=== PATIENT | male | born 1935 | race Caucasian/White ===

== ENCOUNTER → 2016-09-03 | Outpatient (REF) | payer MEDICARE, OTHER ==
[~2016-09-03] MED LIST: ALLO100T PO; AMLO5TAB2 PO; B COTAB3 PO; CARV12.5 PO; CARV3.12 PO; CARV6.25 PO; CHLO25TA PO; DORZ2OPD OU; FERR325T PO; INSULANT SC; LISI40TAB PO; LIVA4TAB PO; METF1000 PO; OMEP40CA2 PO; PIOG15TA3 PO; ROCE1INJ4 IJ; VICT18IN SC; VITA-121 PO
== END ==
LOC: M LAB REF 16:41
PROVIDERS: ATTEND Physician Assistant
DX: R31.9 Hematuria, unspecified (principal)

== ENCOUNTER → 2018-01-03 | Outpatient (REF) | payer MEDICARE, OTHER ==
[2018-01-03 14:19] LABS: FERRITIN 61 NG/ML (26-388); IRON (FE) 85 UG/DL (65-175); PERCENT SATURATION 22.3 % (19.7-50.0); TOTAL IRON BINDING CAPACITY 382 UG/DL (250-450)
== END ==
LOC: M LAB REF 13:15
DX: D64.9 Anemia, unspecified (principal)
CPT/HCPCS: 83550

== ENCOUNTER → 2018-07-01 | Outpatient (REF) | payer MEDICARE, OTHER | LOC: M SMT 17:01 | DX: R97.20 Elevated prostate specific antigen [PSA] (principal) | CPT/HCPCS: 87086 ==

== ENCOUNTER → 2018-10-19 | Outpatient (REF) | payer MEDICARE, OTHER ==
[~2018-10-19] MED LIST changes: -AMLO5TAB2 PO; +AMLO5TAB6 PO; +FERR1TAB8 PO; -FERR325T PO; -METF1000 PO; +METF10004 PO; -PIOG15TA3 PO; +PIOG1TAB36 PO; -ROCE1INJ4 IJ; +ROCE1INJ6 IJ
[2018-10-21 14:22] LABS: PSA % FREE 9.8 % (.); PSA FREE 0.39 ng/mL
== END ==
LOC: M LAB REF 17:20
PROVIDERS: ATTEND Nurse Practitioner Family
DX: R97.20 Elevated prostate specific antigen [PSA] (principal)

== ENCOUNTER 2019-06-29 16:22 | Inpatient (IN) | payer MEDICARE, BC, OTHER ==
[~2019-06-29] VITALS: Ht 190.5 cm; Wt 148.3 kg
[~2019-06-29 16:22] MED LIST changes: +CHLO125TA PO; -CHLO25TA PO; +LISI40TA52 PO; -LISI40TAB PO; -OMEP40CA2 PO; +OMEP40CA97 PO
[2019-06-29] MEDS ORDERED: TRAZ-252 PO (16:43)
[2019-06-29 17:07] LABS: BASO # 0.1 10^3/uL (0.0-0.2); BASO % 0.4 % (0.0-1.0); EOS # 0.2 10^3/uL (0.0-0.5); EOS % 1.8 % (0.0-3.0); HEMATOCRIT 22.6 % (42.0-52.0); HEMOGLOBIN 7.1 g/dl (13.5-17.5); LYMPH # 2.5 10^3/uL (1.5-5.0); LYMPH % 21.8 % (24.0-44.0); MEAN CORPUSCULAR HEMOGLOBIN 35.1 pg (27.0-33.0); MEAN CORPUSCULAR HGB CONC 31.4 g/dl (32.0-36.5); MEAN CORPUSCULAR VOLUME 111.9 fl (80.0-96.0); MONO # 0.7 10^3/uL (0.0-0.8); MONO % 6.5 % (0.0-5.0); NEUTROPHILS # 7.8 10^3/uL (1.5-8.5); NEUTROPHILS % 69.1 % (36.0-66.0); PLATELET COUNT, AUTOMATED 134 10^3/uL (150-450); RED BLOOD COUNT 2.02 10^6/uL (4.30-6.10); WHITE BLOOD COUNT 11.3 10^3/uL (4.0-10.0)
[2019-06-29 17:23] LABS: CALCIUM LEVEL 8.8 MG/DL (8.8-10.2); CREATININE FOR GFR 2.79 MG/DL (0.70-1.30); GLOMERULAR FILTRATION RATE 23.2 (>35)
[2019-06-29] MEDS ORDERED: PANTOPRAZOLE 40MG INJ (PROTONIX) (C9113) IV ONE (18:15)
[2019-06-29 18:29] LABS: PERCENT SATURATION 13.7 % (19.7-50.0)
[2019-06-29 18:49] VITALS: BP 165/70
[2019-06-29] MEDS ORDERED: ELIQ2.5T PO (18:55)
[2019-06-29] MEDS ORDERED: VITA-144 PO (18:55)
[2019-06-29] MEDS ORDERED: NICO250C PO (18:55)
[2019-06-29] MEDS ORDERED: INCR1INH INH (18:55)
[2019-06-29] MEDS ORDERED: COMB0.2S OU (18:55)
[2019-06-29] MEDS ORDERED: VYZU0.02 OU (18:55)
[2019-06-29] MEDS ORDERED: CARV12.5 PO (18:55)
[2019-06-29] MEDS ORDERED: PROAAER10 INH (18:55)
[2019-06-29] MEDS ORDERED: AMMO12LO TOP (18:55)
[2019-06-29] MEDS ORDERED: FURO40TA2 PO (18:55)
[2019-06-29] MEDS ORDERED: DIPR0.052 TOP (18:55)
[2019-06-29] MEDS ORDERED: CHLO25TA PO (18:55)
[2019-06-29] MEDS ORDERED: BACT800T5 PO (19:00)
[2019-06-29 19:04] VITALS: BP 149/64
[2019-06-29 19:49] VITALS: BP 138/65
[2019-06-29] MEDS ORDERED: traZODone 50 MG TAB PO PRN (20:30)
[2019-06-29] MEDS ORDERED: ALBUTEROL 90 MCG/ACT 8GM HFA INHALER INH PRN (20:30)
[2019-06-29] MEDS ORDERED: D5W/0.9% SODIUM CHLORIDE 1,000 ML IV SCH (20:30)
--- NOTE | 2019-06-29 20:44 | HPEPDOC ---
[facility] Medical History & Physical Date of Admission Jun 29, 2019 Date of Service: Jun 29, 2019 Attending Physician: YE ELLIOTT MD History and Physical CHIEF COMPLAINT: abnormal labs HISTORY OF PRESENT ILLNESS: Nilo Rodriguez is an 84-year-old male with past medical history chronic kidney disease IV, atrial fibrillation, diabetes who presented to the ED from nephrology clinic found to have low hemoglobin. The patient reports that over the past couple of months he has noticed increasing shortness of breath, weakness, muscle aches in his lower extremities with activity. He sometimes feels lightheaded and dizzy after breakfast in the mornings. He has not noticed any new black stools, but he is on supplemental iron and always has darker or black stools. He has not had any bright red blood per rectum nor any hemoptysis recently. He is currently on Eliquis for his atrial fibrillation. The patient is unable to remember his last colonoscopy, as it was several years ago, but he does not have any history of stomach ulcers or GI bleeds. PAST MEDICAL HISTORY: Septic arthritis- right knee Diabetes Hypertension Chronic kidney disease Atril fib History DVT GERD Vitamin D deficency Macular degernation Gout Obesity Hyperlipidemia BPH HX [place] PAST SURGICAL HISTORY: Right knee arthroscopy with I&D 07/2015 Right knee I&D 08/2015 Cataracts 2002 Melanoma removed left arm SOCIAL HISTORY: Former smoker, 2ppd, quit in 1999 FAMILY HISTORY: Father: , LYMPHOMA, HAD PROSTATE WORKED ON IN HIS EARLY 70S., diagnosed with Diabetes Mother: Siblings: SISTER: FROM BRAIN TUMOR, diagnosed with Diabetes Daughter(s): 1 DAUGHTER AT YOUNG AGE 1 brother(s) , 3 sister(s) . 2 son(s) , 2 daughter(s) . ALLERGIES: Please see below. REVIEW OF SYSTEMS: CONSTITUTIONAL: Feels well. No fever or chills HEENT: denies vision changes, no sinus problems, denies any trouble swallowing CARDIOVASCULAR: no palpitations RESPIRATORY: Reports increasing shortness of breath over the past few months with activity GENITOURINARY: No dysuria MUSCULOSKELETAL: Denies any joint/muscle pain GASTROINTESTINAL: Denies abdominal pain, no nausea/vomiting/diarrhea SKIN: No new rashes or lesions NEUROLOGICAL: No loss of sensation PSYCHIATRIC: Reports normal mood, no delusions or hallucinations ENDOCRINE: No hot/cold intolerance HEMATOLOGIC/LYMPHATIC: No easy bruising, no lumps/bumps ALLERGIC/IMMUNOLOGIC: No sinus symptoms HOME MEDICATIONS: Please see below. PHYSICAL EXAMINATION: VITAL SIGNS: Please see below. GENERAL APPEARANCE: Laying in bed, appears stated age, no acute distress, calm, cooperative HEENT: EOMI, PERRLA, neck is supple with no thyromegaly or lymphadenopathy RESPIRATORY: Lungs are clear to auscultation bilaterally with no adventitious breath sounds appreciated CARDIOVASCULAR: no JVD, RRR,no murmurs/rubs/gallops ABDOMEN: Soft, obese, nontender to palpation in all four quadrants, no masses/organomegaly EXTREMITIES: There is a chronic wound on left valdivia that is clean, dry and intact, legs are edematous bilaterally and there is evidence of vascular insufficiency. NEUROLOGICAL: No obvious focal deficits PSYCHIATRIC: normal mood/affect Skin: No rashes or ulcers. LN: No significant cervical or inguinal lymphadenopathy LABORATORY DATA: See below. IMAGING: None MICROBIOLOGY: Please see below. ASSESSMENT: This is an 84-year-old male with history of chronic kidney disease, diabetes, GERD, who presents to the ED from nephrology clinic found to have hemoglobin 7.1. He complains of some shortness of breath that has been worsening over the past few months. Found to have heme positive stools. Admitted for further workup for blood loss anemia. PLAN: 1. Acute blood loss anemia: -Unknown when patient had last colonoscopy -1 unit PRBCs ordered in the ED -Will recheck H/H in AM -GI consult in AM for possible EGD/colonoscopy -IV protonix -NPO for now -Holding Eliquis for now 2. Hypertension: BP 149/64 -Continue home Coreg, Chlorthalidone, Lasix -Holding amlodipine 3. Atrial Fibrillation: -Rate controlled -Holding Eliquis 2/2 GIB 4. DM2: -Continue home Levemir 70U BID -SSI for meals with hypoglycemic protocol 5. CKD IV: Cr found to be 2.79 with unknown baseline -Continue Allopurinol 6. Mood disorder: -Continue Trazodone DISPO: Pending transfusion and workup for GI Bleed Vital Signs Vital Signs Date Time Temp Pulse Resp B/P (MAP) Pulse Ox O2 Delivery O2 Flow Rate FiO2 06/29/19 19:04 96.7 79 20 149/64 98 Room Air Laboratory Data Labs 24H Laboratory Tests 2 06/29/19 16:44: Immature Granulocyte % (Auto) 0.4, Neutrophils (%) (Auto) 69.1H, Lymphocytes (%) (Auto) 21.8L, Monocytes (%) (Auto) 6.5H, Eosinophils (%) (Auto) 1.8, Basophils (%) (Auto) 0.4, Neutrophils # (Auto) 7.8, Lymphocytes # (Auto) 2.5, Monocytes # (Auto) 0.7, Eosinophils # (Auto) 0.2, Basophils # (Auto) 0.1, Reticulocyte # (auto) 192.0H, Nucleated Red Blood Cells % (auto) 0.0, Percent Reticulocyte Count 9.6H, Reticulocyte Hemoglobin Equivalent 31.2, Anion Gap 6L, Glomerular Filtration Rate 23.2L, Calcium Level 8.8, Iron Level 59L, Total Iron Binding Capacity 432, Transferrin % Saturation 13.7L, Ferritin 50, Vitamin B12 Level 947H CBC/BMP Laboratory Tests 06/29/19 16:44 Home Medications Scheduled Allopurinol (Allopurinol) 100 Mg Tab, 100 MG PO DAILY Amlodipine Besylate (Amlodipine Besylate) 5 Mg Tab, 5 MG PO DAILY Ammonium Lactate (Ammonium Lactate) 12% Lotion, 1 APPLIC TOP BID APPLIED TO FEET Apixaban (Eliquis) 2.5 Mg Tablet, 2.5 MG PO BID Brimonidine Tartrate/Timolol (Combigan 0.2%-0.5% Eye Drops) 5 Ml Drops, 1 DROP OU BID Carvedilol (Carvedilol) 12.5 Mg Tablet, 12.5 MG PO BID Chlorthalidone (Chlorthalidone) 25 Mg Tablet, 25 MG PO DAILY Cholecalciferol (Vitamin D3) (Vitamin D3) 1,000 Unit Tablet, 1,000 UNIT PO DAILY Ferrous Sulfate (Ferrous Sulfate) 325 Mg Tab, 325 MG PO DAILY Fluticasone/Umeclidin/Vilanter (Trelegy Ellipta 100-62.5-25) 1 Each Blst.w.dev, 1 PUFF INH DAILY Furosemide (Furosemide) 40 Mg Tablet, 40 MG PO TID Insulin Glargine (Lantus) 1 Units/0.01 Ml Susp, 70 UNITS SC BID Latanoprostene Bunod (Vyzulta) 0.024% 5ML Drops, 1 DROP OU QHS Niacin (Niacin) 250 Mg Capsule.er, 250 MG PO QPM Omeprazole (Omeprazole) 40 Mg Cap, 40 MG PO DAILY Sulfamethoxazole/Trimethoprim (Bactrim Ds Tablet) 1 Each Tablet, 1 TAB PO BID STARTED 10 DAYS ON 06/21 Vitamin B Complex (Vitamin B Complex) 1 Tab Tab, 1 TAB PO DAILY Scheduled PRN Albuterol Sulfate (Proair Hfa) 8.5 Gm Hfa.aer.ad, 2 PUFF INH Q4H PRN for SOB/WHEEZING Betamethasone/Propylene Glyc (Diprolene 0.05% Ointment) 15 Gm Oint...g., 1 APPLIC TOP BID PRN for DIABETIC ITCH Trazodone HCl (Trazodone HCl) 50 Mg Tablet, 50 MG PO QHS PRN for SLEEP Allergies Coded Allergies: latex (Verified Allergy, Unknown, 06/29/19) A-FIB/CHADSVASC A-FIB History Current/History of A-Fib/PAF?: Yes Current PO Anticoag Therapy: Yes GME ATTESTATION GME ATTESTATION My faculty preceptor for this patient encounter was physically present during the encounter and was fully available. All aspects of the patient interview, examination, medical decision making process, and medical care plan development were reviewed and approved by the faculty preceptor. The faculty preceptor is aware and concurs with the plan as stated in the body of this note and will attest to such by his/her cosignature. ATTENDING NOTE I examined Mr. Rodriguez at 8:20 PM, discussed the case with and agree the findings as documented above with addition of the following : Mr. 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 He denies having any symptoms. His physical exam was remarkable for facial spider angiomata, left lower extremity wound, and bilateral lower extremity eating edema up to the knees A&P: 1. Acute blood loss anemia The differential includes: diverticulosis, angiodysplasia's (most common cause of small-bowel bleeding in older patients), AVM, polyps, colorectal cancer, hemorrhoids, or anal fissure He received 1 unit of PRBS in the ED. Iron panel c/w KATIUSKA The [place] score to predict risk of readmission for GI bleed = 24 points = 20- 28 % Probability of safe discharge (absence of rebleeding, blood transfusion, therapeutic intervention, 28 day readmission, or ). Discharge NOT recommended Plan: admit to PCU / NPO w D5NS @ 30ml/H / GI consult for c-scope / f/u serial Hg Q12H/ venofer x 3 doses / hold PO iron 2. KEERTHI and CKD3 vs CKD 4 - Plan: IVF/ f/u ulytes, PTH, phosph, Vit D, hepatitis panel, uric acid, UPro:Cr, UA w ultes / Renal US / avoid nephrotoxins such as NSAIDs, ACEIs, ARBs 3. COPD - Plan: c/w albuterol & incruse ellipta 4. Left lower extremity wound 2/2 trauma - Plan: wound care / c/w bactrim 5. IDDM -Plan: f/u A1C and accuchecks / give half dose of long acting insulin which is levemir 35 units BID while he is NPO w SSI / hypoglycemia protocol 6. Atrial fibrillation - Plan: hold eliquis bc of GI bleed 7. Chronic hypertension - Plan: c/w amlodpine, coreg and chlorthalidone 8. History of DVT - Plan: hold eliquis 9. Gout - Plan: c/w allopurinol 10. Chronic CAD / Dyslipidemia - Plan: c/w coreg 11. Thrombocytopenia - Plan: f/u Hep panel 12. BLE edema possibly due to CKD vs CHF ? - Plan: c/w lasix, f/u BNP / elevate legs 13.Obesity w BMI of 41.3 kg/m2 complicates care - Plan: bariatric bed / can f/u w PCP for STOP BANG questionnaire boat hop consult & referral for Bariatric Surgeon / recommend cardiovascular exercise for 40 min 4-5 days a week DVT Px w SCDs bc of acute anemia ONI AYALA MD Jun 29, 2019 19:35 YE ELLIOTT MD Jun 29, 2019 22:00
[2019-06-29] MEDS ORDERED: DEXTROSE 50% 50 ML SYRINGE IV PRN (20:45)
[2019-06-29] MEDS ORDERED: GLUCOSE 4 GM CHEW TABLET PO PRN (20:45)
[2019-06-29] MEDS ORDERED: GLUCAGON FOR INJ 1 MG VIAL (J1610) SC PRN (20:45)
[2019-06-29 20:49] VITALS: BP 140/60
[2019-06-29] MEDS ORDERED: LEVEMIR (INSULIN DETEMIR) 1 UNITS/0.01ML SC SCH (21:00)
[2019-06-29] MEDS: LEVEMIR (INSULIN DETEMIR) 1 UNITS/0.01ML SC SCH (21:00)
[2019-06-29] MEDS ORDERED: IRON SUCROSE 100MG 5ML VIAL (J1756 PER 1MG) IV SCH (21:00)
[2019-06-29] MEDS: HumaLOG INSULIN (NovoLOG) PER UNIT SC SCH (21:00)
[2019-06-29 21:49] LABS: ALBUMIN 3.3 GM/DL (3.2-5.2); BILIRUBIN,DIRECT 0.2 MG/DL (0.0-0.2); BILIRUBIN,TOTAL 0.6 MG/DL (0.2-1.0); TOTAL PROTEIN 7.5 GM/DL (6.4-8.2)
[2019-06-29 22:00] VITALS: BP 139/67
[2019-06-29] MEDS ORDERED: D5W/0.9% SODIUM CHLORIDE 1,000 ML IV ONE (22:30)
[2019-06-29] MEDS: LACTIC ACID 12% LOTION 225 GM BTL TOP SCH (23:47)
[2019-06-29] MEDS: FUROSEMIDE 40 MG TAB PO SCH (23:47)
[2019-06-29] MEDS: BACTRIM 80MG/400MG TAB PO SCH (23:48)
[2019-06-29] MEDS: NIACIN 250MG EXTENDED RELEASE CAPSULE PO SCH (23:48)
[2019-06-29] MEDS: CARVedilol 12.5 MG TAB PO SCH (23:48)
[2019-06-30] VITALS (15 sets, daily range): BP systolic 86–165; BP diastolic 42–85
[2019-06-30 00:08] LABS: HEMATOCRIT 25.1 % (42.0-52.0); HEMOGLOBIN 7.7 g/dl (13.5-17.5)
[2019-06-30 00:13] LABS: NT-PRO BNP 2483 PG/ML (<450); PHOSPHORUS LEVEL 3.4 MG/DL (2.5-4.9); URIC ACID 11.2 MG/DL (3.5-7.2)
[2019-06-30 00:33] LABS: APPEARANCE, URINE CLEAR (CLEAR); BACTERIA, URINE AUTO NEGATIVE (NEGATIVE); BILIRUBIN, URINE AUTO NEGATIVE (NEGATIVE); BLOOD, URINE BLOOD NEGATIVE (NEGATIVE); COLOR, URINE YELLOW (YELLOW); GLUCOSE, URINE (UA) AUTO NEGATIVE (NEGATIVE); KETONE, URINE AUTO NEGATIVE (NEGATIVE); LEUKOCYTE ESTERASE, URINE AUTO NEGATIVE (NEGATIVE); NITRITE, URINE AUTO NEGATIVE (NEGATIVE); PROTEIN, URINE AUTO NEGATIVE (NEGATIVE); RBC, URINE AUTO 0 /HPF (0-3); SPECIFIC GRAVITY URINE AUTO 1.012 (1.002-1.035); SQUAMOUS EPITHELIAL CELL UR AU 0 /HPF (0-6); UROBILINOGEN, URINE AUTO 0.2 mg/dL (0.0-2.0); WBC, URINE AUTO 1 /HPF (0-3)
[2019-06-30 00:48] LABS: CREATININE,RANDOM URINE 67.9 MG/DL; SODIUM,RANDOM URINE 71 MEQ/L; TOTAL PROTEIN,RANDOM URINE 17.7 MG/DL (0.0-12.0)
[2019-06-30] MEDS: IRON SUCROSE 100MG 5ML VIAL (J1756 PER 1MG) IV SCH ×2 (01:15→22:52)
[2019-06-30 04:26] LABS: HEMATOCRIT 23.7 % (42.0-52.0); HEMOGLOBIN 7.6 g/dl (13.5-17.5); MEAN CORPUSCULAR HEMOGLOBIN 34.9 pg (27.0-33.0); MEAN CORPUSCULAR HGB CONC 32.1 g/dl (32.0-36.5); MEAN CORPUSCULAR VOLUME 108.7 fl (80.0-96.0); PLATELET COUNT, AUTOMATED 118 10^3/uL (150-450); RED BLOOD COUNT 2.18 10^6/uL (4.30-6.10); WHITE BLOOD COUNT 10.1 10^3/uL (4.0-10.0)
[2019-06-30 04:51] LABS: CREATININE FOR GFR 2.56 MG/DL (0.70-1.30); GLOMERULAR FILTRATION RATE 25.7 (>35); POTASSIUM SERUM 3.3 MEQ/L (3.5-5.1)
[2019-06-30 04:52] LABS: BILIRUBIN,TOTAL 0.8 MG/DL (0.2-1.0); CALCIUM LEVEL 8.4 MG/DL (8.8-10.2); TOTAL PROTEIN 6.8 GM/DL (6.4-8.2)
[2019-06-30] MEDS: HumaLOG INSULIN (NovoLOG) PER UNIT SC SCH ×4 (07:30→21:00)
[2019-06-30] MEDS: LACTIC ACID 12% LOTION 225 GM BTL TOP SCH ×2 (09:00→22:23)
[2019-06-30] MEDS ORDERED: ENOXAPARIN 30 MG/0.3 ML SYR (J1650) SC SCH (09:00)
[2019-06-30] MEDS ORDERED: FERROUS SULFATE 325MG TAB PO SCH (09:00)
[2019-06-30] MEDS ORDERED: BETAMETHASONE DIP 0.05% OINT 15 GM TOP PRN (09:00)
[2019-06-30] MEDS: COMBIGAN OU SCH ×2 (09:00→21:48)
[2019-06-30] MEDS: TRELEGY ELLIPTA INH SCH (09:00)
[2019-06-30] MEDS: EYE OU SCH ×3 (09:00→21:48)
[2019-06-30] MEDS ORDERED: amLODIPine 5 MG TAB PO SCH (09:00)
--- NOTE | 2019-06-30 09:17 | REP ---
URINARY TRACT SONOGRAPHY: HISTORY: Acute renal insufficiency. Comparison sonography is from March 12, 2011. FINDINGS: Scanning at the level of the urinary bladder shows that it is largely empty. Not well seen. Renal cortical echogenicity pattern is felt to be slightly increased. There is no evidence of hydronephrosis on either side. There is a 1.9 cm cyst at the mid pole position of the right kidney and there are three small cysts visible on the left including a 3.7 cm cyst at the lower pole and two mid pole cysts measuring 2.6 and 2.0 cm in greatest diameter respectively. There is an echogenic focus in the lower pole right kidney which may be a stone. Right renal dimensions are 12.4 x 6.5 x 6.6 cm. Left renal dimensions are 13.3 x 6.3 x 7.2 cm. IMPRESSION: Slightly increased renal cortical echogenicity pattern. No evidence of hydronephrosis. Bilateral renal cysts. Question stone lower pole right kidney. Electronically Signed by Checo Huber MD 06/30/2019 10:07 A
[2019-06-30] MEDS: VITAMIN D 1,000 INTERNATIONAL UNITS TABLET PO SCH (09:49)
[2019-06-30] MEDS: ALLOPURINOL 100 MG TAB PO SCH (09:50)
[2019-06-30] MEDS: BACTRIM 80MG/400MG TAB PO SCH ×2 (09:50→21:45)
[2019-06-30] MEDS: CHLORTHALIDONE 25 MG TAB PO SCH (09:50)
[2019-06-30] MEDS: CARVedilol 12.5 MG TAB PO SCH ×2 (09:50→21:46)
[2019-06-30] MEDS: FUROSEMIDE 40 MG TAB PO SCH ×3 (09:50→21:45)
[2019-06-30] MEDS: LEVEMIR (INSULIN DETEMIR) 1 UNITS/0.01ML SC SCH ×2 (09:51→21:00)
[2019-06-30 10:08] LABS: TOTAL 25(OH) VITAMIN D 53.6 NG/ML (30.0-100.0)
[2019-06-30 10:09] LABS: PTH INTACT 38.6 PG/ML (18.5-88.0)
[2019-06-30 10:21] LABS: HEPATITIS B SURFACE ANTIGEN NEGATIVE (NEGATIVE)
--- NOTE | 2019-06-30 10:39 | IPNPDOC ---
Subjective Date Seen The patient was seen on 06/30/19. Subjective Chief Complaint/HPI Patient is comfortable in no distress of unknown, he complains General: Denies: ROS Unobtainable, Chills, Night Sweats, Fatigue, Malaise, Normal Appetite, Other Symptoms Constitutional: Denies: Chills, Fever, Malaise, Night Sweats, Weakness, Fatigue, Weight Loss, Lethargy, Other Eyes: Denies: Pain, Vision change, Conjunctivae inflammation, Eyelid inflammation, Redness, Other ENT: Denies: Head Aches, Ear Pain, Dysphagia, Sinus Congestion, Post Nasal Drip , Sore Throat, Epistaxis, Other Symptoms Skin: Denies: Rash, Lesions, Jaundice, Bruising, Itching, Dry, Breakdown, Nail Changes, Other Pulmonary: Denies: Dyspnea, Cough, Pleuritic Chest Pain, Other Symptoms Gastrointestinal: Reports: Other Symptoms (dark stools) Genitourinary: Denies: Dysuria, Frequency, Incontinence, Hematuria, Retention, Other Symptoms Musculoskeletal: Denies: Neck Pain, Back Pain, Shoulder Pain, Arm Pain, Hand Pain, Leg Pain, Foot Pain, Joint Pain, Muscle Pain, Spasms, Other Symptoms Neurological: Denies: Weakness, Numbness, Incoordination, Change in speech, Confusion, Seizures, Other Symptoms Objective Physical Examination General Exam: Positive: Alert, Cooperative Eye Exam: Positive: PERRLA, Conjunctiva & lids normal ENT Exam: Positive: Atraumatic Neck Exam: Positive: Supple Chest Exam: Positive: Clear to auscultation, Normal air movement Heart Exam: Positive: Rate Normal, Normal S1, Normal S2 Abdomen Exam: Positive: Normal bowel sounds Extremity Exam: Positive: Normal pulses Skin Exam: Positive: Nl turgor and temperature Neuro Exam: Positive: Strength at 5/5 X4 ext, Sensation Intact Assessment /Plan Problems (1) Acute blood loss anemia Status: Acute Problem Text: Acute blood loss anemia most likely etiology is probably upper GI bleed as patient is a stool occult blood positive. Study of dark stools Pt is H&H is 7.6/23.7 after transfusion of one more 1 unit of PRBC We will repeat H&H again this afternoon. If is still under 8. We'll transfuse 1 more unit of PRBC Patient has been started on Protonix and will continue the same GI consult has been requested and will await their recommendation (2) Upper GI bleed Status: Acute Problem Text: Most likely upper GI bleed As patient was, anticoagulation with Eliquis which has been stopped Continue Protonix as per orders ER consult pending (3) Atrial fibrillation Status: Acute Problem Text: History of atrial fibrillation with controlled] Anticoagulation with Eliquis has been stopped secondary to active GI bleed Continue telemetry and close monitoring (4) CKD (chronic kidney disease), stage III Status: Chronic Problem Text: Stable renal functions We'll continue monitoring BUN/creatinine (5) Morbid obesity Status: Chronic (6) Hypertension Status: Chronic Problem Text: Continue home meds (7) Thrombocytopenia Status: Acute Problem Text: Not sure whether thrombocytopenias acute on chronic Etiology is unknown , We'll closely monitor and transfuse as needed (8) Elevated MCV Status: Chronic Problem Text: Elevated MCV, probably chronic , Etiology unknown, denies alcohol abuse Will order vitamin B12 and folic acid levels (9) Hypokalemia Status: Acute Problem Text: KCl 10 milliequivalents run 2 A.m. labs Plan/VTE VTE Prophylaxis Ordered?: Yes VS, I&O, 24H, Fishbone Vital Signs/I&O Vital Signs Date Time Temp Pulse Resp B/P (MAP) Pulse Ox O2 Delivery O2 Flow Rate FiO2 06/30/19 09:50 83 130/68 06/30/19 07:28 98.1 18 98 Room Air I&O- Last 24 Hours up to 6 AM 06/30/19 06:00 Intake Total 1636 ml Output Total 1265 ml Balance 371 ml Laboratory Data 24H LABS Laboratory Tests 2 06/29/19 16:44: Immature Granulocyte % (Auto) 0.4, Neutrophils (%) (Auto) 69.1H, Lymphocytes (%) (Auto) 21.8L, Monocytes (%) (Auto) 6.5H, Eosinophils (%) (Auto) 1.8, Basophils (%) (Auto) 0.4, Neutrophils # (Auto) 7.8, Lymphocytes # (Auto) 2.5, Monocytes # (Auto) 0.7, Eosinophils # (Auto) 0.2, Basophils # (Auto) 0.1, Reticulocyte # (auto) 192.0H, Nucleated Red Blood Cells % (auto) 0.0, Percent Reticulocyte Count 9.6H, Reticulocyte Hemoglobin Equivalent 31.2, Anion Gap 6L, Glomerular Filtration Rate 23.2L, Calcium Level 8.8, Iron Level 59L, Total Iron Binding Capacity 432, Transferrin % Saturation 13.7L, Ferritin 50, Total Bilirubin 0.6, Direct Bilirubin 0.2, Aspartate Amino Transf (AST/SGOT) 14, Alanine Aminotransferase (ALT/SGPT) 20, Alkaline Phosphatase 78, Total Protein 7.5, Albumin 3.3, Albumin/Globulin Ratio 0.79L, Vitamin B12 Level 947H 06/29/19 20:22: Bedside Glucose (Misc Panel) 80L 06/29/19 23:29: Bedside Glucose (Misc Panel) 112H 06/29/19 23:34: Uric Acid 11.2H, Phosphorus Level 3.4, BJ-[id number]-Type Natriuretic Peptide 2483H, 25-Hydroxy Vitamin D Total 53.6, Parathyroid Hormone (Intact) 38.6, Hepatitis B Surface Antigen NEGATIVE 06/29/19 23:50: Urine Color YELLOW, Urine Appearance CLEAR, Urine pH 7.0, Urine Specific [place] 1.012, Urine Protein NEGATIVE, Urine Glucose (Auto)(UA) NEGATIVE, Urine Ketones (Auto) NEGATIVE, Urine Blood NEGATIVE, Urine Nitrite NEGATIVE, Urine Bilirubin NEGATIVE, Urine Urobilinogen 0.2, Urine Leukocyte Esterase (Auto) NEGATIVE, Urine WBC (Auto) 1, Urine RBC (Auto) 0, Urine Hyaline Casts (Auto) 0, Urine Bacteria (Auto) NEGATIVE, Urine Squamous Epithelial Cells 0, Urine Sperm (Auto) , Urine Random Creatinine 67.9, Urine Random Total Protein 17.7H, Urine Random Sodium 71 06/30/19 03:59: Nucleated Red Blood Cells % (auto) 0.0, Anion Gap 8, Glomerular Filtration Rate 25.7L, Calcium Level 8.4L, Total Bilirubin 0.8, Aspartate Amino Transf (AST/SGOT) 16, Alanine Aminotransferase (ALT/SGPT) 18, Alkaline Phosphatase 69, Total Protein 6.8, Albumin 3.0L, Albumin/Globulin Ratio 0.79L 06/30/19 06:42: Bedside Glucose (Misc Panel) 130H CBC/BMP Laboratory Tests 06/29/19 16:44 06/29/19 23:34 06/30/19 03:59 NIKOS EVANS MD Jun 30, 2019 10:39
[2019-06-30 10:47] LABS: HEPATITIS B CORE ANTIBODY IGM NEGATIVE (NEGATIVE)
[2019-06-30 10:49] LABS: HEPATITIS A ANTIBODY IGM NEGATIVE (NEGATIVE)
[2019-06-30] MEDS: KCL 10MEQ/100ML SWI (KRUN) 10 MEQ in IV 1 EA IV SCH ×2 (11:16→12:21)
[2019-06-30] MEDS ORDERED: TREL1AER INH (13:16)
[2019-06-30 17:16] LABS: BASO % 0.3 % (0.0-1.0); EOS # 0.2 10^3/uL (0.0-0.5); EOS % 2.1 % (0.0-3.0); HEMATOCRIT 25.8 % (42.0-52.0); HEMOGLOBIN 8.4 g/dl (13.5-17.5); LYMPH # 2.4 10^3/uL (1.5-5.0); LYMPH % 24.7 % (24.0-44.0); MEAN CORPUSCULAR HEMOGLOBIN 34.6 pg (27.0-33.0); MEAN CORPUSCULAR HGB CONC 32.6 g/dl (32.0-36.5); MEAN CORPUSCULAR VOLUME 106.2 fl (80.0-96.0); MONO # 0.7 10^3/uL (0.0-0.8); MONO % 7.1 % (0.0-5.0); NEUTROPHILS # 6.4 10^3/uL (1.5-8.5); NEUTROPHILS % 65.3 % (36.0-66.0); PLATELET COUNT, AUTOMATED 131 10^3/uL (150-450); RED BLOOD COUNT 2.43 10^6/uL (4.30-6.10); WHITE BLOOD COUNT 9.8 10^3/uL (4.0-10.0)
[2019-06-30] MEDS: NIACIN 250MG EXTENDED RELEASE CAPSULE PO SCH (17:21)
[2019-06-30] MEDS: VYZULTA 0.024% OU SCH (21:48)
[2019-06-30] MEDS ORDERED: LEVEMIR (INSULIN DETEMIR) 1 UNITS/0.01ML SC SCH (22:15)
[2019-07-01] VITALS: BP 122/58
[2019-07-01 04:00] VITALS: BP 157/65
[2019-07-01 06:04] LABS: BASO % 0.3 % (0.0-1.0); EOS # 0.3 10^3/uL (0.0-0.5); EOS % 2.8 % (0.0-3.0); HEMATOCRIT 26.3 % (42.0-52.0); HEMOGLOBIN 8.6 g/dl (13.5-17.5); LYMPH # 2.5 10^3/uL (1.5-5.0); LYMPH % 25.2 % (24.0-44.0); MEAN CORPUSCULAR HEMOGLOBIN 35.1 pg (27.0-33.0); MEAN CORPUSCULAR HGB CONC 32.7 g/dl (32.0-36.5); MEAN CORPUSCULAR VOLUME 107.3 fl (80.0-96.0); MONO # 0.8 10^3/uL (0.0-0.8); MONO % 8.1 % (0.0-5.0); NEUTROPHILS # 6.2 10^3/uL (1.5-8.5); NEUTROPHILS % 63.2 % (36.0-66.0); PLATELET COUNT, AUTOMATED 120 10^3/uL (150-450); RED BLOOD COUNT 2.45 10^6/uL (4.30-6.10); WHITE BLOOD COUNT 9.8 10^3/uL (4.0-10.0)
[2019-07-01 06:36] LABS: BILIRUBIN,TOTAL 0.7 MG/DL (0.2-1.0); CALCIUM LEVEL 8.7 MG/DL (8.8-10.2); CREATININE FOR GFR 2.34 MG/DL (0.70-1.30); GLOMERULAR FILTRATION RATE 28.5 (>35); MAGNESIUM LEVEL 1.9 MG/DL (1.8-2.4); POTASSIUM SERUM 3.3 MEQ/L (3.5-5.1); TOTAL PROTEIN 7.3 GM/DL (6.4-8.2)
[2019-07-01] MEDS ORDERED: POTASSIUM CHLORIDE 10 MEQ SR TABLET PO ONE (07:30)
[2019-07-01 08:00] VITALS: BP 138/63
[2019-07-01] MEDS: VITAMIN D 1,000 INTERNATIONAL UNITS TABLET PO SCH (08:56)
[2019-07-01] MEDS: ALLOPURINOL 100 MG TAB PO SCH (08:56)
[2019-07-01] MEDS: HumaLOG INSULIN (NovoLOG) PER UNIT SC SCH ×4 (08:56→20:58)
[2019-07-01] MEDS: FUROSEMIDE 40 MG TAB PO SCH ×3 (08:56→21:27)
[2019-07-01] MEDS: CHLORTHALIDONE 25 MG TAB PO SCH (08:56)
[2019-07-01] MEDS: LEVEMIR (INSULIN DETEMIR) 1 UNITS/0.01ML SC SCH ×2 (08:57→21:36)
[2019-07-01] MEDS: BACTRIM 80MG/400MG TAB PO SCH ×2 (08:57→21:26)
[2019-07-01] MEDS: CARVedilol 12.5 MG TAB PO SCH ×2 (08:57→21:30)
[2019-07-01] MEDS ORDERED: FLUBLOK(EGG FREE)(QUAD)INFLUENZA VACC 0.5ML SYRINGE (90682)18YRS&OLDER IM ONE (09:00)
[2019-07-01] MEDS: EYE OU SCH ×3 (09:17→21:31)
[2019-07-01] MEDS: COMBIGAN OU SCH ×2 (09:17→21:31)
[2019-07-01] MEDS: TRELEGY ELLIPTA INH SCH (09:17)
[2019-07-01] MEDS: LACTIC ACID 12% LOTION 225 GM BTL TOP SCH ×2 (09:17→21:31)
--- NOTE | 2019-07-01 09:43 | IPNPDOC ---
Subjective Date Seen The patient was seen on 07/01/19. Subjective Chief Complaint/HPI Patient comfortable offers no new complaints at the present time. Still has some dark stools General: Denies: ROS Unobtainable, Chills, Night Sweats, Fatigue, Malaise, Normal Appetite, Other Symptoms Skin: Denies: Rash, Lesions, Jaundice, Bruising, Itching, Dry, Breakdown, Nail Changes, Other Pulmonary: Denies: Dyspnea, Cough, Pleuritic Chest Pain, Other Symptoms Cardiovascular: Denies: Chest Pain, Palpitations, Orthopnea, Paroxysmal Noc. Dyspnea, Edema, Lt Headedness, Other Symptoms Gastrointestinal: Reports: Melena Musculoskeletal: Denies: Neck Pain, Back Pain, Shoulder Pain, Arm Pain, Hand Pain, Leg Pain, Foot Pain, Joint Pain, Muscle Pain, Spasms, Other Symptoms Neurological: Denies: Weakness, Numbness, Incoordination, Change in speech, Confusion, Seizures, Other Symptoms Objective Physical Examination Eye Exam: Positive: PERRLA, Conjunctiva & lids normal ENT Exam: Positive: Atraumatic Neck Exam: Positive: Supple Chest Exam: Positive: Clear to auscultation, Normal air movement Heart Exam: Positive: Rate Normal, Normal S1, Normal S2 Abdomen Exam: Positive: Normal bowel sounds Extremity Exam: Positive: Normal pulses Skin Exam: Positive: Nl turgor and temperature Neuro Exam: Positive: Strength at 5/5 X4 ext, Sensation Intact Assessment /Plan Problems (1) Acute blood loss anemia Status: Acute Problem Text: Acute blood loss anemia most likely etiology is probably upper GI bleed as patient is a stool occult blood positive. Study of dark stools Patient is H&H is 8.6 and 26.3 Patient most likely will be scheduled for EGD and colonoscopy after the weekend Continue monitoring H&H and clinical status (2) Upper GI bleed Status: Acute Problem Text: Most likely upper GI bleed As patient was, anticoagulation with Eliquis which has been stopped Continue Protonix as per orders ER consult pending (3) Atrial fibrillation Status: Acute Problem Text: History of atrial fibrillation with controlled] Anticoagulation with Eliquis has been stopped secondary to active GI bleed Continue telemetry and close monitoring (4) CKD (chronic kidney disease), stage III Status: Chronic Problem Text: Stable renal functions We'll continue monitoring BUN/creatinine (5) Morbid obesity Status: Chronic (6) Hypertension Status: Chronic Problem Text: Continue home meds (7) Thrombocytopenia Status: Acute Problem Text: Not sure whether thrombocytopenias acute on chronic Etiology is unknown , Platelet count is 120,000 today (8) Elevated MCV Status: Chronic Problem Text: Elevated MCV, probably chronic , Etiology unknown, pt denies alcohol abuse Will order vitamin B12 and folic acid levels (9) Hypokalemia Status: Acute Problem Text: Potassium supplement provided again . Labs in a.m. Plan/VTE VTE Prophylaxis Ordered?: Yes VS, I&O, 24H, Fishbone Vital Signs/I&O Vital Signs Date Time Temp Pulse Resp B/P (MAP) Pulse Ox O2 Delivery O2 Flow Rate FiO2 07/01/19 08:00 97.9 73 18 138/63 (88) 98 Room Air I&O- Last 24 Hours up to 6 AM 07/01/19 05:59 Intake Total 3165 ml Output Total 6215 ml Balance -3050 ml Laboratory Data 24H LABS Laboratory Tests 2 06/30/19 12:14: Bedside Glucose (Misc Panel) 193H 06/30/19 16:38: Immature Granulocyte % (Auto) 0.5, Neutrophils (%) (Auto) 65.3, Lymphocytes (%) (Auto) 24.7, Monocytes (%) (Auto) 7.1H, Eosinophils (%) (Auto) 2.1, Basophils (%) (Auto) 0.3, Neutrophils # (Auto) 6.4, Lymphocytes # (Auto) 2.4, Monocytes # (Auto) 0.7, Eosinophils # (Auto) 0.2, Basophils # (Auto) 0.0, Nucleated Red Blood Cells % (auto) 0.0 06/30/19 16:40: Bedside Glucose (Misc Panel) 175H 06/30/19 20:46: Bedside Glucose (Misc Panel) 117H 07/01/19 05:51: Immature Granulocyte % (Auto) 0.4, Neutrophils (%) (Auto) 63.2, Lymphocytes (%) (Auto) 25.2, Monocytes (%) (Auto) 8.1H, Eosinophils (%) (Auto) 2.8, Basophils (%) (Auto) 0.3, Neutrophils # (Auto) 6.2, Lymphocytes # (Auto) 2.5, Monocytes # (Auto) 0.8, Eosinophils # (Auto) 0.3, Basophils # (Auto) 0.0, Nucleated Red Blood Cells % (auto) 0.0, Anion Gap 6L, Glomerular Filtration Rate 28.5L, Calcium Level 8.7L, Magnesium Level 1.9, Total Bilirubin 0.7, Aspartate Amino Transf (AST/SGOT) 15, Alanine Aminotransferase (ALT/SGPT) 22, Alkaline Phosphatase 75, Total Protein 7.3, Albumin 3.0L, Albumin/Globulin Ratio 0.70L CBC/BMP Laboratory Tests 06/30/19 11:31 06/30/19 16:38 07/01/19 05:51 NIKOS EVANS MD Jul 01, 2019 09:43
--- NOTE | 2019-07-01 12:21 | CR.PDOC ---
General Date of Consultation: Jun 30, 2019 Referring Provider: NIKOS EVANS MD Attending Physician: BERNARDINO YOUSIF MD Consultation Primary physician/ hospitalist: Dr. Cadet. Reason for consult: Symptomatic anemia. HPI: 84-year-old male patient with HTN, DM type II, obesity (BMI 40), HLD, CKD, atrial fibrillation on Eliquis ( last dose , 06/29/2019), was sent to ER from nephrology clinic for severe anemia. Patient reports having increasing shortness of breath, weakness, lightheaded and dizziness for the past couple of months. Patient reports having dark stools for a while which he attributes to taking iron pills and his stools have always been formed/hard stools. Patient denies any bright red blood per rectum. Pertinent negative GI symptoms: Patient denies nausea, vomiting, diarrhea, abdominal pain, loss of appetite, early satiety or unintentional weight loss. No history of hematemesis, hematochezia. Patient reports regular bowel movements. Review of Systems: GI: as stated above CVS: No chest pain, No palpitations, No leg swelling. RS: No Shortness of breath, No Wheezing, no cough PACKING ATTENDANT: Generalized weakness, lightheadedness. No sensory problems Hematology: No bruising, No gum bleeding, Musculoskeletal: No joint pain, ambulating well. Skin: No rash : No hematuria, No burning sensation of the urine ENT: No ear discharge/ pain, No dysphagia. Eyes: No photophobia. Home medications: reviewed. Antithrombotic agents -on Eliquis Medical h/o: As above. Surgical h/o: None on abdomen. Social h/o: Alcohol-denies, tobacco-former smoker, quit in 1999, IVDA/ drugs- denies. Family h/o of GI cancers -none Prior Endoscopies: --- EGD -does not remember having one. --- Colonoscopy -patient recalls having colonoscopy many years ago - none in [facility]. Prior GI evaluation: None in [facility] Exam: Vitals: reviewed General: Alert and oriented x 3, not in distress HEENT: NO pallor, no icterus. Normal oropharynx, NO cervical lymph nodes. Chest: symmetric with bilateral clear air entry, CVS: S1, S2 heard, normal, no murmurs . Abdomen: non-distended, no surgical scars, soft, non-tender, no palpable masses, normal bowel sounds heard. Rectal exam: Patient refused / Deferred at this time in view of scheduled colonoscopy. Extremities: no pedal edema, pulses palpable. PACKING ATTENDANT: no focal motor or sensory deficits. Moves all extremities Skin: no rash. Labs: reviewed. Initial H/H -- 7.1/22.6. BUN/CR --55 / 2.79 Impression: - Symptomatic anemia, without any overt active external GI bleeding, in a patient taking anticoagulation for atrial fibrillation -- likely chronic Gi blood loss. DDx-- Colon polyps vs AVMs vs PUD vs less likely Colon cancer. - CKD stage 4 ( Cr- 2.3- 2.7, with eGFR - <30) Recommendations: - Patient educated about the test results, possible differential diagnoses and All questions answered. - Monitor H/H and transfuse as needed to keep hemoglobin around 8gm/dL. - Continue Oral PPI - daily for now. - Agree with holding eliquis at this time. patient is educated about the risks and benefits of this. - Will schedule for EGD and Colonoscopy for further evaluation of the cause of GI blood loss after holding Eliquis for 4 days ( due to CKD). - The procedures, indications, risks (bleeding, perforation, infection, hypotension, respiratory depression, allergy, need for endotracheal intubation, surgery, colostomy, cardiac arrest, even ), benefits, limitations (e.g., missing a lesion), and all other alternatives (including no intervention) were explained to the patient who understood and agreed for the procedures. - Patient to have regular diet till Wednesday, then to start on Clear liquid diet on Wednesday. and NPO after 8 AM on Wednesday. - Patient is schedule for EGD and Colonoscopy on Wednesday. - bowel prep orders placed. - Please follow up procedure/operative notes for post procedure recommendations Plan of care discussed with patient and primary team. Patient verbalized under standing and agreed with the plan. Vital Signs/I&O Vital Signs Date Time Temp Pulse Resp B/P (MAP) Pulse Ox O2 Delivery O2 Flow Rate FiO2 07/01/19 08:00 97.9 73 18 138/63 (88) 98 Room Air I&O- Last 24 Hours up to 6 AM 07/01/19 05:59 Intake Total 3165 ml Output Total 6215 ml Balance -3050 ml Laboratory Data Labs 24H Laboratory Tests 2 06/30/19 16:38: Immature Granulocyte % (Auto) 0.5, Neutrophils (%) (Auto) 65.3, Lymphocytes (%) (Auto) 24.7, Monocytes (%) (Auto) 7.1H, Eosinophils (%) (Auto) 2.1, Basophils (%) (Auto) 0.3, Neutrophils # (Auto) 6.4, Lymphocytes # (Auto) 2.4, Monocytes # (Auto) 0.7, Eosinophils # (Auto) 0.2, Basophils # (Auto) 0.0, Nucleated Red Blood Cells % (auto) 0.0 06/30/19 16:40: Bedside Glucose (Misc Panel) 175H 06/30/19 20:46: Bedside Glucose (Misc Panel) 117H 07/01/19 05:51: Immature Granulocyte % (Auto) 0.4, Neutrophils (%) (Auto) 63.2, Lymphocytes (%) (Auto) 25.2, Monocytes (%) (Auto) 8.1H, Eosinophils (%) (Auto) 2.8, Basophils (%) (Auto) 0.3, Neutrophils # (Auto) 6.2, Lymphocytes # (Auto) 2.5, Monocytes # (Auto) 0.8, Eosinophils # (Auto) 0.3, Basophils # (Auto) 0.0, Nucleated Red Blood Cells % (auto) 0.0, Anion Gap 6L, Glomerular Filtration Rate 28.5L, Calcium Level 8.7L, Magnesium Level 1.9, Total Bilirubin 0.7, Aspartate Amino Transf (AST/SGOT) 15, Alanine Aminotransferase (ALT/SGPT) 22, Alkaline Phosphatase 75, Total Protein 7.3, Albumin 3.0L, Albumin/Globulin Ratio 0.70L 07/01/19 11:55: Bedside Glucose (Misc Panel) 213H CBC/BMP Laboratory Tests 06/30/19 16:38 07/01/19 05:51 Allergies Coded Allergies: latex (Verified Allergy, Unknown, 06/29/19) Home Medications Scheduled Allopurinol (Allopurinol) 100 Mg Tab, 100 MG PO DAILY, (Reported) Amlodipine Besylate (Amlodipine Besylate) 5 Mg Tab, 5 MG PO DAILY, (Reported) Ammonium Lactate (Ammonium Lactate) 12% Lotion, 1 APPLIC TOP BID, (Reported) APPLIED TO FEET Apixaban (Eliquis) 2.5 Mg Tablet, 2.5 MG PO BID, (Reported) Brimonidine Tartrate/Timolol (Combigan 0.2%-0.5% Eye Drops) 5 Ml Drops, 1 DROP OU BID, (Reported) Carvedilol (Carvedilol) 12.5 Mg Tablet, 12.5 MG PO BID, (Reported) Chlorthalidone (Chlorthalidone) 25 Mg Tablet, 25 MG PO DAILY, (Reported) Cholecalciferol (Vitamin D3) (Vitamin D3) 1,000 Unit Tablet, 1,000 UNIT PO DAILY, (Reported) Ferrous Sulfate (Ferrous Sulfate) 325 Mg Tab, 325 MG PO DAILY, (Reported) Fluticasone/Umeclidin/Vilanter (Trelegy Ellipta 100-62.5-25) 1 Each Blst.w.dev, 1 PUFF INH DAILY, (Reported) Furosemide (Furosemide) 40 Mg Tablet, 40 MG PO TID, (Reported) Insulin Glargine (Lantus) 1 Units/0.01 Ml Susp, 70 UNITS SC BID, (Reported) Latanoprostene Bunod (Vyzulta) 0.024% 5ML Drops, 1 DROP OU QHS, (Reported) Niacin (Niacin) 250 Mg Capsule.er, 250 MG PO QPM, (Reported) Omeprazole (Omeprazole) 40 Mg Cap, 40 MG PO DAILY, (Reported) Sulfamethoxazole/Trimethoprim (Bactrim Ds Tablet) 1 Each Tablet, 1 TAB PO BID, (Reported) STARTED 10 DAYS ON 06/21 Vitamin B Complex (Vitamin B Complex) 1 Tab Tab, 1 TAB PO DAILY, (Reported) Scheduled PRN Albuterol Sulfate (Proair Hfa) 8.5 Gm Hfa.aer.ad, 2 PUFF INH Q4H PRN for SOB/WHEEZING, (Reported) Betamethasone/Propylene Glyc (Diprolene 0.05% Ointment) 15 Gm Oint...g., 1 APPLIC TOP BID PRN for DIABETIC ITCH, (Reported) Trazodone HCl (Trazodone HCl) 50 Mg Tablet, 50 MG PO QHS PRN for SLEEP, (Reported) BERNARDINO YOUSIF MD Jul 01, 2019 12:21
[2019-07-01 15:03] VITALS: BP 156/69
[2019-07-01] MEDS: NIACIN 250MG EXTENDED RELEASE CAPSULE PO SCH (17:11)
[2019-07-01 18:00] VITALS: BP 151/57
[2019-07-01] MEDS: IRON SUCROSE 100MG 5ML VIAL (J1756 PER 1MG) IV SCH (21:26)
[2019-07-01] MEDS: VYZULTA 0.024% OU SCH (21:30)
[2019-07-01 22:00] VITALS: BP 143/76
[2019-07-02 02:00] VITALS: BP 130/68
[2019-07-02] MEDS: ACETAMINOPHEN TAB 650MG DOSE (2X325MG) PO PRN (02:33)
[2019-07-02 06:00] VITALS: BP 133/66
[2019-07-02 06:33] LABS: BASO % 0.4 % (0.0-1.0); EOS # 0.3 10^3/uL (0.0-0.5); HEMOGLOBIN 8.7 g/dl (13.5-17.5); LYMPH # 2.3 10^3/uL (1.5-5.0); LYMPH % 25.1 % (24.0-44.0); MEAN CORPUSCULAR HEMOGLOBIN 34.8 pg (27.0-33.0); MEAN CORPUSCULAR HGB CONC 32.2 g/dl (32.0-36.5); MONO # 0.7 10^3/uL (0.0-0.8); MONO % 8.1 % (0.0-5.0); NEUTROPHILS # 5.7 10^3/uL (1.5-8.5); PLATELET COUNT, AUTOMATED 123 10^3/uL (150-450)
[2019-07-02 06:56] LABS: ALBUMIN 2.9 GM/DL (3.2-5.2); BILIRUBIN,TOTAL 0.6 MG/DL (0.2-1.0); CALCIUM LEVEL 8.8 MG/DL (8.8-10.2); CREATININE FOR GFR 2.47 MG/DL (0.70-1.30); GLOMERULAR FILTRATION RATE 26.8 (>35); MAGNESIUM LEVEL 1.9 MG/DL (1.8-2.4); POTASSIUM SERUM 3.4 MEQ/L (3.5-5.1); TOTAL PROTEIN 7.1 GM/DL (6.4-8.2)
[2019-07-02] MEDS: CHLORTHALIDONE 25 MG TAB PO SCH (07:45)
[2019-07-02] MEDS: BACTRIM 80MG/400MG TAB PO SCH ×2 (07:45→20:57)
[2019-07-02] MEDS: FUROSEMIDE 40 MG TAB PO SCH ×3 (07:45→20:59)
[2019-07-02] MEDS: ALLOPURINOL 100 MG TAB PO SCH (07:45)
[2019-07-02] MEDS: CARVedilol 12.5 MG TAB PO SCH ×2 (07:45→20:59)
[2019-07-02] MEDS: HumaLOG INSULIN (NovoLOG) PER UNIT SC SCH ×4 (07:46→20:29)
[2019-07-02] MEDS: VITAMIN D 1,000 INTERNATIONAL UNITS TABLET PO SCH (07:46)
[2019-07-02] MEDS: LEVEMIR (INSULIN DETEMIR) 1 UNITS/0.01ML SC SCH ×2 (07:48→21:00)
[2019-07-02] MEDS: LACTIC ACID 12% LOTION 225 GM BTL TOP SCH ×2 (07:49→21:16)
[2019-07-02] MEDS: COMBIGAN OU SCH ×2 (07:49→21:16)
[2019-07-02] MEDS: EYE OU SCH ×3 (07:49→21:17)
[2019-07-02] MEDS: TRELEGY ELLIPTA INH SCH (07:50)
[2019-07-02] MEDS ORDERED: POTASSIUM CHLORIDE 10 MEQ SR TABLET PO ONE (08:00)
--- NOTE | 2019-07-02 09:07 | IPNPDOC ---
Subjective Date Seen The patient was seen on 07/02/19. Subjective Chief Complaint/HPI Patient offers no new complaints. Stable waiting for EGD and colonoscopy in a.m. General: Denies: ROS Unobtainable, Chills, Night Sweats, Fatigue, Malaise, Normal Appetite, Other Symptoms Constitutional: Denies: Chills, Fever, Malaise, Night Sweats, Weakness, Fatigue, Weight Loss, Lethargy, Other Pulmonary: Denies: Dyspnea, Cough, Pleuritic Chest Pain, Other Symptoms Cardiovascular: Denies: Chest Pain, Palpitations, Orthopnea, Paroxysmal Noc. Dyspnea, Edema, Lt Headedness, Other Symptoms Gastrointestinal: Reports: Melena Hematologic: Denies: Bruising, Bleeding Excessively, Petecchia, Purpura, Enlarged Lymph Nodes, Other Hematologic Endocrine: Denies: Polydipsia, Polyphagia, Polyuria, Heat Intolerance, Cold Intolerance, Other Endocrine Sx Musculoskeletal: Denies: Neck Pain, Back Pain, Shoulder Pain, Arm Pain, Hand Pain, Leg Pain, Foot Pain, Joint Pain, Muscle Pain, Spasms, Other Symptoms Objective Physical Examination Eye Exam: Positive: PERRLA, Conjunctiva & lids normal ENT Exam: Positive: Atraumatic Neck Exam: Positive: Supple Chest Exam: Positive: Clear to auscultation, Normal air movement Heart Exam: Positive: Rate Normal, Normal S1, Normal S2 Abdomen Exam: Positive: Normal bowel sounds Extremity Exam: Positive: Normal pulses Skin Exam: Positive: Nl turgor and temperature Neuro Exam: Positive: Strength at 5/5 X4 ext, Sensation Intact Assessment /Plan Problems (1) Acute blood loss anemia Status: Acute Problem Text: Acute blood loss anemia most likely etiology is probably upper GI bleed as patient is a stool occult blood positive. Study of dark stools Patient's hemoglobin is 8.7, hematocrit 27 Continue monitoring H&H Transfuse as needed (2) Upper GI bleed Status: Acute Problem Text: Most likely upper GI bleed As patient was, anticoagulation with Eliquis which has been stopped Patient is scheduled for EGD and colonoscopy in a.m. Further, as per GI recommendations Continue PPI (3) Atrial fibrillation Status: Acute Problem Text: History of atrial fibrillation with controlled] Anticoagulation with Eliquis has been stopped secondary to active GI bleed Continue telemetry and close monitoring (4) CKD (chronic kidney disease), stage III Status: Chronic Problem Text: Stable renal functions We'll continue monitoring BUN/creatinine (5) Morbid obesity Status: Chronic (6) Hypertension Status: Chronic Problem Text: Continue home meds (7) Thrombocytopenia Status: Acute Problem Text: Not sure whether thrombocytopenias acute on chronic Etiology is unknown , Platelet count is 120,000 today (8) Elevated MCV Status: Chronic Problem Text: Elevated MCV, probably chronic , Etiology unknown, pt denies alcohol abuse Will order vitamin B12 and folic acid levels (9) Hypokalemia Status: Acute Problem Text: Potassium supplement provided again . Labs in a.m. Plan/VTE VTE Prophylaxis Ordered?: Yes VS, I&O, 24H, Fishbone Vital Signs/I&O Vital Signs Date Time Temp Pulse Resp B/P (MAP) Pulse Ox O2 Delivery O2 Flow Rate FiO2 07/02/19 07:45 133/64 07/02/19 06:00 97.5 82 18 96 Room Air I&O- Last 24 Hours up to 6 AM 07/02/19 06:00 Intake Total 1680 ml Output Total 2200 ml Balance -520 ml Laboratory Data 24H LABS Laboratory Tests 2 07/01/19 11:55: Bedside Glucose (Misc Panel) 213H 07/01/19 16:57: Bedside Glucose (Misc Panel) 150H 07/01/19 20:55: Bedside Glucose (Misc Panel) 180H 07/02/19 06:04: Immature Granulocyte % (Auto) 0.4, Neutrophils (%) (Auto) 63.0, Lymphocytes (%) (Auto) 25.1, Monocytes (%) (Auto) 8.1H, Eosinophils (%) (Auto) 3.0, Basophils (%) (Auto) 0.4, Neutrophils # (Auto) 5.7, Lymphocytes # (Auto) 2.3, Monocytes # (Auto) 0.7, Eosinophils # (Auto) 0.3, Basophils # (Auto) 0.0, Nucleated Red Blood Cells % (auto) 0.0, Anion Gap 6L, Glomerular Filtration Rate 26.8L, Calcium Level 8.8, Magnesium Level 1.9, Total Bilirubin 0.6, Aspartate Amino Transf (AST/SGOT) 14, Alanine Aminotransferase (ALT/SGPT) 20, Alkaline Phosphatase 74, Total Protein 7.1, Albumin 2.9L, Albumin/Globulin Ratio 0.69L 07/02/19 06:13: Bedside Glucose (Misc Panel) 106 CBC/BMP Laboratory Tests 07/02/19 06:04 NIKOS EVANS MD Jul 02, 2019 09:07
[2019-07-02 10:00] VITALS: BP 124/56
[2019-07-02 14:00] VITALS: BP 127/57
[2019-07-02] MEDS ORDERED: BISACODYL 5 MG TAB PO ONE (16:30)
[2019-07-02] MEDS: NIACIN 250MG EXTENDED RELEASE CAPSULE PO SCH (17:09)
[2019-07-02 18:00] VITALS: BP 124/60
[2019-07-02] MEDS ORDERED: GOLYTELY SOLN 4000 ML BTL PO ONE (18:00)
[2019-07-02] MEDS ORDERED: LEVEMIR (INSULIN DETEMIR) 1 UNITS/0.01ML SC ONE (21:15)
[2019-07-02] MEDS: VYZULTA 0.024% OU SCH (21:17)
[2019-07-02 22:00] VITALS: BP 139/76
[2019-07-03 02:00] VITALS: BP 113/61
[2019-07-03 06:00] VITALS: BP 121/63
[2019-07-03 06:12] LABS: BASO % 0.3 % (0.0-1.0); EOS # 0.3 10^3/uL (0.0-0.5); EOS % 3.6 % (0.0-3.0); HEMATOCRIT 28.5 % (42.0-52.0); HEMOGLOBIN 9.1 g/dl (13.5-17.5); LYMPH # 1.7 10^3/uL (1.5-5.0); LYMPH % 18.6 % (24.0-44.0); MEAN CORPUSCULAR HEMOGLOBIN 34.9 pg (27.0-33.0); MEAN CORPUSCULAR HGB CONC 31.9 g/dl (32.0-36.5); MEAN CORPUSCULAR VOLUME 109.2 fl (80.0-96.0); MONO # 0.7 10^3/uL (0.0-0.8); MONO % 7.7 % (0.0-5.0); NEUTROPHILS # 6.5 10^3/uL (1.5-8.5); NEUTROPHILS % 69.3 % (36.0-66.0); PLATELET COUNT, AUTOMATED 125 10^3/uL (150-450); RED BLOOD COUNT 2.61 10^6/uL (4.30-6.10); WHITE BLOOD COUNT 9.3 10^3/uL (4.0-10.0)
[2019-07-03 06:40] LABS: ALBUMIN 2.9 GM/DL (3.2-5.2); BILIRUBIN,TOTAL 0.5 MG/DL (0.2-1.0); CALCIUM LEVEL 8.9 MG/DL (8.8-10.2); CREATININE FOR GFR 2.28 MG/DL (0.70-1.30); GLOMERULAR FILTRATION RATE 29.3 (>35); POTASSIUM SERUM 3.1 MEQ/L (3.5-5.1); TOTAL PROTEIN 7.1 GM/DL (6.4-8.2)
[2019-07-03] MEDS: HumaLOG INSULIN (NovoLOG) PER UNIT SC SCH ×4 (07:25→20:39)
[2019-07-03] MEDS: TRELEGY ELLIPTA INH SCH (07:41)
[2019-07-03] MEDS: KCL 10MEQ/100ML SWI (KRUN) 10 MEQ in IV 1 EA IV SCH ×2 (09:05→10:32)
[2019-07-03] MEDS: ALLOPURINOL 100 MG TAB PO SCH (09:05)
[2019-07-03] MEDS: BACTRIM 80MG/400MG TAB PO SCH ×2 (09:05→20:43)
[2019-07-03] MEDS: FUROSEMIDE 40 MG TAB PO SCH ×3 (09:05→20:43)
[2019-07-03] MEDS: VITAMIN D 1,000 INTERNATIONAL UNITS TABLET PO SCH (09:05)
[2019-07-03] MEDS: CHLORTHALIDONE 25 MG TAB PO SCH (09:05)
[2019-07-03] MEDS: LEVEMIR (INSULIN DETEMIR) 1 UNITS/0.01ML SC SCH ×2 (09:06→22:16)
[2019-07-03] MEDS: CARVedilol 12.5 MG TAB PO SCH ×2 (09:08→20:44)
[2019-07-03] MEDS: EYE OU SCH ×3 (09:09→20:45)
[2019-07-03] MEDS: COMBIGAN OU SCH ×2 (09:09→20:44)
[2019-07-03] MEDS: LACTIC ACID 12% LOTION 225 GM BTL TOP SCH ×2 (09:10→20:45)
[2019-07-03 10:00] VITALS: BP 117/63
[2019-07-03 11:11] LABS: FOLATE 14.7 NG/ML (>5.4)
--- NOTE | 2019-07-03 11:40 | IPNPDOC ---
Subjective Date Seen The patient was seen on 07/03/19. Subjective Chief Complaint/HPI No new complaints, awaiting EGD and colonoscopy General: Denies: ROS Unobtainable, Chills, Night Sweats, Fatigue, Malaise, Normal Appetite, Other Symptoms Constitutional: Denies: Chills, Fever, Malaise, Night Sweats, Weakness, Fatigue, Weight Loss, Lethargy, Other Pulmonary: Denies: Dyspnea, Cough, Pleuritic Chest Pain, Other Symptoms Cardiovascular: Denies: Chest Pain, Palpitations, Orthopnea, Paroxysmal Noc. Dyspnea, Edema, Lt Headedness, Other Symptoms Gastrointestinal: Denies: Nausea, Vomiting, Abdominal Pain, Diarrhea, Cons tipation, Melena, Hematochezia, Other Symptoms Musculoskeletal: Denies: Neck Pain, Back Pain, Shoulder Pain, Arm Pain, Hand Pain, Leg Pain, Foot Pain, Joint Pain, Muscle Pain, Spasms, Other Symptoms Neurological: Denies: Weakness, Numbness, Incoordination, Change in speech, Confusion, Seizures, Other Symptoms Objective Physical Examination Eye Exam: Positive: PERRLA, Conjunctiva & lids normal ENT Exam: Positive: Atraumatic Neck Exam: Positive: Supple Chest Exam: Positive: Clear to auscultation, Normal air movement Heart Exam: Positive: Rate Normal, Normal S1, Normal S2 Abdomen Exam: Positive: Normal bowel sounds Extremity Exam: Positive: Normal pulses Skin Exam: Positive: Nl turgor and temperature Neuro Exam: Positive: Strength at 5/5 X4 ext, Sensation Intact Assessment /Plan Problems (1) Acute blood loss anemia Status: Acute Problem Text: Acute blood loss anemia most likely etiology is probably upper GI bleed as patient is a stool occult blood positive. Study of dark stools Patient hemoglobin 9.1, hematocrit 28.5 Continue monitoring H&H Transfuse as needed (2) Upper GI bleed Status: Acute Problem Text: Most likely upper GI bleed As patient was, anticoagulation with Eliquis which has been stopped Patient is scheduled for colonoscopy today. EGD as per GI Further, as per GI recommendations Continue PPI (3) Atrial fibrillation Status: Acute Problem Text: History of atrial fibrillation with controlled] Anticoagulation with Eliquis has been stopped secondary to active GI bleed Continue telemetry and close monitoring (4) CKD (chronic kidney disease), stage III Status: Chronic Problem Text: Stable renal functions We'll continue monitoring BUN/creatinine (5) Morbid obesity Status: Chronic (6) Hypertension Status: Chronic Problem Text: Continue home meds (7) Thrombocytopenia Status: Acute Problem Text: Not sure whether thrombocytopenias acute on chronic Etiology is unknown , Platelet count is 120,000 today (8) Elevated MCV Status: Chronic Problem Text: Elevated MCV, probably chronic , Etiology unknown, pt denies alcohol abuse Will order vitamin B12 and folic acid levels (9) Hypokalemia Status: Acute Problem Text: Potassium supplement provided again . Labs in a.m. Plan/VTE VTE Prophylaxis Ordered?: Yes VS, I&O, 24H, Fishbone Vital Signs/I&O Vital Signs Date Time Temp Pulse Resp B/P (MAP) Pulse Ox O2 Delivery O2 Flow Rate FiO2 07/03/19 09:08 75 119/53 07/03/19 06:00 98.3 16 95 Room Air I&O- Last 24 Hours up to 6 AM 07/03/19 06:00 Intake Total 2575 ml Output Total 1900 ml Balance 675 ml Laboratory Data 24H LABS Laboratory Tests 2 07/02/19 16:34: Bedside Glucose (Misc Panel) 155H 07/02/19 20:22: Bedside Glucose (Misc Panel) 94 07/02/19 22:11: Bedside Glucose (Misc Panel) 125H 07/03/19 05:45: Immature Granulocyte % (Auto) 0.5, Neutrophils (%) (Auto) 69.3H, Lymphocytes (%) (Auto) 18.6L, Monocytes (%) (Auto) 7.7H, Eosinophils (%) (Auto) 3.6H, Basophils (%) (Auto) 0.3, Neutrophils # (Auto) 6.5, Lymphocytes # (Auto) 1.7, Monocytes # (Auto) 0.7, Eosinophils # (Auto) 0.3, Basophils # (Auto) 0.0, Nucleated Red Blood Cells % (auto) 0.0, Anion Gap 8, Glomerular Filtration Rate 29.3L, Calcium Level 8.9, Total Bilirubin 0.5, Aspartate Amino Transf (AST/SGOT) 25, Alanine Aminotransferase (ALT/SGPT) 24, Alkaline Phosphatase 75, Total Protein 7.1, Albumin 2.9L, Albumin/Globulin Ratio 0.69L CBC/BMP Laboratory Tests 07/03/19 05:45 NIKOS EVANS MD Jul 03, 2019 11:40
[2019-07-03 14:00] VITALS: BP 126/70
[2019-07-03] MEDS ORDERED: PROPOFOL 200 MG/20 ML VIAL As Ordered ONE ×3 (15:09→15:41)
[2019-07-03] MEDS ORDERED: LIDOCAINE 2% INJ 100 MG/5 ML SDV (FOR ANES.) As Ordered ONE (15:09)
[2019-07-03] MEDS ORDERED: ePHEDrine SULFATE 25 MG/5 ML(5MG/ML) SYRINGE As Ordered ONE (15:41)
[2019-07-03] MEDS ORDERED: PHENYLephrine HCL 500 MCG/5 ML (100MCG/ML) SYRINGE (J2370) As Ordered ONE (15:42)
--- NOTE | 2019-07-03 16:13 | ROOR ---
Patient Name: Nilo Rodriguez Procedure Date: 07/03/2019 2:43 PM Date of : 1935 Age: 84 Room: [facility] Gender: Male Note Status: Finalized Procedure: Upper GI endoscopy Indications: Iron deficiency anemia secondary to chronic blood loss Providers: Jagdish Singletary MD Referring MD: 2. Inpatient 2. Inpatient, MARC CAMPOS Requesting Provider: Medicines: Monitored Anesthesia Care Complications: No immediate complications. Procedure: Pre-Anesthesia Assessment: - Prior to the procedure, a History and Physical was performed, and patient medications and allergies were reviewed. The patient is competent. The risks and benefits of the procedure and the sedation options and risks were discussed with the patient. All questions were answered and informed consent was obtained. Patient identification and proposed procedure were verified by the physician, the nurse and the anesthesiologist in the procedure room. Mental Status Examination: alert and oriented. Airway Examination: normal oropharyngeal airway and neck mobility. Respiratory Examination: clear to auscultation. CV Examination: normal. Prophylactic Antibiotics: The patient does not require prophylactic antibiotics. Prior Anticoagulants: The patient has taken Eliquis (apixaban), last dose was 4 days prior to procedure. ASA Grade Assessment: III - A patient with severe systemic disease. After reviewing the risks and benefits, the patient was deemed in satisfactory condition to undergo the procedure. The anesthesia plan was to use monitored anesthesia care (MAC). Immediately prior to administration of medications, the patient was re-assessed for adequacy to receive sedatives. The heart rate, respiratory rate, oxygen saturations, blood pressure, adequacy of pulmonary ventilation, and response to care were monitored throughout the procedure. The physical status of the patient was re-assessed after the procedure. The Endoscope was introduced through the mouth, and advanced to the second part of duodenum. The upper GI endoscopy was accomplished without difficulty. The patient tolerated the procedure well. Findings: The examined esophagus was normal. Multiple 10 to 20 mm pedunculated and sessile polyps with bleeding and stigmata of recent bleeding were found in the stomach. An endoloop was maneuvered over the polyp stalks and closed at the mucosal attachment prior to removal in order to prevent bleeding. These polyps were then removed with a cold snare. Resection and retrieval were complete. For hemostasis, five hemostatic clips were successfully placed. There was no bleeding at the end of the procedure. The duodenal bulb and second portion of the duodenum were normal. Impression: - Normal esophagus. - Multiple gastric polyps. Resected and retrieved. Clips were placed. - Normal duodenal bulb and second portion of the duodenum. Recommendation: - Patient has a contact number available for emergencies. The signs and symptoms of potential delayed complications were discussed with the patient. Return to normal activities tomorrow. Written discharge instructions were provided to the patient. - Clear liquid diet for 1 day, then advance as tolerated to resume previous diet. - Continue present medications. - Use Protonix (pantoprazole) 40 mg PO twice daily - to be taken in morning (1/2 hour before breakfast) and at bedtime ( atleast 3 hours after last meal) for 3 months. - Resume Eliquis (apixaban) at prior dose in 4 days. Refer to primary physician for further adjustment of therapy. - Await pathology results. - Repeat upper endoscopy in 3 months for surveillance based on pathology results. - Telephone GI clinic for pathology results in 2 weeks. - Return to primary care physician. Jagdish Singletary MD Jagdish Singletary MD 07/03/2019 4:13:43 PM Electronically signed by Jagdish Singletary MD Number of Addenda: 0 Note Initiated On: 07/03/2019 2:43 PM Estimated Blood Loss: Estimated blood loss was minimal.
--- NOTE | 2019-07-03 16:18 | ROOR ---
Patient Name: Nilo Rodriguez Procedure Date: 07/03/2019 2:44 PM Date of : 1935 Age: 84 Room: [facility] Gender: Male Note Status: Finalized Procedure: Colonoscopy Indications: Iron deficiency anemia secondary to chronic blood loss Providers: Jagdish Singletary MD Referring MD: 2. Inpatient 2. Inpatient, MARC CAMPOS Requesting Provider: Medicines: Monitored Anesthesia Care Complications: No immediate complications. Procedure: Pre-Anesthesia Assessment: - Prior to the procedure, a History and Physical was performed, and patient medications and allergies were reviewed. The patient is competent. The risks and benefits of the procedure and the sedation options and risks were discussed with the patient. All questions were answered and informed consent was obtained. Patient identification and proposed procedure were verified by the physician, the nurse and the anesthesiologist in the procedure room. Mental Status Examination: alert and oriented. Prophylactic Antibiotics: The patient does not require prophylactic antibiotics. Prior Anticoagulants: The patient has taken no previous anticoagulant or antiplatelet agents. ASA Grade Assessment: II - A patient with mild systemic disease. After reviewing the risks and benefits, the patient was deemed in satisfactory condition to undergo the procedure. The anesthesia plan was to use monitored anesthesia care (MAC). Immediately prior to administration of medications, the patient was re-assessed for adequacy to receive sedatives. The heart rate, respiratory rate, oxygen saturations, blood pressure, adequacy of pulmonary ventilation, and response to care were monitored throughout the procedure. The physical status of the patient was re-assessed after the procedure. The Colonoscope was introduced through the anus and advanced to the terminal ileum, with identification of the appendiceal orifice and IC valve. The colonoscopy was performed without difficulty. The patient tolerated the procedure well. The quality of the bowel preparation was fair. The terminal ileum, ileocecal valve, appendiceal orifice, and rectum were photographed. Scope insertion time was 6 minutes. Scope withdrawal time was 10 minutes. The total duration of the procedure was 16 minutes. Findings: The perianal and digital rectal examinations were normal. The terminal ileum appeared normal. A 15 mm polyp was found in the cecum. The polyp was sessile. The polyp was removed with a cold snare. Resection and retrieval were complete. For hemostasis, three hemostatic clips were successfully placed. There was no bleeding at the end of the procedure. A 4 mm polyp was found in the ascending colon. The polyp was sessile. The polyp was removed with a cold snare. Resection and retrieval were complete. Non-bleeding external and internal hemorrhoids were found during retroflexion. The hemorrhoids were medium-sized. Impression: - Preparation of the colon was fair. - The examined portion of the ileum was normal. - One 15 mm polyp in the cecum, removed with a cold snare. Resected and retrieved. Clips were placed. - One 4 mm polyp in the ascending colon, removed with a cold snare. Resected and retrieved. - Non-bleeding external and internal hemorrhoids. Recommendation: - Patient has a contact number available for emergencies. The signs and symptoms of potential delayed complications were discussed with the patient. Return to normal activities tomorrow. Written discharge instructions were provided to the patient. - High fiber diet. - Continue present medications. - Resume Eliquis (apixaban) at prior dose in 4 days. Refer to primary physician for further adjustment of therapy. - Await pathology results. - Repeat colonoscopy is not recommended due to current age (66 years or older) depending on clinical and functional status. - Telephone GI clinic for pathology results in 2 weeks. - Return to primary care physician. Jgadish Singletary MD Jagdish Singletary MD 07/03/2019 4:17:49 PM Electronically signed by Jagdish Singletary MD Number of Addenda: 0 Note Initiated On: 07/03/2019 2:44 PM Estimated Blood Loss: Estimated blood loss was minimal.
[2019-07-03 18:00] VITALS: BP 135/61
[2019-07-03] MEDS: NIACIN 250MG EXTENDED RELEASE CAPSULE PO SCH (18:03)
[2019-07-03 19:12] VITALS: BP 116/68
[2019-07-03] MEDS: VYZULTA 0.024% OU SCH (20:45)
[2019-07-03] MEDS: ACETAMINOPHEN TAB 650MG DOSE (2X325MG) PO PRN (22:17)
[2019-07-03] MEDS: PANTOPRAZOLE 40MG INJ (PROTONIX) (C9113) IV SCH (22:17)
[2019-07-04 02:00] VITALS: BP 127/56
[2019-07-04 06:00] VITALS: BP 136/60
[2019-07-04 06:21] LABS: BASO % 0.4 % (0.0-1.0); EOS # 0.4 10^3/uL (0.0-0.5); HEMATOCRIT 31.2 % (42.0-52.0); HEMOGLOBIN 9.8 g/dl (13.5-17.5); LYMPH # 2.2 10^3/uL (1.5-5.0); LYMPH % 22.2 % (24.0-44.0); MEAN CORPUSCULAR HGB CONC 31.4 g/dl (32.0-36.5); MEAN CORPUSCULAR VOLUME 111.4 fl (80.0-96.0); MONO # 0.8 10^3/uL (0.0-0.8); MONO % 8.3 % (0.0-5.0); NEUTROPHILS # 6.4 10^3/uL (1.5-8.5); NEUTROPHILS % 64.7 % (36.0-66.0); PLATELET COUNT, AUTOMATED 128 10^3/uL (150-450); WHITE BLOOD COUNT 9.8 10^3/uL (4.0-10.0)
[2019-07-04 06:29] LABS: INR 1.25; PROTHROMBIN TIME 15.4 SECONDS (11.8-14.0)
[2019-07-04 06:43] LABS: CALCIUM LEVEL 8.7 MG/DL (8.8-10.2); CREATININE FOR GFR 2.43 MG/DL (0.70-1.30); GLOMERULAR FILTRATION RATE 27.3 (>35); POTASSIUM SERUM 3.3 MEQ/L (3.5-5.1)
[2019-07-04] MEDS: TRELEGY ELLIPTA INH SCH (07:16)
[2019-07-04] MEDS: LEVEMIR (INSULIN DETEMIR) 1 UNITS/0.01ML SC SCH (07:51)
[2019-07-04] MEDS: HumaLOG INSULIN (NovoLOG) PER UNIT SC SCH ×2 (07:51→12:09)
[2019-07-04 07:52] VITALS: BP 136/60
[2019-07-04] MEDS: CHLORTHALIDONE 25 MG TAB PO SCH (07:52)
[2019-07-04] MEDS: BACTRIM 80MG/400MG TAB PO SCH (07:52)
[2019-07-04] MEDS: PANTOPRAZOLE 40MG INJ (PROTONIX) (C9113) IV SCH (07:52)
[2019-07-04] MEDS: CARVedilol 12.5 MG TAB PO SCH (07:52)
[2019-07-04] MEDS: ALLOPURINOL 100 MG TAB PO SCH (07:52)
[2019-07-04] MEDS: FUROSEMIDE 40 MG TAB PO SCH (07:52)
[2019-07-04] MEDS: VITAMIN D 1,000 INTERNATIONAL UNITS TABLET PO SCH (07:52)
[2019-07-04] MEDS: COMBIGAN OU SCH (07:53)
[2019-07-04] MEDS: EYE OU SCH (07:53)
[2019-07-04] MEDS: LACTIC ACID 12% LOTION 225 GM BTL TOP SCH (07:54)
[2019-07-04] MEDS: KCL 10MEQ/100ML SWI (KRUN) 10 MEQ in IV 1 EA IV SCH ×2 (08:15→09:15)
[2019-07-04 10:00] VITALS: BP 120/64
[2019-07-04] MEDS ORDERED: POTASSIUM CHLORIDE 10 MEQ SR TABLET PO ONE (11:00)
[2019-07-04] MEDS ORDERED: PROTPAK PO (11:26)
--- NOTE | 2019-07-04 13:58 | DS.PDOC ---
Discharge Summary General Date of Admission Jun 29, 2019 at 19:17 Date of Discharge 07/04/19 Discharge Summary PROCEDURES PERFORMED DURING STAY: None. ADMITTING DIAGNOSES: 1. GI bleed, anemia, A. fib, CK D4. DISCHARGE DIAGNOSES: 1. GI bleed, acute blood loss anemia,, A. fib, CK D4 ,gastric polyps, colonic polyps COMPLICATIONS/CHIEF COMPLAINT: Acute Blood Loss Anemia. HISTORY OF PRESENT ILLNESS: Nilo Rodriguez is an 84-year-old male with past medical history chronic kidney disease IV, atrial fibrillation, diabetes who presented to the ED from nephrology clinic found to have low hemoglobin. The patient reports that over the past couple of months he has noticed increasing shortness of breath, weakness, muscle aches in his lower extremities with activity. He sometimes feels lightheaded and dizzy after breakfast in the mornings. He has not noticed any new black stools, but he is on supplemental i brandee and always has darker or black stools. He has not had any bright red blood per rectum nor any hemoptysis recently. He is currently on Eliquis for his atrial fibrillation. The patient is unable to remember his last colonoscopy, as it was several years ago, but he does not have any history of stomach ulcers or GI bleeds.. HOSPITAL COURSE: Patient was admitted with low hemoglobin and ox stools. He also takes iron supplements but his stool guaiac was positive. Patient received a transfusion of 1 unit PRBC in ED with improvement. His hemoglobin and hematocrit. Patient was started on Protonix as well as a GI consult with Dr. graham was called. Patient's H&H remained stable, even though his eliquis was discontinued secondary to be bleeding. Patient had a colonoscopy and EGD done by GI, which showed multiple polyps and colon which were snared and multiple polyps in his stomach which also were clipped, also had a nonbleeding internal and asked some hemorrhoids. Patient is clinically stable he will be restarted on anticoagulation for A. fib and will be discharged home on Protonix 40 mg by mouth twice a day and follow with Dr. Graham in 1-2 weeks he has of information from Dr. Graham provided to him. Patient will be discharged home today on by mouth Protonix and continue all his home medications as he was taken previously.. DISCHARGE MEDICATIONS: Please see below. ALLERGIES: Please see below. PHYSICAL EXAMINATION ON DISCHARGE: VITAL SIGNS: Please see below. GENERAL: Within normal limits HEENT: PERRLA, ocular muscles intact NECK: Supple CARDIOVASCULAR EXAMINATION: S1, S2, regular RESPIRATORY EXAMINATION: Clear to A&P ABDOMINAL EXAMINATION: , Soft, nontender, bowel sounds present EXTREMITIES: no clubbing, cyanosis, edema SKIN: Within normal limits NEUROLOGICAL EXAMINATION: Focal motor sensory deficit PSYCHIATRIC EXAMINATION: Within normal limits LABORATORY DATA: Please see below. IMAGING: Renal sonogram:Slightly increased renal cortical echogenicity pattern. No evidence of hydronephrosis. Bilateral renal cysts. Question stone lower pole right kidney. PROGNOSIS: Good ACTIVITY: As tolerated. DIET: As tolerated DISCHARGE PLAN: Follow with Dr. Graham in 1-2 weeks DISPOSITION: Home. DISCHARGE INSTRUCTIONS: 1. As per discharge instructions. ITEMS TO FOLLOWUP ON ON OUTPATIENT: 1. Follow with Dr. Graham 1-2 weeks, and follow with PCP in one week. DISCHARGE CONDITION: Stable. TIME SPENT ON DISCHARGE: 40 minutes. Vital Signs/I&Os Vital Signs Date Time Temp Pulse Resp B/P (MAP) Pulse Ox O2 Delivery O2 Flow Rate FiO2 07/04/19 10:00 97.9 75 18 120/64 (82) 100 Room Air I&O- Last 24 Hours up to 6 AM 07/04/19 05:59 Intake Total 1280 ml Output Total 0 ml Balance 1280 ml Laboratory Data Labs 24H Laboratory Tests 2 07/03/19 16:49: Bedside Glucose (Misc Panel) 129H 07/03/19 20:38: Bedside Glucose (Misc Panel) 187H 07/04/19 05:32: Immature Granulocyte % (Auto) 0.4, Neutrophils (%) (Auto) 64.7, Lymphocytes (%) (Auto) 22.2L, Monocytes (%) (Auto) 8.3H, Eosinophils (%) (Auto) 4.0H, Basophils (%) (Auto) 0.4, Neutrophils # (Auto) 6.4, Lymphocytes # (Auto) 2.2, Monocytes # (Auto) 0.8, Eosinophils # (Auto) 0.4, Basophils # (Auto) 0.0, Nucleated Red Blood Cells % (auto) 0.0, Prothrombin Time 15.4H, Prothromb Time International R atio 1.25, Anion Gap 7L, Glomerular Filtration Rate 27.3L, Calcium Level 8.7L 07/04/19 11:42: Bedside Glucose (Misc Panel) 153H CBC/BMP Laboratory Tests 07/04/19 05:32 FSBS Laboratory Tests Test 07/03/19 16:49 07/03/19 20:38 07/04/19 11:42 Range/Units Bedside Glucose (Misc Panel) 129 187 153 83-110 MG/DL Discharge Medications Scheduled Allopurinol (Allopurinol) 100 Mg Tab, 100 MG PO DAILY, (Reported) Amlodipine Besylate (Amlodipine Besylate) 5 Mg Tab, 5 MG PO DAILY, (Reported) Ammonium Lactate (Ammonium Lactate) 12% Lotion, 1 APPLIC TOP BID, (Reported) APPLIED TO FEET Apixaban (Eliquis) 2.5 Mg Tablet, 2.5 MG PO BID, (Reported) Brimonidine Tartrate/Timolol (Combigan 0.2%-0.5% Eye Drops) 5 Ml Drops, 1 DROP OU BID, (Reported) Carvedilol (Carvedilol) 12.5 Mg Tablet, 12.5 MG PO BID, (Reported) Chlorthalidone (Chlorthalidone) 25 Mg Tablet, 25 MG PO DAILY, (Reported) Cholecalciferol (Vitamin D3) (Vitamin D3) 1,000 Unit Tablet, 1,000 UNIT PO DAILY, (Reported) Ferrous Sulfate (Ferrous Sulfate) 325 Mg Tab, 325 MG PO DAILY, (Reported) Fluticasone/Umeclidin/Vilanter (Trelegy Ellipta 100-62.5-25) 1 Each Blst.w.dev, 1 PUFF INH DAILY, (Reported) Furosemide (Furosemide) 40 Mg Tablet, 40 MG PO TID, (Reported) Insulin Glargine (Lantus) 1 Units/0.01 Ml Susp, 70 UNITS SC BID, (Reported) Latanoprostene Bunod (Vyzulta) 0.024% 5ML Drops, 1 DROP OU QHS, (Reported) Niacin (Niacin) 250 Mg Capsule.er, 250 MG PO QPM, (Reported) Pantoprazole Sodium (Protonix) 40 Mg Granpkt.dr, 40 MG PO BID Sulfamethoxazole/Trimethoprim (Bactrim Ds Tablet) 1 Each Tablet, 1 TAB PO BID, (Reported) STARTED 10 DAYS ON 06/21 Vitamin B Complex (Vitamin B Complex) 1 Tab Tab, 1 TAB PO DAILY, (Reported) Scheduled PRN Albuterol Sulfate (Proair Hfa) 8.5 Gm Hfa.aer.ad, 2 PUFF INH Q4H PRN for SOB/WHEEZING, (Reported) Betamethasone/Propylene Glyc (Diprolene 0.05% Ointment) 15 Gm Oint...g., 1 APPLIC TOP BID PRN for DIABETIC ITCH, (Reported) Trazodone HCl (Trazodone HCl) 50 Mg Tablet, 50 MG PO QHS PRN for SLEEP, (Reported) Allergies Coded Allergies: latex (Verified Allergy, Unknown, 06/29/19) NIKOS EVANS MD Jul 04, 2019 13:58
== END 2019-07-04 14:40 | disposition home or self-care (01) | DRG 394 ==
LOC: M ED 16:22 → M ED INP 19:17 → M PCU 21:25 → M MSPAV 07-01 15:00
PROVIDERS: ADMIT Internal Medicine; ATTEND Internal Medicine
PROC: 30233N1 Transfusion of Nonautologous Red Blood Cells into Peripheral Vein, Percutaneous Approach (ICD-10-PCS; principal; 2019-06-29)
PROC: 0DBH8ZX Excision of Cecum, Via Natural or Artificial Opening Endoscopic, Diagnostic (ICD-10-PCS; 2019-07-03)
PROC: 0DBK8ZX Excision of Ascending Colon, Via Natural or Artificial Opening Endoscopic, Diagnostic (ICD-10-PCS; 2019-07-03)
PROC: 0DB78ZX Excision of Stomach, Pylorus, Via Natural or Artificial Opening Endoscopic, Diagnostic (ICD-10-PCS; 2019-07-03)
PROC: 0W3P8ZZ Control Bleeding in Gastrointestinal Tract, Via Natural or Artificial Opening Endoscopic (ICD-10-PCS; 2019-07-03)
DX: K31.7 Polyp of stomach and duodenum (principal); D62 Acute posthemorrhagic anemia; N18.4 Chronic kidney disease, stage 4 (severe); Z68.41 Body mass index [BMI] 40.0-44.9, adult; I48.20 Chronic atrial fibrillation, unspecified; K92.2 Gastrointestinal hemorrhage, unspecified; E66.01 Morbid (severe) obesity due to excess calories; E11.9 Type 2 diabetes mellitus without complications; Z79.899 Other long term (current) drug therapy; Z91.040 Latex allergy status; K21.9 Gastro-esophageal reflux disease without esophagitis; E55.9 Vitamin D deficiency, unspecified; M10.9 Gout, unspecified; E78.5 Hyperlipidemia, unspecified; N40.0 Benign prostatic hyperplasia without lower urinary tract symptoms; I25.2 Old myocardial infarction; H35.30 Unspecified macular degeneration; I12.9 Hypertensive chronic kidney disease with stage 1 through stage 4 chronic kidney disease, or unspecified chronic kidney disease; Z87.891 Personal history of nicotine dependence; Z79.4 Long term (current) use of insulin; D69.6 Thrombocytopenia, unspecified; E87.6 Hypokalemia; D12.0 Benign neoplasm of cecum; D12.2 Benign neoplasm of ascending colon

== ENCOUNTER → 2019-07-31 | Outpatient (REF) | payer MEDICARE, OTHER ==
[~2019-07-31] MED LIST changes: +AMMO12LO TOP; +BACT800T5 PO; +CHLO25TA PO; +COMB0.2S OU; +DIPR0.052 TOP; +ELIQ2.5T PO; +FURO40TA2 PO; +INCR1INH INH; +NICO250C PO; +PROAAER10 INH; +PROTPAK PO; +TRAZ-252 PO; +TREL1AER INH; +VITA-144 PO; +VYZU0.02 OU
== END ==
LOC: M LAB REF 18:04
PROVIDERS: ATTEND Internal Medicine Nephrology
DX: D64.9 Anemia, unspecified (principal)

== ENCOUNTER 2019-08-02 06:27 | Outpatient (CLI) | payer MEDICARE, BC, OTHER ==
[~2019-08-02] VITALS: Ht 190.5 cm; Wt 148.3 kg
[2019-08-02 07:00] VITALS: BP 152/67
[2019-08-02] MEDS ORDERED: ACETAMINOPHEN 325 MG TAB PO ONE (07:00)
[2019-08-02 07:20] VITALS: BP 152/67
[2019-08-02 07:35] VITALS: BP 134/63
[2019-08-02 08:20] VITALS: BP 122/60
[2019-08-02 09:00] VITALS: BP 140/82
== END 2019-08-02 09:05 | disposition home or self-care (01) ==
LOC: M INFU 06:27
PROVIDERS: ATTEND Internal Medicine Nephrology
DX: D64.9 Anemia, unspecified (principal); Z91.040 Latex allergy status
CPT/HCPCS: 36430; P9016

== ENCOUNTER → 2019-10-25 | Outpatient (REF) | payer MEDICARE, OTHER ==
[2019-10-25 17:45] LABS: BASO % 0.3 % (0.0-1.0); EOS # 0.4 10^3/uL (0.0-0.5); EOS % 4.2 % (0.0-3.0); HEMATOCRIT 31.4 % (42.0-52.0); HEMOGLOBIN 10.3 g/dl (13.5-17.5); LYMPH # 2.6 10^3/uL (1.5-5.0); LYMPH % 27.7 % (24.0-44.0); MEAN CORPUSCULAR HEMOGLOBIN 33.9 pg (27.0-33.0); MEAN CORPUSCULAR HGB CONC 32.8 g/dl (32.0-36.5); MEAN CORPUSCULAR VOLUME 103.3 fl (80.0-96.0); MONO # 0.9 10^3/uL (0.0-0.8); MONO % 9.3 % (0.0-5.0); NEUTROPHILS # 5.4 10^3/uL (1.5-8.5); NEUTROPHILS % 58.2 % (36.0-66.0); RED BLOOD COUNT 3.04 10^6/uL (4.30-6.10); WHITE BLOOD COUNT 9.2 10^3/uL (4.0-10.0)
[2019-10-25 17:52] LABS: CREATININE FOR GFR 2.14 MG/DL (0.70-1.30); GLOMERULAR FILTRATION RATE 31.6 (>35); PERCENT SATURATION 31.8 % (19.7-50.0)
[2019-10-25 18:01] LABS: FOLATE 22.3 NG/ML
[2019-10-25 18:09] LABS: PLATELET COUNT, AUTOMATED 90 10^3/uL (150-450)
== END ==
LOC: M LAB REF 16:54
PROVIDERS: ATTEND Internal Medicine Gastroenterology
DX: D50.9 Iron deficiency anemia, unspecified (principal)

== ENCOUNTER → 2020-05-28 | Outpatient (REF) | payer MEDICARE, OTHER ==
[~2020-05-28] MED LIST changes: +AMLO1TAB24 PO; -AMLO5TAB6 PO; +NIAC250C16 PO; -NICO250C PO
[2020-05-28 19:00] LABS: PERCENT SATURATION 39.6 % (19.7-50.0)
== END ==
LOC: M LAB REF 17:48
PROVIDERS: ATTEND Nurse Practitioner Family
DX: D50.9 Iron deficiency anemia, unspecified (principal)

== ENCOUNTER → 2020-12-24 | Outpatient (REF) | payer MEDICARE, OTHER ==
[2020-12-24 19:08] LABS: FOLATE 15.7 NG/ML
== END ==
LOC: M LAB REF 17:11
PROVIDERS: ATTEND Nurse Practitioner Family
DX: D64.9 Anemia, unspecified (principal)

== ENCOUNTER → 2021-01-22 | Outpatient (REF) | payer MEDICARE, OTHER | LOC: M SMT 17:21 | PROVIDERS: ATTEND Nurse Practitioner Family | DX: R97.20 Elevated prostate specific antigen [PSA] (principal); Z79.899 Other long term (current) drug therapy | CPT/HCPCS: 87086; G0463 ==

== ENCOUNTER → 2021-02-12 | Outpatient (CLI) | payer MEDICARE, OTHER ==
[~2021-02-12] MED LIST changes: +LINZ72CA PO; +OMEP40CA4 PO; -OMEP40CA97 PO; +POTA8CAP10 PO
--- NOTE | 2021-02-12 15:37 | REPPI ---
INDICATION: elevated PSA. COMPARISON: None. TECHNIQUE: Transrectal prostate sonography. FINDINGS: Trans rectal prostate sonography demonstrates unremarkable seminal vesicles. Prostate gland is heterogeneous, with calcifications and cystic changes noted. Glandular dimensions are measured at 3.9 x 2.7 x 4.5 cm with a calculated glandular volume of 24.5 ml. Transrectal sonographic guidance is provided to Dr. Escalante who performed trans rectal ultrasound guided needle biopsy procedure. IMPRESSION: Transrectal prostate sonographic findings as above. <Electronically signed by Uri Huber > 02/12/21 [id number]
== END ==
LOC: M SMT PRO 14:17
PROVIDERS: ATTEND Urology
DX: C61 Malignant neoplasm of prostate (principal)
CPT/HCPCS: 55700; 76942; G0416

== ENCOUNTER 2021-03-01 20:40 | Emergency (ER) | payer MEDICARE, OTHER, BC ==
[~2021-03-01] VITALS: Ht 190.5 cm; Wt 148.6 kg
[~2021-03-01 20:40] MED LIST changes: -LINZ72CA PO; -POTA8CAP10 PO
[2021-03-01] MEDS ORDERED: FURO40TA2 PO (21:04)
[2021-03-01] MEDS ORDERED: PIOG1TAB36 PO (21:04)
[2021-03-01] MEDS ORDERED: LINZ72CA PO (21:04)
[2021-03-01] MEDS ORDERED: POTA8CAP10 PO (21:04)
[2021-03-01 21:54] LABS: BASO % 0.4 % (0.0-1.0); EOS % 0.4 % (0.0-3.0); HEMATOCRIT 29.8 % (42.0-52.0); HEMOGLOBIN 9.6 g/dl (13.5-17.5); LYMPH # 2.2 10^3/uL (1.5-5.0); LYMPH % 22.6 % (24.0-44.0); MEAN CORPUSCULAR HEMOGLOBIN 33.9 pg (27.0-33.0); MEAN CORPUSCULAR HGB CONC 32.2 g/dl (32.0-36.5); MEAN CORPUSCULAR VOLUME 105.3 fl (80.0-96.0); MONO # 0.9 10^3/uL (0.0-0.8); MONO % 9.4 % (2.0-8.0); NEUTROPHILS # 6.4 10^3/uL (1.5-8.5); NEUTROPHILS % 66.3 % (36.0-66.0); RED BLOOD COUNT 2.83 10^6/uL (4.30-6.10); WHITE BLOOD COUNT 9.7 10^3/uL (4.0-10.0)
[2021-03-01 21:56] LABS: PLATELET COUNT, AUTOMATED 81 10^3/uL (150-450)
[2021-03-01 22:14] LABS: ALBUMIN 3.2 GM/DL (3.2-5.2); ALT/SGPT 18 U/L (12-78); BILIRUBIN,DIRECT 0.2 MG/DL (0.0-0.2); BILIRUBIN,TOTAL 0.7 MG/DL (0.2-1.0); BLOOD UREA NITROGEN 50 MG/DL (7-18); CALCIUM LEVEL 8.6 MG/DL (8.8-10.2); CARBON DIOXIDE LEVEL 27 MEQ/L (21-32); CHLORIDE LEVEL 99 MEQ/L (98-107); CK-MB VALUE MASS < 1.0 NG/ML (<3.6); CPK CREATINE PHOSPHOKINASE 142 U/L (39-308); CREATININE FOR GFR 2.05 MG/DL (0.70-1.30); GLUCOSE, FASTING 85 MG/DL (70-100); NT-PRO BNP 6534 PG/ML (<450); POTASSIUM SERUM 3.7 MEQ/L (3.5-5.1); SODIUM LEVEL 137 MEQ/L (136-145); THYROID STIMULATING HORMONE 0.592 uIU/ML (0.358-3.740); THYROXINE (T4) 6.8 UG/DL (4.5-12.0); TOTAL PROTEIN 7.7 GM/DL (6.4-8.2); TROPONIN I 0.82 NG/ML (< 0.10)
[2021-03-01 22:15] LABS: RSV AMPLIFICATION NEGATIVE (NEGATIVE)
[2021-03-01] MEDS ORDERED: LevoFLOXacin 500 MG TABLET PO ONE (23:15)
[2021-03-01] MEDS ORDERED: AZITHROMYCIN INJ 500 MG, VIAL MATE ADAPTER 1 EACH in NS 250 ML IV ONE (23:30)
[2021-03-01] MEDS ORDERED: cefTRIAXone SOD 1 GM in D5W MINI-BAG PLUS 50 ML IV ONE (23:30)
[2021-03-01] MEDS ORDERED: FUROSEMIDE 100MG/10ML VIAL (J1940) IV ONE (23:30)
[2021-03-02 00:13] LABS: INR 1.16; PROTHROMBIN TIME 15.1 SECONDS (12.5-14.3)
[2021-03-02 00:14] LABS: PARTIAL THROMBOPLASTIN TIME 30.5 SECONDS (24.2-38.5)
[2021-03-02] MEDS ORDERED: HEPARIN SOD (PORCINE) 5000UNITS/ML 1ML VIAL/SYRINGE IV ONE (00:15)
[2021-03-02] MEDS ORDERED: HEPARIN DRIP 25,000 UNITS in IV 1 EA IV SCH (00:15)
[2021-03-02] MEDS ORDERED: CLOPIDOGREL 300 MG TAB (PLAVIX) PO ONE (00:15)
[2021-03-02 00:21] LABS: CK-MB VALUE MASS 1.1 NG/ML (<3.6); MB/CK RELATIVE INDEX 0.66 (< OR =4); TROPONIN I 0.85 NG/ML (< 0.10)
[2021-03-02 01:31] VITALS: BP 178/84
== END 2021-03-02 02:00 | disposition short-term general hospital (02) ==
LOC: M ED 20:40
DX: I21.4 Non-ST elevation (NSTEMI) myocardial infarction (principal); J18.9 Pneumonia, unspecified organism; I48.91 Unspecified atrial fibrillation; J44.9 Chronic obstructive pulmonary disease, unspecified; Z79.4 Long term (current) use of insulin; Z79.51 Long term (current) use of inhaled steroids; Z79.899 Other long term (current) drug therapy; Z87.891 Personal history of nicotine dependence; Z91.040 Latex allergy status
CPT/HCPCS: 71045; 80048; 80076; 82550; 82553; 83605; 83880; 84436; 84443; 84484; 85025; 85049; 85055; 85610; 85730; 87040; 87631; 93005; 93041; 94760; 99285; J0456; J0696; J1644; J1940

== ENCOUNTER → 2021-04-29 | Outpatient (REF) | payer MEDICARE, OTHER, BC ==
[~2021-04-29] MED LIST changes: +LINZ72CA PO; +POTA8CAP10 PO
[2021-04-29 18:52] LABS: MAGNESIUM LEVEL 2.6 MG/DL (1.8-2.4); PERCENT SATURATION 21.7 % (19.7-50.0)
== END ==
LOC: M LAB REF 17:27
PROVIDERS: ATTEND Nurse Practitioner Family
DX: E83.42 Hypomagnesemia (principal); D50.9 Iron deficiency anemia, unspecified

== ENCOUNTER 2021-08-22 22:24 | Inpatient (IN) | payer MEDICARE, OTHER, BC ==
[~2021-08-22] VITALS: Ht 193 cm; Wt 147.7 kg
[2021-08-23 01:31] LABS: BASO % 0.2 % (0.0-1.0); EOS % 0.2 % (0.0-3.0); HEMATOCRIT 30.2 % (42.0-52.0); HEMOGLOBIN 9.5 g/dl (13.5-17.5); LYMPH # 3.8 10^3/uL (1.5-5.0); LYMPH % 15.5 % (24.0-44.0); MEAN CORPUSCULAR HEMOGLOBIN 33.5 pg (27.0-33.0); MEAN CORPUSCULAR HGB CONC 31.5 g/dl (32.0-36.5); MEAN CORPUSCULAR VOLUME 106.3 fl (80.0-96.0); MONO # 1.4 10^3/uL (0.0-0.8); MONO % 5.7 % (2.0-8.0); NEUTROPHILS # 18.9 10^3/uL (1.5-8.5); NEUTROPHILS % 77.5 % (36.0-66.0); RED BLOOD COUNT 2.84 10^6/uL (4.30-6.10); WHITE BLOOD COUNT 24.4 10^3/uL (4.0-10.0)
[2021-08-23 01:36] LABS: PLATELET COUNT, AUTOMATED 94 10^3/uL (150-450)
--- NOTE | 2021-08-23 01:39 | REPVR ---
PROCEDURE INFORMATION: Exam: XR Chest Exam date and time: 08/23/2021 12:53 AM Age: 86 years old Clinical indication: Other: Weakness TECHNIQUE: Imaging protocol: XR of the chest. Views: 1 view. COMPARISON: CR PORTABLE CHEST X-RAY 03/01/2021 9:22 PM FINDINGS: Lungs: There is decreased inflation of the lungs. Slight left base clearing. The right lung is unchanged. There are no interval infiltrates. Pleural spaces: Unremarkable. No pleural effusion. No pneumothorax. Heart/Mediastinum: The heart and mediastinum are unchanged in view of AP and lordotic projection. Bones/joints: Unremarkable. Soft tissues: There are generous overlying soft tissues. IMPRESSION: 1. Slight left base clearing since 03/01/2021. 2. Otherwise stable poor inspiratory chest since the prior study. Electronically signed by: Eric Davis On 08/23/2021 01:39:21 AM
[2021-08-23 02:00] LABS: ALBUMIN 3.2 GM/DL (3.2-5.2); BILIRUBIN,DIRECT 0.5 MG/DL (0.0-0.2); BILIRUBIN,TOTAL 1.3 MG/DL (0.2-1.0); CALCIUM LEVEL 9.1 MG/DL (8.8-10.2); CREATININE FOR GFR 2.28 MG/DL (0.70-1.30); FREE T4 1.23 NG/DL (0.76-1.46); GLOMERULAR FILTRATION RATE 29.2 (>35); POTASSIUM SERUM 4.3 MEQ/L (3.5-5.1); THYROID STIMULATING HORMONE 0.605 uIU/ML (0.358-3.740); TOTAL PROTEIN 7.7 GM/DL (6.4-8.2)
[2021-08-23 03:04] LABS: CK-MB VALUE MASS 3.7 NG/ML (<3.6); MB/CK RELATIVE INDEX 0.6 (< OR =4)
[2021-08-23] MEDS ORDERED: ceFAZolin SOD 1 GM in D5W MINI-BAG PLUS 50 ML IV ONE (04:25)
[2021-08-23] MEDS ORDERED: GLUCOSE 4GM CHEW TABLET PO PRN (04:35)
[2021-08-23] MEDS ORDERED: GLUCAGON INJ 1MG VIAL SC PRN (04:35)
[2021-08-23] MEDS ORDERED: ACETAMINOPHEN TAB 650MG DOSE (2X325MG) PO PRN (04:35)
[2021-08-23] MEDS ORDERED: DEXTROSE 50% 50 ML SYRINGE IV PRN (04:35)
[2021-08-23] MEDS ORDERED: TORS20TA2 PO ×2 (05:03)
[2021-08-23] MEDS ORDERED: PANT40TA29 PO (05:03)
[2021-08-23] MEDS ORDERED: HOME MED LIST COMPLETE! XX SCH (05:05)
[2021-08-23] MEDS ORDERED: med rec comment (05:05)
[2021-08-23 05:29] LABS: URIC ACID 8.8 MG/DL (3.5-7.2)
[2021-08-23 06:00] VITALS: BP 113/64
[2021-08-23 06:03] VITALS: BP_SYST 107; BP_SYST 112; BP_SYST 114; BP_DIAS 64; BP_DIAS 71
[2021-08-23] MEDS ORDERED: VANCOMYCIN HCL 1,000 MG, VIAL MATE ADAPTER 1 EACH in NS 250 ML IV ONE (06:20)
--- NOTE | 2021-08-23 06:25 | HPEPDOC ---
General Date of Admission 08/23/21 Date of Service: Aug 23, 2021 Chief Complaint The patient is a 86-year-old male admitted with a reason for visit of Cellulitis. Source: Patient History of Present Illness Nilo Rodriguez is an 86-year-old male with significant history of chronic kidney disease IV, atrial fibrillation, diabetes and bilateral lower extremity venous stasis who arrives with complaints of generalized weakness. Patient reports that he was unable to get up from his couch and actually slid to the floor because he felt so weak. He reports recently feeling at baseline except does endorse some chills yesterday and review of systems he also notes some malodorous and discolored urine as well as bilateral lower extremity redness that he has been seeing Dr. Orozco for and been on antibiotics for the past 2 weeks. He is unable to say the name of the abx. Patient reports that as a diabetic he sees Dr. Villela to clip his toenails and he has been also having trouble with his venous stasis and "scabbing" of his legs from time to time since March 2021. Pt denies shukla, sinus congestion, sore throat, productive cough, inc sob, palpitations, chest pain, n/v/d, abdominal pain, sensory changes or syncope. Patient afebrile, mildly tachycardic not tachypneic, normotensive + leukocytosis but without lactic acidosis. Physical exam reveals bilateral lower extremity erythema and mild tenderness. UA with +wbc, 3+ bacteria. Patient will be admitted for further evaluation management presenting concerns Home Medications Scheduled Allopurinol (Allopurinol) 100 Mg Tab, 100 MG PO DAILY, (Reported) Brimonidine Tartrate/Timolol (Combigan 0.2%-0.5% Eye Drops) 5 Ml Drops, 1 DROP OU BID, (Reported) Carvedilol (Carvedilol) 12.5 Mg Tablet, 12.5 MG PO BID, (Reported) Fluticasone/Umeclidin/Vilanter (Trelegy Ellipta 100-62.5-25) 1 Each Blst.w.dev, 1 PUFF INH DAILY, (Reported) Insulin Glargine (Lantus) 1 Units/0.01 Ml Susp, 70 UNITS SC BID, (Reported) Latanoprostene Bunod (Vyzulta) 0.024% 5ML Drops, 1 DROP OU QHS, (Reported) Linaclotide (Linzess) 72 Mcg Capsule, 72 MCG PO DAILY, (Reported) Pantoprazole Sodium (Pantoprazole Sodium) 40 Mg Tablet.dr, 40 MG PO DAILY, (Reported) Pioglitazone HCl (Pioglitazone HCl) 15 Mg Tablet, 15 MG PO DAILY, (Reported) Potassium Chloride (Potassium Chloride) 8 Meq Capsule.er, 8 MEQ PO DAILY, (Re ported) Torsemide (Torsemide) 20 Mg Tablet, 40 MG PO QAM, (Reported) Torsemide (Torsemide) 20 Mg Tablet, 20 MG PO QPM, (Reported) Scheduled PRN Albuterol Sulfate (Proair Hfa) 8.5 Gm Hfa.aer.ad, 2 PUFF INH Q4H PRN for SOB/WHEEZING, (Reported) Betamethasone/Propylene Glyc (Diprolene 0.05% Ointment) 15 Gm Oint...g., 1 APPLIC TOP BID PRN for DIABETIC ITCH, (Reported) Miscellaneous Medications [med rec comment] , (Reported) used external med history unable to verify with pt Allergies Coded Allergies: latex (Verified Allergy, Unknown, 06/29/19) Past Medical History Medical History Diabetes, hypertension, CKD, A. fib, history of DVT, GERD, vitamin D, macular degeneration, gout, obesity, hyperlipidemia, BPH, [place] Surgical History Right knee arthroscopy with I&D 07/2015, right knee I&D 08/2015, cataract 2001, melanoma removed left arm Family History Significant Family History: No pertinent family hx Social History * Smoker: former Smoker (Quit 15 years ago) Alcohol: occationally (Socially may be glass of wine monthly reportedly) Drugs: denies Recent Travel/Sick Contacts: Denies: Recent travel, Recent sick contacts Psychosocial History: No pertinent psych hx A-FIB/CHADSVASC A-FIB History Current/History of A-Fib/PAF?: No Current PO Anticoag Therapy: No Review of Systems Constitutional: Reports: Chills; Denies: Fever, Night Sweats Eyes: Denies: Pain, Vision change ENT: Denies: Head Aches, Ear Pain, Dysphagia Skin: Reports: Rash; Denies: Lesions, Breakdown Pulmonary: Denies: Dyspnea, Cough Cardiovascular: Denies: Chest Pain, Palpitations, Orthopnea, Paroxysmal Noc. Dyspnea, Lt Headedness Gastrointestinal: Denies: Nausea, Vomiting, Abdominal Pain, Diarrhea Genitourinary: Reports: Other Symptoms (Foul-smelling urine); Denies: Dysuria, Frequency, Incontinence, Retention Hematologic: Denies: Bruising, Bleeding Excessively Musculoskeletal: Reports: Leg Pain; Denies: Neck Pain, Back Pain, Joint Pain, Muscle Pain, Spasms Neurological: Denies: Weakness, Numbness, Change in speech, Confusion Psych: Reports: Mood Normal; Denies: Depression, Memory Issues Physical Examination General Exam: Positive: Alert, Cooperative, No Acute Distress Eye Exam: Positive: PERRLA, Conjunctiva & lids normal, EOMI; Negative: Sclera icteric ENT Exam: Positive: Atraumatic, Mucous membr. moist/pink, Pharynx Normal Neck Exam: Positive: Supple; Negative: JVD, thyromegaly Chest Exam: Positive: Clear to auscultation, Normal air movement Heart Exam: Positive: Rate Normal, Regular Rhythm, Normal S1, Normal S2; Negative: Murmurs, Rubs Telemetry: Positive: Atrial fibrillation Abdomen Exam: Positive: Normal bowel sounds, Soft, Other (+ Rounded, soft); Negative: Tenderness, Hepatospenomegaly Extremity Exam: Positive: Normal pulses; Negative: Clubbing, Cyanosis, Edema Skin Exam: Positive: Other skin issue (Bilateral lower extremity erythema, small blistering noted right lower extremity); Negative: Breakdown, Lesion Neuro Exam: Positive: Normal Gait, Normal Speech, Cranial Nerves 3-12 NL, Reflexes 2+ Psych Exam: Positive: Mental status NL, Mood NL, Oriented x 3 Other physical findings superficial abrasion R posterior shoulder Vital Signs Vital Signs Date Time Temp Pulse Resp B/P (MAP) Pulse Ox O2 Delivery O2 Flow Rate FiO2 08/23/21 02:56 92 98 08/23/21 02:15 98.8 18 133/65 (87) Room Air Laboratory Data Labs 24H Laboratory Tests 2 08/23/21 00:59: Immature Granulocyte % (Auto) 0.9, Neutrophils (%) (Auto) 77.5H, Lymphocytes (%) (Auto) 15.5L, Monocytes (%) (Auto) 5.7, Eosinophils (%) (Auto) 0.2, Basophils (%) (Auto) 0.2, Neutrophils # (Auto) 18.9H, Lymphocytes # (Auto) 3.8, Monocytes # (Auto) 1.4H, Eosinophils # (Auto) 0.0, Basophils # (Auto) 0.0, Nucleated Red Blood Cells % (auto) 0.0, Immature Platelet Fraction 3.9, Anion Gap 8, Glomerular Filtration Rate 29.2L, Lactic Acid Level 1.7, Calcium Level 9.1, Total Bilirubin 1.3H, Direct Bilirubin 0.5H, Aspartate Amino Transf (AST/SGOT) 21, Alanine Aminotransferase (ALT/SGPT) 17, Alkaline Phosphatase 58, Total Protein 7.7, Albumin 3.2, Albumin/Globulin Ratio 0.7, Thyroid Stimulating Hormone (TSH) 0.605, Free Thyroxine 1.23 08/23/21 02:19: Total Creatine Kinase 614H, Creatine Kinase MB 3.7H, Creatine Kinase MB Relative Index 0.60, Troponin I High Sensitivity 6.0 08/23/21 03:51: Urine Color GISELE, Urine Appearance HAZY, Urine pH 5.0, Urine Specific [place] 1.013, Urine Protein 1+H, Urine Glucose (UA) NEGATIVE, Urine Ketones NEGATIVE, Urine Blood 1+H, Urine Nitrite NEGATIVE, Urine Bilirubin NEGATIVE, Urine Urobilinogen 0.2, Urine Leukocyte Esterase TRACEH, Urine WBC (Auto) 14H, Urine RBC (Auto) 2, Urine Hyaline Casts (Auto) 1, Urine Bacteria (Auto) 3+H, Urine Squamous Epithelial Cells 0, Urine Mucus (Auto) SMALL, Urine Sperm (Auto) CBC/BMP Laboratory Tests 08/23/21 00:59 Microbiology Microbiology 08/23/21 Urine Culture, Received Pending 08/23/21 Respiratory Virus Panel (PCR) (JIMBO) - Final, Complete 08/23/21 Blood Culture, Received Pending 08/23/21 Blood Culture, Received Pending Assessment/Plan 1. Bilateral lower extremity cellulitis: In setting of venous stasis, recently failed OP oral abx x 2 weeks -Monitor for signs symptoms worsening infection -Empiric coverage. Follow-up wound cultures for adjustment -Symptomatic/supportive care--elevate BLE -Analgesics as needed. -A.m. labs 2. UTI: Patient endorses malodorous and discolored urine. UA positive for bacteria and leukoesterase. -Monitor for signs symptoms worsening infection. -Empiric coverage, follow-up culture for adjustment -A.m. labs 3. Mild KEERTHI on CKD: Creat 2.28 from 2.05 -Monitor fluid balance, I's and O's, urinary output -Avoid nephrotoxins as able -Encourage p.o. intake -A.m. labs -Will plan for restarting diuretics tomorrow 4. Generalized weakness in setting of above: pt walks with walker at baseline. -Treat above -May benefit from PT eval for therapeutic purposes prior to d/c 5. Afib: Rate controlled -Tele - Continue home medication -Pt had taken Eliquis in past, but denies OAC now due to hx of anemia 6. DM: -Check A1c. -Monitor patient blood glucose ACHS. -Sliding scale insulin and continue home long-acting. -A.m. labs. 7. COPD: Without exacerbation. Chest x-ray shows mild improved aeration stable imaging. -Monitor respiratory status -Continue home inhalers 8. GERD: Continue PPI DVT prophylaxis: Heparin subcu CODE STATUS: Full code Disposition planning: Home pending clinical course Plan / VTE VTE Prophylaxis Ordered?: Yes Attending Note Attending Note Patient seen and examined, agree with [employer]'s assessment and plan of care. Continue current management AMADOR COLINDRES NP Aug 23, 2021 04:41 NIKOS EVANS MD Aug 23, 2021 18:55
[2021-08-23] MEDS ORDERED: SODIUM CHLORIDE 0.9% 1000ML IV ONE (06:30)
[2021-08-23] MEDS: HumaLOG INSULIN (NovoLOG) PER UNIT SC SCH ×4 (07:30→20:21)
[2021-08-23] MEDS ORDERED: DIPROLENE TOP PRN (07:35)
--- NOTE | 2021-08-23 07:52 | ECGEPIP ---
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
[2021-08-23] MEDS: HEPARIN SOD (PORCINE) 5000UNITS/ML 1ML VIAL/SYRINGE SQ SCH ×2 (08:00→20:00)
[2021-08-23] MEDS: CARVedilol 12.5 MG TAB PO SCH ×2 (09:00→20:43)
[2021-08-23] MEDS: LEVEMIR (INSULIN DETEMIR) 1 UNITS/0.01ML SC SCH ×2 (09:00→20:31)
[2021-08-23] MEDS ORDERED: LINZESS 72 MCG PO SCH (09:00)
[2021-08-23] MEDS ORDERED: ENTER DRUG NAME HERE (PATIENT'S OWN MED) OU SCH ×2 (09:00→21:00)
[2021-08-23] MEDS ORDERED: ENTER DRUG NAME HERE (PATIENT'S OWN MED) INH SCH (09:00)
[2021-08-23] MEDS: LACTOBACILLUS ACIDOPHILUS CAP (BACID) PO SCH (09:22)
[2021-08-23] MEDS: VANCOMYCIN HCL 1,000 MG, VIAL MATE ADAPTER 1 EACH in NS 250 ML IV SCH (09:22)
[2021-08-23] MEDS: POTASSIUM CHLORIDE 10MEQ SR TABLET PO SCH (09:23)
[2021-08-23] MEDS: allopurinoL 100 MG TAB PO SCH (09:23)
[2021-08-23] MEDS: PANTOPRAZOLE 40MG TAB (PROTONIX) PO SCH (09:23)
[2021-08-23 10:25] LABS: HEMOGLOBIN A1c 7.2 %
[2021-08-23] MEDS: TIOTROPIUM INHALER/CAPSULE (SPIRIVA) INH SCH (11:34)
[2021-08-23] MEDS: ADVAIR HFA 230/21MCG INHALER INH SCH ×2 (11:34→19:34)
--- NOTE | 2021-08-23 12:00 | IPNPDOC ---
Text Note Date of Service The patient was seen on 08/23/21. NOTE Subjective: -No acute events Objective: Vitals: see below General: Alert, Cooperative, No Acute Distress Eyes: PERRLA, Conjunctiva & lids normal, EOMI, anicteric ENT: Atraumatic, Mucous membr. moist/pink, Pharynx Normal Neck: Supple, no JVD Chest: Clear to auscultation, Normal air movement Heart: Irregularly irregular, Normal S1, Normal S2, noted m/r/g Abdomen: Normal bowel sounds, obese, protuberant, soft, NTND Extremities: WWP, trace pitting edema Skin: Bilateral LE chronic venous stasis with hyperpigmentation and erythema Neuro: Normal Gait, Normal Speech, Cranial Nerves 3-12 NL Psych Exam: AO x 3 Labs: Reviewed: WBC 24.4 hgb 9.5 platelets 94 na 136 K 4.3 Cr 2.28 Microbiology 08/23/21 Urine Culture, Received Pending 08/23/21 Respiratory Virus Panel (PCR) (JIMBO) - Final, Complete 08/23/21 Blood Culture, Received Pending 08/23/21 Blood Culture, Received Pending Assessment: 86-year-old M with significant history of chronic kidney disease IV, atrial fibrillation, diabetes and chronic bilateral lower extremity venous stasis who presented with complaints of generalized weakness and admitted for sepsis with leukocytosis and tachycardia suspected 2/2 UTI. Sepsis: WBC 24.2, tachycardia at presentation. With +++UA -continue pip/tazo and vanc for now though MRSA UTI is unlikely, will send a MRSA PCR given LE bilateral erythema though I highly doubt the unlikely idea of bilateral cellulitis -f/u UCx and BCx -f/u MRSA PCR Bilateral lower extremity venous stasis with erythema: Definitely NOT cellulitis, exam c/w lipodermatosclerosis, reports that his legs have looked the same since 03/2020 -Was reportedly was on PO abx for 2 weeks without change, doubt acute infection -Empiric coverage includes vanc, with pending MRSA PCR -Elevate BLE -continue diuretic therapy UTI: UA positive for bacteria and leukoesterase. -continue pip/tazo and vanc for now though MRSA UTI is unlikely, will send a MRSA PCR given LE bilateral erythema though I highly doubt the unlikely idea of bilateral cellulitis -f/u UCx and BCx -f/u MRSA PCR CKD: at baseline Generalized weakness in setting sepsis -Treatment as above -PT/OT -continue diuretic therapy and elevation of LE when supine or sitting . Chronic Afib: Rate controlled -Tele - Continue home medication -Pt had taken Eliquis in past, but denies OAC now due to hx of anemia DM: -f/u A1c. -Monitor patient blood glucose ACHS. -Sliding scale insulin and continue home long-acting. COPD: Without exacerbation. Chest x-ray shows mild improved aeration stable imaging. -Monitor respiratory status -Continue home inhalers GERD: Continue PPI DVT prophylaxis: Heparin subcu CODE STATUS: Full code Disposition planning: Anticipate home pending clinical improvement and PT/OT marjan l VS,Fishbone, I+O VS, Fishbone, I+O Laboratory Tests 08/23/21 00:59 Vital Signs Date Time Temp Pulse Resp B/P (MAP) Pulse Ox O2 Delivery O2 Flow Rate FiO2 08/23/21 06:03 88 112/64 (80) 86 114/64 (81) 98 107/71 (83) 08/23/21 06:00 98.5 19 95 Room Air I&O- Last 24 Hours up to 6 AM 08/23/21 06:00 Intake Total 50 ml Balance 50 ml JASON BUNCH MD Aug 23, 2021 08:02
[2021-08-23] MEDS: PIPERACILLIN/TAZOBACTAM SOD 3.375 GM in D5W MINI-BAG PLUS 50 ML IV SCH ×2 (13:03→20:29)
[2021-08-23] MEDS: BRIMONIDINE 0.15% OPHTH SOLN 5 ML OU SCH ×2 (13:05→20:30)
[2021-08-23] MEDS: TIMOLOL MALEATE 0.5% OPHTH SOLN 5 ML OU SCH ×2 (13:05→20:40)
[2021-08-23 14:00] VITALS: BP 102/63
[2021-08-23] MEDS: LATANOPROST 0.005% OPHTH SOLN 2.5 ML OU SCH (20:45)
[2021-08-23 22:00] VITALS: BP 136/67
[2021-08-24] MEDS: PIPERACILLIN/TAZOBACTAM SOD 3.375 GM in D5W MINI-BAG PLUS 50 ML IV SCH ×3 (04:14→20:25)
[2021-08-24 06:00] VITALS: BP 128/61
[2021-08-24] MEDS: TIOTROPIUM INHALER/CAPSULE (SPIRIVA) INH SCH (07:44)
[2021-08-24] MEDS: ADVAIR HFA 230/21MCG INHALER INH SCH ×2 (07:44→19:05)
[2021-08-24] MEDS: HEPARIN SOD (PORCINE) 5000UNITS/ML 1ML VIAL/SYRINGE SQ SCH ×2 (08:00→20:00)
[2021-08-24] MEDS: VANCOMYCIN HCL 1,000 MG, VIAL MATE ADAPTER 1 EACH in NS 250 ML IV SCH (08:11)
[2021-08-24] MEDS: LACTOBACILLUS ACIDOPHILUS CAP (BACID) PO SCH (08:12)
[2021-08-24] MEDS: allopurinoL 100 MG TAB PO SCH (08:13)
[2021-08-24] MEDS: POTASSIUM CHLORIDE 10MEQ SR TABLET PO SCH (08:13)
[2021-08-24] MEDS: PANTOPRAZOLE 40MG TAB (PROTONIX) PO SCH (08:13)
[2021-08-24] MEDS: CARVedilol 12.5 MG TAB PO SCH ×2 (08:14→20:27)
[2021-08-24] MEDS: HumaLOG INSULIN (NovoLOG) PER UNIT SC SCH ×4 (08:15→21:00)
[2021-08-24] MEDS: TIMOLOL MALEATE 0.5% OPHTH SOLN 5 ML OU SCH ×2 (08:16→20:26)
[2021-08-24] MEDS: LEVEMIR (INSULIN DETEMIR) 1 UNITS/0.01ML SC SCH ×2 (08:16→20:40)
[2021-08-24] MEDS: BRIMONIDINE 0.15% OPHTH SOLN 5 ML OU SCH ×2 (08:16→20:25)
[2021-08-24] MEDS ORDERED: TORSEMIDE 20 MG TAB PO SCH ×2 (09:00→18:00)
[2021-08-24 09:54] LABS: HEMATOCRIT 27.4 % (42.0-52.0); HEMOGLOBIN 8.9 g/dl (13.5-17.5); MEAN CORPUSCULAR HEMOGLOBIN 34.1 pg (27.0-33.0); MEAN CORPUSCULAR HGB CONC 32.5 g/dl (32.0-36.5); RED BLOOD COUNT 2.61 10^6/uL (4.30-6.10); WHITE BLOOD COUNT 18.9 10^3/uL (4.0-10.0)
[2021-08-24 10:02] LABS: CALCIUM LEVEL 8.8 MG/DL (8.8-10.2); CREATININE FOR GFR 2.57 MG/DL (0.70-1.30); GLOMERULAR FILTRATION RATE 25.4 (>35); MAGNESIUM LEVEL 2.3 MG/DL (1.8-2.4); POTASSIUM SERUM 3.9 MEQ/L (3.5-5.1)
[2021-08-24 10:10] LABS: PLATELET COUNT, AUTOMATED 80 10^3/uL (150-450)
[2021-08-24 14:00] VITALS: BP 126/60
--- NOTE | 2021-08-24 16:44 | IPNPDOC ---
Text Note Date of Service The patient was seen on 08/24/21. NOTE Subjective: -No acute events Objective: Vitals: see below General: Alert, Cooperative, No Acute Distress Eyes: PERRLA, Conjunctiva & lids normal, EOMI, anicteric ENT: Atraumatic, Mucous membr. moist/pink, Pharynx Normal Neck: Supple, no JVD Chest: Clear to auscultation, Normal air movement Heart: Irregularly irregular, Normal S1, Normal S2, noted m/r/g Abdomen: Normal bowel sounds, obese, protuberant, soft, NTND Extremities: WWP, trace pitting edema Skin: Bilateral LE chronic venous stasis with hyperpigmentation and erythema Neuro: Normal Gait, Normal Speech, Cranial Nerves 3-12 NL Psych Exam: AO x 3 Labs: Reviewed: has pending AM labs Microbiology 08/23/21 Urine Culture, Received Pending 08/23/21 Respiratory Virus Panel (PCR) (JIMBO) - Final, Complete 08/23/21 Blood Culture, Received Pending 08/23/21 Blood Culture, Received Pending Assessment: 86-year-old M with significant history of chronic kidney disease IV, atrial fibrillation, diabetes and chronic bilateral lower extremity venous stasis who presented with complaints of generalized weakness and admitted for sepsis with leukocytosis and tachycardia suspected 2/2 UTI. Sepsis: Admission WBC 24.2, tachycardia at presentation. With +++UA -continue pip/tazo. DC Vanc MRSA UTI is unlikely,and MRSA PCR was negative. -f/u UCx and BCx Bilateral lower extremity venous stasis with erythema: Definitely NOT celluliti s, exam c/w lipodermatosclerosis, reports that his legs have looked the same since 03/2020 -Was reportedly was on PO abx for 2 weeks without change, doubt acute infection -On zosyn for UTI -Elevate BLE -Escalate diuretic therapy to lasix 80 IV BID UTI: UA positive for bacteria and leukoesterase. -continue pip/tazo. DC Vanc MRSA UTI is unlikely,and MRSA PCR was negative. -f/u UCx and BCx CKD: at baseline Generalized weakness in setting sepsis -Treatment as above -PT/OT -continue diuretic therapy and elevation of LE when supine or sitting . Chronic Afib: Rate controlled -Tele - Continue home medication -Pt had taken Eliquis in past, but denies OAC now due to hx of anemia DM: -f/u A1c. -Monitor patient blood glucose ACHS. -Sliding scale insulin and continue home long-acting. COPD: Without exacerbation. Chest x-ray shows mild improved aeration stable imaging. -Monitor respiratory status -Continue home inhalers GERD: Continue PPI Acute on chronic CHF, subtype unspecified, on chronic loop diuretics: -elevated proBNP, LE edema, will escalate diuretics to 80 IV BID lasix from home PO torsemide -strict I/Os -daily weights -2L/24h fluid restriction -consistent carb with 2g sodium diet DVT prophylaxis: Heparin subcu CODE STATUS: Full code Disposition planning: Anticipate home pending clinical improvement and PT/OT eval VS,Fishbone, I+O VS, Fishbone, I+O Vital Signs Date Time Temp Pulse Resp B/P (MAP) Pulse Ox O2 Delivery O2 Flow Rate FiO2 08/24/21 08:14 83 121/65 08/24/21 06:00 97.8 20 97 Room Air I&O- Last 24 Hours up to 6 AM 08/24/21 06:00 Intake Total 2000 ml Output Total 725 ml Balance 1275 ml JASON BUNCH MD Aug 24, 2021 09:14
[2021-08-24] MEDS ORDERED: FUROSEMIDE 100MG/10ML VIAL (J1940) IV SCH (17:00)
[2021-08-24] MEDS: ALBUTEROL 90 MCG/ACT 8GM HFA INHALER INH PRN (19:05)
[2021-08-24] MEDS: LATANOPROST 0.005% OPHTH SOLN 2.5 ML OU SCH (20:25)
[2021-08-24 21:00] VITALS: BP 148/66
[2021-08-25] MEDS: PIPERACILLIN/TAZOBACTAM SOD 3.375 GM in D5W MINI-BAG PLUS 50 ML IV SCH (03:44)
[2021-08-25 05:28] VITALS: BP 149/66
[2021-08-25 06:18] LABS: HEMATOCRIT 26.7 % (42.0-52.0); HEMOGLOBIN 8.5 g/dl (13.5-17.5); MEAN CORPUSCULAR HEMOGLOBIN 33.2 pg (27.0-33.0); MEAN CORPUSCULAR HGB CONC 31.8 g/dl (32.0-36.5); MEAN CORPUSCULAR VOLUME 104.3 fl (80.0-96.0); RED BLOOD COUNT 2.56 10^6/uL (4.30-6.10); WHITE BLOOD COUNT 12.5 10^3/uL (4.0-10.0)
[2021-08-25 06:21] LABS: PLATELET COUNT, AUTOMATED 76 10^3/uL (150-450)
[2021-08-25 06:38] LABS: CALCIUM LEVEL 8.8 MG/DL (8.8-10.2); CREATININE FOR GFR 2.9 MG/DL (0.70-1.30); GLOMERULAR FILTRATION RATE 22.1 (>35); POTASSIUM SERUM 3.6 MEQ/L (3.5-5.1)
[2021-08-25] MEDS: TIOTROPIUM INHALER/CAPSULE (SPIRIVA) INH SCH (07:29)
[2021-08-25] MEDS: ADVAIR HFA 230/21MCG INHALER INH SCH ×2 (07:29→19:40)
[2021-08-25] MEDS: HumaLOG INSULIN (NovoLOG) PER UNIT SC SCH ×4 (07:30→21:00)
[2021-08-25] MEDS: HEPARIN SOD (PORCINE) 5000UNITS/ML 1ML VIAL/SYRINGE SQ SCH (07:50)
[2021-08-25] MEDS: LACTOBACILLUS ACIDOPHILUS CAP (BACID) PO SCH ×3 (09:11→17:43)
[2021-08-25] MEDS: PANTOPRAZOLE 40MG TAB (PROTONIX) PO SCH (09:11)
[2021-08-25] MEDS: POTASSIUM CHLORIDE 10MEQ SR TABLET PO SCH (09:12)
[2021-08-25] MEDS: allopurinoL 100 MG TAB PO SCH (09:12)
[2021-08-25] MEDS: LEVEMIR (INSULIN DETEMIR) 1 UNITS/0.01ML SC SCH ×2 (09:13→20:49)
[2021-08-25] MEDS: TIMOLOL MALEATE 0.5% OPHTH SOLN 5 ML OU SCH ×2 (09:15→21:05)
[2021-08-25] MEDS: BRIMONIDINE 0.15% OPHTH SOLN 5 ML OU SCH ×2 (09:15→21:05)
[2021-08-25] MEDS: CARVedilol 12.5 MG TAB PO SCH ×2 (09:18→20:48)
[2021-08-25] MEDS: CIPROFLOXACIN 500MG TABLET PO SCH ×2 (10:48→17:43)
[2021-08-25 10:53] LABS: FOLATE 14.4 NG/ML (>5.4)
--- NOTE | 2021-08-25 13:08 | IPNPDOC ---
Text Note Date of Service The patient was seen on 08/25/21. NOTE Subjective: -No acute events Objective: Vitals: see below General: Alert, Cooperative, No Acute Distress Eyes: PERRLA, Conjunctiva & lids normal, EOMI, anicteric ENT: Atraumatic, Mucous membr. moist/pink, Pharynx Normal Neck: Supple, no JVD Chest: Clear to auscultation, Normal air movement Heart: Irregularly irregular, Normal S1, Normal S2, noted m/r/g Abdomen: Normal bowel sounds, obese, protuberant, soft, NTND Extremities: WWP, 1+ pitting edema but much improved from prior Skin: Bilateral LE chronic venous stasis with hyperpigmentation and erythema Neuro: Normal Gait, Normal Speech, Cranial Nerves 3-12 NL Psych Exam: AO x 3 Labs: Reviewed: WBC 12.5 hgb 8.5 platelets 76 na 133 K 3.6 Cr 2.9 Microbiology 08/23/21 Urine Culture, Received Pending 08/23/21 Respiratory Virus Panel (PCR) ([facility]) - Final, Complete 08/23/21 Blood Culture, Received Pending 08/23/21 Blood Culture, Received Pending Assessment: 86-year-old M with significant history of chronic kidney disease IV, atrial fibrillation, diabetes and chronic bilateral lower extremity venous stasis who presented with complaints of generalized weakness and admitted for sepsis with leukocytosis and tachycardia suspected 2/2 UTI. Sepsis: Admission WBC 24.2, tachycardia at presentation. With +++UA: resolved -continue pip/tazo. Called micro, growing >100K GNRs, pending speciation and sensitivities -f/u UCx -BCx NGTD Bilateral lower extremity venous stasis with erythema: Definitely NOT cellulitis, exam c/w lipodermatosclerosis, reports that his legs have looked the same since 03/2020 -Was reportedly was on PO abx for 2 weeks without change, doubt acute infection -On zosyn for UTI -Elevate BLE -For now will continue diuretic therapy of lasix 80 IV BID UTI: UA positive for bacteria and leukoesterase. -continue pip/tazo. Called micro, growing >100K GNRs, pending speciation and sensitivities mild KEERTHI on CKD: -with ongoing diuresis, spoke with nurse for accurate I/Os -may hold further diuresis soon Generalized weakness in setting sepsis -Treatment as above -PT/OT -continue diuretic therapy and elevation of LE when supine or sitting . Chronic Afib: Rate controlled -Tele - Continue home medication -Pt had taken Eliquis in past, but denies OAC now due to hx of anemia DM: -f/u A1c. -Monitor patient blood glucose ACHS. -Sliding scale insulin and continue home long-acting at reduced dose of 50 levemir BID COPD: Without exacerbation. Chest x-ray shows mild improved aeration stable imaging. -Monitor respiratory status -Continue home inhalers GERD: Continue PPI Acute on chronic CHF, subtype unspecified, on chronic loop diuretics: -elevated proBNP, LE edema, will now dc IV BID lasix and plan to resume home PO torsemide tomorrow -strict I/Os -daily weights -2L/24h fluid restriction -consistent carb with 2g sodium diet Thrombocytopenia: chronic, stable DVT prophylaxis: SCDs and TEDs CODE STATUS: Full code Disposition planning: Anticipate home pending clinical improvement and PT/OT eval VS,Fishbone, I+O VS, Fishbone, I+O Laboratory Tests 08/24/21 09:20 08/25/21 05:53 Vital Signs Date Time Temp Pulse Resp B/P (MAP) Pulse Ox O2 Delivery O2 Flow Rate FiO2 08/25/21 05:28 98.3 82 18 149/66 (93) 96 Room Air I&O- Last 24 Hours up to 6 AM 08/25/21 06:00 Intake Total 560 ml Output Total 600 ml Balance -40 ml JASON BUNCH MD Aug 25, 2021 08:01
[2021-08-25 14:00] VITALS: BP 131/66
[2021-08-25] MEDS: LATANOPROST 0.005% OPHTH SOLN 2.5 ML OU SCH (21:05)
[2021-08-25 22:00] VITALS: BP 144/69
[2021-08-26] MEDS: ALBUTEROL 90 MCG/ACT 8GM HFA INHALER INH PRN ×2 (02:05→11:27)
[2021-08-26] MEDS: CIPROFLOXACIN 500MG TABLET PO SCH (05:03)
[2021-08-26 06:00] VITALS: BP 157/74
[2021-08-26 06:09] LABS: HEMATOCRIT 26.9 % (42.0-52.0); HEMOGLOBIN 8.7 g/dl (13.5-17.5); MEAN CORPUSCULAR HEMOGLOBIN 33.6 pg (27.0-33.0); MEAN CORPUSCULAR HGB CONC 32.3 g/dl (32.0-36.5); MEAN CORPUSCULAR VOLUME 103.9 fl (80.0-96.0); RED BLOOD COUNT 2.59 10^6/uL (4.30-6.10); WHITE BLOOD COUNT 10.2 10^3/uL (4.0-10.0)
[2021-08-26 06:11] LABS: PLATELET COUNT, AUTOMATED 99 10^3/uL (150-450)
[2021-08-26 06:38] LABS: CALCIUM LEVEL 8.9 MG/DL (8.8-10.2); CREATININE FOR GFR 2.66 MG/DL (0.70-1.30); GLOMERULAR FILTRATION RATE 24.4 (>35); POTASSIUM SERUM 3.9 MEQ/L (3.5-5.1)
[2021-08-26] MEDS: HumaLOG INSULIN (NovoLOG) PER UNIT SC SCH (07:30)
[2021-08-26] MEDS: TIOTROPIUM INHALER/CAPSULE (SPIRIVA) INH SCH (07:41)
[2021-08-26] MEDS: ADVAIR HFA 230/21MCG INHALER INH SCH (07:41)
[2021-08-26] MEDS: LEVEMIR (INSULIN DETEMIR) 1 UNITS/0.01ML SC SCH (08:11)
[2021-08-26] MEDS: PANTOPRAZOLE 40MG TAB (PROTONIX) PO SCH (08:17)
[2021-08-26] MEDS: POTASSIUM CHLORIDE 10MEQ SR TABLET PO SCH (08:17)
[2021-08-26] MEDS: allopurinoL 100 MG TAB PO SCH (08:17)
[2021-08-26] MEDS: BRIMONIDINE 0.15% OPHTH SOLN 5 ML OU SCH (08:17)
[2021-08-26] MEDS: TIMOLOL MALEATE 0.5% OPHTH SOLN 5 ML OU SCH (08:17)
[2021-08-26] MEDS: LACTOBACILLUS ACIDOPHILUS CAP (BACID) PO SCH (08:17)
[2021-08-26 08:20] VITALS: BP 135/51
[2021-08-26] MEDS: CARVedilol 12.5 MG TAB PO SCH (08:20)
[2021-08-26] MEDS ORDERED: RISATAB3 PO (10:07)
[2021-08-26] MEDS ORDERED: CIPR-249 PO (10:07)
--- NOTE | 2021-08-26 10:16 | DS.PDOC ---
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 HISTORY OF PRESENT ILLNESS: 86-year-old M with significant history of chronic kidney disease IV, atrial fi brillation, diabetes and bilateral lower extremity venous stasis who presented with complaints of generalized weakness reporting that he was unable to get up from his couch and actually slid to the floor because he felt so weak. He reported recently feeling at baseline except some chills the day prior and on review of systems he also noted some malodorous and discolored urine as well as bilateral lower extremity redness that he has been seeing Dr. Orozco for and had been on antibiotics for the past 2 weeks. HOSPITAL COURSE: He presented afebrile, mildly tachycardic not tachypneic, normotensive and had leukocytosis but without lactic acidosis. Studies also showed a turbid UA with +wbc, 3+ bacteria and he was admitted for sepsis initially for suspected cellulitis in addition to a UTI. On my evaluation, the bilateral lower extremity venous stasis with erythema was not c./w cellulitis and was actually c/w lipodermatosclerosis and patient also reported that his legs have looked the same since 03/2020. His urine cultures eventually grew klebsiella and he is not being discharged home with 6 more days of cipro to complete a course for the UTI. DISCHARGE MEDICATIONS: Please see below. ALLERGIES: Please see below. PHYSICAL EXAMINATION ON DISCHARGE: VITAL SIGNS: Please see below. General: Alert, Cooperative, No Acute Distress Eyes: PERRLA, Conjunctiva & lids normal, EOMI, anicteric ENT: Atraumatic, Mucous membr. moist/pink, Pharynx Normal Neck: Supple, no JVD Chest: Clear to auscultation, Normal air movement Heart: Irregularly irregular, Normal S1, Normal S2, noted m/r/g Abdomen: Normal bowel sounds, obese, protuberant, soft, NTND Extremities: WWP, chronic pitting edema Skin: Bilateral LE chronic venous stasis with hyperpigmentation and erythema Neuro: Normal Gait, Normal Speech, Cranial Nerves 3-12 NL Psych Exam: AO x 3 LABORATORY DATA: Please see below. IMAGING: CXR: Lungs: There is decreased inflation of the lungs. Slight left base clearing. The right lung is unchanged. There are no interval infiltrates. Pleural spaces: Unremarkable. No pleural effusion. No pneumothorax. Heart/Mediastinum: The heart and mediastinum are unchanged in view of AP and lordotic projection. Bones/joints: Unremarkable. Soft tissues: There are generous overlying soft tissues. IMPRESSION: 1. Slight left base clearing since 03/01/2021. 2. Otherwise stable poor inspiratory chest since the prior study. PROGNOSIS: Good ACTIVITY: As tolerated DIET: consistent carb, 2g sodium, 2L/24h fluid restriction DISCHARGE PLAN: Home with 6d of cipro and probiotic with meals. To follow up with PCP within 7d. DISPOSITION: Home DISCHARGE INSTRUCTIONS: Home with 6d of cipro and probiotic with meals. To follow up with PCP within 7d. ITEMS TO FOLLOWUP ON ON OUTPATIENT: UTI resolution DISCHARGE CONDITION: Stable TIME SPENT ON DISCHARGE: 40 minutes. Vital Signs/I&Os Vital Signs Date Time Temp Pulse Resp B/P (MAP) Pulse Ox O2 Delivery O2 Flow Rate FiO2 08/26/21 08:20 70 135/51 08/26/21 06:00 97.5 18 97 Room Air I&O- Last 24 Hours up to 6 AM 08/26/21 06:00 Intake Total 1855 ml Output Total 1900 ml Balance -45 ml Laboratory Data Labs 24H Laboratory Tests 2 08/25/21 10:33: 08/25/21 11:39: Bedside Glucose (Misc Panel) 142H 08/25/21 17:15: Bedside Glucose (Misc Panel) 95 08/25/21 20:59: Bedside Glucose (Misc Panel) 173H 08/26/21 05:40: Nucleated Red Blood Cells % (auto) 0.0, Immature Platelet Fraction 6.2, Anion Gap 8, Glomerular Filtration Rate 24.4L, Calcium Level 8.9 CBC/BMP Laboratory Tests 08/26/21 05:40 FSBS Laboratory Tests Test 08/25/21 11:39 08/25/21 17:15 08/25/21 20:59 Range/Units Bedside Glucose (Misc Panel) 142 95 173 83-110 MG/DL Microbiology Microbiology 08/23/21 Urine Culture - Final, Complete Klebsiella Oxytoca 08/23/21 Respiratory Virus Panel (PCR) ([facility]) - Final, Complete 08/23/21 Blood Culture - Preliminary, Resulted No Growth after 72 hours. All specime... 08/23/21 Blood Culture - Preliminary, Resulted No Growth after 72 hours. All specime... Discharge Medications Scheduled Allopurinol (Allopurinol) 100 Mg Tab, 100 MG PO DAILY, (Reported) Brimonidine Tartrate/Timolol (Combigan 0.2%-0.5% Eye Drops) 5 Ml Drops, 1 DROP OU BID, (Reported) Carvedilol (Carvedilol) 12.5 Mg Tablet, 12.5 MG PO BID, (Reported) Ciprofloxacin HCl (Cipro) 500 Mg Tablet, 500 MG PO BID@0600,1800 Fluticasone/Umeclidin/Vilanter (Trelegy Ellipta 100-62.5-25) 1 Each Blst.w.dev, 1 PUFF INH DAILY, (Reported) Insulin Glargine (Lantus) 1 Units/0.01 Ml Susp, 70 UNITS SC BID, (Reported) L.acidoph/L.bulg/B.bif/S.therm (Viridiana-Bid Caplet) 1 Each Tablet, 1 EA PO WM Latanoprostene Bunod (Vyzulta) 0.024% 5ML Drops, 1 DROP OU QHS, (Reported) Linaclotide (Linzess) 72 Mcg Capsule, 72 MCG PO DAILY, (Reported) Pantoprazole Sodium (Pantoprazole Sodium) 40 Mg Tablet.dr, 40 MG PO DAILY, (Reported) Pioglitazone HCl (Pioglitazone HCl) 15 Mg Tablet, 15 MG PO DAILY, (Reported) Potassium Chloride (Potassium Chloride) 8 Meq Capsule.er, 8 MEQ PO DAILY, (Reported) Torsemide (Torsemide) 20 Mg Tablet, 40 MG PO QAM, (Reported) Torsemide (Torsemide) 20 Mg Tablet, 20 MG PO QPM, (Reported) Scheduled PRN Albuterol Sulfate (Proair Hfa) 8.5 Gm Hfa.aer.ad, 2 PUFF INH Q4H PRN for SOB/WHEEZING, (Reported) Betamethasone/Propylene Glyc (Diprolene 0.05% Ointment) 15 Gm Oint...g., 1 APPLIC TOP BID PRN for DIABETIC ITCH, (Reported) Miscellaneous Medications [med rec comment] , (Reported) used external med history unable to verify with pt Allergies Coded Allergies: latex (Verified Allergy, Unknown, 06/29/19) JASON BUNCH MD Aug 26, 2021 10:16
== END 2021-08-26 12:20 | disposition home or self-care (01) | DRG 872 ==
LOC: M ED 22:24 → M ED INP 22:25 → UNDOADMOB 22:25 → ENRESERV 08-23 05:00 → M MSPAV 08-23 06:58 → OBSVTOIN 08-24 16:49 → INTOOBSV 08-24 16:49 → UNDODISIN 08-26 12:20
PROVIDERS: ADMIT Internal Medicine; ATTEND Internal Medicine
DX: A41.9 Sepsis, unspecified organism (principal); N39.0 Urinary tract infection, site not specified; N18.4 Chronic kidney disease, stage 4 (severe); I13.0 Hypertensive heart and chronic kidney disease with heart failure and stage 1 through stage 4 chronic kidney disease, or unspecified chronic kidney disease; I48.20 Chronic atrial fibrillation, unspecified; N17.9 Acute kidney failure, unspecified; I50.9 Heart failure, unspecified; I83.10 Varicose veins of unspecified lower extremity with inflammation; E11.22 Type 2 diabetes mellitus with diabetic chronic kidney disease; E66.01 Morbid (severe) obesity due to excess calories; I83.11 Varicose veins of right lower extremity with inflammation; I83.12 Varicose veins of left lower extremity with inflammation; Z79.899 Other long term (current) drug therapy; Z91.040 Latex allergy status; Z79.4 Long term (current) use of insulin; Z87.891 Personal history of nicotine dependence; E55.9 Vitamin D deficiency, unspecified; H35.30 Unspecified macular degeneration; K21.9 Gastro-esophageal reflux disease without esophagitis; M10.9 Gout, unspecified; E78.5 Hyperlipidemia, unspecified; N40.0 Benign prostatic hyperplasia without lower urinary tract symptoms; I25.2 Old myocardial infarction; J44.9 Chronic obstructive pulmonary disease, unspecified; D69.6 Thrombocytopenia, unspecified

== ENCOUNTER → 2022-01-13 | Outpatient (REF) | payer MEDICARE, OTHER, BC ==
[~2022-01-13] MED LIST changes: +CIPR-249 PO; +PANT40TA29 PO; +RISATAB3 PO; +TORS20TA2 PO; +med rec comment
[2022-01-13 17:50] LABS: PERCENT SATURATION 21.5 % (19.7-50.0)
== END ==
LOC: M LAB REF 16:38
PROVIDERS: ATTEND Nurse Practitioner Family
DX: D50.9 Iron deficiency anemia, unspecified (principal)

== ENCOUNTER 2022-03-27 21:48 | Inpatient (IN) | payer MEDICARE, OTHER, BC ==
[~2022-03-27] VITALS: Ht 193 cm; Wt 141.7 kg
[2022-03-27] MEDS ORDERED: ACETAMINOPHEN TAB 650MG DOSE (2X325MG) PO ONE (22:10)
[2022-03-27 22:24] LABS: ABG HCO3 27.9 MEQ/L (22.0-26.0); ABG O2 SATURATION 93.5 % (95.0-99.0); ABG PARTIAL PRESSURE O2 65.8 mmHg (75.0-100.0); ABG STANDARD HCO3 28.9 MEQ/L (22.0-26.0)
[2022-03-27 22:26] LABS: BASO % 0.2 % (0.0-1.0); EOS % 0.3 % (0.0-3.0); HEMATOCRIT 28.7 % (42.0-52.0); HEMOGLOBIN 9.2 g/dl (13.5-17.5); LYMPH # 3.2 10^3/uL (1.5-5.0); LYMPH % 24.7 % (24.0-44.0); MEAN CORPUSCULAR HEMOGLOBIN 35.1 pg (27.0-33.0); MEAN CORPUSCULAR HGB CONC 32.1 g/dl (32.0-36.5); MEAN CORPUSCULAR VOLUME 109.5 fl (80.0-96.0); MONO # 0.8 10^3/uL (0.0-0.8); MONO % 6.2 % (2.0-8.0); NEUTROPHILS # 8.8 10^3/uL (1.5-8.5); NEUTROPHILS % 68.1 % (36.0-66.0); PLATELET COUNT, AUTOMATED 100 10^3/uL (150-450); RED BLOOD COUNT 2.62 10^6/uL (4.30-6.10)
[2022-03-27] MEDS ORDERED: NIAC250C16 PO (22:44)
[2022-03-27] MEDS ORDERED: BRIM1OPD OP (22:44)
[2022-03-27] MEDS ORDERED: GABA-283 PO (22:44)
[2022-03-27] MEDS ORDERED: FERR325T3 PO (22:44)
[2022-03-27 22:58] LABS: BILIRUBIN,DIRECT 0.5 MG/DL (0.0-0.2); BILIRUBIN,TOTAL 0.9 MG/DL (0.2-1.0); CK-MB VALUE MASS < 1.0 NG/ML (<3.6); CPK CREATINE PHOSPHOKINASE 44 U/L (39-308); CREATININE FOR GFR 2.57 MG/DL (0.70-1.30); GLOMERULAR FILTRATION RATE 25.4 (>35); MB/CK RELATIVE INDEX 2.27 (< OR =4); POTASSIUM SERUM 4.5 MEQ/L (3.5-5.1); TOTAL PROTEIN 7.3 GM/DL (6.4-8.2)
[2022-03-27 23:17] LABS: INR 1.24
[2022-03-27] MEDS ORDERED: IPRATROPIUM 0.5MG/ALBUTEROL 2.5MG INH SOL UD 3ML (DUONEB) NEB ONE (23:35)
[2022-03-27] MEDS ORDERED: methylPREDNISolone 125MG 2ML VIAL IV ONE (23:35)
[2022-03-28] MEDS ORDERED: GABA-1171 PO (02:06)
[2022-03-28] MEDS ORDERED: LINZ72CA PO (02:07)
[2022-03-28] MEDS ORDERED: med rec comment (02:08)
[2022-03-28] MEDS ORDERED: VYZU0.02 OU (02:09)
[2022-03-28] MEDS ORDERED: HOME MED LIST COMPLETE! XX SCH (02:10)
[2022-03-28] MEDS ORDERED: HEPARIN SOD (PORCINE) 5000UNITS/ML 1ML VIAL/SYRINGE SC SCH (02:45)
[2022-03-28] MEDS ORDERED: ACETAMINOPHEN TAB 650MG DOSE (2X325MG) PO PRN (02:45)
[2022-03-28] MEDS ORDERED: GLUCOSE 4GM CHEW TABLET PO PRN (05:10)
[2022-03-28] MEDS ORDERED: DEXTROSE 50% 50 ML SYRINGE IV PRN (05:10)
[2022-03-28] MEDS ORDERED: GLUCAGON INJ 1MG VIAL SC PRN (05:10)
[2022-03-28] MEDS ORDERED: IPRATROPIUM 0.5MG/ALBUTEROL 2.5MG INH SOL UD 3ML (DUONEB) NEB PRN (05:10)
[2022-03-28 05:55] VITALS: BP 131/67
[2022-03-28 08:14] LABS: BASO % 0.1 % (0.0-1.0); HEMOGLOBIN 9.9 g/dl (13.5-17.5); LYMPH # 2.2 10^3/uL (1.5-5.0); LYMPH % 19.1 % (24.0-44.0); MEAN CORPUSCULAR HEMOGLOBIN 35.2 pg (27.0-33.0); MEAN CORPUSCULAR HGB CONC 31.9 g/dl (32.0-36.5); MEAN CORPUSCULAR VOLUME 110.3 fl (80.0-96.0); MONO # 0.3 10^3/uL (0.0-0.8); MONO % 2.8 % (2.0-8.0); NEUTROPHILS # 8.9 10^3/uL (1.5-8.5); NEUTROPHILS % 77.3 % (36.0-66.0); PLATELET COUNT, AUTOMATED 95 10^3/uL (150-450); RED BLOOD COUNT 2.81 10^6/uL (4.30-6.10); WHITE BLOOD COUNT 11.6 10^3/uL (4.0-10.0)
[2022-03-28] MEDS: DOXYCYCLINE HYCLATE 100 MG in D5W MINI-BAG PLUS 100 ML IV SCH ×2 (08:52→17:13)
[2022-03-28] MEDS: LEVEMIR (INSULIN DETEMIR) 1 UNITS/0.01ML SC SCH ×2 (08:53→20:12)
[2022-03-28] MEDS: INSULIN LISPRO (NovoLOG) PER UNIT SC SCH ×4 (08:53→20:17)
[2022-03-28] MEDS: allopurinoL 100 MG TAB PO SCH (08:54)
[2022-03-28] MEDS: CARVedilol 12.5 MG TAB PO SCH ×2 (08:54→20:10)
[2022-03-28 08:55] LABS: CALCIUM LEVEL 9.1 MG/DL (8.8-10.2); CREATININE FOR GFR 2.46 MG/DL (0.70-1.30); GLOMERULAR FILTRATION RATE 26.7 (>35); MAGNESIUM LEVEL 2.7 MG/DL (1.8-2.4); POTASSIUM SERUM 4.8 MEQ/L (3.5-5.1); THYROID STIMULATING HORMONE 0.341 uIU/ML (0.358-3.740)
[2022-03-28] MEDS: BRIMONIDINE 0.15% OPHTH SOLN 5 ML OU SCH ×2 (08:55→20:10)
[2022-03-28] MEDS: GABAPENTIN 100 MG CAP PO SCH ×3 (08:55→20:09)
[2022-03-28] MEDS: PANTOPRAZOLE 40MG TAB (PROTONIX) PO SCH (08:55)
[2022-03-28] MEDS: LACTOBACILLUS ACIDOPHILUS CAP (BACID) PO SCH (08:55)
[2022-03-28] MEDS: TIMOLOL MALEATE 0.5% OPHTH SOLN 5 ML OU SCH ×2 (08:55→20:11)
[2022-03-28] MEDS ORDERED: TORSEMIDE 20 MG TAB PO SCH ×2 (09:00→17:00)
[2022-03-28] MEDS: cefTRIAXone SOD 1 GM in D5W MINI-BAG PLUS 50 ML IV SCH (10:01)
[2022-03-28 11:56] VITALS: BP 159/77
[2022-03-28] MEDS ORDERED: TORSEMIDE 20 MG TAB PO ONE (19:45)
[2022-03-28 20:00] VITALS: BP 138/80
[2022-03-29 04:00] VITALS: BP 137/68
[2022-03-29] MEDS: DOXYCYCLINE HYCLATE 100 MG in D5W MINI-BAG PLUS 100 ML IV SCH ×2 (05:03→18:01)
[2022-03-29] MEDS: INSULIN LISPRO (NovoLOG) PER UNIT SC SCH ×4 (07:30→21:23)
[2022-03-29] MEDS: LEVEMIR (INSULIN DETEMIR) 1 UNITS/0.01ML SC SCH ×2 (09:49→21:44)
[2022-03-29] MEDS: LACTOBACILLUS ACIDOPHILUS CAP (BACID) PO SCH (09:50)
[2022-03-29] MEDS: PANTOPRAZOLE 40MG TAB (PROTONIX) PO SCH (09:50)
[2022-03-29] MEDS: allopurinoL 100 MG TAB PO SCH (09:50)
[2022-03-29] MEDS: TORSEMIDE 20 MG TAB PO SCH ×2 (09:50→17:19)
[2022-03-29] MEDS: BRIMONIDINE 0.15% OPHTH SOLN 5 ML OU SCH ×2 (09:51→21:44)
[2022-03-29] MEDS: CARVedilol 12.5 MG TAB PO SCH ×2 (09:51→21:43)
[2022-03-29] MEDS: GABAPENTIN 100 MG CAP PO SCH ×3 (09:51→21:43)
[2022-03-29] MEDS: TIMOLOL MALEATE 0.5% OPHTH SOLN 5 ML OU SCH ×2 (09:51→21:44)
[2022-03-29] MEDS: cefTRIAXone SOD 1 GM in D5W MINI-BAG PLUS 50 ML IV SCH (09:52)
[2022-03-29 11:51] LABS: BASO % 0.1 % (0.0-1.0); HEMATOCRIT 29.3 % (42.0-52.0); HEMOGLOBIN 9.6 g/dl (13.5-17.5); LYMPH # 2.5 10^3/uL (1.5-5.0); MEAN CORPUSCULAR HEMOGLOBIN 34.9 pg (27.0-33.0); MEAN CORPUSCULAR HGB CONC 32.8 g/dl (32.0-36.5); MEAN CORPUSCULAR VOLUME 106.5 fl (80.0-96.0); MONO # 0.6 10^3/uL (0.0-0.8); MONO % 4.1 % (2.0-8.0); NEUTROPHILS # 10.6 10^3/uL (1.5-8.5); NEUTROPHILS % 77.1 % (36.0-66.0); PLATELET COUNT, AUTOMATED 112 10^3/uL (150-450); RED BLOOD COUNT 2.75 10^6/uL (4.30-6.10); WHITE BLOOD COUNT 13.7 10^3/uL (4.0-10.0)
[2022-03-29 12:00] VITALS: BP 118/65
[2022-03-29 12:51] LABS: CALCIUM LEVEL 9.1 MG/DL (8.8-10.2); CREATININE FOR GFR 1.99 MG/DL (0.70-1.30); GLOMERULAR FILTRATION RATE 34.1 (>35); MAGNESIUM LEVEL 2.5 MG/DL (1.8-2.4); POTASSIUM SERUM 3.7 MEQ/L (3.5-5.1)
[2022-03-29 17:06] LABS: PERCENT SATURATION 15.6 % (19.7-50.0)
[2022-03-29 20:00] VITALS: BP 142/74
[2022-03-30 04:00] VITALS: BP 167/94
[2022-03-30] MEDS: DOXYCYCLINE HYCLATE 100 MG in D5W MINI-BAG PLUS 100 ML IV SCH ×2 (05:21→18:38)
[2022-03-30 06:24] LABS: HEMATOCRIT 33.2 % (42.0-52.0); HEMOGLOBIN 10.6 g/dl (13.5-17.5); MEAN CORPUSCULAR HEMOGLOBIN 34.1 pg (27.0-33.0); MEAN CORPUSCULAR HGB CONC 31.9 g/dl (32.0-36.5); MEAN CORPUSCULAR VOLUME 106.8 fl (80.0-96.0); PLATELET COUNT, AUTOMATED 152 10^3/uL (150-450); RED BLOOD COUNT 3.11 10^6/uL (4.30-6.10); WHITE BLOOD COUNT 17.8 10^3/uL (4.0-10.0)
[2022-03-30 07:02] LABS: CALCIUM LEVEL 9.4 MG/DL (8.8-10.2); CREATININE FOR GFR 2.14 MG/DL (0.70-1.30); GLOMERULAR FILTRATION RATE 31.3 (>35); MAGNESIUM LEVEL 2.6 MG/DL (1.8-2.4); POTASSIUM SERUM 3.4 MEQ/L (3.5-5.1)
[2022-03-30 07:22] LABS: ATYPICAL LYMPH 1 % (0-5); HYPOCHROMASIA 2+; LYMPHOCYTES 30 % (16-44); NEUTROPHILS 69 % (28-66); POLYCHROMASIA 1+
[2022-03-30 07:23] LABS: ANISOCYTOSIS 2+; PLATELET ESTIMATE NORMAL (NORMAL)
[2022-03-30] MEDS: INSULIN LISPRO (NovoLOG) PER UNIT SC SCH ×4 (07:25→23:15)
[2022-03-30] MEDS: BRIMONIDINE 0.15% OPHTH SOLN 5 ML OU SCH ×2 (08:45→23:16)
[2022-03-30] MEDS: cefTRIAXone SOD 1 GM in D5W MINI-BAG PLUS 50 ML IV SCH (08:45)
[2022-03-30] MEDS: TIMOLOL MALEATE 0.5% OPHTH SOLN 5 ML OU SCH ×2 (08:45→23:18)
[2022-03-30] MEDS: TORSEMIDE 20 MG TAB PO SCH ×2 (08:46→16:32)
[2022-03-30] MEDS: LEVEMIR (INSULIN DETEMIR) 1 UNITS/0.01ML SC SCH ×2 (08:46→23:15)
[2022-03-30] MEDS: PANTOPRAZOLE 40MG TAB (PROTONIX) PO SCH (08:47)
[2022-03-30] MEDS: allopurinoL 100 MG TAB PO SCH (08:47)
[2022-03-30] MEDS: GABAPENTIN 100 MG CAP PO SCH ×3 (08:47→23:15)
[2022-03-30] MEDS: LACTOBACILLUS ACIDOPHILUS CAP (BACID) PO SCH (08:47)
[2022-03-30] MEDS: CARVedilol 12.5 MG TAB PO SCH ×2 (08:49→23:17)
[2022-03-30] MEDS ORDERED: TORSEMIDE 20 MG TAB PO ONE (10:45)
[2022-03-30] MEDS: POTASSIUM CHLORIDE 10MEQ SR TABLET PO SCH (11:15)
[2022-03-30 12:00] VITALS: BP 141/77
[2022-03-30] MEDS ORDERED: POTASSIUM CHLORIDE 10MEQ SR TABLET PO ONE (12:00)
[2022-03-30 16:00] VITALS: BP 148/88
[2022-03-30 20:13] VITALS: BP 130/72
[2022-03-31 04:05] VITALS: BP 132/66
[2022-03-31] MEDS: DOXYCYCLINE HYCLATE 100 MG in D5W MINI-BAG PLUS 100 ML IV SCH (05:30)
[2022-03-31 06:02] LABS: HEMATOCRIT 30.5 % (42.0-52.0); HEMOGLOBIN 9.8 g/dl (13.5-17.5); MEAN CORPUSCULAR HEMOGLOBIN 34.6 pg (27.0-33.0); MEAN CORPUSCULAR HGB CONC 32.1 g/dl (32.0-36.5); MEAN CORPUSCULAR VOLUME 107.8 fl (80.0-96.0); PLATELET COUNT, AUTOMATED 109 10^3/uL (150-450); RED BLOOD COUNT 2.83 10^6/uL (4.30-6.10); WHITE BLOOD COUNT 12.2 10^3/uL (4.0-10.0)
[2022-03-31 06:32] LABS: LYMPHOCYTES 41 % (16-44); MONOCYTES 3 % (0-5); NEUTROPHILS 56 % (28-66)
[2022-03-31 06:33] LABS: PLATELET ESTIMATE NORMAL (NORMAL)
[2022-03-31 06:36] LABS: CALCIUM LEVEL 8.7 MG/DL (8.8-10.2); CREATININE FOR GFR 2.01 MG/DL (0.70-1.30); GLOMERULAR FILTRATION RATE 33.7 (>35); MAGNESIUM LEVEL 2.1 MG/DL (1.8-2.4); POTASSIUM SERUM 3.9 MEQ/L (3.5-5.1)
[2022-03-31] MEDS: GABAPENTIN 100 MG CAP PO SCH ×3 (08:23→20:39)
[2022-03-31] MEDS: allopurinoL 100 MG TAB PO SCH (08:23)
[2022-03-31] MEDS: BRIMONIDINE 0.15% OPHTH SOLN 5 ML OU SCH ×2 (08:23→20:43)
[2022-03-31] MEDS: TIMOLOL MALEATE 0.5% OPHTH SOLN 5 ML OU SCH ×2 (08:23→20:43)
[2022-03-31] MEDS: LACTOBACILLUS ACIDOPHILUS CAP (BACID) PO SCH (08:24)
[2022-03-31] MEDS: POTASSIUM CHLORIDE 10MEQ SR TABLET PO SCH (08:24)
[2022-03-31] MEDS: TORSEMIDE 20 MG TAB PO SCH ×2 (08:24→16:25)
[2022-03-31] MEDS: cefTRIAXone SOD 1 GM in D5W MINI-BAG PLUS 50 ML IV SCH (08:25)
[2022-03-31] MEDS: INSULIN LISPRO (NovoLOG) PER UNIT SC SCH ×4 (08:31→20:33)
[2022-03-31] MEDS: PANTOPRAZOLE 40MG TAB (PROTONIX) PO SCH (08:31)
[2022-03-31] MEDS: LEVEMIR (INSULIN DETEMIR) 1 UNITS/0.01ML SC SCH (08:32)
[2022-03-31] MEDS: CARVedilol 12.5 MG TAB PO SCH ×2 (08:39→20:42)
[2022-03-31 12:00] VITALS: BP 141/80
[2022-03-31 15:52] VITALS: BP 138/75
[2022-03-31] MEDS: FERROUS SULFATE 325MG TAB PO SCH (16:25)
[2022-03-31] MEDS: DOXYCYCLINE HYCLATE 100MG TABLET PO SCH (20:39)
[2022-03-31 20:42] VITALS: BP 135/60
[2022-03-31 22:00] VITALS: BP 152/65
[2022-04-01 05:39] VITALS: BP 146/67
[2022-04-01 06:06] LABS: HEMATOCRIT 31.4 % (42.0-52.0); HEMOGLOBIN 10.1 g/dl (13.5-17.5); MEAN CORPUSCULAR HEMOGLOBIN 34.9 pg (27.0-33.0); MEAN CORPUSCULAR HGB CONC 32.2 g/dl (32.0-36.5); MEAN CORPUSCULAR VOLUME 108.7 fl (80.0-96.0); PLATELET COUNT, AUTOMATED 108 10^3/uL (150-450); RED BLOOD COUNT 2.89 10^6/uL (4.30-6.10); WHITE BLOOD COUNT 11.5 10^3/uL (4.0-10.0)
[2022-04-01 06:52] LABS: CREATININE FOR GFR 1.9 MG/DL (0.70-1.30); MAGNESIUM LEVEL 2.2 MG/DL (1.8-2.4); POTASSIUM SERUM 3.6 MEQ/L (3.5-5.1)
[2022-04-01 07:07] LABS: ANISOCYTOSIS 2+; ATYPICAL LYMPH 5 % (0-5); EOSINOPHILS 2 % (0-3); LYMPHOCYTES 41 % (16-44); MONOCYTES 8 % (0-5); NEUTROPHILS 44 % (28-66); PLATELET ESTIMATE DECREASED (NORMAL)
[2022-04-01 07:09] LABS: POLYCHROMASIA 1+
[2022-04-01] MEDS: INSULIN LISPRO (NovoLOG) PER UNIT SC SCH (08:00)
[2022-04-01] MEDS: PANTOPRAZOLE 40MG TAB (PROTONIX) PO SCH (08:00)
[2022-04-01] MEDS: LEVEMIR (INSULIN DETEMIR) 1 UNITS/0.01ML SC SCH (08:00)
[2022-04-01] MEDS ORDERED: CEFUROXIME 500 MG TAB PO SCH (08:00)
[2022-04-01] MEDS ORDERED: TORS20TA2 PO (08:01)
[2022-04-01] MEDS ORDERED: CEFU50TA PO (08:01)
[2022-04-01] MEDS: TORSEMIDE 20 MG TAB PO SCH (08:01)
[2022-04-01] MEDS: POTASSIUM CHLORIDE 10MEQ SR TABLET PO SCH (08:01)
[2022-04-01] MEDS ORDERED: FERR1TAB8 PO (08:01)
[2022-04-01] MEDS: DOXYCYCLINE HYCLATE 100MG TABLET PO SCH (08:01)
[2022-04-01] MEDS ORDERED: RISATAB3 PO (08:01)
[2022-04-01] MEDS ORDERED: DOXY100T PO (08:01)
[2022-04-01] MEDS: GABAPENTIN 100 MG CAP PO SCH (08:01)
[2022-04-01] MEDS ORDERED: POTA-136 PO (08:01)
[2022-04-01] MEDS: allopurinoL 100 MG TAB PO SCH (08:01)
[2022-04-01] MEDS: LACTOBACILLUS ACIDOPHILUS CAP (BACID) PO SCH (08:01)
[2022-04-01] MEDS: FERROUS SULFATE 325MG TAB PO SCH (08:01)
[2022-04-01] MEDS ORDERED: INSULANT SC (08:01)
[2022-04-01] MEDS: CARVedilol 12.5 MG TAB PO SCH (08:02)
[2022-04-01] MEDS ORDERED: SENN8.6T58 PO (08:02)
[2022-04-01] MEDS: BRIMONIDINE 0.15% OPHTH SOLN 5 ML OU SCH (08:02)
[2022-04-01] MEDS: TIMOLOL MALEATE 0.5% OPHTH SOLN 5 ML OU SCH (08:02)
[2022-04-01] MEDS ORDERED: COLA100C5 PO (08:02)
== END 2022-04-01 10:56 | disposition home or self-care (01) | DRG 291 ==
LOC: EDBD 21:48 → M ED 21:48 → M ED INP 03-28 02:45 → M 4MAIN 03-28 05:55 → M MSPAV 03-31 15:49
PROVIDERS: ADMIT Internal Medicine; ATTEND Internal Medicine
DX: I13.0 Hypertensive heart and chronic kidney disease with heart failure and stage 1 through stage 4 chronic kidney disease, or unspecified chronic kidney disease (principal); I50.33 Acute on chronic diastolic (congestive) heart failure; J18.9 Pneumonia, unspecified organism; N18.4 Chronic kidney disease, stage 4 (severe); E87.1 Hypo-osmolality and hyponatremia; Z68.41 Body mass index [BMI] 40.0-44.9, adult; E11.649 Type 2 diabetes mellitus with hypoglycemia without coma; E11.22 Type 2 diabetes mellitus with diabetic chronic kidney disease; J44.9 Chronic obstructive pulmonary disease, unspecified; K21.9 Gastro-esophageal reflux disease without esophagitis; E78.5 Hyperlipidemia, unspecified; M10.9 Gout, unspecified; I48.91 Unspecified atrial fibrillation; I25.2 Old myocardial infarction; H40.9 Unspecified glaucoma; N40.0 Benign prostatic hyperplasia without lower urinary tract symptoms; D69.6 Thrombocytopenia, unspecified; E66.9 Obesity, unspecified; I27.20 Pulmonary hypertension, unspecified; M25.412 Effusion, left shoulder; M75.102 Unspecified rotator cuff tear or rupture of left shoulder, not specified as traumatic; D50.9 Iron deficiency anemia, unspecified; Z79.899 Other long term (current) drug therapy; Z91.040 Latex allergy status; Z87.891 Personal history of nicotine dependence; H35.30 Unspecified macular degeneration; Z98.49 Cataract extraction status, unspecified eye; Z86.718 Personal history of other venous thrombosis and embolism

== ENCOUNTER → 2022-04-14 | Outpatient (REF) | payer MEDICARE, OTHER, BC ==
[~2022-04-14] MED LIST changes: +BRIM1OPD OP; +CEFU50TA PO; +COLA100C5 PO; +DOXY100T PO; +FERR325T3 PO; +GABA-1171 PO; +GABA-283 PO; +POTA-136 PO; +SENN8.6T58 PO
[2022-04-14 18:28] LABS: PERCENT SATURATION 44.9 % (19.7-50.0)
== END ==
LOC: M LAB REF 16:46
PROVIDERS: ATTEND Nurse Practitioner Family
DX: D50.9 Iron deficiency anemia, unspecified (principal)

== ENCOUNTER → 2022-04-30 | Outpatient (CLI) | payer MEDICARE, OTHER, BC | LOC: M PLAIMG 11:05 | PROVIDERS: ATTEND Internal Medicine Pulmonary Disease | DX: R05.9 Cough, unspecified (principal) ==

== ENCOUNTER 2022-05-15 13:46 | Inpatient (IN) | payer MEDICARE, OTHER, BC ==
[~2022-05-15] VITALS: Ht 190.5 cm; Wt 147.4 kg
[2022-05-15 17:56] LABS: HEMATOCRIT 30.1 % (42.0-52.0); HEMOGLOBIN 9.8 g/dl (13.5-17.5); MEAN CORPUSCULAR HEMOGLOBIN 34.5 pg (27.0-33.0); MEAN CORPUSCULAR HGB CONC 32.6 g/dl (32.0-36.5); PLATELET COUNT, AUTOMATED 119 10^3/uL (150-450); RED BLOOD COUNT 2.84 10^6/uL (4.30-6.10); WHITE BLOOD COUNT 17.2 10^3/uL (4.0-10.0)
[2022-05-15 18:35] LABS: BILIRUBIN,DIRECT 0.3 MG/DL (0.0-0.2); BILIRUBIN,TOTAL 0.8 MG/DL (0.2-1.0); CALCIUM LEVEL 9.1 MG/DL (8.8-10.2); CREATININE FOR GFR 2.08 MG/DL (0.70-1.30); GLOMERULAR FILTRATION RATE 32.4 (>35); POTASSIUM SERUM 4.6 MEQ/L (3.5-5.1); URIC ACID 8.6 MG/DL (3.5-7.2)
[2022-05-15 18:42] LABS: ERYTHROCYTE SEDIMENTATION RATE 108 mm/hr (0-20)
[2022-05-15 19:14] LABS: ANISOCYTOSIS 1+; ATYPICAL LYMPH 22 % (0-5); EOSINOPHILS 1 % (0-3); LYMPHOCYTES 7 % (16-44); MONOCYTES 5 % (0-5); NEUTROPHILS 61 % (28-66); PLATELET ESTIMATE DECREASED (NORMAL)
[2022-05-15 19:17] LABS: STOMATOCYTES 1+
[2022-05-15] MEDS ORDERED: CEFTAROLINE FOSAMIL 600 MG in D5W MINI-BAG PLUS 50 ML IV ONE (19:40)
[2022-05-15] MEDS ORDERED: TORS20TA2 PO (21:25)
[2022-05-15] MEDS ORDERED: NIAC250C16 PO (21:25)
[2022-05-15] MEDS ORDERED: INSULANT SC (21:25)
[2022-05-15] MEDS ORDERED: MAGN400T2 PO (21:25)
[2022-05-15] MEDS ORDERED: POTA1TAB21 PO (21:25)
[2022-05-15] MEDS ORDERED: AMMO12CR7 TOP (21:25)
[2022-05-15] MEDS ORDERED: BRIM1OPD OU (21:25)
[2022-05-15] MEDS ORDERED: CICL0.7739 TOP (21:25)
[2022-05-15] MEDS ORDERED: VITA100093 PO (21:27)
[2022-05-15] MEDS ORDERED: EQL50TAB2 PO (21:27)
[2022-05-15] MEDS ORDERED: CYAN100050 PO (21:27)
[2022-05-15] MEDS ORDERED: HOME MED LIST COMPLETE! XX SCH (21:30)
[2022-05-15] MEDS ORDERED: VANCOMYCIN HCL 2,000 MG, VIAL MATE ADAPTER 1 EACH in NS 250 ML IV SCH (22:40)
[2022-05-15] MEDS ORDERED: DEXTROSE 50% 50 ML SYRINGE IV PRN (22:40)
[2022-05-15] MEDS ORDERED: HYDROMORPHONE HCL 0.5 MG/ 0.5 ML SYRINGE (J1170 PER 1) IV PRN (22:40)
[2022-05-15] MEDS ORDERED: NS 1,000 ML IV SCH (22:40)
[2022-05-15] MEDS ORDERED: GLUCOSE 4GM CHEW TABLET PO PRN (22:40)
[2022-05-15] MEDS ORDERED: GLUCAGON INJ 1MG VIAL SC PRN (22:40)
[2022-05-15 23:07] LABS: RSV AMPLIFICATION NEGATIVE (NEGATIVE)
[2022-05-16] MEDS ORDERED: VANCOMYCIN HCL 1,000 MG, VIAL MATE ADAPTER 1 EACH in NS 250 ML IV ONE ×4 (01:00)
[2022-05-16] MEDS: DOCUSATE SODIUM 100MG CAPSULE PO SCH ×3 (01:28→21:35)
[2022-05-16] MEDS: FERROUS SULFATE 325MG TAB PO SCH ×3 (01:29→21:35)
[2022-05-16] MEDS: GABAPENTIN 100 MG CAP PO SCH ×4 (01:29→21:35)
[2022-05-16] MEDS: CARVedilol 12.5 MG TAB PO SCH ×3 (01:29→21:00)
[2022-05-16] MEDS: LEVEMIR (INSULIN DETEMIR) 1 UNITS/0.01ML SC SCH ×4 (01:30→21:37)
[2022-05-16] MEDS ORDERED: ALBUTEROL SULFATE 2.5 MG/0.5 ML INH NEB SOLN NEB PRN (01:50)
[2022-05-16] MEDS: IPRATROPIUM 0.5MG/ALBUTEROL 2.5MG INH SOL UD 3ML (DUONEB) NEB SCH ×4 (02:00→20:45)
[2022-05-16] MEDS: BRIMONIDINE 0.1% OPHTH SOLN 5 ML OU SCH ×3 (03:01→21:37)
[2022-05-16] MEDS: INSULIN LISPRO (NovoLOG) PER UNIT SC SCH ×5 (06:00→21:37)
[2022-05-16 06:50] LABS: CALCIUM LEVEL 8.7 MG/DL (8.8-10.2); CREATININE FOR GFR 1.88 MG/DL (0.70-1.30); GLOMERULAR FILTRATION RATE 36.4 (>35); POTASSIUM SERUM 3.8 MEQ/L (3.5-5.1)
[2022-05-16 08:19] LABS: MAGNESIUM LEVEL 2.4 MG/DL (1.8-2.4)
[2022-05-16 08:22] LABS: HEMATOCRIT 28.6 % (42.0-52.0); HEMOGLOBIN 8.9 g/dl (13.5-17.5); MEAN CORPUSCULAR HEMOGLOBIN 33.1 pg (27.0-33.0); MEAN CORPUSCULAR HGB CONC 31.1 g/dl (32.0-36.5); MEAN CORPUSCULAR VOLUME 106.3 fl (80.0-96.0); PLATELET COUNT, AUTOMATED 116 10^3/uL (150-450); RED BLOOD COUNT 2.69 10^6/uL (4.30-6.10); WHITE BLOOD COUNT 13.9 10^3/uL (4.0-10.0)
[2022-05-16 08:26] VITALS: BP 142/96
[2022-05-16 09:12] LABS: ANISOCYTOSIS 1+; ATYPICAL LYMPH 2 % (0-5); EOSINOPHILS 4 % (0-3); HYPOCHROMASIA 1+; LYMPHOCYTES 33 % (16-44); MONOCYTES 9 % (0-5); NEUTROPHILS 52 % (28-66); PLATELET ESTIMATE DECREASED (NORMAL); SCHISTOCYTES 1+
[2022-05-16] MEDS: PANTOPRAZOLE 40MG TAB (PROTONIX) PO SCH (10:03)
[2022-05-16] MEDS: allopurinoL 100 MG TAB PO SCH (10:04)
[2022-05-16 12:56] LABS: C REACTIVE PROTEIN QUANTITATIV 8.9 MG/DL (0.00-0.30)
[2022-05-16] MEDS ORDERED: CEFTAROLINE FOSAMIL 600 MG in D5W MINI-BAG PLUS 50 ML IV SCH (14:00)
[2022-05-16] MEDS: CEFTAROLINE FOSAMIL 400 MG in D5W MINI-BAG PLUS 50 ML IV SCH (16:29)
[2022-05-16 16:33] VITALS: BP 114/48
[2022-05-16] MEDS ORDERED: VANCOMYCIN HCL 750 MG, VIAL MATE ADAPTER 1 EACH in D5W 250 ML IV SCH (21:00)
[2022-05-16] MEDS: ACETAMINOPHEN TAB 650MG DOSE (2X325MG) PO PRN (21:36)
[2022-05-16 22:00] VITALS: BP 112/42
[2022-05-16] MEDS ORDERED: VANCOMYCIN HCL 500 MG in D5W MINI-BAG PLUS 100 ML IV SCH (22:00)
[2022-05-17] MEDS: IPRATROPIUM 0.5MG/ALBUTEROL 2.5MG INH SOL UD 3ML (DUONEB) NEB SCH ×4 (01:57→20:40)
[2022-05-17] MEDS: CEFTAROLINE FOSAMIL 400 MG in D5W MINI-BAG PLUS 50 ML IV SCH ×2 (03:02→15:15)
[2022-05-17] MEDS: ACETAMINOPHEN TAB 650MG DOSE (2X325MG) PO PRN (04:47)
[2022-05-17 06:05] VITALS: BP 136/66
[2022-05-17 06:45] LABS: BASO % 0.3 % (0.0-1.0); EOS # 0.4 10^3/uL (0.0-0.5); HEMATOCRIT 26.6 % (42.0-52.0); HEMOGLOBIN 8.6 g/dl (13.5-17.5); LYMPH # 3.6 10^3/uL (1.5-5.0); LYMPH % 31.4 % (24.0-44.0); MEAN CORPUSCULAR HEMOGLOBIN 33.9 pg (27.0-33.0); MEAN CORPUSCULAR HGB CONC 32.3 g/dl (32.0-36.5); MEAN CORPUSCULAR VOLUME 104.7 fl (80.0-96.0); MONO # 0.6 10^3/uL (0.0-0.8); MONO % 5.4 % (2.0-8.0); NEUTROPHILS # 6.9 10^3/uL (1.5-8.5); NEUTROPHILS % 59.6 % (36.0-66.0); PLATELET COUNT, AUTOMATED 103 10^3/uL (150-450); RED BLOOD COUNT 2.54 10^6/uL (4.30-6.10); WHITE BLOOD COUNT 11.6 10^3/uL (4.0-10.0)
[2022-05-17 07:47] LABS: C REACTIVE PROTEIN QUANTITATIV 8.35 MG/DL (0.00-0.30); CALCIUM LEVEL 8.4 MG/DL (8.8-10.2); CREATININE FOR GFR 1.9 MG/DL (0.70-1.30); MAGNESIUM LEVEL 2.3 MG/DL (1.8-2.4); POTASSIUM SERUM 3.9 MEQ/L (3.5-5.1)
[2022-05-17] MEDS: PANTOPRAZOLE 40MG TAB (PROTONIX) PO SCH (08:58)
[2022-05-17] MEDS: INSULIN LISPRO (NovoLOG) PER UNIT SC SCH ×4 (08:58→21:00)
[2022-05-17] MEDS: LEVEMIR (INSULIN DETEMIR) 1 UNITS/0.01ML SC SCH ×2 (08:58→21:30)
[2022-05-17] MEDS: GABAPENTIN 100 MG CAP PO SCH ×3 (08:59→21:29)
[2022-05-17] MEDS: allopurinoL 100 MG TAB PO SCH (08:59)
[2022-05-17] MEDS: FERROUS SULFATE 325MG TAB PO SCH ×2 (08:59→21:29)
[2022-05-17] MEDS: DOCUSATE SODIUM 100MG CAPSULE PO SCH ×2 (08:59→21:29)
[2022-05-17] MEDS: CARVedilol 12.5 MG TAB PO SCH ×2 (09:01→21:29)
[2022-05-17] MEDS: BRIMONIDINE 0.1% OPHTH SOLN 5 ML OU SCH ×2 (09:01→21:30)
[2022-05-17 13:37] VITALS: BP 138/84
[2022-05-17 14:26] VITALS: BP 140/74
[2022-05-17 21:47] VITALS: BP 145/75
[2022-05-18] MEDS: IPRATROPIUM 0.5MG/ALBUTEROL 2.5MG INH SOL UD 3ML (DUONEB) NEB SCH ×4 (01:03→20:14)
[2022-05-18] MEDS: ACETAMINOPHEN TAB 650MG DOSE (2X325MG) PO PRN ×3 (03:23→21:01)
[2022-05-18] MEDS: CEFTAROLINE FOSAMIL 400 MG in D5W MINI-BAG PLUS 50 ML IV SCH ×2 (03:55→15:46)
[2022-05-18 06:00] VITALS: BP 144/74
[2022-05-18 07:14] LABS: BASO % 0.3 % (0.0-1.0); EOS # 0.4 10^3/uL (0.0-0.5); EOS % 3.2 % (0.0-3.0); HEMATOCRIT 26.3 % (42.0-52.0); HEMOGLOBIN 8.3 g/dl (13.5-17.5); LYMPH # 3.8 10^3/uL (1.5-5.0); LYMPH % 30.2 % (24.0-44.0); MEAN CORPUSCULAR HEMOGLOBIN 33.2 pg (27.0-33.0); MEAN CORPUSCULAR HGB CONC 31.6 g/dl (32.0-36.5); MEAN CORPUSCULAR VOLUME 105.2 fl (80.0-96.0); MONO # 0.8 10^3/uL (0.0-0.8); MONO % 6.4 % (2.0-8.0); NEUTROPHILS # 7.4 10^3/uL (1.5-8.5); NEUTROPHILS % 59.3 % (36.0-66.0); PLATELET COUNT, AUTOMATED 107 10^3/uL (150-450); WHITE BLOOD COUNT 12.5 10^3/uL (4.0-10.0)
[2022-05-18 07:44] LABS: C REACTIVE PROTEIN QUANTITATIV 7.45 MG/DL (0.00-0.30); CALCIUM LEVEL 8.6 MG/DL (8.8-10.2); GLOMERULAR FILTRATION RATE 33.9 (>35); MAGNESIUM LEVEL 2.4 MG/DL (1.8-2.4); POTASSIUM SERUM 4.2 MEQ/L (3.5-5.1)
[2022-05-18] MEDS: FERROUS SULFATE 325MG TAB PO SCH ×2 (07:59→21:00)
[2022-05-18] MEDS: allopurinoL 100 MG TAB PO SCH (07:59)
[2022-05-18] MEDS: GABAPENTIN 100 MG CAP PO SCH ×3 (07:59→21:04)
[2022-05-18] MEDS: DOCUSATE SODIUM 100MG CAPSULE PO SCH ×2 (07:59→21:05)
[2022-05-18] MEDS: PANTOPRAZOLE 40MG TAB (PROTONIX) PO SCH (08:00)
[2022-05-18] MEDS: INSULIN LISPRO (NovoLOG) PER UNIT SC SCH ×4 (08:01→21:00)
[2022-05-18] MEDS: CARVedilol 12.5 MG TAB PO SCH ×2 (08:01→21:04)
[2022-05-18] MEDS: LEVEMIR (INSULIN DETEMIR) 1 UNITS/0.01ML SC SCH ×2 (08:02→21:00)
[2022-05-18] MEDS: BRIMONIDINE 0.1% OPHTH SOLN 5 ML OU SCH ×2 (08:02→21:05)
[2022-05-18] MEDS ORDERED: MOM 30ML SUSPENSION UDC PO PRN (08:15)
[2022-05-18 14:58] VITALS: BP 138/67
[2022-05-19] VITALS (10 sets, daily range): BP systolic 94–136; BP diastolic 41–76
[2022-05-19] MEDS: IPRATROPIUM 0.5MG/ALBUTEROL 2.5MG INH SOL UD 3ML (DUONEB) NEB SCH ×4 (00:58→19:43)
[2022-05-19] MEDS: CEFTAROLINE FOSAMIL 400 MG in D5W MINI-BAG PLUS 50 ML IV SCH ×3 (02:23→17:09)
[2022-05-19 06:31] LABS: HEMATOCRIT 26.2 % (42.0-52.0); HEMOGLOBIN 8.5 g/dl (13.5-17.5); MEAN CORPUSCULAR HEMOGLOBIN 34.3 pg (27.0-33.0); MEAN CORPUSCULAR HGB CONC 32.4 g/dl (32.0-36.5); MEAN CORPUSCULAR VOLUME 105.6 fl (80.0-96.0); PLATELET COUNT, AUTOMATED 101 10^3/uL (150-450); RED BLOOD COUNT 2.48 10^6/uL (4.30-6.10); WHITE BLOOD COUNT 12.8 10^3/uL (4.0-10.0)
[2022-05-19 06:56] LABS: INR 1.03; PARTIAL THROMBOPLASTIN TIME 34.9 SECONDS (25.9-37.0); PROTHROMBIN TIME 13.9 SECONDS (12.7-14.5)
[2022-05-19] MEDS: NS 1,000 ML IV SCH ×2 (07:00→17:09)
[2022-05-19 07:07] LABS: C REACTIVE PROTEIN QUANTITATIV 5.62 MG/DL (0.00-0.30); CALCIUM LEVEL 8.7 MG/DL (8.8-10.2); CREATININE FOR GFR 1.98 MG/DL (0.70-1.30); GLOMERULAR FILTRATION RATE 34.3 (>35); MAGNESIUM LEVEL 2.6 MG/DL (1.8-2.4); POTASSIUM SERUM 4.5 MEQ/L (3.5-5.1)
[2022-05-19] MEDS: INSULIN LISPRO (NovoLOG) PER UNIT SC SCH ×4 (07:30→20:55)
[2022-05-19 08:00] LABS: ATYPICAL LYMPH 9 % (0-5); EOSINOPHILS 3 % (0-3); LYMPHOCYTES 31 % (16-44); MONOCYTES 3 % (0-5); MYELOCYTES 1 % (0-0); NEUTROPHILS 53 % (28-66); PLATELET ESTIMATE DECREASED (NORMAL)
[2022-05-19 08:02] LABS: MICROCYTOSIS 1+; TEAR DROP CELLS 1+
[2022-05-19 08:03] LABS: POLYCHROMASIA 1+
[2022-05-19] MEDS ORDERED: fentaNYL 100 MCG/2 ML INJECTION As Ordered ONE ×3 (08:05→12:18)
[2022-05-19] MEDS ORDERED: ISOVUE-300 61% 50ML VIAL As Ordered ONE ×3 (08:05→12:09)
[2022-05-19] MEDS ORDERED: LIDOCAINE 1% MDV 20ML VIAL As Ordered ONE ×2 (08:06→10:58)
[2022-05-19] MEDS ORDERED: MIDAZOLAM INJ 2MG/2ML VIAL (J2250 PER 1MG) As Ordered ONE (08:06)
[2022-05-19] MEDS: GABAPENTIN 100 MG CAP PO SCH ×3 (09:00→21:04)
[2022-05-19] MEDS ORDERED: CLOPIDOGREL 75 MG TAB As Ordered ONE ×2 (12:45→12:48)
[2022-05-19] MEDS ORDERED: ASPIRIN 81 MG CHEW TABLET PO ONE (13:10)
[2022-05-19] MEDS ORDERED: CLOPIDOGREL 75 MG TAB PO ONE (13:10)
[2022-05-19] MEDS ORDERED: ASPIRIN 325 MG TAB PO ONE ×2 (13:15)
[2022-05-19] MEDS ORDERED: ONDANSETRON 4MG 2ML VIAL IV PRN (13:25)
[2022-05-19] MEDS ORDERED: PERCOCET 5MG/325MG TAB PO PRN (13:25)
[2022-05-19] MEDS: DOCUSATE SODIUM 100MG CAPSULE PO SCH ×2 (14:19→21:04)
[2022-05-19] MEDS: FERROUS SULFATE 325MG TAB PO SCH ×2 (14:19→21:05)
[2022-05-19] MEDS: PANTOPRAZOLE 40MG TAB (PROTONIX) PO SCH (14:20)
[2022-05-19] MEDS: allopurinoL 100 MG TAB PO SCH (14:20)
[2022-05-19] MEDS ORDERED: MIRALAX *UNIT DOSE* 17GM PACKET PO PRN (14:20)
[2022-05-19] MEDS ORDERED: SENNA 8.6 MG TAB (SENOKOT) PO PRN (14:20)
[2022-05-19] MEDS: CARVedilol 12.5 MG TAB PO SCH ×2 (14:21→17:15)
[2022-05-19] MEDS: LEVEMIR (INSULIN DETEMIR) 1 UNITS/0.01ML SC SCH ×2 (14:22→21:05)
[2022-05-19] MEDS: BRIMONIDINE 0.1% OPHTH SOLN 5 ML OU SCH ×2 (14:22→21:05)
[2022-05-19] MEDS: MIRALAX *UNIT DOSE* 17GM PACKET PO SCH (18:06)
[2022-05-19] MEDS: SENNA 8.6 MG TAB (SENOKOT) PO SCH (18:06)
[2022-05-19] MEDS ORDERED: [UNRECOGNIZED DRUG - OTHER] OU SCH (21:00)
[2022-05-20] MEDS: IPRATROPIUM 0.5MG/ALBUTEROL 2.5MG INH SOL UD 3ML (DUONEB) NEB SCH ×3 (01:35→13:30)
[2022-05-20 02:00] VITALS: BP 149/80
[2022-05-20] MEDS: CEFTAROLINE FOSAMIL 400 MG in D5W MINI-BAG PLUS 50 ML IV SCH (03:31)
[2022-05-20 06:00] VITALS: BP 144/71
[2022-05-20] MEDS: NS 1,000 ML IV SCH (07:11)
[2022-05-20 07:38] LABS: BASO % 0.3 % (0.0-1.0); EOS # 0.4 10^3/uL (0.0-0.5); EOS % 3.3 % (0.0-3.0); HEMATOCRIT 24.9 % (42.0-52.0); HEMOGLOBIN 7.9 g/dl (13.5-17.5); LYMPH # 2.9 10^3/uL (1.5-5.0); LYMPH % 23.5 % (24.0-44.0); MEAN CORPUSCULAR HEMOGLOBIN 33.8 pg (27.0-33.0); MEAN CORPUSCULAR HGB CONC 31.7 g/dl (32.0-36.5); MEAN CORPUSCULAR VOLUME 106.4 fl (80.0-96.0); MONO # 0.7 10^3/uL (0.0-0.8); MONO % 5.7 % (2.0-8.0); NEUTROPHILS # 8.3 10^3/uL (1.5-8.5); NEUTROPHILS % 66.5 % (36.0-66.0); PLATELET COUNT, AUTOMATED 110 10^3/uL (150-450); RED BLOOD COUNT 2.34 10^6/uL (4.30-6.10); WHITE BLOOD COUNT 12.4 10^3/uL (4.0-10.0)
[2022-05-20 08:13] LABS: C REACTIVE PROTEIN QUANTITATIV 4.82 MG/DL (0.00-0.30); CALCIUM LEVEL 8.5 MG/DL (8.8-10.2); CREATININE FOR GFR 1.99 MG/DL (0.70-1.30); GLOMERULAR FILTRATION RATE 34.1 (>35); MAGNESIUM LEVEL 2.6 MG/DL (1.8-2.4); POTASSIUM SERUM 4.5 MEQ/L (3.5-5.1)
[2022-05-20] MEDS: INSULIN LISPRO (NovoLOG) PER UNIT SC SCH ×2 (08:22→12:41)
[2022-05-20] MEDS: LEVEMIR (INSULIN DETEMIR) 1 UNITS/0.01ML SC SCH (08:23)
[2022-05-20] MEDS: allopurinoL 100 MG TAB PO SCH (08:23)
[2022-05-20] MEDS: PANTOPRAZOLE 40MG TAB (PROTONIX) PO SCH (08:23)
[2022-05-20] MEDS: MIRALAX *UNIT DOSE* 17GM PACKET PO SCH (08:23)
[2022-05-20] MEDS: BRIMONIDINE 0.1% OPHTH SOLN 5 ML OU SCH (08:24)
[2022-05-20] MEDS: SENNA 8.6 MG TAB (SENOKOT) PO SCH (08:24)
[2022-05-20] MEDS: GABAPENTIN 100 MG CAP PO SCH (08:24)
[2022-05-20] MEDS: DOCUSATE SODIUM 100MG CAPSULE PO SCH (08:24)
[2022-05-20] MEDS: FERROUS SULFATE 325MG TAB PO SCH (08:24)
[2022-05-20] MEDS ORDERED: ASPIRIN 81 MG CHEW TABLET PEG SCH (09:00)
[2022-05-20] MEDS ORDERED: CLOPIDOGREL 75 MG TAB PO SCH (09:00)
[2022-05-20] MEDS ORDERED: FLEET ENEMA PR ONE (09:25)
[2022-05-20 10:00] VITALS: BP 116/52
[2022-05-20] MEDS ORDERED: ASPI81CH8 PEG (12:15)
[2022-05-20] MEDS ORDERED: CLOP75TA2 PO (12:15)
[2022-05-20] MEDS ORDERED: CEPH750C PO (12:15)
[2022-05-20] MEDS ORDERED: CARV3.12 PO (12:31)
[2022-05-20] MEDS ORDERED: SENN-80 PO (12:37)
[2022-05-20] MEDS ORDERED: MIRA3350 PO (12:37)
[2022-05-20 14:00] VITALS: BP 120/49
[2022-05-20 14:10] LABS: PERCENT SATURATION 17.2 % (19.7-50.0)
[2022-05-20] MEDS ORDERED: ENTER DRUG NAME HERE (PATIENT'S OWN MED) OU SCH (21:00)
== END 2022-05-20 16:11 | disposition home health service (06) | DRG 253 ==
LOC: M ED 13:46 → M ED INP 22:40 → M MSPAV 05-16 02:39
PROVIDERS: ADMIT Internal Medicine; ATTEND Internal Medicine
PROC: 047D3DZ Dilation of Left Common Iliac Artery with Intraluminal Device, Percutaneous Approach (ICD-10-PCS; principal; 2022-05-18)
PROC: 047C3DZ Dilation of Right Common Iliac Artery with Intraluminal Device, Percutaneous Approach (ICD-10-PCS; 2022-05-18)
PROC: 047K3ZZ Dilation of Right Femoral Artery, Percutaneous Approach (ICD-10-PCS; 2022-05-19)
PROC: 047M3ZZ Dilation of Right Popliteal Artery, Percutaneous Approach (ICD-10-PCS; 2022-05-19)
PROC: 047T3ZZ Dilation of Right Peroneal Artery, Percutaneous Approach (ICD-10-PCS; 2022-05-19)
PROC: B41F1ZZ Fluoroscopy of Right Lower Extremity Arteries using Low Osmolar Contrast (ICD-10-PCS; 2022-05-19)
DX: E11.52 Type 2 diabetes mellitus with diabetic peripheral angiopathy with gangrene (principal); I50.32 Chronic diastolic (congestive) heart failure; I48.20 Chronic atrial fibrillation, unspecified; L03.116 Cellulitis of left lower limb; I13.0 Hypertensive heart and chronic kidney disease with heart failure and stage 1 through stage 4 chronic kidney disease, or unspecified chronic kidney disease; E87.1 Hypo-osmolality and hyponatremia; L97.529 Non-pressure chronic ulcer of other part of left foot with unspecified severity; I87.2 Venous insufficiency (chronic) (peripheral); D50.9 Iron deficiency anemia, unspecified; M10.9 Gout, unspecified; I89.0 Lymphedema, not elsewhere classified; M17.0 Bilateral primary osteoarthritis of knee; K21.9 Gastro-esophageal reflux disease without esophagitis; E11.22 Type 2 diabetes mellitus with diabetic chronic kidney disease; I27.21 Secondary pulmonary arterial hypertension; E11.621 Type 2 diabetes mellitus with foot ulcer; I77.1 Stricture of artery; D69.6 Thrombocytopenia, unspecified; E11.42 Type 2 diabetes mellitus with diabetic polyneuropathy; I27.81 Cor pulmonale (chronic); N18.32 Chronic kidney disease, stage 3b; K59.00 Constipation, unspecified; Z79.4 Long term (current) use of insulin; Z79.899 Other long term (current) drug therapy; Z79.82 Long term (current) use of aspirin; Z91.040 Latex allergy status; Z87.891 Personal history of nicotine dependence

== ENCOUNTER → 2022-06-11 | Outpatient (REF) | payer MEDICARE, OTHER, BC ==
[~2022-06-11] MED LIST changes: +AMMO12CR7 TOP; +ASPI81CH8 PEG; +BRIM1OPD OU; +CEPH750C PO; +CICL0.7739 TOP; +CLOP75TA2 PO; +CYAN100050 PO; +EQL50TAB2 PO; +MAGN400T2 PO; +MIRA3350 PO; +POTA1TAB21 PO; +SENN-80 PO; +VITA100093 PO
[2022-06-15 18:49] LABS: PERCENT SATURATION 20.3 % (19.7-50.0)
== END ==
LOC: M LAB REF 17:17
PROVIDERS: ATTEND Internal Medicine Nephrology
DX: D50.9 Iron deficiency anemia, unspecified (principal)

== ENCOUNTER → 2022-07-09 | Outpatient (REF) | payer MEDICARE, OTHER, BC | LOC: M LAB REF 10:07 | PROVIDERS: ATTEND Podiatrist Foot & Ankle Surgery | DX: M86.9 Osteomyelitis, unspecified (principal) ==

== ENCOUNTER → 2022-07-20 | Outpatient (CLI) | payer MEDICARE, BC, OTHER | LOC: M RAD 09:50 | PROVIDERS: ATTEND Surgery Vascular Surgery | DX: I70.213 Atherosclerosis of native arteries of extremities with intermittent claudication, bilateral legs (principal) ==

== ENCOUNTER 2022-08-03 10:40 | Inpatient (IN) | payer MEDICARE, BC, OTHER ==
[2022-08-03] VITALS (8 sets, daily range): BP systolic 99–106; BP diastolic 54–59
[~2022-08-03] VITALS: Ht 193 cm; Wt 143.1 kg
[2022-08-03] MEDS ORDERED: PIPERACILLIN/TAZOBACTAM SOD 4.5 GM in D5W MINI-BAG PLUS 50 ML IV ONE (11:20)
[2022-08-03] MEDS ORDERED: NS 1,000 ML IV ONE (11:20)
[2022-08-03] MEDS ORDERED: ACETAMINOPHEN TAB 650MG DOSE (2X325MG) PO ONE (11:20)
[2022-08-03 11:44] LABS: HEMATOCRIT 24.5 % (42.0-52.0); HEMOGLOBIN 7.8 g/dl (13.5-17.5); MEAN CORPUSCULAR HEMOGLOBIN 32.4 pg (27.0-33.0); MEAN CORPUSCULAR HGB CONC 31.8 g/dl (32.0-36.5); MEAN CORPUSCULAR VOLUME 101.7 fl (80.0-96.0); PLATELET COUNT, AUTOMATED 106 10^3/uL (150-450); RED BLOOD COUNT 2.41 10^6/uL (4.30-6.10)
[2022-08-03 11:54] LABS: C REACTIVE PROTEIN QUANTITATIV 11.2 MG/DL (<1.0)
[2022-08-03 11:55] LABS: INR 1.32; PROTHROMBIN TIME 16.6 SECONDS (12.5-14.5)
[2022-08-03 11:56] LABS: BILIRUBIN,DIRECT 0.3 MG/DL (<0.4); PARTIAL THROMBOPLASTIN TIME 33.8 SECONDS (24.8-34.2)
[2022-08-03 12:00] LABS: ALBUMIN 2.7 G/DL (3.2-5.2); BILIRUBIN,TOTAL 0.7 MG/DL (0.3-1.2); CALCIUM LEVEL 8.5 MG/DL (8.3-10.6); CREATININE FOR GFR 2.77 MG/DL (0.70-1.30); GLOMERULAR FILTRATION RATE 23.3 (>35); POTASSIUM SERUM 5.5 MMOL/L (3.5-5.1); TOTAL PROTEIN 7.2 G/DL (5.7-8.2)
[2022-08-03 12:20] LABS: RSV AMPLIFICATION NEGATIVE (NEGATIVE)
[2022-08-03 12:52] LABS: ERYTHROCYTE SEDIMENTATION RATE 106 mm/hr (0-20)
[2022-08-03] MEDS ORDERED: VANCOMYCIN HCL 2,000 MG in D5W 500 ML IV ONE (13:05)
[2022-08-03] MEDS ORDERED: VANCOMYCIN HCL 1,000 MG, VIAL MATE ADAPTER 1 EACH in NS 250 ML IV ONE ×8 (13:10→19:00)
[2022-08-03] MEDS ORDERED: GLUCAGON INJ 1MG VIAL SC PRN (13:25)
[2022-08-03] MEDS ORDERED: DEXTROSE 50% 50ML SYRINGE IV PRN (13:25)
[2022-08-03] MEDS ORDERED: VANCOMYCIN HCL 750 MG, VIAL MATE ADAPTER 1 EACH in NS 250 ML IV SCH (13:25)
[2022-08-03] MEDS ORDERED: GLUCOSE 4GM CHEW TABLET PO PRN (13:25)
[2022-08-03] MEDS ORDERED: IPRATROPIUM 0.5MG/ALBUTEROL 2.5MG INH SOL UD 3ML (DUONEB) NEB PRN (13:55)
[2022-08-03] MEDS ORDERED: NS 1,000 ML IV SCH (14:00)
[2022-08-03] MEDS ORDERED: propofoL 200 MG/20 ML VIAL As Ordered ONE (14:38)
[2022-08-03] MEDS ORDERED: fentaNYL 100 MCG/2 ML INJECTION As Ordered ONE (14:38)
[2022-08-03] MEDS ORDERED: LIDOCAINE 1% MDV 20ML VIAL As Ordered ONE (14:59)
[2022-08-03] MEDS ORDERED: BUPIVACAINE HCL 0.5% 30ML VIAL As Ordered ONE (15:00)
[2022-08-03] MEDS ORDERED: ASPI81CH33 PO (15:06)
[2022-08-03] MEDS ORDERED: CLOP75TA2 PO (15:06)
[2022-08-03] MEDS ORDERED: ACET-683 PO (15:06)
[2022-08-03] MEDS ORDERED: TORS20TA2 PO (15:06)
[2022-08-03] MEDS ORDERED: MIRA3350 PO (15:06)
[2022-08-03] MEDS ORDERED: FERR1TAB8 PO (15:06)
[2022-08-03] MEDS ORDERED: CARV3.12 PO (15:06)
[2022-08-03] MEDS ORDERED: ALBU8.5H INH (15:06)
[2022-08-03] MEDS ORDERED: COLA100C5 PO (15:06)
[2022-08-03] MEDS ORDERED: HOME MED LIST COMPLETE! XX SCH (15:10)
[2022-08-03] MEDS ORDERED: propofoL 500 MG/50 ML VIAL As Ordered ONE (15:46)
[2022-08-03] MEDS ORDERED: VASOPRESSIN INJ 20UNITS/ML 1ML VIAL As Ordered ONE (16:10)
[2022-08-03] MEDS ORDERED: PHENYLephrine 500MCG 5ML (100MCG/ML) SYRINGE As Ordered ONE (16:12)
[2022-08-03] MEDS ORDERED: INSULIN LISPRO (NovoLOG) PER UNIT SC ONE (16:45)
[2022-08-03] MEDS ORDERED: ALBUTEROL 90 MCG/ACT 8GM HFA INHALER INH PRN (17:15)
[2022-08-03] MEDS: INSULIN LISPRO (NovoLOG) PER UNIT SC SCH ×3 (17:30→20:42)
[2022-08-03] MEDS ORDERED: PIPERACILLIN/TAZOBACTAM SOD 3.375 GM in D5W MINI-BAG PLUS 50 ML IV SCH (18:00)
[2022-08-03] MEDS: PIPERACILLIN/TAZOBACTAM SOD 2.25 GM in D5W MINI-BAG PLUS 50 ML IV SCH (18:31)
[2022-08-03 20:08] LABS: BASO % 0.1 % (0.0-1.0); HEMATOCRIT 23.8 % (42.0-52.0); HEMOGLOBIN 7.6 g/dl (13.5-17.5); MEAN CORPUSCULAR HEMOGLOBIN 31.8 pg (27.0-33.0); MEAN CORPUSCULAR HGB CONC 31.9 g/dl (32.0-36.5); MEAN CORPUSCULAR VOLUME 99.6 fl (80.0-96.0); MONO # 0.7 10^3/uL (0.0-0.8); MONO % 2.3 % (2.0-8.0); NEUTROPHILS # 23.2 10^3/uL (1.5-8.5); NEUTROPHILS % 79.4 % (36.0-66.0); PLATELET COUNT, AUTOMATED 109 10^3/uL (150-450); RED BLOOD COUNT 2.39 10^6/uL (4.30-6.10); WHITE BLOOD COUNT 29.2 10^3/uL (4.0-10.0)
[2022-08-03 20:27] LABS: CALCIUM LEVEL 8.1 MG/DL (8.3-10.6); CREATININE FOR GFR 2.77 MG/DL (0.70-1.30); GLOMERULAR FILTRATION RATE 23.3 (>35); POTASSIUM SERUM 4.5 MMOL/L (3.5-5.1)
[2022-08-03] MEDS: SUCRALFATE 1 GM TAB PO SCH (20:41)
[2022-08-03] MEDS: DOCUSATE SODIUM 100MG CAPSULE PO SCH (20:41)
[2022-08-03] MEDS: FERROUS SULFATE 325MG TAB PO SCH (20:42)
[2022-08-03] MEDS: GABAPENTIN 100 MG CAP PO SCH (20:42)
[2022-08-03] MEDS: CARVedilol 3.125 MG TAB PO SCH (20:42)
[2022-08-03] MEDS: MORPHINE 2 MG/ML 1ML VIAL IV PRN (20:58)
[2022-08-03] MEDS: TIMOLOL MALEATE 0.5% OPHTH SOLN 5 ML OU SCH (21:00)
[2022-08-03] MEDS ORDERED: PANTOPRAZOLE 40MG VIAL IV SCH (21:00)
[2022-08-03] MEDS: BRIMONIDINE 0.15% OPHTH SOLN 5 ML OU SCH (21:00)
[2022-08-03] MEDS: LATANOPROST 0.005% OPHTH SOLN 2.5 ML OU SCH (21:00)
[2022-08-03] MEDS: ADVAIR HFA 45/21MCG INHALER INH SCH (21:11)
[2022-08-04] VITALS (13 sets, daily range): BP systolic 98–111; BP diastolic 50–63
[2022-08-04] MEDS: PIPERACILLIN/TAZOBACTAM SOD 2.25 GM in D5W MINI-BAG PLUS 50 ML IV SCH ×3 (01:32→12:13)
[2022-08-04] MEDS: MORPHINE 2 MG/ML 1ML VIAL IV PRN ×2 (04:01→23:21)
[2022-08-04] MEDS ORDERED: MIRALAX *UNIT DOSE* 17GM PACKET PO PRN (07:20)
[2022-08-04 07:32] LABS: HEMATOCRIT 21.9 % (42.0-52.0); MEAN CORPUSCULAR HEMOGLOBIN 31.4 pg (27.0-33.0); MEAN CORPUSCULAR VOLUME 98.2 fl (80.0-96.0); PLATELET COUNT, AUTOMATED 116 10^3/uL (150-450); RED BLOOD COUNT 2.23 10^6/uL (4.30-6.10); WHITE BLOOD COUNT 23.1 10^3/uL (4.0-10.0)
[2022-08-04 07:49] LABS: VANCOMYCIN RANDOM 17.3 UG/ML
[2022-08-04 07:51] LABS: C REACTIVE PROTEIN QUANTITATIV 20.3 MG/DL (<1.0)
[2022-08-04 07:52] LABS: FERRITIN 217.8 NG/ML (10.5-307.3); PERCENT SATURATION 4.4 % (19.7-50.0)
[2022-08-04 07:53] LABS: FOLATE 10.2 NG/ML (>5.4)
[2022-08-04] MEDS: TIOTROPIUM INHALER/CAPSULE (SPIRIVA) INH SCH (08:00)
[2022-08-04] MEDS: ADVAIR HFA 45/21MCG INHALER INH SCH ×2 (08:00→20:11)
[2022-08-04 08:07] LABS: ALBUMIN 2.3 G/DL (3.2-5.2); BILIRUBIN,TOTAL 0.7 MG/DL (0.3-1.2); CREATININE FOR GFR 2.73 MG/DL (0.70-1.30); GLOMERULAR FILTRATION RATE 23.7 (>35); POTASSIUM SERUM 4.4 MMOL/L (3.5-5.1); TOTAL PROTEIN 6.2 G/DL (5.7-8.2)
[2022-08-04 08:08] LABS: ERYTHROCYTE SEDIMENTATION RATE 107 mm/hr (0-20)
[2022-08-04] MEDS: TIMOLOL MALEATE 0.5% OPHTH SOLN 5 ML OU SCH ×2 (08:39→20:15)
[2022-08-04] MEDS: BRIMONIDINE 0.15% OPHTH SOLN 5 ML OU SCH ×2 (08:39→19:54)
[2022-08-04] MEDS: CARVedilol 3.125 MG TAB PO SCH ×2 (08:39→20:14)
[2022-08-04] MEDS: VITAMIN D 1,000 INTERNATIONAL UNITS TABLET PO SCH (08:40)
[2022-08-04] MEDS: GABAPENTIN 100 MG CAP PO SCH ×3 (08:40→20:14)
[2022-08-04] MEDS: SUCRALFATE 1 GM TAB PO SCH ×2 (08:40→20:14)
[2022-08-04] MEDS: LEVEMIR (INSULIN DETEMIR) 1 UNITS/0.01ML SC SCH ×2 (08:40→20:15)
[2022-08-04] MEDS: FERROUS SULFATE 325MG TAB PO SCH ×2 (08:40→20:14)
[2022-08-04] MEDS: DOCUSATE SODIUM 100MG CAPSULE PO SCH ×2 (08:40→19:52)
[2022-08-04] MEDS: MAGNESIUM OXIDE 400MG TAB (MAG-OX) PO SCH ×3 (08:40→20:14)
[2022-08-04] MEDS: INSULIN LISPRO (NovoLOG) PER UNIT SC SCH ×4 (08:41→19:53)
[2022-08-04] MEDS: allopurinoL 100 MG TAB PO SCH (08:59)
[2022-08-04 09:45] LABS: HEMOGLOBIN A1c 6.5 % (4.0-6.0)
[2022-08-04] MEDS: MIRALAX *UNIT DOSE* 17GM PACKET PO SCH ×2 (11:35→13:06)
[2022-08-04] MEDS: VANCOMYCIN HCL 1,000 MG, VIAL MATE ADAPTER 1 EACH in D5W 250 ML IV SCH (13:04)
[2022-08-04] MEDS: LACTOBACILLUS ACIDOPHILUS CAP (BACID) PO SCH ×2 (13:05→18:25)
[2022-08-04] MEDS: PIPERACILLIN/TAZOBACTAM SOD 3.375 GM in D5W MINI-BAG PLUS 50 ML IV SCH ×2 (18:46→23:17)
[2022-08-04] MEDS: SENNA 8.6 MG TAB (SENOKOT) PO SCH (19:53)
[2022-08-04] MEDS: LATANOPROST 0.005% OPHTH SOLN 2.5 ML OU SCH (20:15)
[2022-08-04] MEDS: ACETAMINOPHEN TAB 650MG DOSE (2X325MG) PO PRN (20:15)
[2022-08-05 00:04] VITALS: BP 108/55
[2022-08-05 04:32] VITALS: BP 123/64
[2022-08-05 05:10] LABS: HEMATOCRIT 24.3 % (42.0-52.0); MEAN CORPUSCULAR HEMOGLOBIN 31.6 pg (27.0-33.0); MEAN CORPUSCULAR HGB CONC 32.9 g/dl (32.0-36.5); PLATELET COUNT, AUTOMATED 118 10^3/uL (150-450); RED BLOOD COUNT 2.53 10^6/uL (4.30-6.10); WHITE BLOOD COUNT 17.3 10^3/uL (4.0-10.0)
[2022-08-05] MEDS: PIPERACILLIN/TAZOBACTAM SOD 3.375 GM in D5W MINI-BAG PLUS 50 ML IV SCH ×3 (05:39→17:28)
[2022-08-05 05:40] LABS: MAGNESIUM LEVEL 2.1 MG/DL (1.8-2.4)
[2022-08-05 05:42] LABS: ALBUMIN 2.2 G/DL (3.2-5.2); ALKALINE PHOSPHATASE 72 U/L (46-116); ALT/SGPT 188 U/L (7.0-40); AST/SGOT 163 U/L (<34); BILIRUBIN,TOTAL 0.8 MG/DL (0.3-1.2); BLOOD UREA NITROGEN 68 MG/DL (9-23); CALCIUM LEVEL 8.1 MG/DL (8.3-10.6); CARBON DIOXIDE LEVEL 23 MMOL/L (20-31); CHLORIDE LEVEL 97 MMOL/L (98-107); CREATININE FOR GFR 2.76 MG/DL (0.70-1.30); GLOMERULAR FILTRATION RATE 23.4 (>35); GLUCOSE, FASTING 120 MG/DL (74-106); IRON (FE) 38 UG/DL (65-175); PERCENT SATURATION 13.8 % (19.7-50.0); PHOSPHORUS LEVEL 3.8 MG/DL (2.4-5.1); SODIUM LEVEL 130 MMOL/L (136-145); TOTAL IRON BINDING CAPACITY 275 UG/DL (250-425); TOTAL PROTEIN 6.4 G/DL (5.7-8.2)
[2022-08-05] MEDS: INSULIN LISPRO (NovoLOG) PER UNIT SC SCH ×4 (07:30→20:45)
[2022-08-05] MEDS: TIOTROPIUM INHALER/CAPSULE (SPIRIVA) INH SCH (07:37)
[2022-08-05] MEDS: ADVAIR HFA 45/21MCG INHALER INH SCH ×2 (07:37→19:30)
[2022-08-05 08:06] LABS: HEPATITIS B SURFACE ANTIGEN NEGATIVE (NEGATIVE)
[2022-08-05 08:27] LABS: HEPATITIS B CORE ANTIBODY IGM NEGATIVE (NEGATIVE); HEPATITIS C VIRUS ABY INDEX 0.2 INDEX (<0.8)
[2022-08-05 08:31] VITALS: BP 110/57
[2022-08-05] MEDS: MIRALAX *UNIT DOSE* 17GM PACKET PO SCH (09:00)
[2022-08-05] MEDS: SUCRALFATE 1 GM TAB PO SCH ×2 (09:20→20:55)
[2022-08-05] MEDS: DOCUSATE SODIUM 100MG CAPSULE PO SCH ×2 (09:20→20:54)
[2022-08-05] MEDS: LACTOBACILLUS ACIDOPHILUS CAP (BACID) PO SCH ×2 (09:20→18:18)
[2022-08-05] MEDS: allopurinoL 100 MG TAB PO SCH (09:20)
[2022-08-05] MEDS: FERROUS SULFATE 325MG TAB PO SCH ×2 (09:21→20:55)
[2022-08-05] MEDS: GABAPENTIN 100 MG CAP PO SCH ×3 (09:21→20:54)
[2022-08-05] MEDS: MAGNESIUM OXIDE 400MG TAB (MAG-OX) PO SCH ×3 (09:21→20:54)
[2022-08-05] MEDS: VITAMIN D 1,000 INTERNATIONAL UNITS TABLET PO SCH (09:21)
[2022-08-05] MEDS: LEVEMIR (INSULIN DETEMIR) 1 UNITS/0.01ML SC SCH ×2 (09:21→20:54)
[2022-08-05] MEDS: CARVedilol 3.125 MG TAB PO SCH ×2 (09:21→20:55)
[2022-08-05] MEDS: BRIMONIDINE 0.15% OPHTH SOLN 5 ML OU SCH ×2 (09:22→20:56)
[2022-08-05] MEDS: TIMOLOL MALEATE 0.5% OPHTH SOLN 5 ML OU SCH ×2 (09:22→20:56)
[2022-08-05 12:00] VITALS: BP 120/66
[2022-08-05] MEDS: VANCOMYCIN HCL 1,000 MG, VIAL MATE ADAPTER 1 EACH in D5W 250 ML IV SCH (13:41)
[2022-08-05 15:39] VITALS: BP 127/62
[2022-08-05 20:00] VITALS: BP 131/62
[2022-08-05] MEDS: SENNA 8.6 MG TAB (SENOKOT) PO SCH (20:55)
[2022-08-05] MEDS: LATANOPROST 0.005% OPHTH SOLN 2.5 ML OU SCH (20:56)
[2022-08-05] MEDS: MORPHINE 2 MG/ML 1ML VIAL IV PRN (21:15)
[2022-08-06] VITALS (7 sets, daily range): BP systolic 119–155; BP diastolic 58–75
[2022-08-06] MEDS: PIPERACILLIN/TAZOBACTAM SOD 3.375 GM in D5W MINI-BAG PLUS 50 ML IV SCH ×5 (00:08→23:50)
[2022-08-06 04:24] LABS: OSMOLALITY URINE 229 MOSM/KG (50-1400)
[2022-08-06 04:31] LABS: SODIUM,RANDOM URINE 18 MMOL/L
[2022-08-06] MEDS: TIOTROPIUM INHALER/CAPSULE (SPIRIVA) INH SCH (07:03)
[2022-08-06] MEDS: ADVAIR HFA 45/21MCG INHALER INH SCH ×2 (07:03→21:00)
[2022-08-06] MEDS: INSULIN LISPRO (NovoLOG) PER UNIT SC SCH ×4 (07:30→20:28)
[2022-08-06] MEDS: LEVEMIR (INSULIN DETEMIR) 1 UNITS/0.01ML SC SCH ×2 (08:57→20:31)
[2022-08-06] MEDS: SUCRALFATE 1 GM TAB PO SCH ×2 (08:57→20:32)
[2022-08-06] MEDS: MIRALAX *UNIT DOSE* 17GM PACKET PO SCH (08:57)
[2022-08-06] MEDS: allopurinoL 100 MG TAB PO SCH (08:57)
[2022-08-06] MEDS: DOCUSATE SODIUM 100MG CAPSULE PO SCH ×2 (08:57→20:32)
[2022-08-06] MEDS: MAGNESIUM OXIDE 400MG TAB (MAG-OX) PO SCH ×3 (08:57→20:32)
[2022-08-06] MEDS: LACTOBACILLUS ACIDOPHILUS CAP (BACID) PO SCH ×2 (08:57→17:43)
[2022-08-06] MEDS: FERROUS SULFATE 325MG TAB PO SCH ×2 (08:58→20:32)
[2022-08-06] MEDS: GABAPENTIN 100 MG CAP PO SCH ×3 (08:58→20:32)
[2022-08-06] MEDS: VITAMIN D 1,000 INTERNATIONAL UNITS TABLET PO SCH (08:58)
[2022-08-06] MEDS: CARVedilol 3.125 MG TAB PO SCH ×2 (08:58→20:32)
[2022-08-06] MEDS: BRIMONIDINE 0.15% OPHTH SOLN 5 ML OU SCH ×2 (08:59→20:33)
[2022-08-06] MEDS: TIMOLOL MALEATE 0.5% OPHTH SOLN 5 ML OU SCH ×2 (08:59→20:33)
[2022-08-06 09:32] LABS: HEMATOCRIT 26.9 % (42.0-52.0); HEMOGLOBIN 8.7 g/dl (13.5-17.5); MEAN CORPUSCULAR HEMOGLOBIN 31.8 pg (27.0-33.0); MEAN CORPUSCULAR HGB CONC 32.3 g/dl (32.0-36.5); MEAN CORPUSCULAR VOLUME 98.2 fl (80.0-96.0); PLATELET COUNT, AUTOMATED 139 10^3/uL (150-450); RED BLOOD COUNT 2.74 10^6/uL (4.30-6.10); WHITE BLOOD COUNT 16.2 10^3/uL (4.0-10.0)
[2022-08-06 10:10] LABS: ALBUMIN 2.4 G/DL (3.2-5.2); BILIRUBIN,TOTAL 0.7 MG/DL (0.3-1.2); CALCIUM LEVEL 8.6 MG/DL (8.3-10.6); CREATININE FOR GFR 2.4 MG/DL (0.70-1.30); GLOMERULAR FILTRATION RATE 27.5 (>35)
[2022-08-06] MEDS: SENNA 8.6 MG TAB (SENOKOT) PO SCH (20:32)
[2022-08-06] MEDS: LATANOPROST 0.005% OPHTH SOLN 2.5 ML OU SCH (20:33)
[2022-08-06] MEDS: ACETAMINOPHEN TAB 650MG DOSE (2X325MG) PO PRN (23:58)
[2022-08-07 04:06] VITALS: BP 133/64
[2022-08-07 04:57] LABS: HEMATOCRIT 27.7 % (42.0-52.0); HEMOGLOBIN 8.7 g/dl (13.5-17.5); MEAN CORPUSCULAR HEMOGLOBIN 31.1 pg (27.0-33.0); MEAN CORPUSCULAR HGB CONC 31.4 g/dl (32.0-36.5); MEAN CORPUSCULAR VOLUME 98.9 fl (80.0-96.0); PLATELET COUNT, AUTOMATED 114 10^3/uL (150-450); WHITE BLOOD COUNT 15.7 10^3/uL (4.0-10.0)
[2022-08-07] MEDS: PIPERACILLIN/TAZOBACTAM SOD 3.375 GM in D5W MINI-BAG PLUS 50 ML IV SCH ×3 (05:25→17:54)
[2022-08-07 05:35] LABS: ALBUMIN 2.5 G/DL (3.2-5.2); BILIRUBIN,TOTAL 0.7 MG/DL (0.3-1.2); CALCIUM LEVEL 8.7 MG/DL (8.3-10.6); CREATININE FOR GFR 2.23 MG/DL (0.70-1.30); GLOMERULAR FILTRATION RATE 29.9 (>35); POTASSIUM SERUM 4.1 MMOL/L (3.5-5.1); TOTAL PROTEIN 7.1 G/DL (5.7-8.2)
[2022-08-07] MEDS: TIOTROPIUM INHALER/CAPSULE (SPIRIVA) INH SCH (06:08)
[2022-08-07] MEDS: ADVAIR HFA 45/21MCG INHALER INH SCH ×2 (06:09→20:00)
[2022-08-07] MEDS: INSULIN LISPRO (NovoLOG) PER UNIT SC SCH ×4 (07:30→21:00)
[2022-08-07 08:00] VITALS: BP 125/59
[2022-08-07] MEDS: LACTOBACILLUS ACIDOPHILUS CAP (BACID) PO SCH ×2 (08:28→17:54)
[2022-08-07] MEDS: MAGNESIUM OXIDE 400MG TAB (MAG-OX) PO SCH ×3 (08:29→21:09)
[2022-08-07] MEDS: SUCRALFATE 1 GM TAB PO SCH ×2 (08:29→21:09)
[2022-08-07] MEDS: DOCUSATE SODIUM 100MG CAPSULE PO SCH ×2 (08:29→21:09)
[2022-08-07] MEDS: GABAPENTIN 100 MG CAP PO SCH ×3 (08:30→21:09)
[2022-08-07] MEDS: MIRALAX *UNIT DOSE* 17GM PACKET PO SCH (08:30)
[2022-08-07] MEDS: FERROUS SULFATE 325MG TAB PO SCH ×2 (08:30→21:09)
[2022-08-07] MEDS: CARVedilol 3.125 MG TAB PO SCH ×2 (08:30→21:09)
[2022-08-07] MEDS: VITAMIN D 1,000 INTERNATIONAL UNITS TABLET PO SCH (08:30)
[2022-08-07] MEDS: LEVEMIR (INSULIN DETEMIR) 1 UNITS/0.01ML SC SCH ×2 (08:31→21:22)
[2022-08-07] MEDS: BRIMONIDINE 0.15% OPHTH SOLN 5 ML OU SCH ×2 (08:31→21:27)
[2022-08-07] MEDS: TIMOLOL MALEATE 0.5% OPHTH SOLN 5 ML OU SCH ×2 (08:31→21:28)
[2022-08-07] MEDS: allopurinoL 100 MG TAB PO SCH (08:37)
[2022-08-07 08:38] LABS: C REACTIVE PROTEIN QUANTITATIV 5.7 MG/DL (<1.0)
[2022-08-07] MEDS ORDERED: FLUBLOK(EGG FREE)(QUAD)INFLUENZA VACC 0.5ML SYRINGE 18YRS & OLDER IM.IMMUN ONE (11:00)
[2022-08-07 12:00] VITALS: BP 123/61
[2022-08-07 16:00] VITALS: BP 120/57
[2022-08-07 20:00] VITALS: BP 115/59
[2022-08-07] MEDS: SENNA 8.6 MG TAB (SENOKOT) PO SCH (21:09)
[2022-08-07] MEDS: LATANOPROST 0.005% OPHTH SOLN 2.5 ML OU SCH (21:24)
[2022-08-07] MEDS: ACETAMINOPHEN TAB 650MG DOSE (2X325MG) PO PRN (21:35)
[2022-08-08] VITALS: BP 127/60
[2022-08-08] MEDS: PIPERACILLIN/TAZOBACTAM SOD 3.375 GM in D5W MINI-BAG PLUS 50 ML IV SCH ×4 (00:08→18:42)
[2022-08-08 04:00] VITALS: BP 134/74
[2022-08-08 05:34] LABS: HEMATOCRIT 27.4 % (42.0-52.0); HEMOGLOBIN 8.5 g/dl (13.5-17.5); MEAN CORPUSCULAR HEMOGLOBIN 31.3 pg (27.0-33.0); MEAN CORPUSCULAR VOLUME 100.7 fl (80.0-96.0); PLATELET COUNT, AUTOMATED 106 10^3/uL (150-450); RED BLOOD COUNT 2.72 10^6/uL (4.30-6.10); WHITE BLOOD COUNT 14.7 10^3/uL (4.0-10.0)
[2022-08-08 06:01] LABS: ALBUMIN 2.5 G/DL (3.2-5.2); BILIRUBIN,TOTAL 0.6 MG/DL (0.3-1.2); CALCIUM LEVEL 8.8 MG/DL (8.3-10.6); CREATININE FOR GFR 1.96 MG/DL (0.70-1.30); GLOMERULAR FILTRATION RATE 34.7 (>35); POTASSIUM SERUM 4.2 MMOL/L (3.5-5.1); TOTAL PROTEIN 7.1 G/DL (5.7-8.2)
[2022-08-08] MEDS: TIOTROPIUM INHALER/CAPSULE (SPIRIVA) INH SCH (07:20)
[2022-08-08] MEDS: ADVAIR HFA 45/21MCG INHALER INH SCH ×2 (07:22→20:34)
[2022-08-08] MEDS: INSULIN LISPRO (NovoLOG) PER UNIT SC SCH ×4 (07:30→20:45)
[2022-08-08 08:00] VITALS: BP 132/65
[2022-08-08] MEDS: LACTOBACILLUS ACIDOPHILUS CAP (BACID) PO SCH ×2 (08:42→17:30)
[2022-08-08] MEDS: GABAPENTIN 100 MG CAP PO SCH ×3 (08:42→20:43)
[2022-08-08] MEDS: FERROUS SULFATE 325MG TAB PO SCH ×2 (08:42→20:43)
[2022-08-08] MEDS: DOCUSATE SODIUM 100MG CAPSULE PO SCH ×2 (08:42→20:41)
[2022-08-08] MEDS: VITAMIN D 1,000 INTERNATIONAL UNITS TABLET PO SCH (08:42)
[2022-08-08] MEDS: MAGNESIUM OXIDE 400MG TAB (MAG-OX) PO SCH ×3 (08:42→20:42)
[2022-08-08] MEDS: ASPIRIN 81MG CHEW TABLET PO SCH (08:42)
[2022-08-08] MEDS: SUCRALFATE 1 GM TAB PO SCH ×2 (08:42→20:41)
[2022-08-08] MEDS: allopurinoL 100 MG TAB PO SCH (08:42)
[2022-08-08] MEDS: BRIMONIDINE 0.15% OPHTH SOLN 5 ML OU SCH ×2 (08:43→20:46)
[2022-08-08] MEDS: TIMOLOL MALEATE 0.5% OPHTH SOLN 5 ML OU SCH ×2 (08:43→20:47)
[2022-08-08] MEDS: LEVEMIR (INSULIN DETEMIR) 1 UNITS/0.01ML SC SCH ×2 (08:43→20:41)
[2022-08-08] MEDS: CARVedilol 3.125 MG TAB PO SCH ×2 (08:43→20:44)
[2022-08-08] MEDS: MIRALAX *UNIT DOSE* 17GM PACKET PO SCH (08:44)
[2022-08-08 12:00] VITALS: BP 140/75
[2022-08-08 16:00] VITALS: BP 124/58
[2022-08-08] MEDS: ACETAMINOPHEN TAB 650MG DOSE (2X325MG) PO PRN (20:42)
[2022-08-08] MEDS: SENNA 8.6 MG TAB (SENOKOT) PO SCH (20:43)
[2022-08-08] MEDS: LATANOPROST 0.005% OPHTH SOLN 2.5 ML OU SCH (20:47)
[2022-08-08 21:49] VITALS: BP 166/76
[2022-08-09] MEDS: PIPERACILLIN/TAZOBACTAM SOD 3.375 GM in D5W MINI-BAG PLUS 50 ML IV SCH ×4 (00:55→17:52)
[2022-08-09] MEDS ORDERED: BISACODYL 10MG SUPP PR PRN (02:00)
[2022-08-09 06:00] VITALS: BP 145/60
[2022-08-09 07:04] LABS: HEMOGLOBIN 8.8 g/dl (13.5-17.5); MEAN CORPUSCULAR HGB CONC 30.3 g/dl (32.0-36.5); MEAN CORPUSCULAR VOLUME 102.1 fl (80.0-96.0); PLATELET COUNT, AUTOMATED 106 10^3/uL (150-450); RED BLOOD COUNT 2.84 10^6/uL (4.30-6.10); WHITE BLOOD COUNT 17.2 10^3/uL (4.0-10.0)
[2022-08-09 07:27] LABS: ALBUMIN 2.8 G/DL (3.2-5.2); BILIRUBIN,TOTAL 0.7 MG/DL (0.3-1.2); CALCIUM LEVEL 9.3 MG/DL (8.3-10.6); CREATININE FOR GFR 1.92 MG/DL (0.70-1.30); GLOMERULAR FILTRATION RATE 35.5 (>35); TOTAL PROTEIN 7.5 G/DL (5.7-8.2)
[2022-08-09] MEDS: INSULIN LISPRO (NovoLOG) PER UNIT SC SCH ×3 (07:30→17:52)
[2022-08-09] MEDS: ADVAIR HFA 45/21MCG INHALER INH SCH ×2 (07:31→20:00)
[2022-08-09] MEDS: TIOTROPIUM INHALER/CAPSULE (SPIRIVA) INH SCH (07:32)
[2022-08-09 08:31] LABS: ERYTHROCYTE SEDIMENTATION RATE 83 mm/hr (0-20)
[2022-08-09] MEDS: LEVEMIR (INSULIN DETEMIR) 1 UNITS/0.01ML SC SCH ×2 (09:00→21:14)
[2022-08-09] MEDS: MAGNESIUM OXIDE 400MG TAB (MAG-OX) PO SCH ×3 (09:41→21:15)
[2022-08-09] MEDS: GABAPENTIN 100 MG CAP PO SCH ×3 (09:41→21:15)
[2022-08-09] MEDS: ASPIRIN 81MG CHEW TABLET PO SCH (09:41)
[2022-08-09] MEDS: SUCRALFATE 1 GM TAB PO SCH ×2 (09:42→21:16)
[2022-08-09] MEDS: allopurinoL 100 MG TAB PO SCH (09:42)
[2022-08-09] MEDS: DOCUSATE SODIUM 100MG CAPSULE PO SCH ×2 (09:42→21:17)
[2022-08-09] MEDS: VITAMIN D 1,000 INTERNATIONAL UNITS TABLET PO SCH (09:42)
[2022-08-09] MEDS: MIRALAX *UNIT DOSE* 17GM PACKET PO SCH (09:42)
[2022-08-09] MEDS: LACTOBACILLUS ACIDOPHILUS CAP (BACID) PO SCH ×2 (09:42→17:52)
[2022-08-09] MEDS: FERROUS SULFATE 325MG TAB PO SCH ×2 (09:42→21:16)
[2022-08-09] MEDS: CARVedilol 3.125 MG TAB PO SCH ×2 (09:46→21:17)
[2022-08-09] MEDS: BRIMONIDINE 0.15% OPHTH SOLN 5 ML OU SCH ×2 (09:48→21:18)
[2022-08-09] MEDS: TIMOLOL MALEATE 0.5% OPHTH SOLN 5 ML OU SCH ×2 (09:48→21:18)
[2022-08-09 14:30] VITALS: BP 139/84
[2022-08-09] MEDS: CLOPIDOGREL 75 MG TAB PO SCH (16:20)
[2022-08-09 20:01] VITALS: BP 146/82
[2022-08-09] MEDS: SENNA 8.6 MG TAB (SENOKOT) PO SCH (21:15)
[2022-08-09] MEDS: ACETAMINOPHEN TAB 650MG DOSE (2X325MG) PO PRN (21:16)
[2022-08-09] MEDS: LATANOPROST 0.005% OPHTH SOLN 2.5 ML OU SCH (21:18)
[2022-08-10] MEDS: PIPERACILLIN/TAZOBACTAM SOD 3.375 GM in D5W MINI-BAG PLUS 50 ML IV SCH ×4 (00:10→17:16)
[2022-08-10 05:39] VITALS: BP 164/88
[2022-08-10] MEDS: ADVAIR HFA 45/21MCG INHALER INH SCH ×2 (08:00→20:00)
[2022-08-10] MEDS: TIOTROPIUM INHALER/CAPSULE (SPIRIVA) INH SCH (08:07)
[2022-08-10 08:19] LABS: HEMATOCRIT 27.2 % (42.0-52.0); HEMOGLOBIN 8.3 g/dl (13.5-17.5); MEAN CORPUSCULAR HEMOGLOBIN 31.3 pg (27.0-33.0); MEAN CORPUSCULAR HGB CONC 30.5 g/dl (32.0-36.5); MEAN CORPUSCULAR VOLUME 102.6 fl (80.0-96.0); PLATELET COUNT, AUTOMATED 117 10^3/uL (150-450); RED BLOOD COUNT 2.65 10^6/uL (4.30-6.10); WHITE BLOOD COUNT 12.6 10^3/uL (4.0-10.0)
[2022-08-10 08:55] LABS: ALBUMIN 2.4 G/DL (3.2-5.2); BILIRUBIN,TOTAL 0.5 MG/DL (0.3-1.2); CALCIUM LEVEL 8.8 MG/DL (8.3-10.6); CREATININE FOR GFR 1.75 MG/DL (0.70-1.30); GLOMERULAR FILTRATION RATE 39.5 (>35); POTASSIUM SERUM 4.5 MMOL/L (3.5-5.1); TOTAL PROTEIN 6.8 G/DL (5.7-8.2)
[2022-08-10] MEDS: allopurinoL 100 MG TAB PO SCH (09:12)
[2022-08-10] MEDS: GABAPENTIN 100 MG CAP PO SCH ×3 (09:12→22:11)
[2022-08-10] MEDS: CARVedilol 3.125 MG TAB PO SCH ×2 (09:12→22:13)
[2022-08-10] MEDS: VITAMIN D 1,000 INTERNATIONAL UNITS TABLET PO SCH (09:12)
[2022-08-10] MEDS: LACTOBACILLUS ACIDOPHILUS CAP (BACID) PO SCH ×2 (09:12→17:17)
[2022-08-10] MEDS: CLOPIDOGREL 75 MG TAB PO SCH (09:12)
[2022-08-10] MEDS: SUCRALFATE 1 GM TAB PO SCH ×2 (09:12→22:12)
[2022-08-10] MEDS: DOCUSATE SODIUM 100MG CAPSULE PO SCH ×2 (09:12→22:12)
[2022-08-10] MEDS: FERROUS SULFATE 325MG TAB PO SCH ×2 (09:12→22:13)
[2022-08-10] MEDS: ASPIRIN 81MG CHEW TABLET PO SCH (09:12)
[2022-08-10] MEDS: MIRALAX *UNIT DOSE* 17GM PACKET PO SCH (09:13)
[2022-08-10] MEDS: MAGNESIUM OXIDE 400MG TAB (MAG-OX) PO SCH ×3 (09:13→21:00)
[2022-08-10] MEDS: INSULIN LISPRO (NovoLOG) PER UNIT SC SCH ×3 (09:14→17:17)
[2022-08-10] MEDS: LEVEMIR (INSULIN DETEMIR) 1 UNITS/0.01ML SC SCH ×2 (09:15→22:10)
[2022-08-10] MEDS: BRIMONIDINE 0.15% OPHTH SOLN 5 ML OU SCH ×2 (09:15→22:10)
[2022-08-10] MEDS: TIMOLOL MALEATE 0.5% OPHTH SOLN 5 ML OU SCH ×2 (09:15→22:10)
[2022-08-10] MEDS: TORSEMIDE 20 MG TAB PO SCH ×2 (13:00→17:17)
[2022-08-10 14:00] VITALS: BP 121/76
[2022-08-10] MEDS: LATANOPROST 0.005% OPHTH SOLN 2.5 ML OU SCH (22:10)
[2022-08-10 22:12] VITALS: BP 184/95
[2022-08-10] MEDS: ACETAMINOPHEN TAB 650MG DOSE (2X325MG) PO PRN (22:12)
[2022-08-10] MEDS: SENNA 8.6 MG TAB (SENOKOT) PO SCH (22:13)
[2022-08-10] MEDS: MORPHINE 2 MG/ML 1ML VIAL IV PRN (22:20)
[2022-08-11] MEDS: PIPERACILLIN/TAZOBACTAM SOD 3.375 GM in D5W MINI-BAG PLUS 50 ML IV SCH ×3 (00:49→14:19)
[2022-08-11 01:08] VITALS: BP 142/68
[2022-08-11 05:38] VITALS: BP 130/72
[2022-08-11 06:19] LABS: HEMOGLOBIN 8.1 g/dl (13.5-17.5); MEAN CORPUSCULAR HEMOGLOBIN 31.6 pg (27.0-33.0); MEAN CORPUSCULAR HGB CONC 31.2 g/dl (32.0-36.5); MEAN CORPUSCULAR VOLUME 101.6 fl (80.0-96.0); PLATELET COUNT, AUTOMATED 108 10^3/uL (150-450); RED BLOOD COUNT 2.56 10^6/uL (4.30-6.10); WHITE BLOOD COUNT 10.4 10^3/uL (4.0-10.0)
[2022-08-11] MEDS: ACETAMINOPHEN TAB 650MG DOSE (2X325MG) PO PRN ×2 (06:38→15:08)
[2022-08-11 06:49] LABS: ALBUMIN 2.4 G/DL (3.2-5.2); BILIRUBIN,TOTAL 0.7 MG/DL (0.3-1.2); CALCIUM LEVEL 8.8 MG/DL (8.3-10.6); CREATININE FOR GFR 1.79 MG/DL (0.70-1.30); GLOMERULAR FILTRATION RATE 38.5 (>35); POTASSIUM SERUM 4.6 MMOL/L (3.5-5.1); TOTAL PROTEIN 6.8 G/DL (5.7-8.2)
[2022-08-11] MEDS: ADVAIR HFA 45/21MCG INHALER INH SCH (08:00)
[2022-08-11] MEDS: TIOTROPIUM INHALER/CAPSULE (SPIRIVA) INH SCH (08:01)
[2022-08-11] MEDS ORDERED: LIDOCAINE 1% MDV 20ML VIAL As Ordered ONE (08:25)
[2022-08-11] MEDS: MIRALAX *UNIT DOSE* 17GM PACKET PO SCH (08:54)
[2022-08-11] MEDS: INSULIN LISPRO (NovoLOG) PER UNIT SC SCH ×2 (08:54→12:52)
[2022-08-11] MEDS: MAGNESIUM OXIDE 400MG TAB (MAG-OX) PO SCH ×2 (08:55→15:08)
[2022-08-11] MEDS: LACTOBACILLUS ACIDOPHILUS CAP (BACID) PO SCH (08:55)
[2022-08-11] MEDS: SUCRALFATE 1 GM TAB PO SCH (08:55)
[2022-08-11] MEDS: ASPIRIN 81MG CHEW TABLET PO SCH (08:55)
[2022-08-11] MEDS: LEVEMIR (INSULIN DETEMIR) 1 UNITS/0.01ML SC SCH (08:55)
[2022-08-11] MEDS: CLOPIDOGREL 75 MG TAB PO SCH (08:55)
[2022-08-11] MEDS: DOCUSATE SODIUM 100MG CAPSULE PO SCH (08:55)
[2022-08-11 08:56] VITALS: BP 130/72
[2022-08-11] MEDS: CARVedilol 3.125 MG TAB PO SCH (08:56)
[2022-08-11] MEDS: allopurinoL 100 MG TAB PO SCH (08:56)
[2022-08-11] MEDS: BRIMONIDINE 0.15% OPHTH SOLN 5 ML OU SCH (08:56)
[2022-08-11] MEDS: TORSEMIDE 20 MG TAB PO SCH (08:56)
[2022-08-11] MEDS: VITAMIN D 1,000 INTERNATIONAL UNITS TABLET PO SCH (08:56)
[2022-08-11] MEDS: TIMOLOL MALEATE 0.5% OPHTH SOLN 5 ML OU SCH (08:56)
[2022-08-11] MEDS: GABAPENTIN 100 MG CAP PO SCH ×2 (08:56→15:08)
[2022-08-11] MEDS: FERROUS SULFATE 325MG TAB PO SCH (08:56)
[2022-08-11] MEDS ORDERED: AMOX500C PO (10:53)
[2022-08-11] MEDS ORDERED: OXYC-517 PO (10:53)
[2022-08-11] MEDS ORDERED: SUCR1TA PO (10:53)
[2022-08-11] MEDS ORDERED: FERRIC CARBOXYMALTOSE INJ 750 MG, VIAL MATE ADAPTER 1 EACH in NS 250 ML IV ONE (11:00)
[2022-08-11] MEDS ORDERED: INSULANT SC (11:03)
[2022-08-11] MEDS ORDERED: LEVO1TAB40 PO (11:03)
[2022-08-11 14:00] VITALS: BP 148/62
== END 2022-08-11 16:50 | disposition home or self-care (01) | DRG 987 ==
LOC: M ED 10:40 → EDBD 10:40 → M ED INP 13:23 → ENRESERV 15:59 → M PCU 18:03 → M MS5PR 08-08 17:12
PROVIDERS: ADMIT Family Medicine; ATTEND Family Medicine
PROC: 30233N1 Transfusion of Nonautologous Red Blood Cells into Peripheral Vein, Percutaneous Approach (ICD-10-PCS; 2022-08-03)
PROC: 0QBM0ZZ Excision of Left Tarsal, Open Approach (ICD-10-PCS; principal; 2022-08-03 15:30)
DX: E11.52 Type 2 diabetes mellitus with diabetic peripheral angiopathy with gangrene (principal); A41.9 Sepsis, unspecified organism; N17.9 Acute kidney failure, unspecified; M86.8X7 Other osteomyelitis, ankle and foot; M87.9 Osteonecrosis, unspecified; E87.1 Hypo-osmolality and hyponatremia; L03.116 Cellulitis of left lower limb; E11.22 Type 2 diabetes mellitus with diabetic chronic kidney disease; E11.69 Type 2 diabetes mellitus with other specified complication; I12.9 Hypertensive chronic kidney disease with stage 1 through stage 4 chronic kidney disease, or unspecified chronic kidney disease; J44.9 Chronic obstructive pulmonary disease, unspecified; I27.20 Pulmonary hypertension, unspecified; I27.81 Cor pulmonale (chronic); N18.32 Chronic kidney disease, stage 3b; D69.6 Thrombocytopenia, unspecified; D50.9 Iron deficiency anemia, unspecified; I48.91 Unspecified atrial fibrillation; K21.9 Gastro-esophageal reflux disease without esophagitis; R74.01 Elevation of levels of liver transaminase levels; M10.9 Gout, unspecified; E87.5 Hyperkalemia; B95.1 Streptococcus, group B, as the cause of diseases classified elsewhere; E11.649 Type 2 diabetes mellitus with hypoglycemia without coma; E66.01 Morbid (severe) obesity due to excess calories; Z79.899 Other long term (current) drug therapy; Z79.82 Long term (current) use of aspirin; Z91.040 Latex allergy status; Z79.01 Long term (current) use of anticoagulants

== ENCOUNTER → 2022-09-01 | Outpatient (REF) | payer MEDICARE, BC, OTHER ==
[~2022-09-01] MED LIST changes: +ACET-683 PO; +ALBU8.5H INH; +AMOX500C PO; +ASPI81CH33 PO; +LEVO1TAB40 PO; +OXYC-517 PO; +SUCR1TA PO
== END ==
LOC: M SFHCWOUN 12:23
PROVIDERS: ATTEND Surgery
DX: M86.9 Osteomyelitis, unspecified (principal)

== ENCOUNTER → 2022-09-09 | Outpatient (REF) | payer MEDICARE, OTHER ==
[2022-09-09 18:26] LABS: PERCENT SATURATION 7.5 % (19.7-50.0)
== END ==
LOC: M LAB REF 17:10
PROVIDERS: ATTEND Nurse Practitioner Family
DX: D50.9 Iron deficiency anemia, unspecified (principal)

== ENCOUNTER → 2022-09-10 | Outpatient (CLI) | payer MEDICARE, BC, OTHER ==
[~2022-09-10] VITALS: Ht 193 cm; Wt 136.4 kg
[~2022-09-10] MED LIST changes: +FUROSEMIDE 40MG/4ML VIAL IV ONE
[2022-09-10 09:00] VITALS: BP 131/59
[2022-09-10 10:40] VITALS: BP 121/56
[2022-09-10 12:15] VITALS: BP 118/57
[2022-09-10 14:05] VITALS: BP 131/96
== END ==
LOC: M INFU 08:31
PROVIDERS: ATTEND Internal Medicine Nephrology
DX: D64.9 Anemia, unspecified (principal); Z91.040 Latex allergy status
CPT/HCPCS: 36430; 36592; 86850; 86900; 86901; 86920; 96374; J1940; P9016

== ENCOUNTER → 2022-09-14 | Outpatient (REF) | payer MEDICARE, BC, OTHER ==
[~2022-09-14] MED LIST changes: +ACET1TAB55 PO; +ADVA230A INH; +AIRD1INH2 INH; +ALDA50TA2 PO; +ALLO10TA PO; +ASPI81TA26 PO; +ATOR1TAB21 PO; +ATOR40TA75 PO; +BACI1CAP PO; +BISA10SU27 PR; +ERGO500029 PO; +FLEEENE12 PR; -FUROSEMIDE 40MG/4ML VIAL IV ONE; +GLUC1KIT IM; +GLUCLIQ37 PO; +HUMA100I3 SC; +INSU100V13 SQ; +INSUHUMDS SC; +JUVEPOW4 PO; +LANTINJ4 SC; +LIDO5TD TD; +Latanoprost 0.005% Op Soln OU; +MILKSUS3 PO; +MUCI600T31 PO; +SANT250O8 TOP; +SPIR1CAP INH; +SUCR1ORA PO; +TIMO0.5S29 OU; +TIOT18INH INH; +TORS100T PO; +VANI1CRE5 EX; +VANI1CRE5 TOP; +XALA0.007 OU; +ZOSY1SOL6 IV
== END ==
LOC: M SFHCWOUN 09:40
PROVIDERS: ATTEND Surgery
DX: L97.524 Non-pressure chronic ulcer of other part of left foot with necrosis of bone (principal)

== ENCOUNTER 2022-09-19 14:03 | Inpatient (IN) | payer MEDICARE, BC, OTHER ==
[~2022-09-19] VITALS: Ht 193 cm; Wt 142.2 kg
[~2022-09-19 14:03] MED LIST changes: -ACET1TAB55 PO; -ADVA230A INH; -AIRD1INH2 INH; -ALDA50TA2 PO; -ALLO10TA PO; -ASPI81TA26 PO; -ATOR1TAB21 PO; -ATOR40TA75 PO; -BACI1CAP PO; -BISA10SU27 PR; -ERGO500029 PO; -FLEEENE12 PR; -GLUC1KIT IM; -GLUCLIQ37 PO; -HUMA100I3 SC; -INSU100V13 SQ; -INSUHUMDS SC; -JUVEPOW4 PO; -LANTINJ4 SC; -LIDO5TD TD; -Latanoprost 0.005% Op Soln OU; -MILKSUS3 PO; -MUCI600T31 PO; -SANT250O8 TOP; -SPIR1CAP INH; -SUCR1ORA PO; -TIMO0.5S29 OU; -TIOT18INH INH; -TORS100T PO; -VANI1CRE5 EX; -VANI1CRE5 TOP; -XALA0.007 OU; -ZOSY1SOL6 IV
[2022-09-19] MEDS ORDERED: BOOSTRIX/ADACEL VACCINE (DIPHTH/PERTUSS/ACELL/TETANUS) 0.5ML SYR IM.IMMUN ONE (14:30)
[2022-09-19 15:16] LABS: BASO % 0.2 % (0.0-1.0); EOS # 0.3 10^3/uL (0.0-0.5); EOS % 1.7 % (0.0-3.0); HEMATOCRIT 28.7 % (42.0-52.0); HEMOGLOBIN 8.6 g/dl (13.5-17.5); LYMPH # 3.3 10^3/uL (1.5-5.0); LYMPH % 21.3 % (24.0-44.0); MEAN CORPUSCULAR HEMOGLOBIN 32.2 pg (27.0-33.0); MEAN CORPUSCULAR VOLUME 107.5 fl (80.0-96.0); MONO % 6.5 % (2.0-8.0); NEUTROPHILS # 10.8 10^3/uL (1.5-8.5); NEUTROPHILS % 69.5 % (36.0-66.0); PLATELET COUNT, AUTOMATED 122 10^3/uL (150-450); RED BLOOD COUNT 2.67 10^6/uL (4.30-6.10); WHITE BLOOD COUNT 15.5 10^3/uL (4.0-10.0)
[2022-09-19 15:30] LABS: CALCIUM LEVEL 8.3 MG/DL (8.3-10.6); CREATININE FOR GFR 2.23 MG/DL (0.70-1.30); GLOMERULAR FILTRATION RATE 29.9 (>35); POTASSIUM SERUM 5.9 MMOL/L (3.5-5.1)
[2022-09-19] MEDS ORDERED: NS 1,000 ML IV SCH ×2 (15:45→17:30)
[2022-09-19] MEDS ORDERED: SOD POLYSTYRENE SULFONATE SUSP 15GM 60ML UD PO ONE (15:45)
[2022-09-19] MEDS ORDERED: DEXTROSE 50% 50ML SYRINGE IV STA (15:45)
[2022-09-19] MEDS ORDERED: CALCIUM GLUCONATE 1,000 MG in D5W MINI-BAG PLUS 100 ML IV ONE (15:45)
[2022-09-19] MEDS ORDERED: HumuLIN R (REGULAR) INSULIN (NovoLIN R) **100U/ML** PER UNIT IV ONE (15:45)
[2022-09-19 16:51] LABS: RSV AMPLIFICATION NEGATIVE (NEGATIVE)
[2022-09-19] MEDS ORDERED: GLUCOSE 4GM CHEW TABLET PO PRN (17:35)
[2022-09-19] MEDS ORDERED: DEXTROSE 50% 50ML SYRINGE IV PRN (17:35)
[2022-09-19] MEDS ORDERED: GLUCAGON INJ 1MG VIAL SC PRN (17:35)
[2022-09-19] MEDS ORDERED: LANTINJ4 SC (17:52)
[2022-09-19] MEDS ORDERED: TORS20TA2 PO (17:52)
[2022-09-19] MEDS ORDERED: HOME MED LIST COMPLETE! XX SCH (17:55)
[2022-09-19] MEDS ORDERED: ALBUTEROL 90 MCG/ACT 8GM HFA INHALER INH PRN (18:00)
[2022-09-19] MEDS ORDERED: MIRALAX *UNIT DOSE* 17GM PACKET PO PRN (18:00)
[2022-09-19 20:33] LABS: HEMATOCRIT 26.6 % (42.0-52.0); MEAN CORPUSCULAR HEMOGLOBIN 32.3 pg (27.0-33.0); MEAN CORPUSCULAR HGB CONC 30.1 g/dl (32.0-36.5); MEAN CORPUSCULAR VOLUME 107.3 fl (80.0-96.0); PLATELET COUNT, AUTOMATED 108 10^3/uL (150-450); RED BLOOD COUNT 2.48 10^6/uL (4.30-6.10); WHITE BLOOD COUNT 14.6 10^3/uL (4.0-10.0)
[2022-09-19 20:51] LABS: CALCIUM LEVEL 8.9 MG/DL (8.3-10.6); CREATININE FOR GFR 2.23 MG/DL (0.70-1.30); GLOMERULAR FILTRATION RATE 29.9 (>35); POTASSIUM SERUM 4.8 MMOL/L (3.5-5.1)
[2022-09-19] MEDS: DOCUSATE SODIUM 100MG CAPSULE PO SCH (21:00)
[2022-09-19] MEDS: INSULIN LISPRO (NovoLOG) PER UNIT SC SCH (21:00)
[2022-09-19] MEDS: NIACIN 100MG TAB PO SCH (21:00)
[2022-09-19] MEDS ORDERED: IPRATROPIUM HFA INHALER 12.9 GRAMS (ATROVENT HFA) INH SCH (21:00)
[2022-09-19 22:30] VITALS: BP 139/65
[2022-09-19] MEDS ORDERED: PILL CUTTER 1 EACH XX PRN (23:05)
[2022-09-19] MEDS: GABAPENTIN 100 MG CAP PO SCH (23:43)
[2022-09-19] MEDS: FERROUS SULFATE 325MG TAB PO SCH (23:44)
[2022-09-19] MEDS: LEVEMIR (INSULIN DETEMIR) 1 UNITS/0.01ML SC SCH (23:45)
[2022-09-19] MEDS: BRIMONIDINE 0.1% OPHTH SOLN 5ML OU SCH (23:46)
[2022-09-19] MEDS: LATANOPROST 0.005% OPHTH SOLN 2.5 ML OU SCH (23:46)
[2022-09-19] MEDS: TIMOLOL MALEATE 0.5% OPHTH SOLN 5 ML OU SCH (23:46)
[2022-09-19] MEDS: CARVedilol 3.125 MG TAB PO SCH (23:51)
[2022-09-20 04:00] VITALS: BP 114/72
[2022-09-20 05:08] LABS: HEMATOCRIT 25.2 % (42.0-52.0); HEMOGLOBIN 7.6 g/dl (13.5-17.5); MEAN CORPUSCULAR HEMOGLOBIN 32.2 pg (27.0-33.0); MEAN CORPUSCULAR HGB CONC 30.2 g/dl (32.0-36.5); MEAN CORPUSCULAR VOLUME 106.8 fl (80.0-96.0); PLATELET COUNT, AUTOMATED 127 10^3/uL (150-450); RED BLOOD COUNT 2.36 10^6/uL (4.30-6.10); WHITE BLOOD COUNT 14.6 10^3/uL (4.0-10.0)
[2022-09-20 05:32] LABS: CALCIUM LEVEL 8.7 MG/DL (8.3-10.6); CREATININE FOR GFR 2.2 MG/DL (0.70-1.30); GLOMERULAR FILTRATION RATE 30.4 (>35); MAGNESIUM LEVEL 2.4 MG/DL (1.8-2.4); PHOSPHORUS LEVEL 3.3 MG/DL (2.4-5.1); POTASSIUM SERUM 4.7 MMOL/L (3.5-5.1)
[2022-09-20 08:00] VITALS: BP 150/60
[2022-09-20] MEDS: TIOTROPIUM INHALER/CAPSULE (SPIRIVA) INH SCH (08:51)
[2022-09-20] MEDS: ADVAIR HFA 230/21MCG INHALER INH SCH ×2 (08:51→19:58)
[2022-09-20] MEDS: CLOPIDOGREL 75 MG TAB PO SCH (08:52)
[2022-09-20] MEDS: CYANOCOBALAMIN 500 MCG TAB PO SCH (08:52)
[2022-09-20] MEDS: FERROUS SULFATE 325MG TAB PO SCH ×2 (08:52→21:29)
[2022-09-20] MEDS: PANTOPRAZOLE 40MG TAB (PROTONIX) PO SCH (08:52)
[2022-09-20] MEDS: GABAPENTIN 100 MG CAP PO SCH ×3 (08:53→21:29)
[2022-09-20] MEDS: ASPIRIN 81MG CHEW TABLET PO SCH (08:53)
[2022-09-20] MEDS: INSULIN LISPRO (NovoLOG) PER UNIT SC SCH ×4 (08:53→21:00)
[2022-09-20] MEDS: DOCUSATE SODIUM 100MG CAPSULE PO SCH ×2 (08:53→21:29)
[2022-09-20] MEDS: CARVedilol 3.125 MG TAB PO SCH ×2 (08:53→21:29)
[2022-09-20] MEDS: VITAMIN D 1,000 INTERNATIONAL UNITS TABLET PO SCH (08:53)
[2022-09-20] MEDS: BRIMONIDINE 0.1% OPHTH SOLN 5ML OU SCH ×2 (08:54→21:00)
[2022-09-20] MEDS: TIMOLOL MALEATE 0.5% OPHTH SOLN 5 ML OU SCH ×2 (08:54→21:00)
[2022-09-20] MEDS: allopurinoL 100 MG TAB PO SCH (09:02)
[2022-09-20] MEDS: HEPARIN SOD (PORCINE) 5000UNITS/ML 1ML VIAL/SYRINGE SQ SCH ×2 (14:00→21:30)
[2022-09-20 20:06] VITALS: BP 144/71
[2022-09-20] MEDS: LEVEMIR (INSULIN DETEMIR) 1 UNITS/0.01ML SC SCH (21:00)
[2022-09-20] MEDS: LATANOPROST 0.005% OPHTH SOLN 2.5 ML OU SCH (21:00)
[2022-09-20] MEDS: NIACIN 100MG TAB PO SCH (21:30)
[2022-09-21 05:28] VITALS: BP 102/58
[2022-09-21] MEDS: HEPARIN SOD (PORCINE) 5000UNITS/ML 1ML VIAL/SYRINGE SQ SCH ×3 (05:44→21:25)
[2022-09-21] MEDS: ADVAIR HFA 230/21MCG INHALER INH SCH ×2 (07:51→20:00)
[2022-09-21] MEDS: TIOTROPIUM INHALER/CAPSULE (SPIRIVA) INH SCH (07:51)
[2022-09-21 08:08] LABS: HEMATOCRIT 23.7 % (42.0-52.0); HEMOGLOBIN 7.3 g/dl (13.5-17.5); MEAN CORPUSCULAR HEMOGLOBIN 32.6 pg (27.0-33.0); MEAN CORPUSCULAR HGB CONC 30.8 g/dl (32.0-36.5); MEAN CORPUSCULAR VOLUME 105.8 fl (80.0-96.0); PLATELET COUNT, AUTOMATED 101 10^3/uL (150-450); RED BLOOD COUNT 2.24 10^6/uL (4.30-6.10); WHITE BLOOD COUNT 16.5 10^3/uL (4.0-10.0)
[2022-09-21 08:29] LABS: CALCIUM LEVEL 8.4 MG/DL (8.3-10.6); CREATININE FOR GFR 2.33 MG/DL (0.70-1.30); GLOMERULAR FILTRATION RATE 28.4 (>35); MAGNESIUM LEVEL 2.3 MG/DL (1.8-2.4); PHOSPHORUS LEVEL 3.4 MG/DL (2.4-5.1); POTASSIUM SERUM 4.4 MMOL/L (3.5-5.1)
[2022-09-21] MEDS: VITAMIN D 1,000 INTERNATIONAL UNITS TABLET PO SCH (08:33)
[2022-09-21] MEDS: INSULIN LISPRO (NovoLOG) PER UNIT SC SCH ×4 (08:33→21:00)
[2022-09-21] MEDS: PANTOPRAZOLE 40MG TAB (PROTONIX) PO SCH (08:33)
[2022-09-21] MEDS: CYANOCOBALAMIN 500 MCG TAB PO SCH (08:33)
[2022-09-21] MEDS: GABAPENTIN 100 MG CAP PO SCH ×3 (08:33→21:11)
[2022-09-21] MEDS: DOCUSATE SODIUM 100MG CAPSULE PO SCH ×2 (08:33→21:11)
[2022-09-21] MEDS: FERROUS SULFATE 325MG TAB PO SCH ×2 (08:33→21:11)
[2022-09-21] MEDS: allopurinoL 100 MG TAB PO SCH (08:33)
[2022-09-21] MEDS: ASPIRIN 81MG CHEW TABLET PO SCH (08:33)
[2022-09-21] MEDS: CLOPIDOGREL 75 MG TAB PO SCH (08:33)
[2022-09-21] MEDS: TIMOLOL MALEATE 0.5% OPHTH SOLN 5 ML OU SCH ×2 (08:38→21:12)
[2022-09-21] MEDS: BRIMONIDINE 0.1% OPHTH SOLN 5ML OU SCH ×2 (08:39→21:13)
[2022-09-21] MEDS: CARVedilol 3.125 MG TAB PO SCH ×2 (08:39→21:11)
[2022-09-21 10:30] LABS: C REACTIVE PROTEIN QUANTITATIV 15.4 MG/DL (<1.0)
[2022-09-21] MEDS ORDERED: TORSEMIDE 20 MG TAB PO ONE (10:50)
[2022-09-21 14:00] VITALS: BP 126/76
[2022-09-21] MEDS: TORSEMIDE 20 MG TAB PO SCH (16:14)
[2022-09-21] MEDS: LEVEMIR (INSULIN DETEMIR) 1 UNITS/0.01ML SC SCH (21:11)
[2022-09-21] MEDS: NIACIN 100MG TAB PO SCH (21:12)
[2022-09-21] MEDS: LATANOPROST 0.005% OPHTH SOLN 2.5 ML OU SCH (21:12)
[2022-09-21] MEDS: ACETAMINOPHEN TAB 650MG DOSE (2X325MG) PO PRN (21:27)
[2022-09-21 21:54] VITALS: BP 129/65
[2022-09-21] MEDS: PIPERACILLIN/TAZOBACTAM SOD 3.375 GM in D5W MINI-BAG PLUS 50 ML IV SCH (23:06)
[2022-09-22] VITALS (8 sets, daily range): BP systolic 107–127; BP diastolic 46–62
[2022-09-22 00:41] LABS: HEMOGLOBIN A1c 5.4 % (4.0-6.0)
[2022-09-22] MEDS: PIPERACILLIN/TAZOBACTAM SOD 3.375 GM in D5W MINI-BAG PLUS 50 ML IV SCH ×4 (04:10→21:07)
[2022-09-22] MEDS: HEPARIN SOD (PORCINE) 5000UNITS/ML 1ML VIAL/SYRINGE SQ SCH (05:43)
[2022-09-22 06:13] LABS: HEMATOCRIT 22.9 % (42.0-52.0); MEAN CORPUSCULAR HGB CONC 30.6 g/dl (32.0-36.5); MEAN CORPUSCULAR VOLUME 104.6 fl (80.0-96.0); PLATELET COUNT, AUTOMATED 103 10^3/uL (150-450); RED BLOOD COUNT 2.19 10^6/uL (4.30-6.10); WHITE BLOOD COUNT 15.5 10^3/uL (4.0-10.0)
[2022-09-22 06:35] LABS: ERYTHROCYTE SEDIMENTATION RATE 62 mm/hr (0-20)
[2022-09-22 06:38] LABS: C REACTIVE PROTEIN QUANTITATIV 16.5 MG/DL (<1.0)
[2022-09-22 06:40] LABS: BILIRUBIN,DIRECT 0.5 MG/DL (<0.4); BILIRUBIN,TOTAL 0.9 MG/DL (0.3-1.2); CREATININE FOR GFR 2.53 MG/DL (0.70-1.30); GLOMERULAR FILTRATION RATE 25.8 (>35); PHOSPHORUS LEVEL 3.5 MG/DL (2.4-5.1); TOTAL PROTEIN 6.1 G/DL (5.7-8.2)
[2022-09-22 07:00] LABS: ANISOCYTOSIS 2+; ATYPICAL LYMPH 13 % (0-5); BLAST CELLS 5 % (0-0); EOSINOPHILS 4 % (0-3); HYPOCHROMASIA 1+; LYMPHOCYTES 11 % (16-44); METAMYELOCYTES 1 % (0-0); MONOCYTES 5 % (0-5); MYELOCYTES 3 % (0-0); NEUTROPHILS 54 % (28-66); PLATELET ESTIMATE NORMAL (NORMAL); PROMYELOCYTES 2 % (0-0)
[2022-09-22] MEDS: ADVAIR HFA 230/21MCG INHALER INH SCH ×2 (07:20→20:23)
[2022-09-22] MEDS: TIOTROPIUM INHALER/CAPSULE (SPIRIVA) INH SCH (07:20)
[2022-09-22] MEDS: INSULIN LISPRO (NovoLOG) PER UNIT SC SCH ×4 (10:10→21:00)
[2022-09-22] MEDS: VITAMIN D 1,000 INTERNATIONAL UNITS TABLET PO SCH (10:11)
[2022-09-22] MEDS: FERROUS SULFATE 325MG TAB PO SCH ×2 (10:11→21:08)
[2022-09-22] MEDS: DOCUSATE SODIUM 100MG CAPSULE PO SCH ×3 (10:11→21:08)
[2022-09-22] MEDS: ASPIRIN 81MG CHEW TABLET PO SCH (10:11)
[2022-09-22] MEDS: PANTOPRAZOLE 40MG TAB (PROTONIX) PO SCH (10:12)
[2022-09-22] MEDS: CLOPIDOGREL 75 MG TAB PO SCH (10:12)
[2022-09-22] MEDS: TORSEMIDE 20 MG TAB PO SCH ×2 (10:12→16:17)
[2022-09-22] MEDS: CARVedilol 3.125 MG TAB PO SCH ×2 (10:13→21:08)
[2022-09-22] MEDS: GABAPENTIN 100 MG CAP PO SCH ×3 (10:13→21:08)
[2022-09-22] MEDS: ACETAMINOPHEN TAB 650MG DOSE (2X325MG) PO PRN (10:14)
[2022-09-22] MEDS: CYANOCOBALAMIN 500 MCG TAB PO SCH (10:14)
[2022-09-22] MEDS: allopurinoL 100 MG TAB PO SCH (10:15)
[2022-09-22] MEDS: TIMOLOL MALEATE 0.5% OPHTH SOLN 5 ML OU SCH ×2 (10:16→21:09)
[2022-09-22] MEDS: BRIMONIDINE 0.1% OPHTH SOLN 5ML OU SCH ×2 (10:21→21:09)
[2022-09-22] MEDS: ENOXAPARIN 30MG/0.3ML SYRINGE (J1650 PER 10MG) SC SCH (14:43)
[2022-09-22] MEDS: LEVEMIR (INSULIN DETEMIR) 1 UNITS/0.01ML SC SCH (21:00)
[2022-09-22] MEDS: NIACIN 100MG TAB PO SCH (21:08)
[2022-09-22] MEDS: LATANOPROST 0.005% OPHTH SOLN 2.5 ML OU SCH (21:09)
[2022-09-22] MEDS: ATORVASTATIN 20 MG TAB PO SCH (21:26)
[2022-09-23] VITALS (8 sets, daily range): BP systolic 119–143; BP diastolic 69–79
[2022-09-23] MEDS: ACETAMINOPHEN TAB 650MG DOSE (2X325MG) PO PRN ×2 (03:20→08:36)
[2022-09-23] MEDS: PIPERACILLIN/TAZOBACTAM SOD 3.375 GM in D5W MINI-BAG PLUS 50 ML IV SCH ×2 (03:29→09:53)
[2022-09-23 06:38] LABS: HEMATOCRIT 25.5 % (42.0-52.0); HEMOGLOBIN 8.1 g/dl (13.5-17.5); MEAN CORPUSCULAR HEMOGLOBIN 31.8 pg (27.0-33.0); MEAN CORPUSCULAR HGB CONC 31.8 g/dl (32.0-36.5); PLATELET COUNT, AUTOMATED 117 10^3/uL (150-450); RED BLOOD COUNT 2.55 10^6/uL (4.30-6.10); WHITE BLOOD COUNT 13.6 10^3/uL (4.0-10.0)
[2022-09-23 06:47] LABS: ERYTHROCYTE SEDIMENTATION RATE 82 mm/hr (0-20)
[2022-09-23 07:09] LABS: C REACTIVE PROTEIN QUANTITATIV 13.1 MG/DL (<1.0); CHOLESTEROL RISK RATIO 4.81 (<5); CREATININE FOR GFR 2.47 MG/DL (0.70-1.30); GLOMERULAR FILTRATION RATE 26.6 (>35); HDL CHOLESTEROL 19.3 MG/DL (>40); LDL CHOLESTEROL 52.5 MG/DL (<100); MAGNESIUM LEVEL 1.9 MG/DL (1.8-2.4); POTASSIUM SERUM 4.3 MMOL/L (3.5-5.1)
[2022-09-23] MEDS: ADVAIR HFA 230/21MCG INHALER INH SCH ×2 (07:32→20:31)
[2022-09-23] MEDS: TIOTROPIUM INHALER/CAPSULE (SPIRIVA) INH SCH (07:32)
[2022-09-23 08:07] LABS: ATYPICAL LYMPH 7 % (0-5); LYMPHOCYTES 16 % (16-44); MONOCYTES 6 % (0-5); NEUTROPHILS 70 % (28-66)
[2022-09-23 08:10] LABS: ANISOCYTOSIS 3+; HYPOCHROMASIA 1+
[2022-09-23 08:12] LABS: PLATELET ESTIMATE DECREASED (NORMAL)
[2022-09-23] MEDS: ASPIRIN 81MG CHEW TABLET PO SCH (08:19)
[2022-09-23] MEDS: CARVedilol 3.125 MG TAB PO SCH ×2 (08:22→21:08)
[2022-09-23] MEDS: GABAPENTIN 100 MG CAP PO SCH ×3 (08:22→21:07)
[2022-09-23] MEDS: CLOPIDOGREL 75 MG TAB PO SCH (08:22)
[2022-09-23] MEDS: CYANOCOBALAMIN 500 MCG TAB PO SCH (08:22)
[2022-09-23] MEDS: VITAMIN D 1,000 INTERNATIONAL UNITS TABLET PO SCH (08:22)
[2022-09-23] MEDS: PANTOPRAZOLE 40MG TAB (PROTONIX) PO SCH (08:22)
[2022-09-23] MEDS: allopurinoL 100 MG TAB PO SCH (08:23)
[2022-09-23] MEDS: FERROUS SULFATE 325MG TAB PO SCH ×2 (08:23→21:07)
[2022-09-23] MEDS: ENOXAPARIN 30MG/0.3ML SYRINGE (J1650 PER 10MG) SC SCH (08:24)
[2022-09-23] MEDS: BRIMONIDINE 0.1% OPHTH SOLN 5ML OU SCH ×2 (08:25→21:08)
[2022-09-23] MEDS: TIMOLOL MALEATE 0.5% OPHTH SOLN 5 ML OU SCH ×2 (08:26→21:08)
[2022-09-23] MEDS: DOCUSATE SODIUM 100MG CAPSULE PO SCH ×2 (08:28→21:07)
[2022-09-23] MEDS: INSULIN LISPRO (NovoLOG) PER UNIT SC SCH ×4 (08:35→21:00)
[2022-09-23] MEDS: TORSEMIDE 20 MG TAB PO SCH ×2 (09:00→15:15)
[2022-09-23] MEDS: PIPERACILLIN/TAZOBACTAM SOD 2.25 GM in D5W MINI-BAG PLUS 50 ML IV SCH ×2 (15:15→21:06)
[2022-09-23] MEDS: NIACIN 100MG TAB PO SCH (21:07)
[2022-09-23] MEDS: LEVEMIR (INSULIN DETEMIR) 1 UNITS/0.01ML SC SCH (21:07)
[2022-09-23] MEDS: ATORVASTATIN 20 MG TAB PO SCH (21:08)
[2022-09-23] MEDS: LATANOPROST 0.005% OPHTH SOLN 2.5 ML OU SCH (21:09)
[2022-09-24] MEDS: PIPERACILLIN/TAZOBACTAM SOD 2.25 GM in D5W MINI-BAG PLUS 50 ML IV SCH ×4 (04:00→21:24)
[2022-09-24] MEDS ORDERED: ZOSYN As Ordered ONE (04:18)
[2022-09-24 05:56] VITALS: BP 125/68
[2022-09-24 06:56] LABS: HEMATOCRIT 25.7 % (42.0-52.0); HEMOGLOBIN 7.9 g/dl (13.5-17.5); MEAN CORPUSCULAR HEMOGLOBIN 31.2 pg (27.0-33.0); MEAN CORPUSCULAR HGB CONC 30.7 g/dl (32.0-36.5); MEAN CORPUSCULAR VOLUME 101.6 fl (80.0-96.0); PLATELET COUNT, AUTOMATED 119 10^3/uL (150-450); RED BLOOD COUNT 2.53 10^6/uL (4.30-6.10); WHITE BLOOD COUNT 14.2 10^3/uL (4.0-10.0)
[2022-09-24 07:12] LABS: CALCIUM LEVEL 7.9 MG/DL (8.3-10.6); CREATININE FOR GFR 2.53 MG/DL (0.70-1.30); GLOMERULAR FILTRATION RATE 25.8 (>35); MAGNESIUM LEVEL 1.9 MG/DL (1.8-2.4); POTASSIUM SERUM 4.1 MMOL/L (3.5-5.1)
[2022-09-24] MEDS: INSULIN LISPRO (NovoLOG) PER UNIT SC SCH ×4 (07:30→21:00)
[2022-09-24] MEDS: ADVAIR HFA 230/21MCG INHALER INH SCH ×2 (08:02→19:40)
[2022-09-24] MEDS: TIOTROPIUM INHALER/CAPSULE (SPIRIVA) INH SCH (08:02)
[2022-09-24 08:04] LABS: ATYPICAL LYMPH 12 % (0-5); EOSINOPHILS 2 % (0-3); LYMPHOCYTES 22 % (16-44); MONOCYTES 3 % (0-5); NEUTROPHILS 59 % (28-66)
[2022-09-24 08:05] LABS: ANISOCYTOSIS 3+
[2022-09-24 08:06] LABS: HYPOCHROMASIA 1+
[2022-09-24 08:07] LABS: PLATELET ESTIMATE DECREASED (NORMAL)
[2022-09-24 08:34] VITALS: BP 120/57
[2022-09-24] MEDS: FERROUS SULFATE 325MG TAB PO SCH ×2 (08:58→21:23)
[2022-09-24] MEDS: GABAPENTIN 100 MG CAP PO SCH ×3 (08:59→21:24)
[2022-09-24] MEDS: CARVedilol 3.125 MG TAB PO SCH ×2 (08:59→21:00)
[2022-09-24] MEDS: TORSEMIDE 20 MG TAB PO SCH ×2 (08:59→15:15)
[2022-09-24] MEDS: BRIMONIDINE 0.1% OPHTH SOLN 5ML OU SCH ×2 (09:00→21:26)
[2022-09-24] MEDS: DOCUSATE SODIUM 100MG CAPSULE PO SCH ×4 (09:00→21:00)
[2022-09-24] MEDS: TIMOLOL MALEATE 0.5% OPHTH SOLN 5 ML OU SCH ×2 (09:00→21:26)
[2022-09-24] MEDS: allopurinoL 100 MG TAB PO SCH (09:34)
[2022-09-24] MEDS: ASPIRIN 81MG CHEW TABLET PO SCH (09:34)
[2022-09-24] MEDS: VITAMIN D 1,000 INTERNATIONAL UNITS TABLET PO SCH (09:34)
[2022-09-24] MEDS: PANTOPRAZOLE 40MG TAB (PROTONIX) PO SCH (09:35)
[2022-09-24] MEDS: CLOPIDOGREL 75 MG TAB PO SCH (09:35)
[2022-09-24] MEDS: CYANOCOBALAMIN 500 MCG TAB PO SCH (09:35)
[2022-09-24] MEDS: ENOXAPARIN 30MG/0.3ML SYRINGE (J1650 PER 10MG) SC SCH (09:37)
[2022-09-24 14:00] VITALS: BP 132/60
[2022-09-24] MEDS: ACETAMINOPHEN TAB 650MG DOSE (2X325MG) PO PRN ×2 (14:29→21:33)
[2022-09-24] MEDS: NIACIN 100MG TAB PO SCH (21:24)
[2022-09-24] MEDS: ATORVASTATIN 20 MG TAB PO SCH (21:24)
[2022-09-24] MEDS: LEVEMIR (INSULIN DETEMIR) 1 UNITS/0.01ML SC SCH (21:25)
[2022-09-24] MEDS: LATANOPROST 0.005% OPHTH SOLN 2.5 ML OU SCH (21:26)
[2022-09-24 21:50] VITALS: BP 113/64
[2022-09-25] MEDS: PIPERACILLIN/TAZOBACTAM SOD 2.25 GM in D5W MINI-BAG PLUS 50 ML IV SCH ×4 (04:21→21:34)
[2022-09-25 05:02] VITALS: BP 133/76
[2022-09-25 07:18] LABS: HEMATOCRIT 27.4 % (42.0-52.0); HEMOGLOBIN 8.4 g/dl (13.5-17.5); MEAN CORPUSCULAR HEMOGLOBIN 31.5 pg (27.0-33.0); MEAN CORPUSCULAR HGB CONC 30.7 g/dl (32.0-36.5); MEAN CORPUSCULAR VOLUME 102.6 fl (80.0-96.0); PLATELET COUNT, AUTOMATED 133 10^3/uL (150-450); RED BLOOD COUNT 2.67 10^6/uL (4.30-6.10)
[2022-09-25] MEDS: ADVAIR HFA 230/21MCG INHALER INH SCH ×2 (07:37→20:13)
[2022-09-25] MEDS: TIOTROPIUM INHALER/CAPSULE (SPIRIVA) INH SCH (07:37)
[2022-09-25 07:39] LABS: C REACTIVE PROTEIN QUANTITATIV 6.2 MG/DL (<1.0)
[2022-09-25 07:40] LABS: CREATININE FOR GFR 2.25 MG/DL (0.70-1.30); GLOMERULAR FILTRATION RATE 29.6 (>35); POTASSIUM SERUM 4.4 MMOL/L (3.5-5.1)
[2022-09-25 08:18] LABS: ANISOCYTOSIS 3+; ATYPICAL LYMPH 6 % (0-5); HYPOCHROMASIA 1+; LYMPHOCYTES 24 % (16-44); MONOCYTES 7 % (0-5); NEUTROPHILS 63 % (28-66)
[2022-09-25 08:20] LABS: PLATELET ESTIMATE NORMAL (NORMAL)
[2022-09-25] MEDS: VANICREAM MOISTURIZING SKIN CREAM 113GM TUBE TOP SCH (09:00)
[2022-09-25] MEDS: NEPHRO-VIT TAB (NEPHROCAPS) PO SCH (09:00)
[2022-09-25] MEDS: SANTYL OINT 30GM TOP SCH (09:00)
[2022-09-25] MEDS: INSULIN LISPRO (NovoLOG) PER UNIT SC SCH ×4 (10:00→21:00)
[2022-09-25] MEDS: ENOXAPARIN 30MG/0.3ML SYRINGE (J1650 PER 10MG) SC SCH (10:00)
[2022-09-25] MEDS: CYANOCOBALAMIN 500 MCG TAB PO SCH (10:01)
[2022-09-25] MEDS: DOCUSATE SODIUM 100MG CAPSULE PO SCH ×3 (10:01→21:36)
[2022-09-25] MEDS: VITAMIN D 1,000 INTERNATIONAL UNITS TABLET PO SCH (10:01)
[2022-09-25] MEDS: TORSEMIDE 20 MG TAB PO SCH ×2 (10:01→17:17)
[2022-09-25] MEDS: ASPIRIN 81MG CHEW TABLET PO SCH (10:01)
[2022-09-25] MEDS: PANTOPRAZOLE 40MG TAB (PROTONIX) PO SCH (10:02)
[2022-09-25] MEDS: CLOPIDOGREL 75 MG TAB PO SCH (10:02)
[2022-09-25] MEDS: allopurinoL 100 MG TAB PO SCH (10:02)
[2022-09-25] MEDS: FERROUS SULFATE 325MG TAB PO SCH ×2 (10:02→21:36)
[2022-09-25] MEDS: CARVedilol 3.125 MG TAB PO SCH ×2 (10:02→21:35)
[2022-09-25] MEDS: GABAPENTIN 100 MG CAP PO SCH ×3 (10:02→21:36)
[2022-09-25] MEDS: BRIMONIDINE 0.1% OPHTH SOLN 5ML OU SCH ×2 (10:03→21:36)
[2022-09-25] MEDS: TIMOLOL MALEATE 0.5% OPHTH SOLN 5 ML OU SCH ×2 (10:03→21:36)
[2022-09-25 10:23] LABS: ERYTHROCYTE SEDIMENTATION RATE 73 mm/hr (0-20)
[2022-09-25 11:34] LABS: PERCENT SATURATION 17.6 % (19.7-50.0)
[2022-09-25 14:00] VITALS: BP 164/84
[2022-09-25] MEDS: ACETAMINOPHEN TAB 650MG DOSE (2X325MG) PO PRN (17:18)
[2022-09-25 21:30] VITALS: BP 167/84
[2022-09-25] MEDS: LEVEMIR (INSULIN DETEMIR) 1 UNITS/0.01ML SC SCH (21:34)
[2022-09-25] MEDS: ATORVASTATIN 20 MG TAB PO SCH (21:36)
[2022-09-25] MEDS: NIACIN 100MG TAB PO SCH (21:36)
[2022-09-25] MEDS: LATANOPROST 0.005% OPHTH SOLN 2.5 ML OU SCH (21:36)
[2022-09-26] MEDS: PIPERACILLIN/TAZOBACTAM SOD 2.25 GM in D5W MINI-BAG PLUS 50 ML IV SCH ×4 (04:35→22:31)
[2022-09-26 06:42] VITALS: BP 143/73
[2022-09-26 06:55] LABS: HEMATOCRIT 27.8 % (42.0-52.0); HEMOGLOBIN 8.6 g/dl (13.5-17.5); MEAN CORPUSCULAR HEMOGLOBIN 31.9 pg (27.0-33.0); MEAN CORPUSCULAR HGB CONC 30.9 g/dl (32.0-36.5); PLATELET COUNT, AUTOMATED 128 10^3/uL (150-450); WHITE BLOOD COUNT 15.4 10^3/uL (4.0-10.0)
[2022-09-26 07:18] LABS: C REACTIVE PROTEIN QUANTITATIV 4.3 MG/DL (<1.0)
[2022-09-26 07:19] LABS: CALCIUM LEVEL 8.3 MG/DL (8.3-10.6); CREATININE FOR GFR 2.09 MG/DL (0.70-1.30); GLOMERULAR FILTRATION RATE 32.2 (>35); MAGNESIUM LEVEL 2.1 MG/DL (1.8-2.4); POTASSIUM SERUM 4.1 MMOL/L (3.5-5.1)
[2022-09-26 07:25] LABS: ATYPICAL LYMPH 2 % (0-5); EOSINOPHILS 3 % (0-3); LYMPHOCYTES 24 % (16-44); MONOCYTES 6 % (0-5); MYELOCYTES 1 % (0-0); NEUTROPHILS 64 % (28-66)
[2022-09-26 07:26] LABS: ANISOCYTOSIS 3+; OVALOCYTES 1+
[2022-09-26 07:28] LABS: MICROCYTOSIS 1+; POLYCHROMASIA 1+
[2022-09-26 07:30] LABS: TEAR DROP CELLS 1+
[2022-09-26 07:31] LABS: PLATELET ESTIMATE DECREASED (NORMAL)
[2022-09-26] MEDS: TIOTROPIUM INHALER/CAPSULE (SPIRIVA) INH SCH (07:39)
[2022-09-26] MEDS: ADVAIR HFA 230/21MCG INHALER INH SCH ×2 (07:40→20:03)
[2022-09-26] MEDS: DOCUSATE SODIUM 100MG CAPSULE PO SCH ×2 (09:00→22:33)
[2022-09-26] MEDS: SANTYL OINT 30GM TOP SCH (09:18)
[2022-09-26] MEDS: BRIMONIDINE 0.1% OPHTH SOLN 5ML OU SCH ×2 (09:19→22:34)
[2022-09-26] MEDS: INSULIN LISPRO (NovoLOG) PER UNIT SC SCH ×4 (09:19→21:00)
[2022-09-26] MEDS: ENOXAPARIN 30MG/0.3ML SYRINGE (J1650 PER 10MG) SC SCH (09:19)
[2022-09-26] MEDS: CARVedilol 3.125 MG TAB PO SCH ×2 (09:20→22:33)
[2022-09-26] MEDS: TIMOLOL MALEATE 0.5% OPHTH SOLN 5 ML OU SCH ×2 (09:20→22:31)
[2022-09-26] MEDS: allopurinoL 100 MG TAB PO SCH (09:21)
[2022-09-26] MEDS: PANTOPRAZOLE 40MG TAB (PROTONIX) PO SCH (09:21)
[2022-09-26] MEDS: ASPIRIN 81MG CHEW TABLET PO SCH (09:21)
[2022-09-26] MEDS: FERROUS SULFATE 325MG TAB PO SCH (09:21)
[2022-09-26] MEDS: CYANOCOBALAMIN 500 MCG TAB PO SCH (09:21)
[2022-09-26] MEDS: CLOPIDOGREL 75 MG TAB PO SCH (09:21)
[2022-09-26] MEDS: GABAPENTIN 100 MG CAP PO SCH ×3 (09:21→22:33)
[2022-09-26] MEDS: VITAMIN D 1,000 INTERNATIONAL UNITS TABLET PO SCH (10:11)
[2022-09-26] MEDS: TORSEMIDE 20 MG TAB PO SCH ×2 (10:11→15:31)
[2022-09-26] MEDS: NEPHRO-VIT TAB (NEPHROCAPS) PO SCH (10:11)
[2022-09-26] MEDS: VANICREAM MOISTURIZING SKIN CREAM 113GM TUBE TOP SCH (10:12)
[2022-09-26 14:00] VITALS: BP 160/80
[2022-09-26] MEDS: ACETAMINOPHEN TAB 650MG DOSE (2X325MG) PO PRN (15:32)
[2022-09-26 20:58] VITALS: BP 124/63
[2022-09-26] MEDS: LEVEMIR (INSULIN DETEMIR) 1 UNITS/0.01ML SC SCH (22:30)
[2022-09-26] MEDS: LATANOPROST 0.005% OPHTH SOLN 2.5 ML OU SCH (22:31)
[2022-09-26] MEDS: zolPIDEM TARTRATE 5 MG TAB PO PRN (22:31)
[2022-09-26] MEDS: ATORVASTATIN 20 MG TAB PO SCH (22:32)
[2022-09-26] MEDS: NIACIN 100MG TAB PO SCH (22:32)
[2022-09-27] MEDS: ACETAMINOPHEN TAB 650MG DOSE (2X325MG) PO PRN ×3 (00:29→22:37)
[2022-09-27] MEDS: PIPERACILLIN/TAZOBACTAM SOD 2.25 GM in D5W MINI-BAG PLUS 50 ML IV SCH ×4 (04:10→22:21)
[2022-09-27 05:49] VITALS: BP 125/63
[2022-09-27 06:17] LABS: HEMATOCRIT 26.8 % (42.0-52.0); HEMOGLOBIN 8.3 g/dl (13.5-17.5); MEAN CORPUSCULAR HEMOGLOBIN 31.9 pg (27.0-33.0); MEAN CORPUSCULAR VOLUME 103.1 fl (80.0-96.0); PLATELET COUNT, AUTOMATED 126 10^3/uL (150-450); WHITE BLOOD COUNT 14.6 10^3/uL (4.0-10.0)
[2022-09-27 06:42] LABS: C REACTIVE PROTEIN QUANTITATIV 3.5 MG/DL (<1.0); MAGNESIUM LEVEL 1.8 MG/DL (1.8-2.4)
[2022-09-27 07:16] LABS: ATYPICAL LYMPH 3 % (0-5); BASOPHILS 3 % (0-1); EOSINOPHILS 2 % (0-3); LYMPHOCYTES 25 % (16-44); MONOCYTES 2 % (0-5); NEUTROPHILS 65 % (28-66)
[2022-09-27 07:18] LABS: ANISOCYTOSIS 3+; POLYCHROMASIA 1+
[2022-09-27 07:19] LABS: MICROCYTOSIS 1+
[2022-09-27 07:21] LABS: PLATELET ESTIMATE DECREASED (NORMAL)
[2022-09-27] MEDS: TIOTROPIUM INHALER/CAPSULE (SPIRIVA) INH SCH (07:31)
[2022-09-27] MEDS: ADVAIR HFA 230/21MCG INHALER INH SCH ×2 (07:31→19:19)
[2022-09-27 08:08] LABS: CALCIUM LEVEL 8.5 MG/DL (8.3-10.6); CREATININE FOR GFR 1.94 MG/DL (0.70-1.30); GLOMERULAR FILTRATION RATE 35.1 (>35); POTASSIUM SERUM 4.1 MMOL/L (3.5-5.1)
[2022-09-27] MEDS: DOCUSATE SODIUM 100MG CAPSULE PO SCH ×2 (09:00→21:00)
[2022-09-27] MEDS: INSULIN LISPRO (NovoLOG) PER UNIT SC SCH ×4 (09:12→21:00)
[2022-09-27] MEDS: CLOPIDOGREL 75 MG TAB PO SCH (09:13)
[2022-09-27] MEDS: GABAPENTIN 100 MG CAP PO SCH ×3 (09:13→22:20)
[2022-09-27] MEDS: CYANOCOBALAMIN 500 MCG TAB PO SCH (09:13)
[2022-09-27] MEDS: ENOXAPARIN 30MG/0.3ML SYRINGE (J1650 PER 10MG) SC SCH (09:13)
[2022-09-27] MEDS: ASPIRIN 81MG CHEW TABLET PO SCH (09:14)
[2022-09-27] MEDS: PANTOPRAZOLE 40MG TAB (PROTONIX) PO SCH (09:14)
[2022-09-27] MEDS: NEPHRO-VIT TAB (NEPHROCAPS) PO SCH (09:14)
[2022-09-27] MEDS: VITAMIN D 1,000 INTERNATIONAL UNITS TABLET PO SCH (09:14)
[2022-09-27] MEDS: allopurinoL 100 MG TAB PO SCH (09:15)
[2022-09-27] MEDS: TORSEMIDE 20 MG TAB PO SCH (09:15)
[2022-09-27] MEDS: CARVedilol 3.125 MG TAB PO SCH ×2 (09:18→22:20)
[2022-09-27] MEDS: BRIMONIDINE 0.1% OPHTH SOLN 5ML OU SCH ×2 (09:19→22:22)
[2022-09-27] MEDS: SANTYL OINT 30GM TOP SCH (09:19)
[2022-09-27] MEDS: TIMOLOL MALEATE 0.5% OPHTH SOLN 5 ML OU SCH ×2 (09:19→22:22)
[2022-09-27] MEDS: VANICREAM MOISTURIZING SKIN CREAM 113GM TUBE TOP SCH (09:19)
[2022-09-27] MEDS ORDERED: FUROSEMIDE 100MG/10ML VIAL IV ONE (13:20)
[2022-09-27 14:00] VITALS: BP 150/91
[2022-09-27] MEDS: DARBEPOETIN 100MCG/0.5ML *NON-DIALYSIS* SYRINGE SC SCH (17:44)
[2022-09-27 22:18] VITALS: BP 147/78
[2022-09-27] MEDS: NIACIN 100MG TAB PO SCH (22:19)
[2022-09-27] MEDS: ATORVASTATIN 20 MG TAB PO SCH (22:20)
[2022-09-27] MEDS: LEVEMIR (INSULIN DETEMIR) 1 UNITS/0.01ML SC SCH (22:21)
[2022-09-27] MEDS: LATANOPROST 0.005% OPHTH SOLN 2.5 ML OU SCH (22:22)
[2022-09-27] MEDS: zolPIDEM TARTRATE 5 MG TAB PO PRN (22:37)
[2022-09-28] MEDS: PIPERACILLIN/TAZOBACTAM SOD 2.25 GM in D5W MINI-BAG PLUS 50 ML IV SCH ×2 (04:32→09:06)
[2022-09-28 05:23] VITALS: BP 145/76
[2022-09-28 06:19] LABS: HEMATOCRIT 27.1 % (42.0-52.0); HEMOGLOBIN 8.4 g/dl (13.5-17.5); MEAN CORPUSCULAR HEMOGLOBIN 31.7 pg (27.0-33.0); MEAN CORPUSCULAR VOLUME 102.3 fl (80.0-96.0); PLATELET COUNT, AUTOMATED 129 10^3/uL (150-450); RED BLOOD COUNT 2.65 10^6/uL (4.30-6.10); WHITE BLOOD COUNT 15.3 10^3/uL (4.0-10.0)
[2022-09-28] MEDS: TIOTROPIUM INHALER/CAPSULE (SPIRIVA) INH SCH (07:52)
[2022-09-28] MEDS: ADVAIR HFA 230/21MCG INHALER INH SCH ×2 (07:52→20:35)
[2022-09-28] MEDS: INSULIN LISPRO (NovoLOG) PER UNIT SC SCH ×4 (08:26→20:47)
[2022-09-28] MEDS: ENOXAPARIN 30MG/0.3ML SYRINGE (J1650 PER 10MG) SC SCH (08:26)
[2022-09-28] MEDS: CARVedilol 3.125 MG TAB PO SCH ×2 (08:27→20:50)
[2022-09-28] MEDS: CLOPIDOGREL 75 MG TAB PO SCH (08:27)
[2022-09-28] MEDS: ASPIRIN 81MG CHEW TABLET PO SCH (08:27)
[2022-09-28] MEDS: allopurinoL 100 MG TAB PO SCH (08:27)
[2022-09-28] MEDS: DOCUSATE SODIUM 100MG CAPSULE PO SCH ×3 (08:27→20:49)
[2022-09-28] MEDS: BRIMONIDINE 0.1% OPHTH SOLN 5ML OU SCH ×2 (08:28→20:51)
[2022-09-28] MEDS: CYANOCOBALAMIN 500 MCG TAB PO SCH (08:28)
[2022-09-28] MEDS: PANTOPRAZOLE 40MG TAB (PROTONIX) PO SCH (08:28)
[2022-09-28] MEDS: NEPHRO-VIT TAB (NEPHROCAPS) PO SCH (08:28)
[2022-09-28] MEDS: VITAMIN D 1,000 INTERNATIONAL UNITS TABLET PO SCH (08:28)
[2022-09-28] MEDS: GABAPENTIN 100 MG CAP PO SCH ×3 (08:28→20:50)
[2022-09-28] MEDS: VANICREAM MOISTURIZING SKIN CREAM 113GM TUBE TOP SCH (08:29)
[2022-09-28] MEDS: SANTYL OINT 30GM TOP SCH (08:29)
[2022-09-28] MEDS: TIMOLOL MALEATE 0.5% OPHTH SOLN 5 ML OU SCH ×2 (08:29→20:51)
[2022-09-28] MEDS ORDERED: TORSEMIDE (DEMADEX) 50 MG PER 1/2 TAB PO SCH (09:00)
[2022-09-28] MEDS: ACETAMINOPHEN TAB 650MG DOSE (2X325MG) PO PRN ×2 (09:06→20:46)
[2022-09-28 14:00] VITALS: BP 157/86
[2022-09-28] MEDS: TORSEMIDE (DEMADEX) 50 MG PER 1/2 TAB PO SCH (15:49)
[2022-09-28] MEDS: PIPERACILLIN/TAZOBACTAM SOD 3.375 GM in D5W MINI-BAG PLUS 50 ML IV SCH ×2 (15:49→22:32)
[2022-09-28] MEDS: ATORVASTATIN 20 MG TAB PO SCH (20:49)
[2022-09-28] MEDS: LEVEMIR (INSULIN DETEMIR) 1 UNITS/0.01ML SC SCH (20:49)
[2022-09-28] MEDS: NIACIN 100MG TAB PO SCH (20:49)
[2022-09-28] MEDS: LATANOPROST 0.005% OPHTH SOLN 2.5 ML OU SCH (20:51)
[2022-09-28] MEDS: zolPIDEM TARTRATE 5 MG TAB PO PRN (22:53)
[2022-09-29] MEDS: LIDOCAINE 5% (LIDODERM) PATCH TD PRN (03:38)
[2022-09-29] MEDS: PIPERACILLIN/TAZOBACTAM SOD 3.375 GM in D5W MINI-BAG PLUS 50 ML IV SCH ×4 (03:55→21:41)
[2022-09-29 05:20] VITALS: BP 140/70
[2022-09-29 06:29] LABS: ALBUMIN 2.4 G/DL (3.2-5.2); CALCIUM LEVEL 8.5 MG/DL (8.3-10.6); CREATININE FOR GFR 1.93 MG/DL (0.70-1.30); GLOMERULAR FILTRATION RATE 35.3 (>35); PHOSPHORUS LEVEL 3.6 MG/DL (2.4-5.1); POTASSIUM SERUM 3.9 MMOL/L (3.5-5.1)
[2022-09-29 07:28] LABS: HEMATOCRIT 26.7 % (42.0-52.0); HEMOGLOBIN 8.3 g/dl (13.5-17.5); MEAN CORPUSCULAR HEMOGLOBIN 31.7 pg (27.0-33.0); MEAN CORPUSCULAR HGB CONC 31.1 g/dl (32.0-36.5); MEAN CORPUSCULAR VOLUME 101.9 fl (80.0-96.0); PLATELET COUNT, AUTOMATED 136 10^3/uL (150-450); RED BLOOD COUNT 2.62 10^6/uL (4.30-6.10)
[2022-09-29 07:34] LABS: MAGNESIUM LEVEL 1.6 MG/DL (1.8-2.4)
[2022-09-29 07:35] LABS: C REACTIVE PROTEIN QUANTITATIV 3.1 MG/DL (<1.0)
[2022-09-29] MEDS: TIOTROPIUM INHALER/CAPSULE (SPIRIVA) INH SCH (08:07)
[2022-09-29] MEDS: ADVAIR HFA 230/21MCG INHALER INH SCH ×2 (08:07→19:46)
[2022-09-29] MEDS: INSULIN LISPRO (NovoLOG) PER UNIT SC SCH ×4 (08:19→20:45)
[2022-09-29] MEDS: ASPIRIN 81MG CHEW TABLET PO SCH (08:29)
[2022-09-29] MEDS: CYANOCOBALAMIN 500 MCG TAB PO SCH (08:29)
[2022-09-29] MEDS: GABAPENTIN 100 MG CAP PO SCH ×3 (08:29→21:42)
[2022-09-29] MEDS: allopurinoL 100 MG TAB PO SCH (08:30)
[2022-09-29] MEDS: CARVedilol 3.125 MG TAB PO SCH ×2 (08:32→21:45)
[2022-09-29] MEDS: DOCUSATE SODIUM 100MG CAPSULE PO SCH ×2 (08:33→21:42)
[2022-09-29] MEDS: ENOXAPARIN 30MG/0.3ML SYRINGE (J1650 PER 10MG) SC SCH (08:34)
[2022-09-29] MEDS: TORSEMIDE (DEMADEX) 50 MG PER 1/2 TAB PO SCH ×2 (08:35→15:49)
[2022-09-29] MEDS: VITAMIN D 1,000 INTERNATIONAL UNITS TABLET PO SCH (08:36)
[2022-09-29] MEDS: NEPHRO-VIT TAB (NEPHROCAPS) PO SCH (08:36)
[2022-09-29] MEDS: CLOPIDOGREL 75 MG TAB PO SCH (08:37)
[2022-09-29] MEDS: BRIMONIDINE 0.1% OPHTH SOLN 5ML OU SCH ×2 (08:37→21:43)
[2022-09-29] MEDS: TIMOLOL MALEATE 0.5% OPHTH SOLN 5 ML OU SCH ×2 (08:38→21:43)
[2022-09-29 08:48] LABS: ATYPICAL LYMPH 5 % (0-5); EOSINOPHILS 4 % (0-3); LYMPHOCYTES 28 % (16-44); MONOCYTES 5 % (0-5); NEUTROPHILS 58 % (28-66)
[2022-09-29 08:49] LABS: ANISOCYTOSIS 2+; HYPOCHROMASIA 1+
[2022-09-29 08:50] LABS: PLATELET ESTIMATE NORMAL (NORMAL)
[2022-09-29] MEDS: PANTOPRAZOLE 40MG TAB (PROTONIX) PO SCH (08:51)
[2022-09-29] MEDS: MAG SULF 1GM/100ML (MAG RUN) 1 GM in IV 1 EA IV SCH ×2 (08:54→11:40)
[2022-09-29 09:32] LABS: ERYTHROCYTE SEDIMENTATION RATE 92 mm/hr (0-20)
[2022-09-29] MEDS: ACETAMINOPHEN TAB 650MG DOSE (2X325MG) PO PRN ×2 (10:20→23:38)
[2022-09-29 11:00] VITALS: BP 134/67
[2022-09-29] MEDS: VANICREAM MOISTURIZING SKIN CREAM 113GM TUBE TOP SCH (11:40)
[2022-09-29] MEDS: SANTYL OINT 30GM TOP SCH (11:40)
[2022-09-29 14:15] VITALS: BP 139/74
[2022-09-29] MEDS: SIMETHICONE 80MG CHEW TAB PO SCH ×2 (17:10→21:42)
[2022-09-29] MEDS: ATORVASTATIN 20 MG TAB PO SCH (21:42)
[2022-09-29] MEDS: NIACIN 100MG TAB PO SCH (21:42)
[2022-09-29] MEDS: LATANOPROST 0.005% OPHTH SOLN 2.5 ML OU SCH (21:43)
[2022-09-29] MEDS: LEVEMIR (INSULIN DETEMIR) 1 UNITS/0.01ML SC SCH (21:43)
[2022-09-30] MEDS: LIDOCAINE 5% (LIDODERM) PATCH TD PRN (01:08)
[2022-09-30] MEDS: PIPERACILLIN/TAZOBACTAM SOD 3.375 GM in D5W MINI-BAG PLUS 50 ML IV SCH ×4 (05:03→21:49)
[2022-09-30 06:00] VITALS: BP 159/79
[2022-09-30 06:19] LABS: HEMATOCRIT 25.4 % (42.0-52.0); HEMOGLOBIN 7.9 g/dl (13.5-17.5); MEAN CORPUSCULAR HEMOGLOBIN 31.3 pg (27.0-33.0); MEAN CORPUSCULAR HGB CONC 31.1 g/dl (32.0-36.5); MEAN CORPUSCULAR VOLUME 100.8 fl (80.0-96.0); PLATELET COUNT, AUTOMATED 114 10^3/uL (150-450); RED BLOOD COUNT 2.52 10^6/uL (4.30-6.10); WHITE BLOOD COUNT 13.2 10^3/uL (4.0-10.0)
[2022-09-30 06:43] LABS: CALCIUM LEVEL 8.4 MG/DL (8.3-10.6); CREATININE FOR GFR 2.03 MG/DL (0.70-1.30); GLOMERULAR FILTRATION RATE 33.3 (>35); MAGNESIUM LEVEL 1.8 MG/DL (1.8-2.4); POTASSIUM SERUM 3.9 MMOL/L (3.5-5.1)
[2022-09-30 07:11] LABS: ATYPICAL LYMPH 4 % (0-5); BLAST CELLS 2 % (0-0); EOSINOPHILS 9 % (0-3); LYMPHOCYTES 24 % (16-44); MONOCYTES 7 % (0-5); MYELOCYTES 2 % (0-0); NEUTROPHILS 51 % (28-66); PLATELET ESTIMATE NORMAL (NORMAL); PROMYELOCYTES 1 % (0-0)
[2022-09-30 07:12] LABS: ANISOCYTOSIS 2+; HYPOCHROMASIA 1+
[2022-09-30] MEDS: INSULIN LISPRO (NovoLOG) PER UNIT SC SCH ×4 (07:30→21:00)
[2022-09-30] MEDS: ADVAIR HFA 230/21MCG INHALER INH SCH ×3 (08:12→19:12)
[2022-09-30] MEDS: TIOTROPIUM INHALER/CAPSULE (SPIRIVA) INH SCH (08:12)
[2022-09-30] MEDS: NEPHRO-VIT TAB (NEPHROCAPS) PO SCH (08:27)
[2022-09-30] MEDS: VITAMIN D 1,000 INTERNATIONAL UNITS TABLET PO SCH (08:27)
[2022-09-30] MEDS: DOCUSATE SODIUM 100MG CAPSULE PO SCH ×2 (08:27→21:00)
[2022-09-30] MEDS: VANICREAM MOISTURIZING SKIN CREAM 113GM TUBE TOP SCH (08:28)
[2022-09-30] MEDS: PANTOPRAZOLE 40MG TAB (PROTONIX) PO SCH (08:28)
[2022-09-30] MEDS: CYANOCOBALAMIN 500 MCG TAB PO SCH (08:28)
[2022-09-30] MEDS: ASPIRIN 81MG CHEW TABLET PO SCH (08:28)
[2022-09-30] MEDS: TORSEMIDE (DEMADEX) 50 MG PER 1/2 TAB PO SCH ×2 (08:28→16:49)
[2022-09-30] MEDS: allopurinoL 100 MG TAB PO SCH (08:28)
[2022-09-30] MEDS: GABAPENTIN 100 MG CAP PO SCH ×3 (08:28→21:49)
[2022-09-30] MEDS: SIMETHICONE 80MG CHEW TAB PO SCH ×4 (08:28→21:50)
[2022-09-30] MEDS: CLOPIDOGREL 75 MG TAB PO SCH (08:28)
[2022-09-30] MEDS: BRIMONIDINE 0.1% OPHTH SOLN 5ML OU SCH ×2 (08:29→21:50)
[2022-09-30] MEDS: TIMOLOL MALEATE 0.5% OPHTH SOLN 5 ML OU SCH ×2 (08:29→21:50)
[2022-09-30] MEDS: SANTYL OINT 30GM TOP SCH (08:29)
[2022-09-30] MEDS: ACETAMINOPHEN TAB 650MG DOSE (2X325MG) PO PRN (08:32)
[2022-09-30] MEDS: ENOXAPARIN 30MG/0.3ML SYRINGE (J1650 PER 10MG) SC SCH (08:32)
[2022-09-30] MEDS: CARVedilol 3.125 MG TAB PO SCH ×2 (08:33→21:49)
[2022-09-30] MEDS ORDERED: fentaNYL 100 MCG/2 ML INJECTION As Ordered ONE (10:11)
[2022-09-30] MEDS ORDERED: MIDAZOLAM INJ 2MG/2ML VIAL As Ordered ONE (10:12)
[2022-09-30] MEDS ORDERED: HEPARIN 1,000UNITS/ML 10ML VIAL (FOR RADIOLOGY & DIALYSIS ONLY) As Ordered ONE (10:12)
[2022-09-30] MEDS ORDERED: ISOVUE-300 61% 100ML VIAL As Ordered ONE (10:12)
[2022-09-30] MEDS ORDERED: LIDOCAINE 1% MDV 20ML VIAL As Ordered ONE (10:12)
[2022-09-30] MEDS ORDERED: fentaNYL 100 MCG/2 ML INJECTION ONE (13:18)
[2022-09-30 21:16] VITALS: BP 80/46
[2022-09-30 21:25] VITALS: BP 132/58
[2022-09-30] MEDS: LEVEMIR (INSULIN DETEMIR) 1 UNITS/0.01ML SC SCH (21:48)
[2022-09-30] MEDS: ATORVASTATIN 20 MG TAB PO SCH (21:49)
[2022-09-30] MEDS: NIACIN 100MG TAB PO SCH (21:49)
[2022-09-30] MEDS: LATANOPROST 0.005% OPHTH SOLN 2.5 ML OU SCH (21:50)
[2022-10-01] MEDS: ACETAMINOPHEN TAB 650MG DOSE (2X325MG) PO PRN ×2 (03:07→11:51)
[2022-10-01] MEDS: PIPERACILLIN/TAZOBACTAM SOD 3.375 GM in D5W MINI-BAG PLUS 50 ML IV SCH ×4 (03:07→21:33)
[2022-10-01 06:20] VITALS: BP 140/62
[2022-10-01 06:33] LABS: BASO # 0.1 10^3/uL (0.0-0.2); BASO % 0.4 % (0.0-1.0); EOS # 0.3 10^3/uL (0.0-0.5); EOS % 1.9 % (0.0-3.0); HEMATOCRIT 24.4 % (42.0-52.0); HEMOGLOBIN 7.7 g/dl (13.5-17.5); LYMPH # 3.7 10^3/uL (1.5-5.0); LYMPH % 23.8 % (24.0-44.0); MEAN CORPUSCULAR HGB CONC 31.6 g/dl (32.0-36.5); MEAN CORPUSCULAR VOLUME 101.2 fl (80.0-96.0); MONO # 0.8 10^3/uL (0.0-0.8); MONO % 5.4 % (2.0-8.0); NEUTROPHILS # 10.6 10^3/uL (1.5-8.5); NEUTROPHILS % 67.8 % (36.0-66.0); PLATELET COUNT, AUTOMATED 123 10^3/uL (150-450); RED BLOOD COUNT 2.41 10^6/uL (4.30-6.10); WHITE BLOOD COUNT 15.6 10^3/uL (4.0-10.0)
[2022-10-01 06:59] LABS: C REACTIVE PROTEIN QUANTITATIV 4.9 MG/DL (<1.0)
[2022-10-01 07:01] LABS: CALCIUM LEVEL 8.6 MG/DL (8.3-10.6); CREATININE FOR GFR 2.13 MG/DL (0.70-1.30); GLOMERULAR FILTRATION RATE 31.5 (>35); MAGNESIUM LEVEL 1.9 MG/DL (1.8-2.4); POTASSIUM SERUM 3.8 MMOL/L (3.5-5.1)
[2022-10-01] MEDS: ADVAIR HFA 230/21MCG INHALER INH SCH ×2 (07:57→19:40)
[2022-10-01] MEDS: TIOTROPIUM INHALER/CAPSULE (SPIRIVA) INH SCH (07:57)
[2022-10-01] MEDS: INSULIN LISPRO (NovoLOG) PER UNIT SC SCH ×4 (08:24→21:00)
[2022-10-01] MEDS: CYANOCOBALAMIN 500 MCG TAB PO SCH (08:25)
[2022-10-01] MEDS: VITAMIN D 1,000 INTERNATIONAL UNITS TABLET PO SCH (08:25)
[2022-10-01] MEDS: ENOXAPARIN 30MG/0.3ML SYRINGE (J1650 PER 10MG) SC SCH (08:25)
[2022-10-01] MEDS: GABAPENTIN 100 MG CAP PO SCH ×3 (08:26→21:31)
[2022-10-01] MEDS: ASPIRIN 81MG CHEW TABLET PO SCH (08:26)
[2022-10-01] MEDS: NEPHRO-VIT TAB (NEPHROCAPS) PO SCH (08:26)
[2022-10-01] MEDS: TORSEMIDE (DEMADEX) 50 MG PER 1/2 TAB PO SCH (08:26)
[2022-10-01] MEDS: SIMETHICONE 80MG CHEW TAB PO SCH ×4 (08:26→21:32)
[2022-10-01] MEDS: PANTOPRAZOLE 40MG TAB (PROTONIX) PO SCH (08:27)
[2022-10-01] MEDS: CLOPIDOGREL 75 MG TAB PO SCH (08:31)
[2022-10-01] MEDS: allopurinoL 100 MG TAB PO SCH (08:31)
[2022-10-01] MEDS: DOCUSATE SODIUM 100MG CAPSULE PO SCH ×2 (08:32→21:00)
[2022-10-01] MEDS: CARVedilol 3.125 MG TAB PO SCH ×2 (08:35→21:30)
[2022-10-01] MEDS: TIMOLOL MALEATE 0.5% OPHTH SOLN 5 ML OU SCH ×2 (08:39→21:32)
[2022-10-01] MEDS: BRIMONIDINE 0.1% OPHTH SOLN 5ML OU SCH ×2 (08:39→21:32)
[2022-10-01] MEDS: SANTYL OINT 30GM TOP SCH (08:40)
[2022-10-01] MEDS: VANICREAM MOISTURIZING SKIN CREAM 113GM TUBE TOP SCH (08:40)
[2022-10-01] MEDS ORDERED: POTASSIUM CHLORIDE 10MEQ SR TABLET PO ONE (12:00)
[2022-10-01] MEDS ORDERED: FUROSEMIDE 100MG/10ML VIAL IV ONE (12:00)
[2022-10-01 14:05] VITALS: BP 124/64
[2022-10-01] MEDS: TORSEMIDE 100 MG TAB PO SCH (16:13)
[2022-10-01 20:14] VITALS: BP 150/76
[2022-10-01] MEDS: ATORVASTATIN 20 MG TAB PO SCH (21:30)
[2022-10-01] MEDS: NIACIN 100MG TAB PO SCH (21:31)
[2022-10-01] MEDS: LEVEMIR (INSULIN DETEMIR) 1 UNITS/0.01ML SC SCH (21:33)
[2022-10-01] MEDS: LATANOPROST 0.005% OPHTH SOLN 2.5 ML OU SCH (21:33)
[2022-10-02] MEDS: PIPERACILLIN/TAZOBACTAM SOD 3.375 GM in D5W MINI-BAG PLUS 50 ML IV SCH ×4 (04:45→22:01)
[2022-10-02 06:13] VITALS: BP 146/69
[2022-10-02 06:25] LABS: BASO # 0.1 10^3/uL (0.0-0.2); BASO % 0.3 % (0.0-1.0); EOS # 0.4 10^3/uL (0.0-0.5); EOS % 2.6 % (0.0-3.0); HEMATOCRIT 23.2 % (42.0-52.0); HEMOGLOBIN 7.3 g/dl (13.5-17.5); LYMPH # 3.7 10^3/uL (1.5-5.0); LYMPH % 24.9 % (24.0-44.0); MEAN CORPUSCULAR HEMOGLOBIN 32.2 pg (27.0-33.0); MEAN CORPUSCULAR HGB CONC 31.5 g/dl (32.0-36.5); MEAN CORPUSCULAR VOLUME 102.2 fl (80.0-96.0); MONO # 0.8 10^3/uL (0.0-0.8); MONO % 5.7 % (2.0-8.0); NEUTROPHILS # 9.7 10^3/uL (1.5-8.5); NEUTROPHILS % 65.8 % (36.0-66.0); PLATELET COUNT, AUTOMATED 109 10^3/uL (150-450); RED BLOOD COUNT 2.27 10^6/uL (4.30-6.10); WHITE BLOOD COUNT 14.7 10^3/uL (4.0-10.0)
[2022-10-02 06:50] LABS: C REACTIVE PROTEIN QUANTITATIV 6.3 MG/DL (<1.0); CALCIUM LEVEL 8.4 MG/DL (8.3-10.6); CREATININE FOR GFR 2.59 MG/DL (0.70-1.30); GLOMERULAR FILTRATION RATE 25.2 (>35); MAGNESIUM LEVEL 1.8 MG/DL (1.8-2.4)
[2022-10-02 08:00] VITALS: BP 114/72
[2022-10-02] MEDS: INSULIN LISPRO (NovoLOG) PER UNIT SC SCH ×4 (08:03→22:03)
[2022-10-02] MEDS: ADVAIR HFA 230/21MCG INHALER INH SCH ×2 (08:38→19:40)
[2022-10-02] MEDS: TIOTROPIUM INHALER/CAPSULE (SPIRIVA) INH SCH (08:39)
[2022-10-02] MEDS: ENOXAPARIN 30MG/0.3ML SYRINGE (J1650 PER 10MG) SC SCH (09:00)
[2022-10-02] MEDS: DOCUSATE SODIUM 100MG CAPSULE PO SCH ×3 (09:00→21:00)
[2022-10-02] MEDS: VITAMIN D 1,000 INTERNATIONAL UNITS TABLET PO SCH (09:06)
[2022-10-02] MEDS: NEPHRO-VIT TAB (NEPHROCAPS) PO SCH (09:06)
[2022-10-02] MEDS: ACETAMINOPHEN TAB 650MG DOSE (2X325MG) PO PRN ×2 (09:07→22:01)
[2022-10-02] MEDS: ASPIRIN 81MG CHEW TABLET PO SCH (09:07)
[2022-10-02] MEDS: allopurinoL 100 MG TAB PO SCH (09:08)
[2022-10-02] MEDS: CLOPIDOGREL 75 MG TAB PO SCH (09:08)
[2022-10-02] MEDS: GABAPENTIN 100 MG CAP PO SCH ×3 (09:08→22:02)
[2022-10-02] MEDS: CYANOCOBALAMIN 500 MCG TAB PO SCH (09:08)
[2022-10-02] MEDS: PANTOPRAZOLE 40MG TAB (PROTONIX) PO SCH (09:08)
[2022-10-02] MEDS: CARVedilol 3.125 MG TAB PO SCH ×2 (09:10→22:02)
[2022-10-02] MEDS: TORSEMIDE 100 MG TAB PO SCH (09:11)
[2022-10-02] MEDS: BRIMONIDINE 0.1% OPHTH SOLN 5ML OU SCH ×2 (09:12→22:03)
[2022-10-02] MEDS: SANTYL OINT 30GM TOP SCH (09:12)
[2022-10-02] MEDS: TIMOLOL MALEATE 0.5% OPHTH SOLN 5 ML OU SCH ×2 (09:13→22:03)
[2022-10-02] MEDS: VANICREAM MOISTURIZING SKIN CREAM 113GM TUBE TOP SCH (09:13)
[2022-10-02] MEDS: SIMETHICONE 80MG CHEW TAB PO SCH ×4 (09:41→22:01)
[2022-10-02 14:00] VITALS: BP 123/64
[2022-10-02 20:34] VITALS: BP 138/82
[2022-10-02] MEDS: NIACIN 100MG TAB PO SCH (22:01)
[2022-10-02] MEDS: ATORVASTATIN 20 MG TAB PO SCH (22:02)
[2022-10-02] MEDS: LATANOPROST 0.005% OPHTH SOLN 2.5 ML OU SCH (22:03)
[2022-10-02] MEDS: LEVEMIR (INSULIN DETEMIR) 1 UNITS/0.01ML SC SCH (22:03)
[2022-10-03] VITALS (13 sets, daily range): BP systolic 122–152; BP diastolic 55–90
[2022-10-03] MEDS: ACETAMINOPHEN 650MG ER TAB (TYLENOL ARTHRITIS) PO PRN (03:08)
[2022-10-03] MEDS: PIPERACILLIN/TAZOBACTAM SOD 3.375 GM in D5W MINI-BAG PLUS 50 ML IV SCH ×4 (03:09→23:12)
[2022-10-03 07:05] LABS: MEAN CORPUSCULAR HEMOGLOBIN 32.4 pg (27.0-33.0); MEAN CORPUSCULAR HGB CONC 31.9 g/dl (32.0-36.5); MEAN CORPUSCULAR VOLUME 101.4 fl (80.0-96.0); PLATELET COUNT, AUTOMATED 103 10^3/uL (150-450); RED BLOOD COUNT 2.07 10^6/uL (4.30-6.10); WHITE BLOOD COUNT 15.2 10^3/uL (4.0-10.0)
[2022-10-03 07:11] LABS: HEMOGLOBIN 6.7 g/dl (13.5-17.5)
[2022-10-03 07:31] LABS: C REACTIVE PROTEIN QUANTITATIV 5.6 MG/DL (<1.0)
[2022-10-03 07:34] LABS: ALBUMIN 2.1 G/DL (3.2-5.2); BILIRUBIN,DIRECT 0.4 MG/DL (<0.4); BILIRUBIN,TOTAL 0.7 MG/DL (0.3-1.2); CALCIUM LEVEL 8.3 MG/DL (8.3-10.6); CREATININE FOR GFR 2.97 MG/DL (0.70-1.30); GLOMERULAR FILTRATION RATE 21.5 (>35); MAGNESIUM LEVEL 1.8 MG/DL (1.8-2.4); POTASSIUM SERUM 3.8 MMOL/L (3.5-5.1); TOTAL PROTEIN 6.2 G/DL (5.7-8.2)
[2022-10-03 07:40] LABS: ATYPICAL LYMPH 2 % (0-5); LYMPHOCYTES 33 % (16-44); MONOCYTES 3 % (0-5); NEUTROPHILS 62 % (28-66)
[2022-10-03 07:43] LABS: ANISOCYTOSIS 3+
[2022-10-03 07:44] LABS: PLATELET ESTIMATE DECREASED (NORMAL); POLYCHROMASIA 1+
[2022-10-03 07:45] LABS: MICROCYTOSIS 1+
[2022-10-03] MEDS: ENOXAPARIN 30MG/0.3ML SYRINGE (J1650 PER 10MG) SC SCH (07:54)
[2022-10-03] MEDS: ADVAIR HFA 230/21MCG INHALER INH SCH ×2 (08:20→20:06)
[2022-10-03] MEDS: TIOTROPIUM INHALER/CAPSULE (SPIRIVA) INH SCH (08:20)
[2022-10-03] MEDS: INSULIN LISPRO (NovoLOG) PER UNIT SC SCH ×4 (08:39→21:00)
[2022-10-03] MEDS: SIMETHICONE 80MG CHEW TAB PO SCH ×5 (08:40→21:27)
[2022-10-03] MEDS: CYANOCOBALAMIN 500 MCG TAB PO SCH (08:40)
[2022-10-03] MEDS: NEPHRO-VIT TAB (NEPHROCAPS) PO SCH (08:40)
[2022-10-03] MEDS: PANTOPRAZOLE 40MG TAB (PROTONIX) PO SCH (08:40)
[2022-10-03] MEDS: VITAMIN D 1,000 INTERNATIONAL UNITS TABLET PO SCH (08:40)
[2022-10-03] MEDS: allopurinoL 100 MG TAB PO SCH (08:41)
[2022-10-03] MEDS: CLOPIDOGREL 75 MG TAB PO SCH (08:41)
[2022-10-03] MEDS: CARVedilol 3.125 MG TAB PO SCH ×2 (08:41→21:27)
[2022-10-03] MEDS: ASPIRIN 81MG CHEW TABLET PO SCH (08:41)
[2022-10-03] MEDS: GABAPENTIN 100 MG CAP PO SCH ×3 (08:41→21:27)
[2022-10-03] MEDS: DOCUSATE SODIUM 100MG CAPSULE PO SCH ×2 (08:41→21:00)
[2022-10-03] MEDS: BRIMONIDINE 0.1% OPHTH SOLN 5ML OU SCH ×2 (08:42→21:28)
[2022-10-03] MEDS: SANTYL OINT 30GM TOP SCH (08:42)
[2022-10-03] MEDS: TIMOLOL MALEATE 0.5% OPHTH SOLN 5 ML OU SCH ×2 (08:42→21:28)
[2022-10-03] MEDS: VANICREAM MOISTURIZING SKIN CREAM 113GM TUBE TOP SCH (08:42)
[2022-10-03] MEDS ORDERED: TORSEMIDE 100 MG TAB PO SCH (09:00)
[2022-10-03 10:17] LABS: HEMATOCRIT 21.3 % (42.0-52.0)
[2022-10-03 10:21] LABS: HEMOGLOBIN 6.7 g/dl (13.5-17.5)
[2022-10-03] MEDS: FUROSEMIDE 100MG/10ML VIAL IV SCH ×2 (11:15→21:24)
[2022-10-03] MEDS: ATORVASTATIN 20 MG TAB PO SCH (21:27)
[2022-10-03] MEDS: NIACIN 100MG TAB PO SCH (21:27)
[2022-10-03] MEDS: LEVEMIR (INSULIN DETEMIR) 1 UNITS/0.01ML SC SCH (21:28)
[2022-10-03] MEDS: LATANOPROST 0.005% OPHTH SOLN 2.5 ML OU SCH (21:28)
[2022-10-04] VITALS (11 sets, daily range): BP systolic 135–150; BP diastolic 67–82
[2022-10-04] MEDS: FUROSEMIDE 100MG/10ML VIAL IV SCH ×3 (05:05→20:16)
[2022-10-04 06:01] LABS: HEMATOCRIT 24.6 % (42.0-52.0); HEMOGLOBIN 7.7 g/dl (13.5-17.5)
[2022-10-04 06:02] LABS: HEMATOCRIT 24.1 % (42.0-52.0); HEMOGLOBIN 7.7 g/dl (13.5-17.5); MEAN CORPUSCULAR HEMOGLOBIN 31.7 pg (27.0-33.0); MEAN CORPUSCULAR VOLUME 99.2 fl (80.0-96.0); PLATELET COUNT, AUTOMATED 110 10^3/uL (150-450); RED BLOOD COUNT 2.43 10^6/uL (4.30-6.10); WHITE BLOOD COUNT 16.1 10^3/uL (4.0-10.0)
[2022-10-04] MEDS: PIPERACILLIN/TAZOBACTAM SOD 3.375 GM in D5W MINI-BAG PLUS 50 ML IV SCH ×4 (06:06→22:42)
[2022-10-04 06:20] LABS: C REACTIVE PROTEIN QUANTITATIV 5.3 MG/DL (<1.0)
[2022-10-04 06:21] LABS: CALCIUM LEVEL 8.3 MG/DL (8.3-10.6); CREATININE FOR GFR 3.12 MG/DL (0.70-1.30); GLOMERULAR FILTRATION RATE 20.3 (>35); MAGNESIUM LEVEL 1.8 MG/DL (1.8-2.4); POTASSIUM SERUM 3.9 MMOL/L (3.5-5.1)
[2022-10-04 06:23] LABS: ATYPICAL LYMPH 3 % (0-5); EOSINOPHILS 4 % (0-3); LYMPHOCYTES 27 % (16-44); MONOCYTES 2 % (0-5); NEUTROPHILS 64 % (28-66)
[2022-10-04 06:24] LABS: ANISOCYTOSIS 3+; PLATELET ESTIMATE DECREASED (NORMAL)
[2022-10-04 06:25] LABS: POLYCHROMASIA 1+
[2022-10-04 06:26] LABS: MICROCYTOSIS 1+
[2022-10-04 06:27] LABS: TEAR DROP CELLS 1+
[2022-10-04 06:28] LABS: HYPOCHROMASIA 1+
[2022-10-04] MEDS: ENOXAPARIN 30MG/0.3ML SYRINGE (J1650 PER 10MG) SC SCH (08:39)
[2022-10-04] MEDS: TIOTROPIUM INHALER/CAPSULE (SPIRIVA) INH SCH (08:51)
[2022-10-04] MEDS: ADVAIR HFA 230/21MCG INHALER INH SCH ×2 (08:51→20:12)
[2022-10-04] MEDS: DOCUSATE SODIUM 100MG CAPSULE PO SCH ×2 (09:00→20:16)
[2022-10-04] MEDS: SIMETHICONE 80MG CHEW TAB PO SCH ×4 (09:00→20:18)
[2022-10-04] MEDS: CLOPIDOGREL 75 MG TAB PO SCH (09:09)
[2022-10-04] MEDS: INSULIN LISPRO (NovoLOG) PER UNIT SC SCH ×4 (09:09→20:31)
[2022-10-04] MEDS: GABAPENTIN 100 MG CAP PO SCH ×3 (09:10→20:17)
[2022-10-04] MEDS: allopurinoL 100 MG TAB PO SCH (09:10)
[2022-10-04] MEDS: VITAMIN D 1,000 INTERNATIONAL UNITS TABLET PO SCH (09:10)
[2022-10-04] MEDS: CYANOCOBALAMIN 500 MCG TAB PO SCH (09:10)
[2022-10-04] MEDS: CARVedilol 3.125 MG TAB PO SCH ×2 (09:10→20:19)
[2022-10-04] MEDS: ASPIRIN 81MG CHEW TABLET PO SCH (09:10)
[2022-10-04] MEDS: PANTOPRAZOLE 40MG TAB (PROTONIX) PO SCH (09:10)
[2022-10-04] MEDS: NEPHRO-VIT TAB (NEPHROCAPS) PO SCH (09:10)
[2022-10-04] MEDS: VANICREAM MOISTURIZING SKIN CREAM 113GM TUBE TOP SCH (09:11)
[2022-10-04] MEDS: TIMOLOL MALEATE 0.5% OPHTH SOLN 5 ML OU SCH ×2 (09:11→20:18)
[2022-10-04] MEDS: BRIMONIDINE 0.1% OPHTH SOLN 5ML OU SCH ×2 (09:11→20:18)
[2022-10-04] MEDS: SANTYL OINT 30GM TOP SCH (09:11)
[2022-10-04] MEDS: DARBEPOETIN 100MCG/0.5ML *NON-DIALYSIS* SYRINGE SC SCH (10:17)
[2022-10-04] MEDS: NIACIN 100MG TAB PO SCH (20:17)
[2022-10-04] MEDS: ATORVASTATIN 20 MG TAB PO SCH (20:17)
[2022-10-04] MEDS: LATANOPROST 0.005% OPHTH SOLN 2.5 ML OU SCH (20:18)
[2022-10-04] MEDS: LEVEMIR (INSULIN DETEMIR) 1 UNITS/0.01ML SC SCH (20:31)
[2022-10-04 20:53] LABS: HEMATOCRIT 27.3 % (42.0-52.0); HEMOGLOBIN 8.8 g/dl (13.5-17.5)
[2022-10-04] MEDS: ACETAMINOPHEN 650MG ER TAB (TYLENOL ARTHRITIS) PO PRN (22:42)
[2022-10-05] MEDS: FUROSEMIDE 100MG/10ML VIAL IV SCH ×3 (04:18→20:11)
[2022-10-05 04:46] LABS: HEMATOCRIT 25.3 % (42.0-52.0); HEMOGLOBIN 8.3 g/dl (13.5-17.5); MEAN CORPUSCULAR HEMOGLOBIN 31.6 pg (27.0-33.0); MEAN CORPUSCULAR HGB CONC 32.8 g/dl (32.0-36.5); MEAN CORPUSCULAR VOLUME 96.2 fl (80.0-96.0); PLATELET COUNT, AUTOMATED 120 10^3/uL (150-450); RED BLOOD COUNT 2.63 10^6/uL (4.30-6.10); WHITE BLOOD COUNT 17.8 10^3/uL (4.0-10.0)
[2022-10-05 05:19] LABS: CREATININE FOR GFR 2.9 MG/DL (0.70-1.30); GLOMERULAR FILTRATION RATE 22.1 (>35); MAGNESIUM LEVEL 1.7 MG/DL (1.8-2.4); POTASSIUM SERUM 3.8 MMOL/L (3.5-5.1)
[2022-10-05 05:35] LABS: ANISOCYTOSIS 2+; EOSINOPHILS 2 % (0-3); LYMPHOCYTES 26 % (16-44); MONOCYTES 11 % (0-5); MYELOCYTES 1 % (0-0); NEUTROPHILS 60 % (28-66); PLATELET ESTIMATE NORMAL (NORMAL)
[2022-10-05 05:36] LABS: MICROCYTOSIS 1+; OVALOCYTES 1+; POLYCHROMASIA 1+
[2022-10-05] MEDS: PIPERACILLIN/TAZOBACTAM SOD 3.375 GM in D5W MINI-BAG PLUS 50 ML IV SCH ×4 (05:53→22:00)
[2022-10-05 06:00] VITALS: BP 142/86
[2022-10-05] MEDS: ACETAMINOPHEN 650MG ER TAB (TYLENOL ARTHRITIS) PO PRN ×3 (06:42→22:05)
[2022-10-05] MEDS ORDERED: MAG SULF 1GM/100ML (MAG RUN) 1 GM in IV 1 EA IV ONE (07:10)
[2022-10-05] MEDS: TIOTROPIUM INHALER/CAPSULE (SPIRIVA) INH SCH (07:36)
[2022-10-05] MEDS: ADVAIR HFA 230/21MCG INHALER INH SCH ×2 (07:36→20:54)
[2022-10-05] MEDS: INSULIN LISPRO (NovoLOG) PER UNIT SC SCH ×4 (08:11→21:00)
[2022-10-05] MEDS: ENOXAPARIN 30MG/0.3ML SYRINGE (J1650 PER 10MG) SC SCH (08:12)
[2022-10-05] MEDS: CYANOCOBALAMIN 500 MCG TAB PO SCH (08:12)
[2022-10-05] MEDS: NEPHRO-VIT TAB (NEPHROCAPS) PO SCH (08:12)
[2022-10-05] MEDS: DOCUSATE SODIUM 100MG CAPSULE PO SCH ×2 (08:14→20:09)
[2022-10-05] MEDS: ASPIRIN 81MG CHEW TABLET PO SCH (08:14)
[2022-10-05] MEDS: PANTOPRAZOLE 40MG TAB (PROTONIX) PO SCH (08:14)
[2022-10-05] MEDS: SIMETHICONE 80MG CHEW TAB PO SCH ×4 (08:14→20:10)
[2022-10-05] MEDS: VITAMIN D 1,000 INTERNATIONAL UNITS TABLET PO SCH (08:14)
[2022-10-05] MEDS: allopurinoL 100 MG TAB PO SCH (08:14)
[2022-10-05] MEDS: CLOPIDOGREL 75 MG TAB PO SCH (08:15)
[2022-10-05] MEDS: CARVedilol 3.125 MG TAB PO SCH ×2 (08:15→20:10)
[2022-10-05] MEDS: GABAPENTIN 100 MG CAP PO SCH ×3 (08:15→20:09)
[2022-10-05] MEDS: BRIMONIDINE 0.1% OPHTH SOLN 5ML OU SCH ×2 (08:16→20:12)
[2022-10-05] MEDS: SANTYL OINT 30GM TOP SCH (08:17)
[2022-10-05] MEDS: TIMOLOL MALEATE 0.5% OPHTH SOLN 5 ML OU SCH ×2 (08:17→20:12)
[2022-10-05] MEDS: VANICREAM MOISTURIZING SKIN CREAM 113GM TUBE TOP SCH (08:18)
[2022-10-05] MEDS: LACTOBACILLUS ACIDOPHILUS CAP (BACID) PO SCH ×2 (12:11→17:11)
[2022-10-05 14:00] VITALS: BP 143/57
[2022-10-05] MEDS: ATORVASTATIN 20 MG TAB PO SCH (20:09)
[2022-10-05] MEDS: NIACIN 100MG TAB PO SCH (20:10)
[2022-10-05] MEDS: LEVEMIR (INSULIN DETEMIR) 1 UNITS/0.01ML SC SCH (20:11)
[2022-10-05 20:12] LABS: HEMATOCRIT 20.9 % (42.0-52.0)
[2022-10-05] MEDS: LATANOPROST 0.005% OPHTH SOLN 2.5 ML OU SCH (20:12)
[2022-10-05 20:13] LABS: HEMOGLOBIN 6.8 g/dl (13.5-17.5)
[2022-10-05] MEDS ORDERED: CEPACOL LOZENGE PO PRN (21:15)
[2022-10-05] MEDS ORDERED: SALIVA SUBSTITUTE(MOUTHKOTE) BTL MT PRN (21:15)
[2022-10-05] MEDS ORDERED: IPRATROPIUM 0.5MG/ALBUTEROL 2.5MG INH SOL UD 3ML (DUONEB) NEB ONE (23:30)
[2022-10-05 23:32] VITALS: BP 118/54
[2022-10-05 23:41] VITALS: BP 118/54
[2022-10-05 23:53] VITALS: BP 127/68
[2022-10-06] VITALS (16 sets, daily range): BP systolic 113–140; BP diastolic 44–73
[2022-10-06] MEDS: FUROSEMIDE 100MG/10ML VIAL IV SCH ×3 (02:42→20:06)
[2022-10-06] MEDS: PANTOPRAZOLE 40MG VIAL IV SCH ×3 (02:45→20:06)
[2022-10-06] MEDS: PIPERACILLIN/TAZOBACTAM SOD 3.375 GM in D5W MINI-BAG PLUS 50 ML IV SCH ×4 (03:24→23:03)
[2022-10-06 06:27] LABS: C REACTIVE PROTEIN QUANTITATIV 4.4 MG/DL (<1.0)
[2022-10-06 06:28] LABS: CALCIUM LEVEL 8.5 MG/DL (8.3-10.6); CREATININE FOR GFR 2.7 MG/DL (0.70-1.30); MAGNESIUM LEVEL 1.8 MG/DL (1.8-2.4); POTASSIUM SERUM 3.8 MMOL/L (3.5-5.1)
[2022-10-06] MEDS: TIOTROPIUM INHALER/CAPSULE (SPIRIVA) INH SCH (08:02)
[2022-10-06] MEDS: ADVAIR HFA 230/21MCG INHALER INH SCH ×2 (08:03→20:35)
[2022-10-06] MEDS: NEPHRO-VIT TAB (NEPHROCAPS) PO SCH (08:35)
[2022-10-06] MEDS: INSULIN LISPRO (NovoLOG) PER UNIT SC SCH ×4 (08:39→20:07)
[2022-10-06] MEDS: CYANOCOBALAMIN 500 MCG TAB PO SCH (08:39)
[2022-10-06] MEDS: LACTOBACILLUS ACIDOPHILUS CAP (BACID) PO SCH ×2 (08:40→17:46)
[2022-10-06] MEDS: CARVedilol 3.125 MG TAB PO SCH ×2 (08:40→20:08)
[2022-10-06] MEDS: allopurinoL 100 MG TAB PO SCH (08:40)
[2022-10-06] MEDS: GABAPENTIN 100 MG CAP PO SCH ×3 (08:40→20:07)
[2022-10-06] MEDS: VITAMIN D 1,000 INTERNATIONAL UNITS TABLET PO SCH (08:41)
[2022-10-06] MEDS: DOCUSATE SODIUM 100MG CAPSULE PO SCH ×2 (08:41→20:23)
[2022-10-06] MEDS: BRIMONIDINE 0.1% OPHTH SOLN 5ML OU SCH ×2 (08:41→20:06)
[2022-10-06] MEDS: TIMOLOL MALEATE 0.5% OPHTH SOLN 5 ML OU SCH ×2 (08:42→20:06)
[2022-10-06] MEDS: ACETAMINOPHEN 650MG ER TAB (TYLENOL ARTHRITIS) PO PRN (08:47)
[2022-10-06] MEDS: SIMETHICONE 80MG CHEW TAB PO SCH ×4 (09:00→20:08)
[2022-10-06 09:59] LABS: BASO # 0.1 10^3/uL (0.0-0.2); BASO % 0.3 % (0.0-1.0); EOS # 0.3 10^3/uL (0.0-0.5); EOS % 1.7 % (0.0-3.0); HEMATOCRIT 21.3 % (42.0-52.0); LYMPH # 5.8 10^3/uL (1.5-5.0); LYMPH % 31.5 % (24.0-44.0); MEAN CORPUSCULAR HEMOGLOBIN 31.4 pg (27.0-33.0); MEAN CORPUSCULAR HGB CONC 32.9 g/dl (32.0-36.5); MEAN CORPUSCULAR VOLUME 95.5 fl (80.0-96.0); MONO % 5.3 % (2.0-8.0); NEUTROPHILS # 11.1 10^3/uL (1.5-8.5); NEUTROPHILS % 60.2 % (36.0-66.0); PLATELET COUNT, AUTOMATED 106 10^3/uL (150-450); RED BLOOD COUNT 2.23 10^6/uL (4.30-6.10); WHITE BLOOD COUNT 18.4 10^3/uL (4.0-10.0)
[2022-10-06] MEDS: VANICREAM MOISTURIZING SKIN CREAM 113GM TUBE TOP SCH (10:13)
[2022-10-06 10:16] LABS: CALCIUM LEVEL 8.2 MG/DL (8.3-10.6); CREATININE FOR GFR 2.67 MG/DL (0.70-1.30); GLOMERULAR FILTRATION RATE 24.3 (>35); POTASSIUM SERUM 3.9 MMOL/L (3.5-5.1)
[2022-10-06] MEDS: SANTYL OINT 30GM TOP SCH (10:57)
[2022-10-06] MEDS: LATANOPROST 0.005% OPHTH SOLN 2.5 ML OU SCH (20:06)
[2022-10-06] MEDS: LEVEMIR (INSULIN DETEMIR) 1 UNITS/0.01ML SC SCH (20:07)
[2022-10-06] MEDS: ATORVASTATIN 20 MG TAB PO SCH (20:09)
[2022-10-06] MEDS: NIACIN 100MG TAB PO SCH (20:09)
[2022-10-06 23:58] LABS: HEMATOCRIT 22.3 % (42.0-52.0); HEMOGLOBIN 7.3 g/dl (13.5-17.5)
[2022-10-07] VITALS (8 sets, daily range): BP systolic 106–130; BP diastolic 51–66
[2022-10-07] MEDS: ACETAMINOPHEN 650MG ER TAB (TYLENOL ARTHRITIS) PO PRN ×2 (01:34→22:36)
[2022-10-07] MEDS: PIPERACILLIN/TAZOBACTAM SOD 3.375 GM in D5W MINI-BAG PLUS 50 ML IV SCH ×4 (03:31→20:33)
[2022-10-07] MEDS: FUROSEMIDE 100MG/10ML VIAL IV SCH ×3 (03:35→20:33)
[2022-10-07 06:19] LABS: HEMATOCRIT 23.4 % (42.0-52.0); HEMOGLOBIN 7.8 g/dl (13.5-17.5); MEAN CORPUSCULAR HEMOGLOBIN 31.6 pg (27.0-33.0); MEAN CORPUSCULAR HGB CONC 33.3 g/dl (32.0-36.5); MEAN CORPUSCULAR VOLUME 94.7 fl (80.0-96.0); PLATELET COUNT, AUTOMATED 110 10^3/uL (150-450); RED BLOOD COUNT 2.47 10^6/uL (4.30-6.10); WHITE BLOOD COUNT 20.2 10^3/uL (4.0-10.0)
[2022-10-07 06:51] LABS: CALCIUM LEVEL 8.3 MG/DL (8.3-10.6); CREATININE FOR GFR 2.53 MG/DL (0.70-1.30); GLOMERULAR FILTRATION RATE 25.8 (>35); POTASSIUM SERUM 3.5 MMOL/L (3.5-5.1)
[2022-10-07] MEDS ORDERED: POTASSIUM CHLORIDE 10MEQ SR TABLET PO ONE (07:05)
[2022-10-07] MEDS: INSULIN LISPRO (NovoLOG) PER UNIT SC SCH ×4 (07:30→21:00)
[2022-10-07] MEDS: GABAPENTIN 100 MG CAP PO SCH ×3 (08:14→22:34)
[2022-10-07] MEDS: DOCUSATE SODIUM 100MG CAPSULE PO SCH ×2 (08:14→21:00)
[2022-10-07] MEDS: PANTOPRAZOLE 40MG VIAL IV SCH ×2 (08:14→22:33)
[2022-10-07] MEDS: CYANOCOBALAMIN 500 MCG TAB PO SCH (08:14)
[2022-10-07] MEDS: NEPHRO-VIT TAB (NEPHROCAPS) PO SCH (08:15)
[2022-10-07] MEDS: LACTOBACILLUS ACIDOPHILUS CAP (BACID) PO SCH ×2 (08:16→17:44)
[2022-10-07] MEDS: VITAMIN D 1,000 INTERNATIONAL UNITS TABLET PO SCH (08:16)
[2022-10-07] MEDS: SPIRONOLACTONE 25 MG TAB PO SCH ×2 (08:16→16:43)
[2022-10-07] MEDS: allopurinoL 100 MG TAB PO SCH (08:16)
[2022-10-07] MEDS: CARVedilol 3.125 MG TAB PO SCH ×2 (08:17→22:35)
[2022-10-07] MEDS: VANICREAM MOISTURIZING SKIN CREAM 113GM TUBE TOP SCH (08:19)
[2022-10-07] MEDS: TIMOLOL MALEATE 0.5% OPHTH SOLN 5 ML OU SCH ×2 (08:20→22:36)
[2022-10-07] MEDS: BRIMONIDINE 0.1% OPHTH SOLN 5ML OU SCH ×2 (08:20→22:35)
[2022-10-07] MEDS: SANTYL OINT 30GM TOP SCH (08:21)
[2022-10-07 08:24] LABS: BASOPHILS 1 % (0-1); EOSINOPHILS 2 % (0-3); LYMPHOCYTES 22 % (16-44); METAMYELOCYTES 1 % (0-0); MONOCYTES 3 % (0-5); MYELOCYTES 1 % (0-0); NEUTROPHILS 70 % (28-66); NUCLEATED RED BLOOD CELL 1 % (0-0)
[2022-10-07 08:25] LABS: ANISOCYTOSIS 3+; HELMET CELLS 1+
[2022-10-07 08:26] LABS: PLATELET ESTIMATE DECREASED (NORMAL); POLYCHROMASIA 1+; TOXIC GRANULATION 1+
[2022-10-07] MEDS: SIMETHICONE 80MG CHEW TAB PO SCH ×4 (09:00→22:34)
[2022-10-07] MEDS: TIOTROPIUM INHALER/CAPSULE (SPIRIVA) INH SCH (12:30)
[2022-10-07] MEDS: ADVAIR HFA 230/21MCG INHALER INH SCH ×2 (12:30→19:58)
[2022-10-07 15:16] LABS: HEMATOCRIT 24.4 % (42.0-52.0); HEMOGLOBIN 8.1 g/dl (13.5-17.5)
[2022-10-07] MEDS: ATORVASTATIN 20 MG TAB PO SCH (22:34)
[2022-10-07] MEDS: NIACIN 100MG TAB PO SCH (22:34)
[2022-10-07] MEDS: LATANOPROST 0.005% OPHTH SOLN 2.5 ML OU SCH (22:36)
[2022-10-07] MEDS: LEVEMIR (INSULIN DETEMIR) 1 UNITS/0.01ML SC SCH (22:36)
[2022-10-08 01:02] LABS: HEMATOCRIT 22.8 % (42.0-52.0); HEMOGLOBIN 7.3 g/dl (13.5-17.5)
[2022-10-08] MEDS: PIPERACILLIN/TAZOBACTAM SOD 3.375 GM in D5W MINI-BAG PLUS 50 ML IV SCH ×4 (04:29→21:07)
[2022-10-08] MEDS: FUROSEMIDE 100MG/10ML VIAL IV SCH ×3 (04:30→21:04)
[2022-10-08] MEDS ORDERED: oxyCODONE 5MG TAB PO ONE (04:35)
[2022-10-08 06:00] VITALS: BP 125/60
[2022-10-08 06:50] LABS: HEMATOCRIT 23.9 % (42.0-52.0); HEMOGLOBIN 7.8 g/dl (13.5-17.5); MEAN CORPUSCULAR HEMOGLOBIN 31.8 pg (27.0-33.0); MEAN CORPUSCULAR HGB CONC 32.6 g/dl (32.0-36.5); MEAN CORPUSCULAR VOLUME 97.6 fl (80.0-96.0); PLATELET COUNT, AUTOMATED 110 10^3/uL (150-450); RED BLOOD COUNT 2.45 10^6/uL (4.30-6.10); WHITE BLOOD COUNT 17.3 10^3/uL (4.0-10.0)
[2022-10-08 07:21] LABS: CALCIUM LEVEL 8.6 MG/DL (8.3-10.6); CREATININE FOR GFR 2.51 MG/DL (0.70-1.30); GLOMERULAR FILTRATION RATE 26.1 (>35); POTASSIUM SERUM 3.5 MMOL/L (3.5-5.1)
[2022-10-08] MEDS ORDERED: POTASSIUM CHLORIDE 10MEQ SR TABLET PO ONE (07:25)
[2022-10-08] MEDS: ADVAIR HFA 230/21MCG INHALER INH SCH ×2 (07:46→20:00)
[2022-10-08] MEDS: TIOTROPIUM INHALER/CAPSULE (SPIRIVA) INH SCH (07:46)
[2022-10-08] MEDS: CLOPIDOGREL 75 MG TAB PO SCH (07:54)
[2022-10-08 08:00] VITALS: BP_SYST 139; BP_DIAS 40; BP_DIAS 70
[2022-10-08] MEDS: SIMETHICONE 80MG CHEW TAB PO SCH ×5 (08:13→21:05)
[2022-10-08] MEDS: PANTOPRAZOLE 40MG VIAL IV SCH ×2 (08:14→21:06)
[2022-10-08] MEDS: GABAPENTIN 100 MG CAP PO SCH ×3 (08:14→21:05)
[2022-10-08] MEDS: INSULIN LISPRO (NovoLOG) PER UNIT SC SCH ×4 (08:15→20:54)
[2022-10-08 08:34] LABS: ATYPICAL LYMPH 2 % (0-5); BASOPHILS 1 % (0-1); EOSINOPHILS 2 % (0-3); LYMPHOCYTES 27 % (16-44); MONOCYTES 4 % (0-5); NEUTROPHILS 64 % (28-66); NUCLEATED RED BLOOD CELL 1 % (0-0)
[2022-10-08 08:35] LABS: ANISOCYTOSIS 3+
[2022-10-08 08:36] LABS: POLYCHROMASIA 1+
[2022-10-08 08:37] LABS: PLATELET ESTIMATE DECREASED (NORMAL)
[2022-10-08] MEDS: ASPIRIN 81MG CHEW TABLET PO SCH (09:00)
[2022-10-08] MEDS: NEPHRO-VIT TAB (NEPHROCAPS) PO SCH (09:47)
[2022-10-08] MEDS: CARVedilol 3.125 MG TAB PO SCH ×2 (09:52→21:06)
[2022-10-08] MEDS: allopurinoL 100 MG TAB PO SCH (09:53)
[2022-10-08] MEDS: VITAMIN D 1,000 INTERNATIONAL UNITS TABLET PO SCH (09:57)
[2022-10-08] MEDS: LACTOBACILLUS ACIDOPHILUS CAP (BACID) PO SCH ×2 (09:57→17:18)
[2022-10-08] MEDS: SPIRONOLACTONE 25 MG TAB PO SCH ×2 (09:57→17:18)
[2022-10-08] MEDS: DOCUSATE SODIUM 100MG CAPSULE PO SCH ×2 (09:57→21:05)
[2022-10-08] MEDS: CYANOCOBALAMIN 500 MCG TAB PO SCH (09:58)
[2022-10-08] MEDS: BRIMONIDINE 0.1% OPHTH SOLN 5ML OU SCH ×2 (09:59→21:06)
[2022-10-08] MEDS: TIMOLOL MALEATE 0.5% OPHTH SOLN 5 ML OU SCH ×2 (09:59→21:06)
[2022-10-08] MEDS: SANTYL OINT 30GM TOP SCH (10:00)
[2022-10-08] MEDS: VANICREAM MOISTURIZING SKIN CREAM 113GM TUBE TOP SCH (10:01)
[2022-10-08 11:07] LABS: ALBUMIN 2.1 G/DL (3.2-5.2); BILIRUBIN,DIRECT 0.5 MG/DL (<0.4); TOTAL PROTEIN 5.8 G/DL (5.7-8.2)
[2022-10-08 12:36] LABS: APPEARANCE, BODY FLUID CLOUDY (CLEAR); PLEURAL FL COLOR YELLOW (COLORLESS); SOURCE, BODY FLUID PLEURAL
[2022-10-08 13:41] LABS: PH BODY FLUID 7.673 UNITS (NOT ESTABLISHED); SOURCE, BODY FLUID pH PLEURAL
[2022-10-08 13:42] LABS: SOURCE, BODY FLUID ALBUMIN PLEURAL
[2022-10-08 13:47] LABS: SOURCE, BODY FLUID GLUCOSE PLEURAL
[2022-10-08 13:48] LABS: AMYLASE, BODY FLUID 35 U/L (NOT ESTABLISHED); LDH, BODY FLUID 94 U/L (NOT ESTABLISHED); SOURCE, BODY FLUID AMYLASE PLEURAL; SOURCE, BODY FLUID LDH PLEURAL
[2022-10-08 13:49] LABS: CHOLESTEROL, BODY FLUID 37 MG/DL (NOT ESTABLISHED); SOURCE, BODY FLUID CHOL PLEURAL
[2022-10-08 15:32] LABS: SOURCE, BODY FLUID TOT PROTEIN PLEURAL; SOURCE, BODY FLUID TRIG PLEURAL; TOTAL PROTEIN, BODY FLUID 3.1 G/DL (NOT ESTABLISHED); TRIGLYCERIDE, BODY FLUID 33 MG/DL (NOT ESTABLISHED)
[2022-10-08] MEDS: NIACIN 100MG TAB PO SCH (21:05)
[2022-10-08] MEDS: ATORVASTATIN 20 MG TAB PO SCH (21:05)
[2022-10-08] MEDS: LEVEMIR (INSULIN DETEMIR) 1 UNITS/0.01ML SC SCH (21:06)
[2022-10-08] MEDS: LATANOPROST 0.005% OPHTH SOLN 2.5 ML OU SCH (21:07)
[2022-10-08 22:00] VITALS: BP 131/69
[2022-10-09] MEDS: ACETAMINOPHEN 650MG ER TAB (TYLENOL ARTHRITIS) PO PRN ×3 (02:13→23:20)
[2022-10-09] MEDS: PIPERACILLIN/TAZOBACTAM SOD 3.375 GM in D5W MINI-BAG PLUS 50 ML IV SCH ×4 (04:13→22:55)
[2022-10-09] MEDS: FUROSEMIDE 100MG/10ML VIAL IV SCH ×3 (04:14→21:26)
[2022-10-09 05:08] LABS: HEMOGLOBIN 7.7 g/dl (13.5-17.5); MEAN CORPUSCULAR HEMOGLOBIN 32.4 pg (27.0-33.0); MEAN CORPUSCULAR HGB CONC 32.1 g/dl (32.0-36.5); MEAN CORPUSCULAR VOLUME 100.8 fl (80.0-96.0); RED BLOOD COUNT 2.38 10^6/uL (4.30-6.10); WHITE BLOOD COUNT 15.3 10^3/uL (4.0-10.0)
[2022-10-09 05:37] LABS: PLATELET COUNT, AUTOMATED 99 10^3/uL (150-450)
[2022-10-09 05:39] LABS: CALCIUM LEVEL 8.3 MG/DL (8.3-10.6); CREATININE FOR GFR 2.51 MG/DL (0.70-1.30); GLOMERULAR FILTRATION RATE 26.1 (>35); POTASSIUM SERUM 3.6 MMOL/L (3.5-5.1)
[2022-10-09 06:00] VITALS: BP 126/57
[2022-10-09] MEDS ORDERED: FLEET ENEMA PR ONE (06:00)
[2022-10-09 06:47] LABS: ANISOCYTOSIS 1+; EOSINOPHILS 5 % (0-3); LYMPHOCYTES 20 % (16-44); MONOCYTES 9 % (0-5); NEUTROPHILS 66 % (28-66); PLATELET ESTIMATE NORMAL (NORMAL)
[2022-10-09 06:48] LABS: MICROCYTOSIS 1+
[2022-10-09] MEDS: TIOTROPIUM INHALER/CAPSULE (SPIRIVA) INH SCH (07:40)
[2022-10-09] MEDS: ADVAIR HFA 230/21MCG INHALER INH SCH ×2 (07:41→20:00)
[2022-10-09] MEDS: PANTOPRAZOLE 40MG VIAL IV SCH ×2 (08:40→21:25)
[2022-10-09] MEDS: SIMETHICONE 80MG CHEW TAB PO SCH ×4 (08:41→21:27)
[2022-10-09] MEDS: CYANOCOBALAMIN 500 MCG TAB PO SCH (08:41)
[2022-10-09] MEDS: LACTOBACILLUS ACIDOPHILUS CAP (BACID) PO SCH ×2 (08:42→17:27)
[2022-10-09] MEDS: NEPHRO-VIT TAB (NEPHROCAPS) PO SCH (08:43)
[2022-10-09] MEDS: SPIRONOLACTONE 25 MG TAB PO SCH ×2 (08:43→17:27)
[2022-10-09] MEDS: GABAPENTIN 100 MG CAP PO SCH ×3 (08:43→21:26)
[2022-10-09] MEDS: DOCUSATE SODIUM 100MG CAPSULE PO SCH ×2 (08:43→21:00)
[2022-10-09] MEDS: allopurinoL 100 MG TAB PO SCH (08:44)
[2022-10-09] MEDS: CARVedilol 3.125 MG TAB PO SCH ×2 (08:44→21:28)
[2022-10-09] MEDS: VITAMIN D 1,000 INTERNATIONAL UNITS TABLET PO SCH (08:44)
[2022-10-09] MEDS: TIMOLOL MALEATE 0.5% OPHTH SOLN 5 ML OU SCH ×2 (08:46→21:30)
[2022-10-09] MEDS: BRIMONIDINE 0.1% OPHTH SOLN 5ML OU SCH ×2 (08:46→21:29)
[2022-10-09] MEDS: SANTYL OINT 30GM TOP SCH (08:46)
[2022-10-09] MEDS: VANICREAM MOISTURIZING SKIN CREAM 113GM TUBE TOP SCH (08:46)
[2022-10-09] MEDS: INSULIN LISPRO (NovoLOG) PER UNIT SC SCH ×4 (08:47→21:00)
[2022-10-09] MEDS ORDERED: MOM 30ML SUSPENSION UDC PO ONE ×2 (10:00→20:05)
[2022-10-09 11:14] LABS: C REACTIVE PROTEIN QUANTITATIV 3.3 MG/DL (<1.0)
[2022-10-09] MEDS ORDERED: GOLYTELY SOLN 4000 ML BTL PO ONE (12:00)
[2022-10-09] MEDS ORDERED: LIDOCAINE 2% 100MG/5ML SDV (FOR ANES.) As Ordered ONE (12:52)
[2022-10-09] MEDS ORDERED: propofoL 200 MG/20 ML VIAL As Ordered ONE (12:52)
[2022-10-09 14:00] VITALS: BP 159/80
[2022-10-09] MEDS ORDERED: BISACODYL 5MG TAB PO ONE (20:00)
[2022-10-09] MEDS: NIACIN 100MG TAB PO SCH (21:26)
[2022-10-09] MEDS: ATORVASTATIN 20 MG TAB PO SCH (21:27)
[2022-10-09] MEDS: SUCRALFATE SUSP 1GM/10ML UD PO SCH (21:29)
[2022-10-09] MEDS: LATANOPROST 0.005% OPHTH SOLN 2.5 ML OU SCH (21:29)
[2022-10-09] MEDS: LEVEMIR (INSULIN DETEMIR) 1 UNITS/0.01ML SC SCH (21:29)
[2022-10-09 22:00] VITALS: BP 145/66
[2022-10-10] VITALS (10 sets, daily range): BP systolic 108–128; BP diastolic 48–83
[2022-10-10] MEDS: FUROSEMIDE 100MG/10ML VIAL IV SCH ×3 (03:31→22:06)
[2022-10-10] MEDS: PIPERACILLIN/TAZOBACTAM SOD 3.375 GM in D5W MINI-BAG PLUS 50 ML IV SCH ×4 (03:52→22:08)
[2022-10-10] MEDS: INSULIN LISPRO (NovoLOG) PER UNIT SC SCH ×4 (07:30→21:00)
[2022-10-10] MEDS: SUCRALFATE SUSP 1GM/10ML UD PO SCH ×4 (07:30→22:07)
[2022-10-10] MEDS: ADVAIR HFA 230/21MCG INHALER INH SCH ×2 (07:46→21:11)
[2022-10-10] MEDS: TIOTROPIUM INHALER/CAPSULE (SPIRIVA) INH SCH (07:48)
[2022-10-10 07:56] LABS: HEMATOCRIT 27.2 % (42.0-52.0); HEMOGLOBIN 8.6 g/dl (13.5-17.5); MEAN CORPUSCULAR HEMOGLOBIN 32.2 pg (27.0-33.0); MEAN CORPUSCULAR HGB CONC 31.6 g/dl (32.0-36.5); MEAN CORPUSCULAR VOLUME 101.9 fl (80.0-96.0); RED BLOOD COUNT 2.67 10^6/uL (4.30-6.10); WHITE BLOOD COUNT 14.3 10^3/uL (4.0-10.0)
[2022-10-10 07:57] LABS: PLATELET COUNT, AUTOMATED 99 10^3/uL (150-450)
[2022-10-10] MEDS: LACTOBACILLUS ACIDOPHILUS CAP (BACID) PO SCH ×2 (08:00→13:28)
[2022-10-10] MEDS ORDERED: propofoL 200 MG/20 ML VIAL As Ordered ONE (08:02)
[2022-10-10] MEDS ORDERED: LIDOCAINE 2% 100MG/5ML SDV (FOR ANES.) As Ordered ONE (08:03)
[2022-10-10 08:26] LABS: ATYPICAL LYMPH 7 % (0-5); BASOPHILS 1 % (0-1); EOSINOPHILS 6 % (0-3); LYMPHOCYTES 31 % (16-44); MONOCYTES 6 % (0-5); NEUTROPHILS 49 % (28-66)
[2022-10-10 08:29] LABS: CALCIUM LEVEL 8.5 MG/DL (8.3-10.6); CREATININE FOR GFR 2.47 MG/DL (0.70-1.30); GLOMERULAR FILTRATION RATE 26.6 (>35); POTASSIUM SERUM 3.4 MMOL/L (3.5-5.1)
[2022-10-10] MEDS: GABAPENTIN 100 MG CAP PO SCH ×3 (09:00→22:10)
[2022-10-10] MEDS: SIMETHICONE 80MG CHEW TAB PO SCH ×4 (09:00→22:08)
[2022-10-10] MEDS: DOCUSATE SODIUM 100MG CAPSULE PO SCH ×2 (09:00→21:00)
[2022-10-10] MEDS: SPIRONOLACTONE 25 MG TAB PO SCH ×2 (09:00→17:48)
[2022-10-10 09:17] LABS: ANISOCYTOSIS 4+
[2022-10-10 09:18] LABS: PLATELET ESTIMATE DECREASED (NORMAL); POLYCHROMASIA 1+
[2022-10-10 09:19] LABS: HYPOCHROMASIA 1+; STOMATOCYTES 1+
[2022-10-10] MEDS: NEPHRO-VIT TAB (NEPHROCAPS) PO SCH (13:27)
[2022-10-10] MEDS: PANTOPRAZOLE 40MG VIAL IV SCH ×2 (13:27→22:06)
[2022-10-10] MEDS: CYANOCOBALAMIN 500 MCG TAB PO SCH (13:29)
[2022-10-10] MEDS: VITAMIN D 1,000 INTERNATIONAL UNITS TABLET PO SCH (13:29)
[2022-10-10] MEDS: CARVedilol 3.125 MG TAB PO SCH ×2 (13:29→22:12)
[2022-10-10] MEDS: VANICREAM MOISTURIZING SKIN CREAM 113GM TUBE TOP SCH (13:33)
[2022-10-10] MEDS: SANTYL OINT 30GM TOP SCH (13:33)
[2022-10-10] MEDS: TIMOLOL MALEATE 0.5% OPHTH SOLN 5 ML OU SCH ×2 (13:33→22:17)
[2022-10-10] MEDS: BRIMONIDINE 0.1% OPHTH SOLN 5ML OU SCH ×2 (13:34→22:17)
[2022-10-10] MEDS: ACETAMINOPHEN 650MG ER TAB (TYLENOL ARTHRITIS) PO PRN (17:46)
[2022-10-10] MEDS: allopurinoL 100 MG TAB PO SCH (17:48)
[2022-10-10] MEDS: LEVEMIR (INSULIN DETEMIR) 1 UNITS/0.01ML SC SCH (22:08)
[2022-10-10] MEDS: ATORVASTATIN 20 MG TAB PO SCH (22:08)
[2022-10-10] MEDS: NIACIN 100MG TAB PO SCH (22:09)
[2022-10-10] MEDS: LATANOPROST 0.005% OPHTH SOLN 2.5 ML OU SCH (22:17)
[2022-10-10] MEDS: zolPIDEM TARTRATE 5 MG TAB PO PRN (23:23)
[2022-10-11 02:46] VITALS: BP 130/92
[2022-10-11] MEDS: PIPERACILLIN/TAZOBACTAM SOD 3.375 GM in D5W MINI-BAG PLUS 50 ML IV SCH ×4 (03:43→22:32)
[2022-10-11] MEDS: FUROSEMIDE 100MG/10ML VIAL IV SCH ×3 (03:43→20:52)
[2022-10-11 06:00] VITALS: BP 139/75
[2022-10-11 06:21] LABS: BASO # 0.1 10^3/uL (0.0-0.2); BASO % 0.4 % (0.0-1.0); EOS # 0.4 10^3/uL (0.0-0.5); EOS % 3.6 % (0.0-3.0); HEMATOCRIT 26.5 % (42.0-52.0); HEMOGLOBIN 8.2 g/dl (13.5-17.5); LYMPH # 3.4 10^3/uL (1.5-5.0); MEAN CORPUSCULAR HEMOGLOBIN 31.8 pg (27.0-33.0); MEAN CORPUSCULAR HGB CONC 30.9 g/dl (32.0-36.5); MEAN CORPUSCULAR VOLUME 102.7 fl (80.0-96.0); MONO # 0.9 10^3/uL (0.0-0.8); MONO % 7.4 % (2.0-8.0); RED BLOOD COUNT 2.58 10^6/uL (4.30-6.10); WHITE BLOOD COUNT 11.8 10^3/uL (4.0-10.0)
[2022-10-11 06:34] LABS: PLATELET COUNT, AUTOMATED 84 10^3/uL (150-450)
[2022-10-11 07:15] LABS: CALCIUM LEVEL 7.9 MG/DL (8.3-10.6); CREATININE FOR GFR 2.51 MG/DL (0.70-1.30); GLOMERULAR FILTRATION RATE 26.1 (>35); POTASSIUM SERUM 3.3 MMOL/L (3.5-5.1)
[2022-10-11] MEDS: ADVAIR HFA 230/21MCG INHALER INH SCH ×2 (08:04→21:03)
[2022-10-11] MEDS: TIOTROPIUM INHALER/CAPSULE (SPIRIVA) INH SCH (08:04)
[2022-10-11] MEDS: SUCRALFATE SUSP 1GM/10ML UD PO SCH ×4 (08:25→20:58)
[2022-10-11] MEDS: ASPIRIN 81MG CHEW TABLET PO SCH (08:25)
[2022-10-11] MEDS: DOCUSATE SODIUM 100MG CAPSULE PO SCH ×2 (08:25→21:00)
[2022-10-11] MEDS: LACTOBACILLUS ACIDOPHILUS CAP (BACID) PO SCH ×2 (08:25→17:01)
[2022-10-11] MEDS: SIMETHICONE 80MG CHEW TAB PO SCH ×4 (08:25→21:05)
[2022-10-11] MEDS: CYANOCOBALAMIN 500 MCG TAB PO SCH (08:25)
[2022-10-11] MEDS: PANTOPRAZOLE 40MG VIAL IV SCH ×2 (08:25→21:05)
[2022-10-11] MEDS: GABAPENTIN 100 MG CAP PO SCH ×3 (08:26→21:00)
[2022-10-11] MEDS: VITAMIN D 1,000 INTERNATIONAL UNITS TABLET PO SCH (08:26)
[2022-10-11] MEDS: allopurinoL 100 MG TAB PO SCH (08:26)
[2022-10-11] MEDS: CARVedilol 3.125 MG TAB PO SCH ×2 (08:26→21:02)
[2022-10-11] MEDS: NEPHRO-VIT TAB (NEPHROCAPS) PO SCH (08:26)
[2022-10-11] MEDS: CLOPIDOGREL 75 MG TAB PO SCH (08:26)
[2022-10-11] MEDS: SPIRONOLACTONE 25 MG TAB PO SCH ×2 (08:27→17:02)
[2022-10-11] MEDS: BRIMONIDINE 0.1% OPHTH SOLN 5ML OU SCH ×2 (08:28→21:05)
[2022-10-11] MEDS: TIMOLOL MALEATE 0.5% OPHTH SOLN 5 ML OU SCH ×2 (08:28→21:05)
[2022-10-11] MEDS: VANICREAM MOISTURIZING SKIN CREAM 113GM TUBE TOP SCH (08:28)
[2022-10-11] MEDS: SANTYL OINT 30GM TOP SCH (08:28)
[2022-10-11] MEDS: INSULIN LISPRO (NovoLOG) PER UNIT SC SCH ×4 (08:29→20:28)
[2022-10-11] MEDS ORDERED: ENOXAPARIN 40MG/0.4ML SYRINGE (J1650 PER 10MG) SC SCH (09:00)
[2022-10-11] MEDS: ACETAMINOPHEN 650MG ER TAB (TYLENOL ARTHRITIS) PO PRN ×2 (10:29→21:03)
[2022-10-11] MEDS ORDERED: POTASSIUM CHLORIDE 10MEQ SR TABLET PO ONE ×2 (11:00→12:25)
[2022-10-11] MEDS: DARBEPOETIN 100MCG/0.5ML *NON-DIALYSIS* SYRINGE SC SCH (11:37)
[2022-10-11] MEDS: LEVEMIR (INSULIN DETEMIR) 1 UNITS/0.01ML SC SCH (20:56)
[2022-10-11] MEDS: NIACIN 100MG TAB PO SCH (20:59)
[2022-10-11] MEDS: ATORVASTATIN 20 MG TAB PO SCH (21:00)
[2022-10-11] MEDS: zolPIDEM TARTRATE 5 MG TAB PO PRN (21:01)
[2022-10-11 21:05] VITALS: BP 144/76
[2022-10-11] MEDS: LATANOPROST 0.005% OPHTH SOLN 2.5 ML OU SCH (21:05)
[2022-10-12] MEDS: FUROSEMIDE 100MG/10ML VIAL IV SCH ×3 (03:29→21:38)
[2022-10-12] MEDS: PIPERACILLIN/TAZOBACTAM SOD 3.375 GM in D5W MINI-BAG PLUS 50 ML IV SCH ×4 (03:29→21:40)
[2022-10-12 06:00] VITALS: BP 133/67
[2022-10-12 06:21] LABS: BASO % 0.3 % (0.0-1.0); EOS # 0.6 10^3/uL (0.0-0.5); EOS % 5.3 % (0.0-3.0); HEMATOCRIT 27.4 % (42.0-52.0); HEMOGLOBIN 8.6 g/dl (13.5-17.5); LYMPH # 3.3 10^3/uL (1.5-5.0); LYMPH % 28.9 % (24.0-44.0); MEAN CORPUSCULAR HEMOGLOBIN 32.2 pg (27.0-33.0); MEAN CORPUSCULAR HGB CONC 31.4 g/dl (32.0-36.5); MEAN CORPUSCULAR VOLUME 102.6 fl (80.0-96.0); MONO # 0.6 10^3/uL (0.0-0.8); MONO % 5.5 % (2.0-8.0); NEUTROPHILS # 6.8 10^3/uL (1.5-8.5); NEUTROPHILS % 59.6 % (36.0-66.0); RED BLOOD COUNT 2.67 10^6/uL (4.30-6.10); WHITE BLOOD COUNT 11.5 10^3/uL (4.0-10.0)
[2022-10-12 06:24] LABS: PLATELET COUNT, AUTOMATED 81 10^3/uL (150-450)
[2022-10-12 06:49] LABS: CALCIUM LEVEL 8.7 MG/DL (8.3-10.6); CREATININE FOR GFR 2.53 MG/DL (0.70-1.30); GLOMERULAR FILTRATION RATE 25.8 (>35); POTASSIUM SERUM 3.7 MMOL/L (3.5-5.1)
[2022-10-12] MEDS: TIOTROPIUM INHALER/CAPSULE (SPIRIVA) INH SCH (08:44)
[2022-10-12] MEDS: ADVAIR HFA 230/21MCG INHALER INH SCH ×2 (08:44→20:12)
[2022-10-12] MEDS: DOCUSATE SODIUM 100MG CAPSULE PO SCH ×2 (09:00→21:00)
[2022-10-12] MEDS: SIMETHICONE 80MG CHEW TAB PO SCH ×4 (09:27→21:35)
[2022-10-12] MEDS: GABAPENTIN 100 MG CAP PO SCH ×3 (09:27→21:36)
[2022-10-12] MEDS: NEPHRO-VIT TAB (NEPHROCAPS) PO SCH (09:27)
[2022-10-12] MEDS: SUCRALFATE SUSP 1GM/10ML UD PO SCH ×4 (09:27→21:35)
[2022-10-12] MEDS: ACETAMINOPHEN 650MG ER TAB (TYLENOL ARTHRITIS) PO PRN ×3 (09:28→22:45)
[2022-10-12] MEDS: CYANOCOBALAMIN 500 MCG TAB PO SCH (09:28)
[2022-10-12] MEDS: allopurinoL 100 MG TAB PO SCH (09:28)
[2022-10-12] MEDS: LACTOBACILLUS ACIDOPHILUS CAP (BACID) PO SCH ×2 (09:28→17:34)
[2022-10-12] MEDS: ASPIRIN 81MG CHEW TABLET PO SCH (09:29)
[2022-10-12] MEDS: VITAMIN D 1,000 INTERNATIONAL UNITS TABLET PO SCH (09:29)
[2022-10-12] MEDS: CARVedilol 3.125 MG TAB PO SCH ×2 (09:29→21:39)
[2022-10-12] MEDS: CLOPIDOGREL 75 MG TAB PO SCH (09:29)
[2022-10-12] MEDS: PANTOPRAZOLE 40MG VIAL IV SCH ×2 (09:31→21:39)
[2022-10-12] MEDS: BRIMONIDINE 0.1% OPHTH SOLN 5ML OU SCH ×2 (09:31→21:39)
[2022-10-12] MEDS: TIMOLOL MALEATE 0.5% OPHTH SOLN 5 ML OU SCH ×2 (09:31→21:39)
[2022-10-12] MEDS: SANTYL OINT 30GM TOP SCH (09:32)
[2022-10-12] MEDS: VANICREAM MOISTURIZING SKIN CREAM 113GM TUBE TOP SCH (09:32)
[2022-10-12] MEDS: INSULIN LISPRO (NovoLOG) PER UNIT SC SCH ×4 (09:33→21:00)
[2022-10-12] MEDS: SPIRONOLACTONE 25 MG TAB PO SCH ×2 (09:35→17:36)
[2022-10-12 14:00] VITALS: BP 135/68
[2022-10-12 21:05] VITALS: BP 122/60
[2022-10-12] MEDS: NIACIN 100MG TAB PO SCH (21:36)
[2022-10-12] MEDS: ATORVASTATIN 20 MG TAB PO SCH (21:36)
[2022-10-12] MEDS: LATANOPROST 0.005% OPHTH SOLN 2.5 ML OU SCH (21:39)
[2022-10-12] MEDS: LEVEMIR (INSULIN DETEMIR) 1 UNITS/0.01ML SC SCH (21:48)
[2022-10-13] MEDS: FUROSEMIDE 100MG/10ML VIAL IV SCH ×3 (03:41→20:23)
[2022-10-13] MEDS: PIPERACILLIN/TAZOBACTAM SOD 3.375 GM in D5W MINI-BAG PLUS 50 ML IV SCH ×4 (03:41→20:28)
[2022-10-13 05:35] VITALS: BP 122/60
[2022-10-13 07:08] LABS: BASO % 0.3 % (0.0-1.0); EOS # 0.7 10^3/uL (0.0-0.5); EOS % 5.8 % (0.0-3.0); HEMATOCRIT 27.9 % (42.0-52.0); HEMOGLOBIN 8.5 g/dl (13.5-17.5); LYMPH # 3.2 10^3/uL (1.5-5.0); LYMPH % 27.8 % (24.0-44.0); MEAN CORPUSCULAR HGB CONC 30.5 g/dl (32.0-36.5); MEAN CORPUSCULAR VOLUME 101.8 fl (80.0-96.0); MONO # 0.7 10^3/uL (0.0-0.8); MONO % 6.2 % (2.0-8.0); NEUTROPHILS # 6.8 10^3/uL (1.5-8.5); NEUTROPHILS % 59.4 % (36.0-66.0); RED BLOOD COUNT 2.74 10^6/uL (4.30-6.10); WHITE BLOOD COUNT 11.5 10^3/uL (4.0-10.0)
[2022-10-13 07:29] LABS: CALCIUM LEVEL 8.1 MG/DL (8.3-10.6); CREATININE FOR GFR 2.43 MG/DL (0.70-1.30); GLOMERULAR FILTRATION RATE 27.1 (>35); PLATELET COUNT, AUTOMATED 82 10^3/uL (150-450); POTASSIUM SERUM 3.4 MMOL/L (3.5-5.1)
[2022-10-13] MEDS: ASPIRIN 81MG CHEW TABLET PO SCH (08:10)
[2022-10-13] MEDS: CYANOCOBALAMIN 500 MCG TAB PO SCH (08:10)
[2022-10-13] MEDS: SIMETHICONE 80MG CHEW TAB PO SCH ×4 (08:11→20:31)
[2022-10-13] MEDS: NEPHRO-VIT TAB (NEPHROCAPS) PO SCH (08:11)
[2022-10-13] MEDS: LACTOBACILLUS ACIDOPHILUS CAP (BACID) PO SCH ×2 (08:11→18:09)
[2022-10-13] MEDS: SPIRONOLACTONE 25 MG TAB PO SCH (08:12)
[2022-10-13] MEDS: CARVedilol 3.125 MG TAB PO SCH ×2 (08:12→20:31)
[2022-10-13] MEDS: CLOPIDOGREL 75 MG TAB PO SCH (08:12)
[2022-10-13] MEDS: allopurinoL 100 MG TAB PO SCH (08:12)
[2022-10-13] MEDS: VITAMIN D 1,000 INTERNATIONAL UNITS TABLET PO SCH (08:12)
[2022-10-13] MEDS: SUCRALFATE SUSP 1GM/10ML UD PO SCH ×4 (08:13→20:27)
[2022-10-13] MEDS: PANTOPRAZOLE 40MG VIAL IV SCH ×2 (08:13→20:28)
[2022-10-13] MEDS: GABAPENTIN 100 MG CAP PO SCH ×3 (08:13→20:30)
[2022-10-13] MEDS: INSULIN LISPRO (NovoLOG) PER UNIT SC SCH ×4 (08:13→20:31)
[2022-10-13] MEDS: BRIMONIDINE 0.1% OPHTH SOLN 5ML OU SCH ×2 (08:14→20:35)
[2022-10-13] MEDS: VANICREAM MOISTURIZING SKIN CREAM 113GM TUBE TOP SCH (08:15)
[2022-10-13] MEDS: SANTYL OINT 30GM TOP SCH (08:15)
[2022-10-13] MEDS: TIMOLOL MALEATE 0.5% OPHTH SOLN 5 ML OU SCH ×2 (08:15→20:35)
[2022-10-13] MEDS: DOCUSATE SODIUM 100MG CAPSULE PO SCH ×2 (08:19→20:29)
[2022-10-13] MEDS: TIOTROPIUM INHALER/CAPSULE (SPIRIVA) INH SCH (08:36)
[2022-10-13] MEDS: ADVAIR HFA 230/21MCG INHALER INH SCH ×2 (08:37→19:53)
[2022-10-13] MEDS: ACETAMINOPHEN 650MG ER TAB (TYLENOL ARTHRITIS) PO PRN (11:35)
[2022-10-13] MEDS ORDERED: POTASSIUM CHLORIDE 10MEQ SR TABLET PO ONE (12:00)
[2022-10-13] MEDS ORDERED: LIDOCAINE 1% MDV 20ML VIAL As Ordered ONE (14:03)
[2022-10-13 16:00] VITALS: BP 144/74
[2022-10-13] MEDS ORDERED: SODIUM CHLORIDE 0.9% INJ 10 ML SYR IV PRN (17:10)
[2022-10-13] MEDS ORDERED: SODIUM CHLORIDE 0.9% INJ 10 ML SYR IV SCH (18:00)
[2022-10-13] MEDS: SPIRONOLACTONE 50 MG TAB PO SCH (18:09)
[2022-10-13] MEDS: SODIUM CHLORIDE 0.9% INJ 10 ML SYR IV SCH (18:10)
[2022-10-13] MEDS: NIACIN 100MG TAB PO SCH (20:29)
[2022-10-13] MEDS: ATORVASTATIN 20 MG TAB PO SCH (20:30)
[2022-10-13] MEDS: LEVEMIR (INSULIN DETEMIR) 1 UNITS/0.01ML SC SCH (20:30)
[2022-10-13] MEDS: LATANOPROST 0.005% OPHTH SOLN 2.5 ML OU SCH (20:34)
[2022-10-13 20:38] VITALS: BP 143/71
[2022-10-14] MEDS: SODIUM CHLORIDE 0.9% INJ 10 ML SYR IV SCH ×2 (04:17→17:17)
[2022-10-14] MEDS: PIPERACILLIN/TAZOBACTAM SOD 3.375 GM in D5W MINI-BAG PLUS 50 ML IV SCH ×4 (04:17→21:47)
[2022-10-14] MEDS: FUROSEMIDE 100MG/10ML VIAL IV SCH ×3 (04:17→21:13)
[2022-10-14 06:15] VITALS: BP 140/72
[2022-10-14 08:25] LABS: CALCIUM LEVEL 8.8 MG/DL (8.3-10.6); CREATININE FOR GFR 2.38 MG/DL (0.70-1.30); GLOMERULAR FILTRATION RATE 27.7 (>35); POTASSIUM SERUM 3.9 MMOL/L (3.5-5.1)
[2022-10-14] MEDS: SUCRALFATE SUSP 1GM/10ML UD PO SCH ×4 (08:45→21:15)
[2022-10-14] MEDS: PANTOPRAZOLE 40MG VIAL IV SCH ×2 (08:45→21:13)
[2022-10-14] MEDS: allopurinoL 100 MG TAB PO SCH (08:46)
[2022-10-14] MEDS: GABAPENTIN 100 MG CAP PO SCH ×3 (08:46→21:15)
[2022-10-14] MEDS: ASPIRIN 81MG CHEW TABLET PO SCH (08:46)
[2022-10-14] MEDS: VITAMIN D 1,000 INTERNATIONAL UNITS TABLET PO SCH (08:46)
[2022-10-14] MEDS: SPIRONOLACTONE 50 MG TAB PO SCH ×2 (08:46→17:16)
[2022-10-14] MEDS: SIMETHICONE 80MG CHEW TAB PO SCH ×4 (08:46→21:14)
[2022-10-14] MEDS: LACTOBACILLUS ACIDOPHILUS CAP (BACID) PO SCH ×2 (08:46→17:16)
[2022-10-14] MEDS: CLOPIDOGREL 75 MG TAB PO SCH (08:46)
[2022-10-14] MEDS: CYANOCOBALAMIN 500 MCG TAB PO SCH (08:47)
[2022-10-14] MEDS: TIMOLOL MALEATE 0.5% OPHTH SOLN 5 ML OU SCH ×2 (08:49→21:16)
[2022-10-14] MEDS: BRIMONIDINE 0.1% OPHTH SOLN 5ML OU SCH ×2 (08:49→21:16)
[2022-10-14] MEDS: CARVedilol 3.125 MG TAB PO SCH ×2 (08:49→21:14)
[2022-10-14] MEDS: SANTYL OINT 30GM TOP SCH (08:50)
[2022-10-14] MEDS: VANICREAM MOISTURIZING SKIN CREAM 113GM TUBE TOP SCH (08:50)
[2022-10-14] MEDS: INSULIN LISPRO (NovoLOG) PER UNIT SC SCH ×4 (08:51→21:00)
[2022-10-14] MEDS: SODIUM CHLORIDE 0.9% INJ 10 ML SYR IV PRN ×2 (08:51→12:47)
[2022-10-14] MEDS: DOCUSATE SODIUM 100MG CAPSULE PO SCH ×2 (08:55→21:00)
[2022-10-14] MEDS: TIOTROPIUM INHALER/CAPSULE (SPIRIVA) INH SCH (08:57)
[2022-10-14] MEDS: ADVAIR HFA 230/21MCG INHALER INH SCH ×2 (08:57→20:12)
[2022-10-14 08:58] LABS: BASO # 0.1 10^3/uL (0.0-0.2); BASO % 0.5 % (0.0-1.0); EOS # 0.6 10^3/uL (0.0-0.5); EOS % 4.4 % (0.0-3.0); HEMATOCRIT 28.2 % (42.0-52.0); HEMOGLOBIN 8.7 g/dl (13.5-17.5); LYMPH # 3.2 10^3/uL (1.5-5.0); LYMPH % 24.7 % (24.0-44.0); MEAN CORPUSCULAR HEMOGLOBIN 31.5 pg (27.0-33.0); MEAN CORPUSCULAR HGB CONC 30.9 g/dl (32.0-36.5); MEAN CORPUSCULAR VOLUME 102.2 fl (80.0-96.0); MONO # 0.8 10^3/uL (0.0-0.8); MONO % 5.9 % (2.0-8.0); NEUTROPHILS # 8.2 10^3/uL (1.5-8.5); RED BLOOD COUNT 2.76 10^6/uL (4.30-6.10); WHITE BLOOD COUNT 12.8 10^3/uL (4.0-10.0)
[2022-10-14] MEDS: NEPHRO-VIT TAB (NEPHROCAPS) PO SCH (09:21)
[2022-10-14 09:23] LABS: PLATELET COUNT, AUTOMATED 89 10^3/uL (150-450)
[2022-10-14] MEDS ORDERED: POTASSIUM CHLORIDE 10MEQ SR TABLET PO ONE (12:00)
[2022-10-14 14:00] VITALS: BP 118/63
[2022-10-14] MEDS: NIACIN 100MG TAB PO SCH (21:13)
[2022-10-14] MEDS: ATORVASTATIN 20 MG TAB PO SCH (21:15)
[2022-10-14] MEDS: LEVEMIR (INSULIN DETEMIR) 1 UNITS/0.01ML SC SCH (21:15)
[2022-10-14 21:16] VITALS: BP 129/62
[2022-10-14] MEDS: LATANOPROST 0.005% OPHTH SOLN 2.5 ML OU SCH (21:16)
[2022-10-15] MEDS: FUROSEMIDE 100MG/10ML VIAL IV SCH (03:38)
[2022-10-15] MEDS: PIPERACILLIN/TAZOBACTAM SOD 3.375 GM in D5W MINI-BAG PLUS 50 ML IV SCH ×4 (04:09→22:48)
[2022-10-15] MEDS: SODIUM CHLORIDE 0.9% INJ 10 ML SYR IV SCH ×2 (05:11→18:12)
[2022-10-15 05:20] VITALS: BP 125/61
[2022-10-15] MEDS: SUCRALFATE SUSP 1GM/10ML UD PO SCH ×4 (07:30→21:00)
[2022-10-15] MEDS: TIOTROPIUM INHALER/CAPSULE (SPIRIVA) INH SCH (07:40)
[2022-10-15] MEDS: ADVAIR HFA 230/21MCG INHALER INH SCH ×2 (07:40→19:56)
[2022-10-15] MEDS: DOCUSATE SODIUM 100MG CAPSULE PO SCH ×2 (09:00→21:00)
[2022-10-15] MEDS: INSULIN LISPRO (NovoLOG) PER UNIT SC SCH ×4 (09:41→21:00)
[2022-10-15] MEDS: ASPIRIN 81MG CHEW TABLET PO SCH (09:42)
[2022-10-15] MEDS: LACTOBACILLUS ACIDOPHILUS CAP (BACID) PO SCH ×2 (09:42→17:14)
[2022-10-15] MEDS: CYANOCOBALAMIN 500 MCG TAB PO SCH (09:42)
[2022-10-15] MEDS: SIMETHICONE 80MG CHEW TAB PO SCH ×4 (09:42→21:01)
[2022-10-15] MEDS: GABAPENTIN 100 MG CAP PO SCH ×3 (09:43→21:02)
[2022-10-15] MEDS: allopurinoL 100 MG TAB PO SCH (09:43)
[2022-10-15] MEDS: SPIRONOLACTONE 50 MG TAB PO SCH ×2 (09:43→16:07)
[2022-10-15] MEDS: NEPHRO-VIT TAB (NEPHROCAPS) PO SCH (09:43)
[2022-10-15] MEDS: PANTOPRAZOLE 40MG VIAL IV SCH ×2 (09:44→21:00)
[2022-10-15] MEDS: CARVedilol 3.125 MG TAB PO SCH ×2 (09:44→21:02)
[2022-10-15] MEDS: CLOPIDOGREL 75 MG TAB PO SCH (09:44)
[2022-10-15] MEDS: VITAMIN D 1,000 INTERNATIONAL UNITS TABLET PO SCH (09:44)
[2022-10-15] MEDS: SANTYL OINT 30GM TOP SCH (09:45)
[2022-10-15] MEDS: BRIMONIDINE 0.1% OPHTH SOLN 5ML OU SCH ×2 (09:46→21:03)
[2022-10-15] MEDS: VANICREAM MOISTURIZING SKIN CREAM 113GM TUBE TOP SCH (09:46)
[2022-10-15] MEDS: TIMOLOL MALEATE 0.5% OPHTH SOLN 5 ML OU SCH ×2 (09:46→21:03)
[2022-10-15 14:00] VITALS: BP 124/60
[2022-10-15] MEDS: ATORVASTATIN 20 MG TAB PO SCH (21:01)
[2022-10-15] MEDS: NIACIN 100MG TAB PO SCH (21:02)
[2022-10-15] MEDS: LATANOPROST 0.005% OPHTH SOLN 2.5 ML OU SCH (21:03)
[2022-10-15] MEDS: LEVEMIR (INSULIN DETEMIR) 1 UNITS/0.01ML SC SCH (21:03)
[2022-10-16] MEDS: PIPERACILLIN/TAZOBACTAM SOD 3.375 GM in D5W MINI-BAG PLUS 50 ML IV SCH ×4 (03:37→21:52)
[2022-10-16] MEDS: ACETAMINOPHEN 650MG ER TAB (TYLENOL ARTHRITIS) PO PRN ×3 (05:01→21:54)
[2022-10-16] MEDS: SODIUM CHLORIDE 0.9% INJ 10 ML SYR IV SCH ×2 (05:06→16:43)
[2022-10-16 06:00] VITALS: BP 129/62
[2022-10-16] MEDS: TIOTROPIUM INHALER/CAPSULE (SPIRIVA) INH SCH (07:55)
[2022-10-16] MEDS: ADVAIR HFA 230/21MCG INHALER INH SCH ×2 (07:56→19:54)
[2022-10-16] MEDS: SUCRALFATE SUSP 1GM/10ML UD PO SCH ×4 (07:59→21:52)
[2022-10-16] MEDS: allopurinoL 100 MG TAB PO SCH (07:59)
[2022-10-16] MEDS: CLOPIDOGREL 75 MG TAB PO SCH (07:59)
[2022-10-16] MEDS: ASPIRIN 81MG CHEW TABLET PO SCH (07:59)
[2022-10-16] MEDS: GABAPENTIN 100 MG CAP PO SCH ×3 (07:59→21:56)
[2022-10-16] MEDS: CYANOCOBALAMIN 500 MCG TAB PO SCH (07:59)
[2022-10-16] MEDS: LACTOBACILLUS ACIDOPHILUS CAP (BACID) PO SCH ×2 (07:59→16:40)
[2022-10-16] MEDS: VITAMIN D 1,000 INTERNATIONAL UNITS TABLET PO SCH (07:59)
[2022-10-16] MEDS: SPIRONOLACTONE 50 MG TAB PO SCH ×2 (08:00→16:40)
[2022-10-16] MEDS: CARVedilol 3.125 MG TAB PO SCH ×2 (08:00→21:55)
[2022-10-16] MEDS: NEPHRO-VIT TAB (NEPHROCAPS) PO SCH (08:00)
[2022-10-16] MEDS: INSULIN LISPRO (NovoLOG) PER UNIT SC SCH ×4 (08:02→21:53)
[2022-10-16] MEDS: SIMETHICONE 80MG CHEW TAB PO SCH ×4 (08:03→21:00)
[2022-10-16] MEDS: PANTOPRAZOLE 40MG VIAL IV SCH ×2 (08:03→21:52)
[2022-10-16] MEDS: BRIMONIDINE 0.1% OPHTH SOLN 5ML OU SCH ×2 (08:03→21:56)
[2022-10-16] MEDS: TIMOLOL MALEATE 0.5% OPHTH SOLN 5 ML OU SCH ×2 (08:03→21:56)
[2022-10-16] MEDS: SANTYL OINT 30GM TOP SCH (08:03)
[2022-10-16] MEDS: VANICREAM MOISTURIZING SKIN CREAM 113GM TUBE TOP SCH (08:07)
[2022-10-16] MEDS: DOCUSATE SODIUM 100MG CAPSULE PO SCH ×2 (08:10→21:00)
[2022-10-16 10:24] LABS: BASO % 0.3 % (0.0-1.0); CALCIUM LEVEL 8.4 MG/DL (8.3-10.6); CREATININE FOR GFR 2.19 MG/DL (0.70-1.30); EOS # 0.6 10^3/uL (0.0-0.5); EOS % 4.9 % (0.0-3.0); GLOMERULAR FILTRATION RATE 30.5 (>35); HEMOGLOBIN 7.9 g/dl (13.5-17.5); LYMPH # 3.6 10^3/uL (1.5-5.0); LYMPH % 28.6 % (24.0-44.0); MEAN CORPUSCULAR HGB CONC 31.6 g/dl (32.0-36.5); MEAN CORPUSCULAR VOLUME 101.2 fl (80.0-96.0); MONO # 0.6 10^3/uL (0.0-0.8); MONO % 5.1 % (2.0-8.0); NEUTROPHILS # 7.6 10^3/uL (1.5-8.5); NEUTROPHILS % 60.5 % (36.0-66.0); POTASSIUM SERUM 3.4 MMOL/L (3.5-5.1); RED BLOOD COUNT 2.47 10^6/uL (4.30-6.10); WHITE BLOOD COUNT 12.6 10^3/uL (4.0-10.0)
[2022-10-16 10:27] LABS: PLATELET COUNT, AUTOMATED 93 10^3/uL (150-450)
[2022-10-16] MEDS: TORSEMIDE 100 MG TAB PO SCH (12:14)
[2022-10-16] MEDS: ATORVASTATIN 20 MG TAB PO SCH (21:53)
[2022-10-16] MEDS: LEVEMIR (INSULIN DETEMIR) 1 UNITS/0.01ML SC SCH (21:53)
[2022-10-16] MEDS: NIACIN 100MG TAB PO SCH (21:54)
[2022-10-16] MEDS: LATANOPROST 0.005% OPHTH SOLN 2.5 ML OU SCH (21:56)
[2022-10-17] MEDS: PIPERACILLIN/TAZOBACTAM SOD 3.375 GM in D5W MINI-BAG PLUS 50 ML IV SCH ×4 (04:31→22:07)
[2022-10-17] MEDS: SODIUM CHLORIDE 0.9% INJ 10 ML SYR IV SCH ×2 (05:57→18:27)
[2022-10-17 06:00] VITALS: BP 129/63
[2022-10-17] MEDS: TIOTROPIUM INHALER/CAPSULE (SPIRIVA) INH SCH (07:20)
[2022-10-17] MEDS: ADVAIR HFA 230/21MCG INHALER INH SCH ×2 (07:20→20:00)
[2022-10-17] MEDS: SUCRALFATE SUSP 1GM/10ML UD PO SCH ×4 (08:27→22:04)
[2022-10-17] MEDS: INSULIN LISPRO (NovoLOG) PER UNIT SC SCH ×4 (08:28→20:06)
[2022-10-17] MEDS: PANTOPRAZOLE 40MG VIAL IV SCH ×2 (08:28→22:03)
[2022-10-17] MEDS: LACTOBACILLUS ACIDOPHILUS CAP (BACID) PO SCH ×2 (08:28→17:06)
[2022-10-17] MEDS: GABAPENTIN 100 MG CAP PO SCH ×3 (08:28→22:03)
[2022-10-17] MEDS: VITAMIN D 1,000 INTERNATIONAL UNITS TABLET PO SCH (08:29)
[2022-10-17] MEDS: allopurinoL 100 MG TAB PO SCH (08:29)
[2022-10-17] MEDS: ASPIRIN 81MG CHEW TABLET PO SCH (08:29)
[2022-10-17] MEDS: CYANOCOBALAMIN 500 MCG TAB PO SCH (08:29)
[2022-10-17] MEDS: SPIRONOLACTONE 50 MG TAB PO SCH ×2 (08:29→17:06)
[2022-10-17] MEDS: CLOPIDOGREL 75 MG TAB PO SCH (08:29)
[2022-10-17] MEDS: TORSEMIDE 100 MG TAB PO SCH (08:29)
[2022-10-17] MEDS: NEPHRO-VIT TAB (NEPHROCAPS) PO SCH (08:29)
[2022-10-17] MEDS: CARVedilol 3.125 MG TAB PO SCH ×2 (08:29→22:05)
[2022-10-17] MEDS: TIMOLOL MALEATE 0.5% OPHTH SOLN 5 ML OU SCH ×2 (08:30→22:04)
[2022-10-17] MEDS: BRIMONIDINE 0.1% OPHTH SOLN 5ML OU SCH ×2 (08:30→22:04)
[2022-10-17] MEDS: SANTYL OINT 30GM TOP SCH (08:30)
[2022-10-17] MEDS: VANICREAM MOISTURIZING SKIN CREAM 113GM TUBE TOP SCH (08:31)
[2022-10-17] MEDS: DOCUSATE SODIUM 100MG CAPSULE PO SCH ×2 (08:44→22:03)
[2022-10-17] MEDS: SIMETHICONE 80MG CHEW TAB PO SCH ×4 (08:44→22:02)
[2022-10-17] MEDS: NIACIN 100MG TAB PO SCH (22:01)
[2022-10-17] MEDS: ATORVASTATIN 20 MG TAB PO SCH (22:02)
[2022-10-17] MEDS: LATANOPROST 0.005% OPHTH SOLN 2.5 ML OU SCH (22:04)
[2022-10-17] MEDS: LEVEMIR (INSULIN DETEMIR) 1 UNITS/0.01ML SC SCH (22:06)
[2022-10-18] MEDS: SODIUM CHLORIDE 0.9% INJ 10 ML SYR IV PRN (01:13)
[2022-10-18] MEDS: SODIUM CHLORIDE 0.9% INJ 10 ML SYR IV SCH ×2 (03:26→18:22)
[2022-10-18] MEDS: PIPERACILLIN/TAZOBACTAM SOD 3.375 GM in D5W MINI-BAG PLUS 50 ML IV SCH ×4 (03:26→22:12)
[2022-10-18 06:00] VITALS: BP 141/71
[2022-10-18] MEDS: ADVAIR HFA 230/21MCG INHALER INH SCH ×2 (08:00→21:41)
[2022-10-18] MEDS: TIOTROPIUM INHALER/CAPSULE (SPIRIVA) INH SCH (08:01)
[2022-10-18 08:25] LABS: HEMATOCRIT 24.5 % (42.0-52.0); HEMOGLOBIN 7.8 g/dl (13.5-17.5); MEAN CORPUSCULAR HEMOGLOBIN 32.2 pg (27.0-33.0); MEAN CORPUSCULAR HGB CONC 31.8 g/dl (32.0-36.5); MEAN CORPUSCULAR VOLUME 101.2 fl (80.0-96.0); PLATELET COUNT, AUTOMATED 102 10^3/uL (150-450); RED BLOOD COUNT 2.42 10^6/uL (4.30-6.10); WHITE BLOOD COUNT 13.6 10^3/uL (4.0-10.0)
[2022-10-18] MEDS: INSULIN LISPRO (NovoLOG) PER UNIT SC SCH ×4 (08:28→20:47)
[2022-10-18] MEDS: PANTOPRAZOLE 40MG VIAL IV SCH ×2 (08:28→20:37)
[2022-10-18] MEDS: CYANOCOBALAMIN 500 MCG TAB PO SCH (08:28)
[2022-10-18] MEDS: LACTOBACILLUS ACIDOPHILUS CAP (BACID) PO SCH ×2 (08:28→17:06)
[2022-10-18] MEDS: SUCRALFATE SUSP 1GM/10ML UD PO SCH ×4 (08:28→20:37)
[2022-10-18] MEDS: allopurinoL 100 MG TAB PO SCH (08:29)
[2022-10-18] MEDS: SPIRONOLACTONE 50 MG TAB PO SCH ×2 (08:29→17:06)
[2022-10-18] MEDS: VITAMIN D 1,000 INTERNATIONAL UNITS TABLET PO SCH (08:29)
[2022-10-18] MEDS: TORSEMIDE 100 MG TAB PO SCH (08:29)
[2022-10-18] MEDS: GABAPENTIN 100 MG CAP PO SCH ×3 (08:29→20:38)
[2022-10-18] MEDS: ASPIRIN 81MG CHEW TABLET PO SCH (08:29)
[2022-10-18] MEDS: CARVedilol 3.125 MG TAB PO SCH ×2 (08:29→20:44)
[2022-10-18] MEDS: CLOPIDOGREL 75 MG TAB PO SCH (08:29)
[2022-10-18] MEDS: BRIMONIDINE 0.1% OPHTH SOLN 5ML OU SCH ×2 (08:30→20:50)
[2022-10-18] MEDS: TIMOLOL MALEATE 0.5% OPHTH SOLN 5 ML OU SCH ×2 (08:30→20:50)
[2022-10-18] MEDS: VANICREAM MOISTURIZING SKIN CREAM 113GM TUBE TOP SCH (08:30)
[2022-10-18] MEDS: SANTYL OINT 30GM TOP SCH (08:30)
[2022-10-18] MEDS: NEPHRO-VIT TAB (NEPHROCAPS) PO SCH (08:31)
[2022-10-18 08:50] LABS: ALBUMIN 2.1 G/DL (3.2-5.2); CREATININE FOR GFR 2.27 MG/DL (0.70-1.30); GLOMERULAR FILTRATION RATE 29.3 (>35); PHOSPHORUS LEVEL 2.6 MG/DL (2.4-5.1); POTASSIUM SERUM 3.7 MMOL/L (3.5-5.1)
[2022-10-18] MEDS: DOCUSATE SODIUM 100MG CAPSULE PO SCH ×2 (08:51→20:46)
[2022-10-18] MEDS: SIMETHICONE 80MG CHEW TAB PO SCH ×4 (08:51→20:39)
[2022-10-18] MEDS: DARBEPOETIN 100MCG/0.5ML *NON-DIALYSIS* SYRINGE SC SCH (09:56)
[2022-10-18] MEDS: NIACIN 100MG TAB PO SCH (20:37)
[2022-10-18] MEDS: LEVEMIR (INSULIN DETEMIR) 1 UNITS/0.01ML SC SCH (20:37)
[2022-10-18] MEDS: ACETAMINOPHEN 650MG ER TAB (TYLENOL ARTHRITIS) PO PRN (20:39)
[2022-10-18] MEDS: ATORVASTATIN 20 MG TAB PO SCH (20:45)
[2022-10-18] MEDS: LATANOPROST 0.005% OPHTH SOLN 2.5 ML OU SCH (20:50)
[2022-10-19] MEDS: zolPIDEM TARTRATE 5 MG TAB PO PRN (02:00)
[2022-10-19] MEDS: PIPERACILLIN/TAZOBACTAM SOD 3.375 GM in D5W MINI-BAG PLUS 50 ML IV SCH ×2 (04:55→10:25)
[2022-10-19] MEDS: SODIUM CHLORIDE 0.9% INJ 10 ML SYR IV SCH ×2 (04:55→17:26)
[2022-10-19] MEDS: ACETAMINOPHEN 650MG ER TAB (TYLENOL ARTHRITIS) PO PRN ×2 (05:47→21:52)
[2022-10-19 05:54] VITALS: BP 147/68
[2022-10-19] MEDS: PANTOPRAZOLE 40MG VIAL IV SCH ×2 (08:18→21:51)
[2022-10-19] MEDS: INSULIN LISPRO (NovoLOG) PER UNIT SC SCH ×4 (08:18→21:00)
[2022-10-19] MEDS: ASPIRIN 81MG CHEW TABLET PO SCH (08:19)
[2022-10-19] MEDS: SIMETHICONE 80MG CHEW TAB PO SCH ×4 (08:19→21:52)
[2022-10-19] MEDS: LACTOBACILLUS ACIDOPHILUS CAP (BACID) PO SCH ×2 (08:19→17:26)
[2022-10-19] MEDS: CYANOCOBALAMIN 500 MCG TAB PO SCH (08:19)
[2022-10-19] MEDS: allopurinoL 100 MG TAB PO SCH (08:19)
[2022-10-19] MEDS: SUCRALFATE SUSP 1GM/10ML UD PO SCH ×4 (08:19→21:51)
[2022-10-19] MEDS: NEPHRO-VIT TAB (NEPHROCAPS) PO SCH (08:19)
[2022-10-19] MEDS: GABAPENTIN 100 MG CAP PO SCH ×3 (08:19→21:52)
[2022-10-19] MEDS: CLOPIDOGREL 75 MG TAB PO SCH (08:19)
[2022-10-19] MEDS: VITAMIN D 1,000 INTERNATIONAL UNITS TABLET PO SCH (08:19)
[2022-10-19] MEDS: TIMOLOL MALEATE 0.5% OPHTH SOLN 5 ML OU SCH ×2 (08:22→21:56)
[2022-10-19] MEDS: CARVedilol 3.125 MG TAB PO SCH ×2 (08:23→21:55)
[2022-10-19] MEDS: SANTYL OINT 30GM TOP SCH (08:24)
[2022-10-19] MEDS: BRIMONIDINE 0.1% OPHTH SOLN 5ML OU SCH ×2 (08:24→21:55)
[2022-10-19] MEDS: DOCUSATE SODIUM 100MG CAPSULE PO SCH (08:24)
[2022-10-19] MEDS: VANICREAM MOISTURIZING SKIN CREAM 113GM TUBE TOP SCH (08:25)
[2022-10-19] MEDS: TIOTROPIUM INHALER/CAPSULE (SPIRIVA) INH SCH (08:44)
[2022-10-19] MEDS: ADVAIR HFA 230/21MCG INHALER INH SCH ×2 (08:44→20:00)
[2022-10-19] MEDS: TORSEMIDE 100 MG TAB PO SCH (10:26)
[2022-10-19] MEDS: SPIRONOLACTONE 50 MG TAB PO SCH ×2 (10:26→17:26)
[2022-10-19] MEDS ORDERED: SANT250O8 TOP (15:23)
[2022-10-19] MEDS ORDERED: VANI1CRE5 TOP (15:23)
[2022-10-19] MEDS ORDERED: TORS100T PO (15:23)
[2022-10-19] MEDS ORDERED: ALDA50TA2 PO (15:23)
[2022-10-19] MEDS ORDERED: TIMO0.5S29 OU (15:23)
[2022-10-19] MEDS ORDERED: ZOSY1SOL6 IV (15:23)
[2022-10-19] MEDS ORDERED: ATOR1TAB21 PO (15:23)
[2022-10-19] MEDS ORDERED: SUCR1ORA PO (15:23)
[2022-10-19] MEDS ORDERED: ADVA230A INH (15:23)
[2022-10-19] MEDS ORDERED: LANTINJ4 SC (15:23)
[2022-10-19] MEDS ORDERED: RISATAB3 PO (15:23)
[2022-10-19] MEDS ORDERED: LIDO5TD TD (15:23)
[2022-10-19] MEDS ORDERED: Latanoprost 0.005% Op Soln OU (15:23)
[2022-10-19] MEDS ORDERED: TIOT18INH INH (15:23)
[2022-10-19] MEDS: PIPERACILLIN/TAZOBACTAM SOD 4.5 GM in D5W MINI-BAG PLUS 50 ML IV SCH (15:40)
[2022-10-19 17:48] LABS: RSV AMPLIFICATION NEGATIVE (NEGATIVE)
[2022-10-19] MEDS: LEVEMIR (INSULIN DETEMIR) 1 UNITS/0.01ML SC SCH (21:51)
[2022-10-19] MEDS: ATORVASTATIN 20 MG TAB PO SCH (21:52)
[2022-10-19] MEDS: NIACIN 100MG TAB PO SCH (21:52)
[2022-10-19] MEDS: LATANOPROST 0.005% OPHTH SOLN 2.5 ML OU SCH (21:55)
[2022-10-20] MEDS: PIPERACILLIN/TAZOBACTAM SOD 4.5 GM in D5W MINI-BAG PLUS 50 ML IV SCH ×4 (00:43→23:37)
[2022-10-20] MEDS: SODIUM CHLORIDE 0.9% INJ 10 ML SYR IV SCH ×2 (05:18→18:00)
[2022-10-20 06:00] VITALS: BP 128/57
[2022-10-20] MEDS: TIOTROPIUM INHALER/CAPSULE (SPIRIVA) INH SCH (07:33)
[2022-10-20] MEDS: ADVAIR HFA 230/21MCG INHALER INH SCH ×2 (07:34→19:31)
[2022-10-20] MEDS: VITAMIN D 1,000 INTERNATIONAL UNITS TABLET PO SCH (08:17)
[2022-10-20] MEDS: CYANOCOBALAMIN 500 MCG TAB PO SCH (08:17)
[2022-10-20] MEDS: INSULIN LISPRO (NovoLOG) PER UNIT SC SCH ×4 (08:17→20:55)
[2022-10-20] MEDS: SIMETHICONE 80MG CHEW TAB PO SCH ×4 (08:17→20:52)
[2022-10-20] MEDS: ASPIRIN 81MG CHEW TABLET PO SCH (08:17)
[2022-10-20] MEDS: NEPHRO-VIT TAB (NEPHROCAPS) PO SCH (08:17)
[2022-10-20] MEDS: SPIRONOLACTONE 50 MG TAB PO SCH ×2 (08:18→18:17)
[2022-10-20] MEDS: LACTOBACILLUS ACIDOPHILUS CAP (BACID) PO SCH ×2 (08:18→18:17)
[2022-10-20] MEDS: CLOPIDOGREL 75 MG TAB PO SCH (08:18)
[2022-10-20] MEDS: GABAPENTIN 100 MG CAP PO SCH ×3 (08:18→20:52)
[2022-10-20] MEDS: allopurinoL 100 MG TAB PO SCH (08:18)
[2022-10-20] MEDS: BRIMONIDINE 0.1% OPHTH SOLN 5ML OU SCH ×2 (08:20→20:49)
[2022-10-20] MEDS: PANTOPRAZOLE 40MG VIAL IV SCH ×2 (08:20→20:50)
[2022-10-20] MEDS: SUCRALFATE SUSP 1GM/10ML UD PO SCH ×4 (08:20→20:49)
[2022-10-20] MEDS: TORSEMIDE 100 MG TAB PO SCH (08:20)
[2022-10-20] MEDS: TIMOLOL MALEATE 0.5% OPHTH SOLN 5 ML OU SCH ×2 (08:21→20:49)
[2022-10-20] MEDS: SANTYL OINT 30GM TOP SCH (08:21)
[2022-10-20] MEDS: VANICREAM MOISTURIZING SKIN CREAM 113GM TUBE TOP SCH (08:22)
[2022-10-20] MEDS: CARVedilol 3.125 MG TAB PO SCH ×2 (08:22→20:51)
[2022-10-20] MEDS: SODIUM CHLORIDE 0.9% INJ 10 ML SYR IV PRN ×2 (09:45→20:57)
[2022-10-20] MEDS ORDERED: LANTINJ4 SC (18:32)
[2022-10-20] MEDS: LATANOPROST 0.005% OPHTH SOLN 2.5 ML OU SCH (20:49)
[2022-10-20] MEDS: NIACIN 100MG TAB PO SCH (20:50)
[2022-10-20] MEDS: ATORVASTATIN 20 MG TAB PO SCH (20:52)
[2022-10-20] MEDS: LEVEMIR (INSULIN DETEMIR) 1 UNITS/0.01ML SC SCH (20:54)
[2022-10-20 22:00] VITALS: BP 142/78
[2022-10-21] MEDS: SODIUM CHLORIDE 0.9% INJ 10 ML SYR IV PRN (00:48)
[2022-10-21] MEDS: ACETAMINOPHEN 650MG ER TAB (TYLENOL ARTHRITIS) PO PRN (01:24)
[2022-10-21] MEDS: SODIUM CHLORIDE 0.9% INJ 10 ML SYR IV SCH (05:15)
[2022-10-21 06:00] VITALS: BP 130/56
[2022-10-21] MEDS: TIOTROPIUM INHALER/CAPSULE (SPIRIVA) INH SCH (08:46)
[2022-10-21] MEDS: ADVAIR HFA 230/21MCG INHALER INH SCH (08:47)
[2022-10-21] MEDS: SUCRALFATE SUSP 1GM/10ML UD PO SCH (09:32)
[2022-10-21] MEDS: ASPIRIN 81MG CHEW TABLET PO SCH (09:32)
[2022-10-21] MEDS: LACTOBACILLUS ACIDOPHILUS CAP (BACID) PO SCH (09:32)
[2022-10-21] MEDS: INSULIN LISPRO (NovoLOG) PER UNIT SC SCH (09:32)
[2022-10-21] MEDS: SPIRONOLACTONE 50 MG TAB PO SCH (09:32)
[2022-10-21] MEDS: CYANOCOBALAMIN 500 MCG TAB PO SCH (09:33)
[2022-10-21] MEDS: VITAMIN D 1,000 INTERNATIONAL UNITS TABLET PO SCH (09:33)
[2022-10-21] MEDS: TORSEMIDE 100 MG TAB PO SCH (09:33)
[2022-10-21 09:34] VITALS: BP 130/56
[2022-10-21] MEDS: GABAPENTIN 100 MG CAP PO SCH (09:34)
[2022-10-21] MEDS: NEPHRO-VIT TAB (NEPHROCAPS) PO SCH (09:34)
[2022-10-21] MEDS: allopurinoL 100 MG TAB PO SCH (09:34)
[2022-10-21] MEDS: PANTOPRAZOLE 40MG VIAL IV SCH (09:34)
[2022-10-21] MEDS: CLOPIDOGREL 75 MG TAB PO SCH (09:34)
[2022-10-21] MEDS: VANICREAM MOISTURIZING SKIN CREAM 113GM TUBE TOP SCH (09:34)
[2022-10-21] MEDS: CARVedilol 3.125 MG TAB PO SCH (09:34)
[2022-10-21] MEDS: BRIMONIDINE 0.1% OPHTH SOLN 5ML OU SCH (09:35)
[2022-10-21] MEDS: SANTYL OINT 30GM TOP SCH (09:35)
[2022-10-21] MEDS: TIMOLOL MALEATE 0.5% OPHTH SOLN 5 ML OU SCH (09:35)
[2022-10-21] MEDS: PIPERACILLIN/TAZOBACTAM SOD 4.5 GM in D5W MINI-BAG PLUS 50 ML IV SCH (09:36)
[2022-10-21] MEDS: SIMETHICONE 80MG CHEW TAB PO SCH (09:37)
== END 2022-10-21 12:25 | DRG 252 ==
LOC: M ED 14:03 → EDBD 14:03 → M ED INP 17:17 → ENRESERV 20:38 → M PCU 22:21 → M MS5PR 09-20 16:20
PROVIDERS: ADMIT Internal Medicine; ATTEND Internal Medicine
PROC: 30233N1 Transfusion of Nonautologous Red Blood Cells into Peripheral Vein, Percutaneous Approach (ICD-10-PCS; 2022-09-22)
PROC: 0JBR0ZZ Excision of Left Foot Subcutaneous Tissue and Fascia, Open Approach (ICD-10-PCS; 2022-09-30)
PROC: X27J395 Dilation of Left Femoral Artery with Two Sustained Release Drug-eluting Intraluminal Devices, Percutaneous Approach, New Technology Group 5 (ICD-10-PCS; 2022-09-30)
PROC: 047U3ZZ Dilation of Left Peroneal Artery, Percutaneous Approach (ICD-10-PCS; 2022-09-30)
PROC: 0LDW0ZZ Extraction of Left Foot Tendon, Open Approach (ICD-10-PCS; 2022-09-30)
PROC: 0JDR3ZZ Extraction of Left Foot Subcutaneous Tissue and Fascia, Percutaneous Approach (ICD-10-PCS; 2022-09-30)
PROC: 04FL3ZZ Fragmentation of Left Femoral Artery, Percutaneous Approach (ICD-10-PCS; principal; 2022-09-30 10:29)
PROC: 0W993ZZ Drainage of Right Pleural Cavity, Percutaneous Approach (ICD-10-PCS; 2022-10-08)
PROC: 0DJ08ZZ Inspection of Upper Intestinal Tract, Via Natural or Artificial Opening Endoscopic (ICD-10-PCS; 2022-10-10)
PROC: 0DBH8ZX Excision of Cecum, Via Natural or Artificial Opening Endoscopic, Diagnostic (ICD-10-PCS; 2022-10-10)
PROC: 02HV33Z Insertion of Infusion Device into Superior Vena Cava, Percutaneous Approach (ICD-10-PCS; 2022-10-13)
DX: E11.51 Type 2 diabetes mellitus with diabetic peripheral angiopathy without gangrene (principal); I50.33 Acute on chronic diastolic (congestive) heart failure; N17.9 Acute kidney failure, unspecified; E87.1 Hypo-osmolality and hyponatremia; N18.4 Chronic kidney disease, stage 4 (severe); I13.0 Hypertensive heart and chronic kidney disease with heart failure and stage 1 through stage 4 chronic kidney disease, or unspecified chronic kidney disease; L03.116 Cellulitis of left lower limb; E46 Unspecified protein-calorie malnutrition; I48.20 Chronic atrial fibrillation, unspecified; L03.115 Cellulitis of right lower limb; M86.8X7 Other osteomyelitis, ankle and foot; D62 Acute posthemorrhagic anemia; K92.2 Gastrointestinal hemorrhage, unspecified; S61.411A Laceration without foreign body of right hand, initial encounter; D69.6 Thrombocytopenia, unspecified; I27.20 Pulmonary hypertension, unspecified; E11.22 Type 2 diabetes mellitus with diabetic chronic kidney disease; J44.9 Chronic obstructive pulmonary disease, unspecified; I25.2 Old myocardial infarction; K21.9 Gastro-esophageal reflux disease without esophagitis; E78.5 Hyperlipidemia, unspecified; R60.0 Localized edema; E87.5 Hyperkalemia; K59.00 Constipation, unspecified; E87.70 Fluid overload, unspecified; E11.42 Type 2 diabetes mellitus with diabetic polyneuropathy; I27.81 Cor pulmonale (chronic); E66.01 Morbid (severe) obesity due to excess calories; L97.529 Non-pressure chronic ulcer of other part of left foot with unspecified severity; M10.9 Gout, unspecified; L97.519 Non-pressure chronic ulcer of other part of right foot with unspecified severity; I87.2 Venous insufficiency (chronic) (peripheral); E88.09 Other disorders of plasma-protein metabolism, not elsewhere classified; R29.6 Repeated falls; M17.0 Bilateral primary osteoarthritis of knee; E11.69 Type 2 diabetes mellitus with other specified complication; E83.42 Hypomagnesemia; N40.0 Benign prostatic hyperplasia without lower urinary tract symptoms; E11.621 Type 2 diabetes mellitus with foot ulcer; K63.5 Polyp of colon; Z85.46 Personal history of malignant neoplasm of prostate; K64.9 Unspecified hemorrhoids; W18.30XA Fall on same level, unspecified, initial encounter; Y92.009 Unspecified place in unspecified non-institutional (private) residence as the place of occurrence of the external cause; E55.9 Vitamin D deficiency, unspecified; Z79.899 Other long term (current) drug therapy; Z79.82 Long term (current) use of aspirin; Z79.4 Long term (current) use of insulin; Z91.040 Latex allergy status; Z89.422 Acquired absence of other left toe(s); Z96.651 Presence of right artificial knee joint; H35.30 Unspecified macular degeneration; K57.30 Diverticulosis of large intestine without perforation or abscess without bleeding

== ENCOUNTER → 2022-10-26 | Outpatient (REF) | payer MEDICARE, BC, OTHER ==
[~2022-10-26] MED LIST changes: +ADVA230A INH; +ALDA50TA2 PO; +ATOR1TAB21 PO; +LANTINJ4 SC; +LIDO5TD TD; +Latanoprost 0.005% Op Soln OU; +SANT250O8 TOP; +SUCR1ORA PO; +TIMO0.5S29 OU; +TIOT18INH INH; +TORS100T PO; +VANI1CRE5 TOP; +ZOSY1SOL6 IV
== END ==
PROVIDERS: ATTEND Internal Medicine
DX: J98.11 Atelectasis (principal); I51.7 Cardiomegaly

== ENCOUNTER → 2022-10-26 | Outpatient (REF) | payer BC, MEDICARE, OTHER ==
[2022-10-26 11:09] LABS: HEMATOCRIT 21.5 % (42.0-52.0); MEAN CORPUSCULAR HEMOGLOBIN 31.3 pg (27.0-33.0); MEAN CORPUSCULAR HGB CONC 30.2 g/dl (32.0-36.5); MEAN CORPUSCULAR VOLUME 103.4 fl (80.0-96.0); PLATELET COUNT, AUTOMATED 118 10^3/uL (150-450); RED BLOOD COUNT 2.08 10^6/uL (4.30-6.10)
[2022-10-26 11:17] LABS: HEMOGLOBIN 6.5 g/dl (13.5-17.5)
[2022-10-26 11:32] LABS: CALCIUM LEVEL 8.7 MG/DL (8.3-10.6); CREATININE FOR GFR 2.34 MG/DL (0.70-1.30); GLOMERULAR FILTRATION RATE 28.3 (>35); POTASSIUM SERUM 4.2 MMOL/L (3.5-5.1)
[2022-10-26 18:37] LABS: FOLATE 10.49 NG/ML (>5.4); MAGNESIUM LEVEL 1.8 MG/DL (1.8-2.4); PERCENT SATURATION 12.6 % (19.7-50.0)
== END ==
PROVIDERS: ATTEND Internal Medicine
DX: R05.9 Cough, unspecified (principal); R06.00 Dyspnea, unspecified; I50.9 Heart failure, unspecified

== ENCOUNTER 2022-10-27 08:20 | Outpatient (CLI) | payer MEDICARE, BC, OTHER ==
[~2022-10-27] VITALS: Ht 190.5 cm; Wt 136.0 kg
[~2022-10-27 08:20] MED LIST changes: +ACETAMINOPHEN TAB 650MG DOSE (2X325MG) PO SCH; +diphenhydrAMINE 25MG CAP PO SCH
[2022-10-27 08:36] VITALS: BP 139/61
[2022-10-27 10:40] VITALS: BP 139/61
[2022-10-27 10:57] VITALS: BP 141/76
[2022-10-27 12:24] VITALS: BP 160/74
[2022-10-27 12:40] VITALS: BP 152/71
[2022-10-27] MEDS ORDERED: SODIUM CHLORIDE 0.9% INJ 10 ML SYR IV PRN (13:20)
[2022-10-27 14:00] VITALS: BP 149/66
[2022-10-27] MEDS ORDERED: SODIUM CHLORIDE 0.9% INJ 10 ML SYR IV SCH (18:00)
== END 2022-10-27 14:10 | disposition home or self-care (01) ==
LOC: M INFU 08:20
PROVIDERS: ATTEND Internal Medicine
DX: D64.9 Anemia, unspecified (principal); Z91.040 Latex allergy status
CPT/HCPCS: 36430; 36591; 86850; 86900; 86901; 86920; 96523; P9016

== ENCOUNTER → 2022-10-28 | Outpatient (REF) ==
[~2022-10-28] MED LIST changes: -ACETAMINOPHEN TAB 650MG DOSE (2X325MG) PO SCH; -diphenhydrAMINE 25MG CAP PO SCH
[2022-10-28 11:55] LABS: HEMATOCRIT 25.1 % (42.0-52.0); MEAN CORPUSCULAR HEMOGLOBIN 31.5 pg (27.0-33.0); MEAN CORPUSCULAR HGB CONC 31.9 g/dl (32.0-36.5); MEAN CORPUSCULAR VOLUME 98.8 fl (80.0-96.0); PLATELET COUNT, AUTOMATED 128 10^3/uL (150-450); RED BLOOD COUNT 2.54 10^6/uL (4.30-6.10); WHITE BLOOD COUNT 10.9 10^3/uL (4.0-10.0)
[2022-10-28 12:21] LABS: ERYTHROCYTE SEDIMENTATION RATE 85 mm/hr (0-20)
[2022-10-28 12:26] LABS: C REACTIVE PROTEIN QUANTITATIV 4.7 MG/DL (<1.0)
[2022-10-28 12:45] LABS: ALBUMIN 2.4 G/DL (3.2-5.2); BILIRUBIN,DIRECT 0.4 MG/DL (<0.4); BILIRUBIN,TOTAL 0.7 MG/DL (0.3-1.2); CALCIUM LEVEL 9.3 MG/DL (8.3-10.6); CREATININE FOR GFR 2.21 MG/DL (0.70-1.30); GLOMERULAR FILTRATION RATE 30.2 (>35); POTASSIUM SERUM 4.1 MMOL/L (3.5-5.1)
== END ==
PROVIDERS: ATTEND Physician Assistant
DX: R41.82 Altered mental status, unspecified (principal)

== ENCOUNTER → 2022-10-29 | Outpatient (REF) ==
[2022-10-29 12:00] LABS: HEMATOCRIT 26.4 % (42.0-52.0); HEMOGLOBIN 8.3 g/dl (13.5-17.5); MEAN CORPUSCULAR HEMOGLOBIN 31.4 pg (27.0-33.0); MEAN CORPUSCULAR HGB CONC 31.4 g/dl (32.0-36.5); PLATELET COUNT, AUTOMATED 172 10^3/uL (150-450); RED BLOOD COUNT 2.64 10^6/uL (4.30-6.10); WHITE BLOOD COUNT 19.1 10^3/uL (4.0-10.0)
[2022-10-29 12:25] LABS: CALCIUM LEVEL 9.4 MG/DL (8.3-10.6); CREATININE FOR GFR 2.22 MG/DL (0.70-1.30); POTASSIUM SERUM 3.9 MMOL/L (3.5-5.1)
== END ==
PROVIDERS: ATTEND Physician Assistant
DX: D64.9 Anemia, unspecified (principal)

== ENCOUNTER → 2022-10-30 | Outpatient (REF) ==
[2022-10-30 08:27] LABS: BASO % 0.1 % (0.0-1.0); EOS # 0.1 10^3/uL (0.0-0.5); EOS % 0.6 % (0.0-3.0); HEMATOCRIT 26.4 % (42.0-52.0); HEMOGLOBIN 8.2 g/dl (13.5-17.5); LYMPH # 6.4 10^3/uL (1.5-5.0); LYMPH % 30.2 % (24.0-44.0); MEAN CORPUSCULAR HEMOGLOBIN 31.5 pg (27.0-33.0); MEAN CORPUSCULAR HGB CONC 31.1 g/dl (32.0-36.5); MEAN CORPUSCULAR VOLUME 101.5 fl (80.0-96.0); MONO % 9.5 % (2.0-8.0); NEUTROPHILS # 12.4 10^3/uL (1.5-8.5); PLATELET COUNT, AUTOMATED 152 10^3/uL (150-450); WHITE BLOOD COUNT 21.1 10^3/uL (4.0-10.0)
[2022-10-30 08:46] LABS: ERYTHROCYTE SEDIMENTATION RATE 111 mm/hr (0-20)
[2022-10-30 08:55] LABS: CALCIUM LEVEL 9.2 MG/DL (8.3-10.6); CREATININE FOR GFR 2.21 MG/DL (0.70-1.30); GLOMERULAR FILTRATION RATE 30.2 (>35); POTASSIUM SERUM 4.1 MMOL/L (3.5-5.1)
== END ==
PROVIDERS: ATTEND Physician Assistant
DX: D64.9 Anemia, unspecified (principal)

== ENCOUNTER → 2022-11-02 | Outpatient (REF) | PROVIDERS: ATTEND Physician Assistant | DX: D64.9 Anemia, unspecified (principal); Z53.8 Procedure and treatment not carried out for other reasons ==

== ENCOUNTER → 2022-11-03 | Outpatient (REF) | payer MEDICARE, BC, OTHER ==
[2022-11-03 15:32] LABS: HEMATOCRIT 26.1 % (42.0-52.0); MEAN CORPUSCULAR HEMOGLOBIN 31.1 pg (27.0-33.0); MEAN CORPUSCULAR HGB CONC 30.7 g/dl (32.0-36.5); MEAN CORPUSCULAR VOLUME 101.6 fl (80.0-96.0); PLATELET COUNT, AUTOMATED 102 10^3/uL (150-450); RED BLOOD COUNT 2.57 10^6/uL (4.30-6.10); WHITE BLOOD COUNT 14.1 10^3/uL (4.0-10.0)
[2022-11-03 15:52] LABS: C REACTIVE PROTEIN QUANTITATIV 4.4 MG/DL (<1.0)
[2022-11-03 15:53] LABS: ERYTHROCYTE SEDIMENTATION RATE 94 mm/hr (0-20)
[2022-11-03 15:54] LABS: CALCIUM LEVEL 8.8 MG/DL (8.3-10.6); CREATININE FOR GFR 2.53 MG/DL (0.70-1.30); GLOMERULAR FILTRATION RATE 25.8 (>35); POTASSIUM SERUM 3.8 MMOL/L (3.5-5.1)
== END ==
PROVIDERS: ATTEND Physician Assistant
DX: D64.9 Anemia, unspecified (principal)

== ENCOUNTER → 2022-11-04 | Outpatient (REF) ==
[2022-11-04 11:42] LABS: HEMATOCRIT 26.5 % (42.0-52.0); HEMOGLOBIN 8.3 g/dl (13.5-17.5); MEAN CORPUSCULAR HEMOGLOBIN 31.6 pg (27.0-33.0); MEAN CORPUSCULAR HGB CONC 31.3 g/dl (32.0-36.5); MEAN CORPUSCULAR VOLUME 100.8 fl (80.0-96.0); PLATELET COUNT, AUTOMATED 104 10^3/uL (150-450); RED BLOOD COUNT 2.63 10^6/uL (4.30-6.10); WHITE BLOOD COUNT 14.5 10^3/uL (4.0-10.0)
[2022-11-04 12:04] LABS: CALCIUM LEVEL 9.2 MG/DL (8.3-10.6); CREATININE FOR GFR 2.46 MG/DL (0.70-1.30); GLOMERULAR FILTRATION RATE 26.7 (>35); POTASSIUM SERUM 3.8 MMOL/L (3.5-5.1)
== END ==
PROVIDERS: ATTEND Physician Assistant
DX: I50.9 Heart failure, unspecified (principal)

== ENCOUNTER → 2022-11-05 | Outpatient (REF) ==
[2022-11-05 11:30] LABS: HEMATOCRIT 28.7 % (42.0-52.0); HEMOGLOBIN 8.6 g/dl (13.5-17.5); MEAN CORPUSCULAR HEMOGLOBIN 30.5 pg (27.0-33.0); MEAN CORPUSCULAR VOLUME 101.8 fl (80.0-96.0); PLATELET COUNT, AUTOMATED 107 10^3/uL (150-450); RED BLOOD COUNT 2.82 10^6/uL (4.30-6.10); WHITE BLOOD COUNT 12.3 10^3/uL (4.0-10.0)
[2022-11-05 11:56] LABS: CALCIUM LEVEL 9.3 MG/DL (8.3-10.6); CREATININE FOR GFR 2.35 MG/DL (0.70-1.30); GLOMERULAR FILTRATION RATE 28.1 (>35); POTASSIUM SERUM 3.6 MMOL/L (3.5-5.1)
== END ==
PROVIDERS: ATTEND Physician Assistant
DX: D64.9 Anemia, unspecified (principal)

== ENCOUNTER → 2022-11-05 | Outpatient (REF) | PROVIDERS: ATTEND Internal Medicine | DX: I50.9 Heart failure, unspecified (principal) ==

== ENCOUNTER → 2022-11-06 | Outpatient (REF) | payer MEDICARE, OTHER ==
[~2022-11-06] MED LIST changes: +ACET1TAB55 PO; +AIRD1INH2 INH; +ALLO10TA PO; +ASPI81TA26 PO; +ATOR40TA75 PO; +BACI1CAP PO; +BISA10SU27 PR; +ERGO500029 PO; +FLEEENE12 PR; +GLUC1KIT IM; +GLUCLIQ37 PO; +HUMA100I3 SC; +INSU100V13 SQ; +INSUHUMDS SC; +JUVEPOW4 PO; +MILKSUS3 PO; +MUCI600T31 PO; +SPIR1CAP INH; +VANI1CRE5 EX; +XALA0.007 OU
== END ==
LOC: M SFHCWOUN 12:25
PROVIDERS: ATTEND Surgery
DX: L97.524 Non-pressure chronic ulcer of other part of left foot with necrosis of bone (principal); I96 Gangrene, not elsewhere classified

== ENCOUNTER → 2022-11-06 | Outpatient (REF) ==
[~2022-11-06] MED LIST changes: -ACET1TAB55 PO; -AIRD1INH2 INH; -ALLO10TA PO; -ASPI81TA26 PO; -ATOR40TA75 PO; -BACI1CAP PO; -BISA10SU27 PR; -ERGO500029 PO; -FLEEENE12 PR; -GLUC1KIT IM; -GLUCLIQ37 PO; -HUMA100I3 SC; -INSU100V13 SQ; -INSUHUMDS SC; -JUVEPOW4 PO; -MILKSUS3 PO; -MUCI600T31 PO; -SPIR1CAP INH; -VANI1CRE5 EX; -XALA0.007 OU
== END ==
PROVIDERS: ATTEND Physician Assistant
DX: D64.9 Anemia, unspecified (principal); Z53.8 Procedure and treatment not carried out for other reasons

== ENCOUNTER → 2022-11-09 | Outpatient (REF) ==
[2022-11-09 13:04] LABS: HEMOGLOBIN 8.8 g/dl (13.5-17.5); MEAN CORPUSCULAR HEMOGLOBIN 30.6 pg (27.0-33.0); MEAN CORPUSCULAR HGB CONC 30.3 g/dl (32.0-36.5); MEAN CORPUSCULAR VOLUME 100.7 fl (80.0-96.0); PLATELET COUNT, AUTOMATED 129 10^3/uL (150-450); RED BLOOD COUNT 2.88 10^6/uL (4.30-6.10); WHITE BLOOD COUNT 12.8 10^3/uL (4.0-10.0)
[2022-11-09 13:31] LABS: CALCIUM LEVEL 8.6 MG/DL (8.3-10.6); CREATININE FOR GFR 2.61 MG/DL (0.70-1.30); GLOMERULAR FILTRATION RATE 24.9 (>35); POTASSIUM SERUM 3.8 MMOL/L (3.5-5.1)
[2022-11-09 13:32] LABS: C REACTIVE PROTEIN QUANTITATIV 11.3 MG/DL (<1.0)
== END ==
PROVIDERS: ATTEND Physician Assistant
DX: D64.9 Anemia, unspecified (principal)

== ENCOUNTER → 2022-11-16 | Outpatient (REF) ==
[~2022-11-16] MED LIST changes: +BACI1CAP PO; +BISA10SU27 PR; +FLEEENE12 PR; +GLUC1KIT IM; +HUMA100I3 SC; +JUVEPOW4 PO; +MILKSUS3 PO; +MUCI600T31 PO; +SPIR1CAP INH
[2022-11-16 11:04] LABS: BASO # 0.1 10^3/uL (0.0-0.2); BASO % 0.3 % (0.0-1.0); EOS % 0.2 % (0.0-3.0); HEMOGLOBIN 8.3 g/dl (13.5-17.5); LYMPH # 3.3 10^3/uL (1.5-5.0); LYMPH % 19.9 % (24.0-44.0); MEAN CORPUSCULAR HEMOGLOBIN 30.6 pg (27.0-33.0); MEAN CORPUSCULAR HGB CONC 30.7 g/dl (32.0-36.5); MEAN CORPUSCULAR VOLUME 99.6 fl (80.0-96.0); MONO # 0.7 10^3/uL (0.0-0.8); MONO % 4.1 % (2.0-8.0); NEUTROPHILS # 12.6 10^3/uL (1.5-8.5); PLATELET COUNT, AUTOMATED 114 10^3/uL (150-450); RED BLOOD COUNT 2.71 10^6/uL (4.30-6.10); WHITE BLOOD COUNT 16.8 10^3/uL (4.0-10.0)
[2022-11-16 11:16] LABS: INR 1.11; PROTHROMBIN TIME 14.5 SECONDS (12.5-14.5)
[2022-11-16 11:30] LABS: C REACTIVE PROTEIN QUANTITATIV 11.3 MG/DL (<1.0)
[2022-11-16 11:31] LABS: CREATININE FOR GFR 2.87 MG/DL (0.70-1.30); GLOMERULAR FILTRATION RATE 22.3 (>35); POTASSIUM SERUM 4.2 MMOL/L (3.5-5.1)
[2022-11-16 11:32] LABS: RHEUMATOID FACTOR QUANT 20.8 IU/ML (<14)
[2022-11-16 11:57] LABS: ERYTHROCYTE SEDIMENTATION RATE 110 mm/hr (0-20)
[2022-11-17 20:08] LABS: ANTINUCLEAR ANTIBODIES DIRECT Negative (Negative)
[2022-11-18 09:51] LABS: JAK2 MUTATIONS FOR PATH SENDOU See Pathology Report
== END ==
PROVIDERS: ATTEND Physician Assistant
DX: D53.9 Nutritional anemia, unspecified (principal); D72.829 Elevated white blood cell count, unspecified; D69.6 Thrombocytopenia, unspecified

== ENCOUNTER → 2022-11-18 | Outpatient (REF) ==
[2022-11-18 10:25] LABS: HEMOGLOBIN 7.9 g/dl (13.5-17.5); MEAN CORPUSCULAR HEMOGLOBIN 30.4 pg (27.0-33.0); MEAN CORPUSCULAR HGB CONC 30.4 g/dl (32.0-36.5); PLATELET COUNT, AUTOMATED 103 10^3/uL (150-450); WHITE BLOOD COUNT 12.1 10^3/uL (4.0-10.0)
[2022-11-18 10:48] LABS: ERYTHROCYTE SEDIMENTATION RATE 97 mm/hr (0-20)
== END ==
PROVIDERS: ATTEND Physician Assistant
DX: M86.9 Osteomyelitis, unspecified (principal)

== ENCOUNTER → 2022-11-19 | Outpatient (REF) ==
[~2022-11-19] MED LIST changes: +ACET1TAB55 PO; +AIRD1INH2 INH; +ALLO10TA PO; +ASPI81TA26 PO; +ATOR40TA75 PO; +ERGO500029 PO; +GLUCLIQ37 PO; +INSU100V13 SQ; +INSUHUMDS SC; +VANI1CRE5 EX; +XALA0.007 OU
[2022-11-19 11:12] LABS: HEMATOCRIT 27.1 % (42.0-52.0); HEMOGLOBIN 8.1 g/dl (13.5-17.5); MEAN CORPUSCULAR HEMOGLOBIN 29.9 pg (27.0-33.0); MEAN CORPUSCULAR HGB CONC 29.9 g/dl (32.0-36.5); PLATELET COUNT, AUTOMATED 110 10^3/uL (150-450); RED BLOOD COUNT 2.71 10^6/uL (4.30-6.10); WHITE BLOOD COUNT 12.5 10^3/uL (4.0-10.0)
[2022-11-19 11:40] LABS: ALBUMIN 2.2 G/DL (3.2-5.2); BILIRUBIN,TOTAL 0.4 MG/DL (0.3-1.2); CALCIUM LEVEL 8.9 MG/DL (8.3-10.6); CREATININE FOR GFR 2.32 MG/DL (0.70-1.30); GLOMERULAR FILTRATION RATE 28.6 (>35); PHOSPHORUS LEVEL 3.1 MG/DL (2.4-5.1); POTASSIUM SERUM 4.4 MMOL/L (3.5-5.1); TOTAL PROTEIN 6.4 G/DL (5.7-8.2)
== END ==
PROVIDERS: ATTEND Physician Assistant
DX: D64.9 Anemia, unspecified (principal)

== ENCOUNTER 2022-11-20 23:44 | Inpatient (IN) | payer MEDICARE, BC, OTHER ==
[~2022-11-20] VITALS: Ht 182.9 cm; Wt 123.1 kg
[~2022-11-20 23:44] MED LIST changes: -ACET1TAB55 PO; -AIRD1INH2 INH; -ALLO10TA PO; -ASPI81TA26 PO; -ATOR40TA75 PO; -ERGO500029 PO; -GLUCLIQ37 PO; -INSU100V13 SQ; -INSUHUMDS SC; +SENN-186 PO; -SENN-80 PO; +TIMO0.5S20 OU; -TIMO0.5S29 OU; -VANI1CRE5 EX; -XALA0.007 OU
[2022-11-20] MEDS ORDERED: ACETAMINOPHEN 650MG SUPP PR ONE (23:55)
[2022-11-21 00:14] LABS: VENOUS BASE EXCESS 3.7 (-2.0-2.0); VENOUS HCO3 27.9 MEQ/L (23.0-27.0); VENOUS O2 SATURATION 85.7 % (60.0-80.0); VENOUS PARTIAL PRESSURE CO2 40.9 mmHg (38.0-50.0); VENOUS PARTIAL PRESSURE O2 51.1 mmHg (30.0-50.0); VENOUS PH 7.452 UNITS (7.330-7.430); VENOUS STANDARD HCO3 27.6 MEQ/L; VENOUS TOTAL CO2 29.2 MEQ/L (24.0-28.0)
[2022-11-21 00:27] LABS: APPEARANCE, URINE CLEAR (CLEAR); BACTERIA, URINE AUTO NEGATIVE (NEGATIVE); BILIRUBIN, URINE AUTO NEGATIVE (NEGATIVE); BLOOD, URINE BLOOD NEGATIVE (NEGATIVE); COLOR, URINE YELLOW (YELLOW); GLUCOSE, URINE (UA) AUTO NEGATIVE (NEGATIVE); KETONE, URINE AUTO NEGATIVE (NEGATIVE); LEUKOCYTE ESTERASE, URINE AUTO NEGATIVE (NEGATIVE); NITRITE, URINE AUTO NEGATIVE (NEGATIVE); PROTEIN, URINE AUTO NEGATIVE (NEGATIVE); RBC, URINE AUTO 3 /HPF (0-3); SPECIFIC GRAVITY URINE AUTO 1.013 (1.002-1.035); SQUAMOUS EPITHELIAL CELL UR AU 1 /HPF (0-6); UROBILINOGEN, URINE AUTO 0.2 mg/dL (0.0-2.0); WBC, URINE AUTO 1 /HPF (0-3)
[2022-11-21] MEDS ORDERED: NS IV ONE (00:35)
[2022-11-21 00:38] LABS: ALBUMIN 2.1 G/DL (3.2-5.2); BILIRUBIN,DIRECT 0.3 MG/DL (<0.4); BILIRUBIN,TOTAL 0.6 MG/DL (0.3-1.2); CALCIUM LEVEL 8.7 MG/DL (8.3-10.6); CREATININE FOR GFR 2.36 MG/DL (0.70-1.30); POTASSIUM SERUM 4.4 MMOL/L (3.5-5.1); TOTAL PROTEIN 6.1 G/DL (5.7-8.2)
[2022-11-21 00:40] LABS: INR 1.17; PROTHROMBIN TIME 15.1 SECONDS (12.5-14.5)
[2022-11-21 00:41] LABS: PARTIAL THROMBOPLASTIN TIME 26.4 SECONDS (24.8-34.2)
[2022-11-21 00:48] LABS: BASO # 0.1 10^3/uL (0.0-0.2); BASO % 0.2 % (0.0-1.0); EOS % 0.1 % (0.0-3.0); HEMATOCRIT 24.3 % (42.0-52.0); HEMOGLOBIN 7.5 g/dl (13.5-17.5); LYMPH # 3.7 10^3/uL (1.5-5.0); LYMPH % 13.1 % (24.0-44.0); MEAN CORPUSCULAR HEMOGLOBIN 30.1 pg (27.0-33.0); MEAN CORPUSCULAR HGB CONC 30.9 g/dl (32.0-36.5); MEAN CORPUSCULAR VOLUME 97.6 fl (80.0-96.0); MONO % 3.5 % (2.0-8.0); NEUTROPHILS # 22.6 10^3/uL (1.5-8.5); NEUTROPHILS % 80.9 % (36.0-66.0); PLATELET COUNT, AUTOMATED 107 10^3/uL (150-450); RED BLOOD COUNT 2.49 10^6/uL (4.30-6.10); WHITE BLOOD COUNT 27.9 10^3/uL (4.0-10.0)
[2022-11-21] MEDS ORDERED: GLUCLIQ37 PO (00:49)
[2022-11-21] MEDS ORDERED: ATOR40TA75 PO ×2 (00:49)
[2022-11-21] MEDS ORDERED: XALA0.007 OU (00:49)
[2022-11-21] MEDS ORDERED: INSU100V13 SQ (00:49)
[2022-11-21] MEDS ORDERED: ALLO10TA PO (00:49)
[2022-11-21] MEDS ORDERED: ASPI81TA26 PO (00:49)
[2022-11-21 01:09] LABS: RSV AMPLIFICATION NEGATIVE (NEGATIVE)
[2022-11-21] MEDS ORDERED: ERGO500029 PO (01:10)
[2022-11-21] MEDS ORDERED: SANT250O8 TOP (01:10)
[2022-11-21] MEDS ORDERED: VANI1CRE5 EX (01:10)
[2022-11-21] MEDS ORDERED: AIRD1INH2 INH (01:10)
[2022-11-21] MEDS ORDERED: TORS20TA2 PO (01:10)
[2022-11-21] MEDS ORDERED: ACET1TAB55 PO (01:10)
[2022-11-21] MEDS ORDERED: INSUHUMDS SC (01:10)
[2022-11-21] MEDS ORDERED: HOME MED LIST COMPLETE! XX SCH (01:15)
[2022-11-21] MEDS ORDERED: PIPERACILLIN/TAZOBACTAM SOD 4.5 GM in D5W MINI-BAG PLUS 50 ML IV ONE (01:30)
[2022-11-21] MEDS ORDERED: diazePAM 10MG/2ML SYRINGE IV ONE (02:50)
[2022-11-21] MEDS ORDERED: GLUCAGON INJ 1MG VIAL SC PRN (02:55)
[2022-11-21] MEDS ORDERED: DEXTROSE 50% 50ML SYRINGE IV PRN (02:55)
[2022-11-21] MEDS ORDERED: GLUCOSE 4GM CHEW TABLET PO PRN (02:55)
[2022-11-21] MEDS ORDERED: VANCOMYCIN HCL 750 MG, VIAL MATE ADAPTER 1 EACH in NS 250 ML IV SCH (03:00)
[2022-11-21 04:00] VITALS: BP 101/57
[2022-11-21] MEDS ORDERED: VANCOMYCIN HCL 1,000 MG, VIAL MATE ADAPTER 1 EACH in NS 250 ML IV SCH ×2 (04:00→17:00)
[2022-11-21] MEDS ORDERED: BISACODYL 10MG SUPP PR PRN (04:10)
[2022-11-21] MEDS ORDERED: VANCOMYCIN HCL 1,000 MG, VIAL MATE ADAPTER 1 EACH in D5W 250 ML IV ONE (05:00)
[2022-11-21] MEDS: HEPARIN SOD (PORCINE) 5000UNITS/ML 1ML VIAL/SYRINGE SC SCH ×3 (05:35→22:23)
[2022-11-21] MEDS: ACETAMINOPHEN TAB 650MG DOSE (2X325MG) PO PRN ×3 (05:44→23:42)
[2022-11-21 07:30] VITALS: BP 100/53
[2022-11-21] MEDS: TIOTROPIUM INHALER/CAPSULE (SPIRIVA) INH SCH (08:00)
[2022-11-21] MEDS: INSULIN LISPRO (NovoLOG) PER UNIT SC SCH ×4 (08:49→21:00)
[2022-11-21] MEDS: PIPERACILLIN/TAZOBACTAM SOD 3.375 GM in D5W MINI-BAG PLUS 50 ML IV SCH ×3 (08:49→19:37)
[2022-11-21] MEDS: PANTOPRAZOLE 40MG TAB (PROTONIX) PO SCH (08:54)
[2022-11-21] MEDS: CARVedilol 3.125 MG TAB PO SCH ×2 (08:55→22:23)
[2022-11-21] MEDS: ASPIRIN 81MG ENTERIC TABLET PO SCH (08:55)
[2022-11-21] MEDS: FERROUS SULFATE 325MG TAB PO SCH (08:55)
[2022-11-21] MEDS: allopurinoL 100 MG TAB PO SCH (08:55)
[2022-11-21] MEDS: CLOPIDOGREL 75 MG TAB PO SCH (08:55)
[2022-11-21 12:00] VITALS: BP 119/76
[2022-11-21 12:24] LABS: BASO # 0.1 10^3/uL (0.0-0.2); BASO % 0.1 % (0.0-1.0); EOS % 0.1 % (0.0-3.0); HEMATOCRIT 25.4 % (42.0-52.0); HEMOGLOBIN 7.7 g/dl (13.5-17.5); LYMPH # 3.4 10^3/uL (1.5-5.0); LYMPH % 9.8 % (24.0-44.0); MEAN CORPUSCULAR HEMOGLOBIN 29.6 pg (27.0-33.0); MEAN CORPUSCULAR HGB CONC 30.3 g/dl (32.0-36.5); MEAN CORPUSCULAR VOLUME 97.7 fl (80.0-96.0); MONO # 0.9 10^3/uL (0.0-0.8); MONO % 2.6 % (2.0-8.0); NEUTROPHILS # 29.6 10^3/uL (1.5-8.5); NEUTROPHILS % 85.9 % (36.0-66.0); PLATELET COUNT, AUTOMATED 109 10^3/uL (150-450)
[2022-11-21 12:39] LABS: WHITE BLOOD COUNT 34.5 10^3/uL (4.0-10.0)
[2022-11-21 12:50] LABS: BILIRUBIN,TOTAL 0.8 MG/DL (0.3-1.2); CALCIUM LEVEL 8.4 MG/DL (8.3-10.6); CREATININE FOR GFR 2.21 MG/DL (0.70-1.30); GLOMERULAR FILTRATION RATE 30.2 (>35); POTASSIUM SERUM 4.3 MMOL/L (3.5-5.1); TOTAL PROTEIN 5.9 G/DL (5.7-8.2)
[2022-11-21] MEDS: ADVAIR HFA 115/21MCG INHALER INH SCH ×2 (13:21→19:46)
[2022-11-21 15:36] VITALS: BP 105/55
[2022-11-21 19:40] VITALS: BP 118/57
[2022-11-21] MEDS ORDERED: LEVEMIR (INSULIN DETEMIR) 1 UNITS/0.01ML SC SCH (21:00)
[2022-11-21] MEDS: ATORVASTATIN 20 MG TAB PO SCH (22:23)
[2022-11-21 23:54] VITALS: BP 113/57
[2022-11-22] VITALS (10 sets, daily range): BP systolic 96–134; BP diastolic 51–68
[2022-11-22] MEDS: PIPERACILLIN/TAZOBACTAM SOD 3.375 GM in D5W MINI-BAG PLUS 50 ML IV SCH ×4 (01:33→21:18)
[2022-11-22 05:46] LABS: BASO % 0.2 % (0.0-1.0); EOS # 0.1 10^3/uL (0.0-0.5); EOS % 0.2 % (0.0-3.0); HEMATOCRIT 22.4 % (42.0-52.0); LYMPH # 3.9 10^3/uL (1.5-5.0); MEAN CORPUSCULAR HEMOGLOBIN 29.9 pg (27.0-33.0); MEAN CORPUSCULAR HGB CONC 30.8 g/dl (32.0-36.5); MONO # 0.9 10^3/uL (0.0-0.8); MONO % 3.4 % (2.0-8.0); NEUTROPHILS # 20.9 10^3/uL (1.5-8.5); NEUTROPHILS % 80.1 % (36.0-66.0); RED BLOOD COUNT 2.31 10^6/uL (4.30-6.10); WHITE BLOOD COUNT 26.1 10^3/uL (4.0-10.0)
[2022-11-22 05:49] LABS: HEMOGLOBIN 6.9 g/dl (13.5-17.5); PLATELET COUNT, AUTOMATED 90 10^3/uL (150-450)
[2022-11-22] MEDS: HEPARIN SOD (PORCINE) 5000UNITS/ML 1ML VIAL/SYRINGE SC SCH ×4 (06:00→21:41)
[2022-11-22 06:07] LABS: PERCENT SATURATION 4.4 % (19.7-50.0)
[2022-11-22 06:09] LABS: ALBUMIN 1.8 G/DL (3.2-5.2); BILIRUBIN,TOTAL 0.5 MG/DL (0.3-1.2); CALCIUM LEVEL 8.1 MG/DL (8.3-10.6); CREATININE FOR GFR 2.12 MG/DL (0.70-1.30); GLOMERULAR FILTRATION RATE 31.7 (>35); POTASSIUM SERUM 4.1 MMOL/L (3.5-5.1); TOTAL PROTEIN 5.5 G/DL (5.7-8.2)
[2022-11-22] MEDS ORDERED: LIDOCAINE 1% MDV 20ML VIAL SC PRN (07:05)
[2022-11-22] MEDS: ADVAIR HFA 115/21MCG INHALER INH SCH ×2 (07:08→20:18)
[2022-11-22] MEDS: TIOTROPIUM INHALER/CAPSULE (SPIRIVA) INH SCH (07:08)
[2022-11-22] MEDS: INSULIN LISPRO (NovoLOG) PER UNIT SC SCH ×4 (07:30→21:00)
[2022-11-22] MEDS: ASPIRIN 81MG ENTERIC TABLET PO SCH (08:16)
[2022-11-22] MEDS: CLOPIDOGREL 75 MG TAB PO SCH (08:16)
[2022-11-22] MEDS: CARVedilol 3.125 MG TAB PO SCH ×2 (08:17→21:18)
[2022-11-22] MEDS: FERROUS SULFATE 325MG TAB PO SCH (08:17)
[2022-11-22] MEDS: allopurinoL 100 MG TAB PO SCH (08:17)
[2022-11-22] MEDS: PANTOPRAZOLE 40MG TAB (PROTONIX) PO SCH (08:17)
[2022-11-22] MEDS: ACETAMINOPHEN TAB 650MG DOSE (2X325MG) PO PRN ×2 (08:17→21:17)
[2022-11-22 13:18] LABS: HEMATOCRIT 26.3 % (42.0-52.0); HEMOGLOBIN 8.2 g/dl (13.5-17.5); MEAN CORPUSCULAR HEMOGLOBIN 30.1 pg (27.0-33.0); MEAN CORPUSCULAR HGB CONC 31.2 g/dl (32.0-36.5); MEAN CORPUSCULAR VOLUME 96.7 fl (80.0-96.0); RED BLOOD COUNT 2.72 10^6/uL (4.30-6.10); WHITE BLOOD COUNT 23.5 10^3/uL (4.0-10.0)
[2022-11-22 13:21] LABS: PLATELET COUNT, AUTOMATED 94 10^3/uL (150-450)
[2022-11-22] MEDS: ATORVASTATIN 20 MG TAB PO SCH (21:18)
[2022-11-22] MEDS: LEVEMIR (INSULIN DETEMIR) 1 UNITS/0.01ML SC SCH (21:19)
[2022-11-23] MEDS: PIPERACILLIN/TAZOBACTAM SOD 3.375 GM in D5W MINI-BAG PLUS 50 ML IV SCH ×4 (02:48→21:11)
[2022-11-23] MEDS: HEPARIN SOD (PORCINE) 5000UNITS/ML 1ML VIAL/SYRINGE SC SCH (05:10)
[2022-11-23 06:01] VITALS: BP 121/58
[2022-11-23 06:15] LABS: BASO % 0.2 % (0.0-1.0); EOS # 0.1 10^3/uL (0.0-0.5); EOS % 0.4 % (0.0-3.0); HEMATOCRIT 24.1 % (42.0-52.0); HEMOGLOBIN 7.4 g/dl (13.5-17.5); LYMPH # 3.6 10^3/uL (1.5-5.0); LYMPH % 22.5 % (24.0-44.0); MEAN CORPUSCULAR HEMOGLOBIN 29.6 pg (27.0-33.0); MEAN CORPUSCULAR HGB CONC 30.7 g/dl (32.0-36.5); MEAN CORPUSCULAR VOLUME 96.4 fl (80.0-96.0); MONO # 0.6 10^3/uL (0.0-0.8); NEUTROPHILS # 11.5 10^3/uL (1.5-8.5); NEUTROPHILS % 72.3 % (36.0-66.0); WHITE BLOOD COUNT 15.8 10^3/uL (4.0-10.0)
[2022-11-23 06:19] LABS: PLATELET COUNT, AUTOMATED 87 10^3/uL (150-450)
[2022-11-23 06:43] LABS: ALBUMIN 1.7 G/DL (3.2-5.2); BILIRUBIN,TOTAL 0.7 MG/DL (0.3-1.2); CALCIUM LEVEL 8.5 MG/DL (8.3-10.6); CREATININE FOR GFR 1.92 MG/DL (0.70-1.30); GLOMERULAR FILTRATION RATE 35.5 (>35); POTASSIUM SERUM 4.5 MMOL/L (3.5-5.1); TOTAL PROTEIN 5.7 G/DL (5.7-8.2)
[2022-11-23] MEDS: INSULIN LISPRO (NovoLOG) PER UNIT SC SCH ×4 (07:30→21:00)
[2022-11-23] MEDS: PANTOPRAZOLE 40MG TAB (PROTONIX) PO SCH (08:12)
[2022-11-23] MEDS: allopurinoL 100 MG TAB PO SCH (08:12)
[2022-11-23] MEDS: FERROUS SULFATE 325MG TAB PO SCH (08:12)
[2022-11-23] MEDS: CARVedilol 3.125 MG TAB PO SCH ×2 (08:12→21:00)
[2022-11-23] MEDS: TIOTROPIUM INHALER/CAPSULE (SPIRIVA) INH SCH (08:24)
[2022-11-23] MEDS: ADVAIR HFA 115/21MCG INHALER INH SCH ×2 (08:24→21:37)
[2022-11-23] MEDS: ACETAMINOPHEN TAB 650MG DOSE (2X325MG) PO PRN ×2 (09:46→21:11)
[2022-11-23] MEDS: DARBEPOETIN 100MCG/0.5ML *NON-DIALYSIS* SYRINGE SC SCH (09:47)
[2022-11-23] MEDS: TORSEMIDE 20 MG TAB PO SCH (12:08)
[2022-11-23 14:00] VITALS: BP 126/58
[2022-11-23 20:38] VITALS: BP 98/73
[2022-11-23] MEDS: ATORVASTATIN 20 MG TAB PO SCH (21:11)
[2022-11-23] MEDS: LEVEMIR (INSULIN DETEMIR) 1 UNITS/0.01ML SC SCH (21:12)
[2022-11-23 23:31] VITALS: BP 107/52
[2022-11-24] MEDS: PIPERACILLIN/TAZOBACTAM SOD 3.375 GM in D5W MINI-BAG PLUS 50 ML IV SCH ×3 (02:53→15:22)
[2022-11-24 05:26] VITALS: BP 105/85
[2022-11-24 06:27] LABS: BASO % 0.2 % (0.0-1.0); EOS # 0.2 10^3/uL (0.0-0.5); EOS % 1.5 % (0.0-3.0); HEMATOCRIT 23.6 % (42.0-52.0); HEMOGLOBIN 7.3 g/dl (13.5-17.5); LYMPH # 3.9 10^3/uL (1.5-5.0); LYMPH % 31.5 % (24.0-44.0); MEAN CORPUSCULAR HEMOGLOBIN 30.2 pg (27.0-33.0); MEAN CORPUSCULAR HGB CONC 30.9 g/dl (32.0-36.5); MEAN CORPUSCULAR VOLUME 97.5 fl (80.0-96.0); MONO # 0.6 10^3/uL (0.0-0.8); MONO % 5.1 % (2.0-8.0); NEUTROPHILS # 7.5 10^3/uL (1.5-8.5); RED BLOOD COUNT 2.42 10^6/uL (4.30-6.10); WHITE BLOOD COUNT 12.3 10^3/uL (4.0-10.0)
[2022-11-24 06:29] LABS: PLATELET COUNT, AUTOMATED 82 10^3/uL (150-450)
[2022-11-24 06:52] LABS: C REACTIVE PROTEIN QUANTITATIV 8.4 MG/DL (<1.0)
[2022-11-24 06:53] LABS: ALBUMIN 1.8 G/DL (3.2-5.2); BILIRUBIN,TOTAL 0.5 MG/DL (0.3-1.2); CALCIUM LEVEL 8.4 MG/DL (8.3-10.6); CREATININE FOR GFR 1.89 MG/DL (0.70-1.30); GLOMERULAR FILTRATION RATE 36.2 (>35); POTASSIUM SERUM 4.6 MMOL/L (3.5-5.1); TOTAL PROTEIN 5.6 G/DL (5.7-8.2)
[2022-11-24] MEDS: TIOTROPIUM INHALER/CAPSULE (SPIRIVA) INH SCH (08:10)
[2022-11-24] MEDS: ADVAIR HFA 115/21MCG INHALER INH SCH ×2 (08:10→20:00)
[2022-11-24] MEDS: FERROUS SULFATE 325MG TAB PO SCH (08:11)
[2022-11-24] MEDS: TORSEMIDE 20 MG TAB PO SCH (08:14)
[2022-11-24] MEDS: CARVedilol 3.125 MG TAB PO SCH ×3 (08:15→21:00)
[2022-11-24] MEDS: allopurinoL 100 MG TAB PO SCH (08:15)
[2022-11-24] MEDS: INSULIN LISPRO (NovoLOG) PER UNIT SC SCH ×4 (08:16→20:48)
[2022-11-24] MEDS: PANTOPRAZOLE 40MG TAB (PROTONIX) PO SCH (08:16)
[2022-11-24 14:30] VITALS: BP 107/79
[2022-11-24] MEDS: AMOXICILLIN 500 MG CAP PO SCH (20:52)
[2022-11-24] MEDS: ATORVASTATIN 20 MG TAB PO SCH (20:52)
[2022-11-24] MEDS: ACETAMINOPHEN TAB 650MG DOSE (2X325MG) PO PRN (20:53)
[2022-11-24] MEDS: LEVEMIR (INSULIN DETEMIR) 1 UNITS/0.01ML SC SCH (20:53)
[2022-11-24 20:54] VITALS: BP 104/52
[2022-11-24] MEDS ORDERED: AMOXICILLIN SUSP 250MG/5ML 100ML BOTTLE (FOR INPATIENT ORDERS) PO SCH (21:00)
[2022-11-25 07:00] VITALS: BP 125/56
[2022-11-25 07:07] LABS: HEMOGLOBIN 7.1 g/dl (13.5-17.5); MEAN CORPUSCULAR HEMOGLOBIN 30.1 pg (27.0-33.0); MEAN CORPUSCULAR HGB CONC 30.9 g/dl (32.0-36.5); MEAN CORPUSCULAR VOLUME 97.5 fl (80.0-96.0); RED BLOOD COUNT 2.36 10^6/uL (4.30-6.10); WHITE BLOOD COUNT 11.6 10^3/uL (4.0-10.0)
[2022-11-25 07:18] LABS: ALBUMIN 1.8 G/DL (3.2-5.2); BILIRUBIN,TOTAL 0.3 MG/DL (0.3-1.2); CREATININE FOR GFR 1.76 MG/DL (0.70-1.30); GLOMERULAR FILTRATION RATE 39.3 (>35); POTASSIUM SERUM 4.7 MMOL/L (3.5-5.1); TOTAL PROTEIN 5.7 G/DL (5.7-8.2)
[2022-11-25 07:20] LABS: PLATELET COUNT, AUTOMATED 87 10^3/uL (150-450)
[2022-11-25] MEDS: TIOTROPIUM INHALER/CAPSULE (SPIRIVA) INH SCH (07:52)
[2022-11-25] MEDS: ADVAIR HFA 115/21MCG INHALER INH SCH ×2 (07:54→20:50)
[2022-11-25] MEDS: AMOXICILLIN 500 MG CAP PO SCH ×3 (08:09→21:08)
[2022-11-25] MEDS: INSULIN LISPRO (NovoLOG) PER UNIT SC SCH ×4 (08:09→21:00)
[2022-11-25] MEDS: FERROUS SULFATE 325MG TAB PO SCH (08:09)
[2022-11-25] MEDS: TORSEMIDE 20 MG TAB PO SCH (08:10)
[2022-11-25] MEDS: ACETAMINOPHEN TAB 650MG DOSE (2X325MG) PO PRN ×2 (08:10→21:08)
[2022-11-25] MEDS: allopurinoL 100 MG TAB PO SCH (08:10)
[2022-11-25] MEDS: PANTOPRAZOLE 40MG TAB (PROTONIX) PO SCH (08:10)
[2022-11-25] MEDS: CARVedilol 3.125 MG TAB PO SCH ×2 (08:13→21:15)
[2022-11-25 08:37] LABS: ATYPICAL LYMPH 3 % (0-5); EOSINOPHILS 1 % (0-3); LYMPHOCYTES 29 % (16-44); MONOCYTES 6 % (0-5); NEUTROPHILS 61 % (28-66)
[2022-11-25 08:38] LABS: ANISOCYTOSIS 2+
[2022-11-25 08:39] LABS: HYPOCHROMASIA 2+
[2022-11-25 08:40] LABS: PLATELET ESTIMATE DECREASED (NORMAL)
[2022-11-25] MEDS ORDERED: ASPIRIN 81MG ENTERIC TABLET PO SCH (09:00)
[2022-11-25] MEDS ORDERED: CLOPIDOGREL 75 MG TAB PO SCH (09:00)
[2022-11-25 14:30] VITALS: BP_SYST 110; BP_SYST 133; BP_DIAS 72; BP_DIAS 76
[2022-11-25] MEDS: ATORVASTATIN 20 MG TAB PO SCH (21:07)
[2022-11-25] MEDS: LEVEMIR (INSULIN DETEMIR) 1 UNITS/0.01ML SC SCH (21:08)
[2022-11-25 21:13] VITALS: BP 126/58
[2022-11-26 06:34] VITALS: BP 129/56
[2022-11-26 07:13] LABS: BILIRUBIN,TOTAL 0.4 MG/DL (0.3-1.2); CALCIUM LEVEL 8.4 MG/DL (8.3-10.6); CREATININE FOR GFR 1.72 MG/DL (0.70-1.30); GLOMERULAR FILTRATION RATE 40.3 (>35); TOTAL PROTEIN 6.1 G/DL (5.7-8.2)
[2022-11-26] MEDS: INSULIN LISPRO (NovoLOG) PER UNIT SC SCH ×4 (07:30→21:00)
[2022-11-26 07:35] LABS: HEMATOCRIT 24.5 % (42.0-52.0); HEMOGLOBIN 7.5 g/dl (13.5-17.5); MEAN CORPUSCULAR HGB CONC 30.6 g/dl (32.0-36.5); WHITE BLOOD COUNT 14.6 10^3/uL (4.0-10.0)
[2022-11-26] MEDS: ADVAIR HFA 115/21MCG INHALER INH SCH ×2 (07:35→20:20)
[2022-11-26] MEDS: TIOTROPIUM INHALER/CAPSULE (SPIRIVA) INH SCH (07:35)
[2022-11-26 07:41] LABS: PLATELET COUNT, AUTOMATED 98 10^3/uL (150-450)
[2022-11-26 08:00] VITALS: BP 119/60
[2022-11-26 08:09] LABS: ANISOCYTOSIS 2+; ATYPICAL LYMPH 3 % (0-5); BASOPHILS 1 % (0-1); EOSINOPHILS 1 % (0-3); HYPOCHROMASIA 2+; LYMPHOCYTES 27 % (16-44); MONOCYTES 5 % (0-5); NEUTROPHILS 63 % (28-66)
[2022-11-26 08:10] LABS: PLATELET ESTIMATE DECREASED (NORMAL)
[2022-11-26] MEDS: AMOXICILLIN 500 MG CAP PO SCH ×3 (09:54→22:01)
[2022-11-26] MEDS: PANTOPRAZOLE 40MG TAB (PROTONIX) PO SCH (09:54)
[2022-11-26] MEDS: FERROUS SULFATE 325MG TAB PO SCH (09:55)
[2022-11-26] MEDS: TORSEMIDE 20 MG TAB PO SCH (09:55)
[2022-11-26] MEDS: allopurinoL 100 MG TAB PO SCH (09:56)
[2022-11-26] MEDS: CARVedilol 3.125 MG TAB PO SCH ×2 (09:57→21:00)
[2022-11-26] MEDS: ACETAMINOPHEN TAB 650MG DOSE (2X325MG) PO PRN ×2 (11:34→22:01)
[2022-11-26] MEDS: ASPIRIN 81MG ENTERIC TABLET PO SCH (12:50)
[2022-11-26] MEDS: LACTOBACILLUS ACIDOPHILUS CAP (BACID) PO SCH (17:35)
[2022-11-26 22:00] VITALS: BP 107/60
[2022-11-26] MEDS: LEVEMIR (INSULIN DETEMIR) 1 UNITS/0.01ML SC SCH (22:00)
[2022-11-26] MEDS: ATORVASTATIN 20 MG TAB PO SCH (22:01)
[2022-11-27] VITALS (9 sets, daily range): BP systolic 112–143; BP diastolic 47–81
[2022-11-27 06:31] LABS: HEMATOCRIT 22.2 % (42.0-52.0); MEAN CORPUSCULAR HEMOGLOBIN 30.1 pg (27.0-33.0); MEAN CORPUSCULAR HGB CONC 31.1 g/dl (32.0-36.5); MEAN CORPUSCULAR VOLUME 96.9 fl (80.0-96.0); RED BLOOD COUNT 2.29 10^6/uL (4.30-6.10); WHITE BLOOD COUNT 12.3 10^3/uL (4.0-10.0)
[2022-11-27 06:35] LABS: HEMOGLOBIN 6.9 g/dl (13.5-17.5)
[2022-11-27 06:36] LABS: PLATELET COUNT, AUTOMATED 90 10^3/uL (150-450)
[2022-11-27 06:53] LABS: BILIRUBIN,TOTAL 0.4 MG/DL (0.3-1.2); CALCIUM LEVEL 8.3 MG/DL (8.3-10.6); CREATININE FOR GFR 1.67 MG/DL (0.70-1.30); GLOMERULAR FILTRATION RATE 41.7 (>35); POTASSIUM SERUM 4.6 MMOL/L (3.5-5.1); TOTAL PROTEIN 5.9 G/DL (5.7-8.2)
[2022-11-27 06:58] LABS: ATYPICAL LYMPH 8 % (0-5); EOSINOPHILS 1 % (0-3); LYMPHOCYTES 23 % (16-44); METAMYELOCYTES 1 % (0-0); MONOCYTES 2 % (0-5); MYELOCYTES 4 % (0-0); NEUTROPHILS 61 % (28-66)
[2022-11-27 06:59] LABS: ANISOCYTOSIS 2+; HYPOCHROMASIA 1+; PLATELET ESTIMATE DECREASED (NORMAL)
[2022-11-27] MEDS: ADVAIR HFA 115/21MCG INHALER INH SCH ×2 (07:24→20:29)
[2022-11-27] MEDS: TIOTROPIUM INHALER/CAPSULE (SPIRIVA) INH SCH (07:24)
[2022-11-27] MEDS: INSULIN LISPRO (NovoLOG) PER UNIT SC SCH ×4 (08:34→21:00)
[2022-11-27] MEDS: LACTOBACILLUS ACIDOPHILUS CAP (BACID) PO SCH ×2 (08:35→17:26)
[2022-11-27] MEDS: ASPIRIN 81MG ENTERIC TABLET PO SCH (08:35)
[2022-11-27] MEDS: TORSEMIDE 20 MG TAB PO SCH (08:35)
[2022-11-27] MEDS: PANTOPRAZOLE 40MG TAB (PROTONIX) PO SCH (08:35)
[2022-11-27] MEDS: FERROUS SULFATE 325MG TAB PO SCH (08:35)
[2022-11-27] MEDS: allopurinoL 100 MG TAB PO SCH (08:35)
[2022-11-27] MEDS: CARVedilol 3.125 MG TAB PO SCH ×2 (08:35→21:00)
[2022-11-27] MEDS: AMOXICILLIN 500 MG CAP PO SCH ×3 (08:35→21:30)
[2022-11-27] MEDS: ACETAMINOPHEN TAB 650MG DOSE (2X325MG) PO PRN ×2 (11:23→21:31)
[2022-11-27] MEDS: CLOPIDOGREL 75 MG TAB PO SCH (17:26)
[2022-11-27] MEDS: ATORVASTATIN 20 MG TAB PO SCH (21:30)
[2022-11-27] MEDS: LEVEMIR (INSULIN DETEMIR) 1 UNITS/0.01ML SC SCH (21:30)
[2022-11-28 05:15] LABS: BASO % 0.2 % (0.0-1.0); EOS # 0.1 10^3/uL (0.0-0.5); EOS % 0.5 % (0.0-3.0); HEMATOCRIT 27.8 % (42.0-52.0); HEMOGLOBIN 8.8 g/dl (13.5-17.5); LYMPH % 27.6 % (24.0-44.0); MEAN CORPUSCULAR HEMOGLOBIN 29.9 pg (27.0-33.0); MEAN CORPUSCULAR HGB CONC 31.7 g/dl (32.0-36.5); MEAN CORPUSCULAR VOLUME 94.6 fl (80.0-96.0); MONO # 0.7 10^3/uL (0.0-0.8); NEUTROPHILS # 9.5 10^3/uL (1.5-8.5); NEUTROPHILS % 66.2 % (36.0-66.0); RED BLOOD COUNT 2.94 10^6/uL (4.30-6.10); WHITE BLOOD COUNT 14.4 10^3/uL (4.0-10.0)
[2022-11-28 05:24] LABS: PLATELET COUNT, AUTOMATED 83 10^3/uL (150-450)
[2022-11-28 05:46] LABS: ALBUMIN 2.2 G/DL (3.2-5.2); BILIRUBIN,TOTAL 0.6 MG/DL (0.3-1.2); CALCIUM LEVEL 8.3 MG/DL (8.3-10.6); CREATININE FOR GFR 1.59 MG/DL (0.70-1.30); GLOMERULAR FILTRATION RATE 44.2 (>35); POTASSIUM SERUM 4.7 MMOL/L (3.5-5.1); TOTAL PROTEIN 6.2 G/DL (5.7-8.2)
[2022-11-28 06:00] VITALS: BP 116/49
[2022-11-28] MEDS: TIOTROPIUM INHALER/CAPSULE (SPIRIVA) INH SCH (07:54)
[2022-11-28] MEDS: ADVAIR HFA 115/21MCG INHALER INH SCH ×2 (07:54→19:55)
[2022-11-28] MEDS: INSULIN LISPRO (NovoLOG) PER UNIT SC SCH ×4 (08:25→21:00)
[2022-11-28] MEDS: ASPIRIN 81MG ENTERIC TABLET PO SCH (08:25)
[2022-11-28] MEDS: TORSEMIDE 20 MG TAB PO SCH (08:25)
[2022-11-28] MEDS: PANTOPRAZOLE 40MG TAB (PROTONIX) PO SCH (08:25)
[2022-11-28] MEDS: allopurinoL 100 MG TAB PO SCH (08:25)
[2022-11-28] MEDS: AMOXICILLIN 500 MG CAP PO SCH ×3 (08:25→21:13)
[2022-11-28] MEDS: CARVedilol 3.125 MG TAB PO SCH ×2 (08:26→21:13)
[2022-11-28] MEDS: FERROUS SULFATE 325MG TAB PO SCH (08:26)
[2022-11-28] MEDS: LACTOBACILLUS ACIDOPHILUS CAP (BACID) PO SCH ×2 (08:26→17:41)
[2022-11-28] MEDS: CLOPIDOGREL 75 MG TAB PO SCH (08:26)
[2022-11-28] MEDS: ACETAMINOPHEN TAB 650MG DOSE (2X325MG) PO PRN ×3 (09:11→23:03)
[2022-11-28] MEDS: ATORVASTATIN 20 MG TAB PO SCH (21:13)
[2022-11-28] MEDS: LEVEMIR (INSULIN DETEMIR) 1 UNITS/0.01ML SC SCH (21:14)
[2022-11-29 06:00] VITALS: BP 109/50
[2022-11-29] MEDS: ADVAIR HFA 115/21MCG INHALER INH SCH ×2 (07:28→20:38)
[2022-11-29] MEDS: TIOTROPIUM INHALER/CAPSULE (SPIRIVA) INH SCH (07:28)
[2022-11-29] MEDS: INSULIN LISPRO (NovoLOG) PER UNIT SC SCH ×4 (07:30→21:00)
[2022-11-29] MEDS: LACTOBACILLUS ACIDOPHILUS CAP (BACID) PO SCH ×2 (08:09→17:31)
[2022-11-29] MEDS: CARVedilol 3.125 MG TAB PO SCH ×3 (09:00→21:34)
[2022-11-29] MEDS: AMOXICILLIN 500 MG CAP PO SCH ×3 (09:21→21:33)
[2022-11-29] MEDS: TORSEMIDE 20 MG TAB PO SCH (09:21)
[2022-11-29] MEDS: allopurinoL 100 MG TAB PO SCH (09:22)
[2022-11-29] MEDS: CLOPIDOGREL 75 MG TAB PO SCH (09:22)
[2022-11-29] MEDS: PANTOPRAZOLE 40MG TAB (PROTONIX) PO SCH (09:22)
[2022-11-29] MEDS: FERROUS SULFATE 325MG TAB PO SCH (09:23)
[2022-11-29] MEDS: ASPIRIN 81MG ENTERIC TABLET PO SCH (09:23)
[2022-11-29] MEDS: ACETAMINOPHEN TAB 650MG DOSE (2X325MG) PO PRN ×2 (11:41→21:33)
[2022-11-29] MEDS: LEVEMIR (INSULIN DETEMIR) 1 UNITS/0.01ML SC SCH (21:32)
[2022-11-29] MEDS: ATORVASTATIN 20 MG TAB PO SCH (21:34)
[2022-11-29] MEDS ORDERED: RAMELTEON 8 MG TAB (ROZEREM) PO PRN (23:00)
[2022-11-30 06:00] VITALS: BP 132/65
[2022-11-30 06:48] LABS: HEMOGLOBIN 8.9 g/dl (13.5-17.5); MEAN CORPUSCULAR HGB CONC 30.7 g/dl (32.0-36.5); MEAN CORPUSCULAR VOLUME 97.6 fl (80.0-96.0); RED BLOOD COUNT 2.97 10^6/uL (4.30-6.10)
[2022-11-30 06:49] LABS: PLATELET COUNT, AUTOMATED 77 10^3/uL (150-450)
[2022-11-30 07:23] LABS: ALBUMIN 2.2 G/DL (3.2-5.2); BILIRUBIN,TOTAL 0.5 MG/DL (0.3-1.2); CALCIUM LEVEL 8.3 MG/DL (8.3-10.6); CREATININE FOR GFR 1.53 MG/DL (0.70-1.30); GLOMERULAR FILTRATION RATE 46.2 (>35); POTASSIUM SERUM 4.3 MMOL/L (3.5-5.1); TOTAL PROTEIN 6.1 G/DL (5.7-8.2)
[2022-11-30] MEDS: INSULIN LISPRO (NovoLOG) PER UNIT SC SCH (07:30)
[2022-11-30] MEDS: ADVAIR HFA 115/21MCG INHALER INH SCH (07:50)
[2022-11-30] MEDS: TIOTROPIUM INHALER/CAPSULE (SPIRIVA) INH SCH (07:50)
[2022-11-30] MEDS: allopurinoL 100 MG TAB PO SCH (09:36)
[2022-11-30] MEDS: PANTOPRAZOLE 40MG TAB (PROTONIX) PO SCH (09:36)
[2022-11-30] MEDS: AMOXICILLIN 500 MG CAP PO SCH (09:36)
[2022-11-30] MEDS: LACTOBACILLUS ACIDOPHILUS CAP (BACID) PO SCH (09:37)
[2022-11-30] MEDS: TORSEMIDE 20 MG TAB PO SCH (09:37)
[2022-11-30] MEDS: ASPIRIN 81MG ENTERIC TABLET PO SCH (09:37)
[2022-11-30] MEDS: FERROUS SULFATE 325MG TAB PO SCH (09:37)
[2022-11-30] MEDS: CLOPIDOGREL 75 MG TAB PO SCH (09:38)
[2022-11-30] MEDS: ACETAMINOPHEN TAB 650MG DOSE (2X325MG) PO PRN (09:38)
[2022-11-30 09:41] VITALS: BP 121/57
[2022-11-30] MEDS: CARVedilol 3.125 MG TAB PO SCH (09:41)
[2022-11-30] MEDS: DARBEPOETIN 100MCG/0.5ML *NON-DIALYSIS* SYRINGE SC SCH (11:23)
[2022-11-30] MEDS ORDERED: RISATAB3 PO ×2 (11:24→11:28)
[2022-11-30] MEDS ORDERED: AMOX500C PO (11:27)
== END 2022-11-30 11:45 | DRG 872 ==
LOC: M ED 23:44 → EDBD 23:44 → M ED INP 11-21 02:49 → M PCU 11-21 04:00 → M MS5PR 11-22 10:46
PROVIDERS: ADMIT Family Medicine; ATTEND Internal Medicine
PROC: 30233N1 Transfusion of Nonautologous Red Blood Cells into Peripheral Vein, Percutaneous Approach (ICD-10-PCS; principal; 2022-11-22)
PROC: 0R9M3ZZ Drainage of Left Elbow Joint, Percutaneous Approach (ICD-10-PCS; 2022-11-22)
DX: A40.9 Streptococcal sepsis, unspecified (principal); N18.4 Chronic kidney disease, stage 4 (severe); M86.672 Other chronic osteomyelitis, left ankle and foot; L03.116 Cellulitis of left lower limb; E87.1 Hypo-osmolality and hyponatremia; I27.81 Cor pulmonale (chronic); E11.22 Type 2 diabetes mellitus with diabetic chronic kidney disease; J44.9 Chronic obstructive pulmonary disease, unspecified; D69.6 Thrombocytopenia, unspecified; E11.69 Type 2 diabetes mellitus with other specified complication; E11.51 Type 2 diabetes mellitus with diabetic peripheral angiopathy without gangrene; I27.20 Pulmonary hypertension, unspecified; E11.621 Type 2 diabetes mellitus with foot ulcer; I12.9 Hypertensive chronic kidney disease with stage 1 through stage 4 chronic kidney disease, or unspecified chronic kidney disease; L97.529 Non-pressure chronic ulcer of other part of left foot with unspecified severity; I25.10 Atherosclerotic heart disease of native coronary artery without angina pectoris; I25.2 Old myocardial infarction; K21.9 Gastro-esophageal reflux disease without esophagitis; E78.5 Hyperlipidemia, unspecified; I48.91 Unspecified atrial fibrillation; M10.9 Gout, unspecified; R41.82 Altered mental status, unspecified; D63.1 Anemia in chronic kidney disease; D50.9 Iron deficiency anemia, unspecified; Z79.899 Other long term (current) drug therapy; Z79.82 Long term (current) use of aspirin; Z79.4 Long term (current) use of insulin; Z91.040 Latex allergy status; Z89.422 Acquired absence of other left toe(s); H35.30 Unspecified macular degeneration; Z98.41 Cataract extraction status, right eye; Z98.42 Cataract extraction status, left eye; Z96.651 Presence of right artificial knee joint; Z87.891 Personal history of nicotine dependence; Z85.46 Personal history of malignant neoplasm of prostate; Z85.828 Personal history of other malignant neoplasm of skin; M25.422 Effusion, left elbow; E66.01 Morbid (severe) obesity due to excess calories; D75.9 Disease of blood and blood-forming organs, unspecified

== ENCOUNTER → 2022-11-20 | Outpatient (REF) ==
[2022-11-20 09:39] LABS: HEMATOCRIT 26.6 % (42.0-52.0); HEMOGLOBIN 8.1 g/dl (13.5-17.5); MEAN CORPUSCULAR HEMOGLOBIN 30.3 pg (27.0-33.0); MEAN CORPUSCULAR HGB CONC 30.5 g/dl (32.0-36.5); MEAN CORPUSCULAR VOLUME 99.6 fl (80.0-96.0); PLATELET COUNT, AUTOMATED 100 10^3/uL (150-450); RED BLOOD COUNT 2.67 10^6/uL (4.30-6.10)
== END ==
PROVIDERS: ATTEND Physician Assistant
DX: D64.9 Anemia, unspecified (principal)

== ENCOUNTER → 2022-11-23 | Outpatient (REF) ==
[~2022-11-23] MED LIST changes: +ACET1TAB55 PO; +AIRD1INH2 INH; +ALLO10TA PO; +ASPI81TA26 PO; +ATOR40TA75 PO; +ERGO500029 PO; +GLUCLIQ37 PO; +INSU100V13 SQ; +INSUHUMDS SC; -SENN-186 PO; +SENN-80 PO; -TIMO0.5S20 OU; +TIMO0.5S29 OU; +VANI1CRE5 EX; +XALA0.007 OU
== END ==
PROVIDERS: ATTEND Physician Assistant
DX: D64.9 Anemia, unspecified (principal); Z53.8 Procedure and treatment not carried out for other reasons

== ENCOUNTER → 2022-11-30 | Outpatient (REF) ==
[~2022-11-30] MED LIST changes: +SENN-186 PO; -SENN-80 PO; +TIMO0.5S20 OU; -TIMO0.5S29 OU
== END ==
PROVIDERS: ATTEND Physician Assistant
DX: D64.9 Anemia, unspecified (principal); Z53.8 Procedure and treatment not carried out for other reasons

== ENCOUNTER → 2022-12-02 | Outpatient (REF) ==
[2022-12-02 09:26] LABS: HEMATOCRIT 30.6 % (42.0-52.0); HEMOGLOBIN 9.5 g/dl (13.5-17.5); MEAN CORPUSCULAR HEMOGLOBIN 30.5 pg (27.0-33.0); MEAN CORPUSCULAR VOLUME 98.4 fl (80.0-96.0); RED BLOOD COUNT 3.11 10^6/uL (4.30-6.10); WHITE BLOOD COUNT 10.6 10^3/uL (4.0-10.0)
[2022-12-02 09:29] LABS: PLATELET COUNT, AUTOMATED 93 10^3/uL (150-450)
== END ==
PROVIDERS: ATTEND Physician Assistant
DX: D64.9 Anemia, unspecified (principal)

== ENCOUNTER → 2022-12-03 | Outpatient (CLI) | payer MEDICARE, BC, OTHER | LOC: M SOG 08:14 | PROVIDERS: ATTEND Student in an Organized Health Care Education/Training Program | DX: Z53.9 Procedure and treatment not carried out, unspecified reason (principal) ==

== ENCOUNTER → 2022-12-07 | Outpatient (REF) | PROVIDERS: ATTEND Physician Assistant | DX: D64.9 Anemia, unspecified (principal); Z53.8 Procedure and treatment not carried out for other reasons ==

== ENCOUNTER → 2022-12-08 | Outpatient (CLI) | payer MEDICARE, BC, OTHER ==
[~2022-12-08] MED LIST changes: +LIDOCAINE 1% MDV 20ML VIAL As Ordered ONE
[2022-12-08 11:59] LABS: BASO # 0.1 10^3/uL (0.0-0.2); BASO % 0.5 % (0.0-1.0); EOS # 0.3 10^3/uL (0.0-0.5); EOS % 2.8 % (0.0-3.0); HEMATOCRIT 29.7 % (42.0-52.0); HEMOGLOBIN 9.4 g/dl (13.5-17.5); LYMPH # 3.1 10^3/uL (1.5-5.0); LYMPH % 28.3 % (24.0-44.0); MEAN CORPUSCULAR HEMOGLOBIN 30.5 pg (27.0-33.0); MEAN CORPUSCULAR HGB CONC 31.6 g/dl (32.0-36.5); MEAN CORPUSCULAR VOLUME 96.4 fl (80.0-96.0); MONO # 0.8 10^3/uL (0.0-0.8); NEUTROPHILS # 6.7 10^3/uL (1.5-8.5); NEUTROPHILS % 60.9 % (36.0-66.0); PLATELET COUNT, AUTOMATED 110 10^3/uL (150-450); RED BLOOD COUNT 3.08 10^6/uL (4.30-6.10); WHITE BLOOD COUNT 10.9 10^3/uL (4.0-10.0)
[2022-12-08 12:45] VITALS: BP 135/62
== END ==
LOC: M IRPRO 11:26
PROVIDERS: ATTEND Specialist
DX: D64.9 Anemia, unspecified (principal)

== ENCOUNTER → 2022-12-09 | Outpatient (REF) ==
[~2022-12-09] MED LIST changes: -LIDOCAINE 1% MDV 20ML VIAL As Ordered ONE
[2022-12-09 10:49] LABS: BASO # 0.1 10^3/uL (0.0-0.2); BASO % 0.4 % (0.0-1.0); EOS # 0.2 10^3/uL (0.0-0.5); EOS % 2.2 % (0.0-3.0); HEMATOCRIT 28.9 % (42.0-52.0); HEMOGLOBIN 9.2 g/dl (13.5-17.5); LYMPH # 4.4 10^3/uL (1.5-5.0); LYMPH % 39.6 % (24.0-44.0); MEAN CORPUSCULAR HEMOGLOBIN 30.6 pg (27.0-33.0); MEAN CORPUSCULAR HGB CONC 31.8 g/dl (32.0-36.5); MONO # 0.6 10^3/uL (0.0-0.8); MONO % 5.4 % (2.0-8.0); NEUTROPHILS # 5.8 10^3/uL (1.5-8.5); NEUTROPHILS % 51.8 % (36.0-66.0); PLATELET COUNT, AUTOMATED 130 10^3/uL (150-450); RED BLOOD COUNT 3.01 10^6/uL (4.30-6.10); WHITE BLOOD COUNT 11.2 10^3/uL (4.0-10.0)
[2022-12-09 10:56] LABS: ERYTHROCYTE SEDIMENTATION RATE 82 mm/hr (0-20)
[2022-12-09 11:05] LABS: ALBUMIN 2.4 G/DL (3.2-5.2); CALCIUM LEVEL 8.6 MG/DL (8.3-10.6); CREATININE FOR GFR 1.83 MG/DL (0.70-1.30); GLOMERULAR FILTRATION RATE 37.6 (>35); PHOSPHORUS LEVEL 3.7 MG/DL (2.4-5.1); POTASSIUM SERUM 4.9 MMOL/L (3.5-5.1)
[2022-12-09 11:06] LABS: PTH INTACT 55.4 PG/ML (18.5-88.0)
[2022-12-09 11:09] LABS: URIC ACID 9.5 MG/DL (3.7-9.2)
[2022-12-09 15:52] LABS: APPEARANCE, URINE CLEAR (CLEAR); BACTERIA, URINE AUTO NEGATIVE (NEGATIVE); BILIRUBIN, URINE AUTO NEGATIVE (NEGATIVE); BLOOD, URINE BLOOD NEGATIVE (NEGATIVE); COLOR, URINE YELLOW (YELLOW); GLUCOSE, URINE (UA) AUTO NEGATIVE (NEGATIVE); KETONE, URINE AUTO NEGATIVE (NEGATIVE); LEUKOCYTE ESTERASE, URINE AUTO NEGATIVE (NEGATIVE); MUCUS, URINE SMALL (NEGATIVE); NITRITE, URINE AUTO NEGATIVE (NEGATIVE); PROTEIN, URINE AUTO NEGATIVE (NEGATIVE); RBC, URINE AUTO 1 /HPF (0-3); SPECIFIC GRAVITY URINE AUTO 1.009 (1.002-1.035); SQUAMOUS EPITHELIAL CELL UR AU 2 /HPF (0-6); UROBILINOGEN, URINE AUTO 0.2 mg/dL (0.0-2.0); WBC, URINE AUTO 1 /HPF (0-3)
== END ==
PROVIDERS: ATTEND Physician Assistant
DX: M86.172 Other acute osteomyelitis, left ankle and foot (principal)

== ENCOUNTER → 2022-12-10 | Outpatient (REF) | payer MEDICARE, BC, OTHER | PROVIDERS: ATTEND Internal Medicine | DX: I51.7 Cardiomegaly (principal) ==

== ENCOUNTER → 2022-12-11 | Outpatient (REF) ==
[2022-12-11 09:32] LABS: CALCIUM LEVEL 8.7 MG/DL (8.3-10.6); CREATININE FOR GFR 2.01 MG/DL (0.70-1.30); GLOMERULAR FILTRATION RATE 33.7 (>35); POTASSIUM SERUM 5.1 MMOL/L (3.5-5.1)
== END ==
PROVIDERS: ATTEND Physician Assistant
DX: I50.9 Heart failure, unspecified (principal)

== ENCOUNTER → 2022-12-14 | Outpatient (REF) ==
[2022-12-14 10:27] LABS: CALCIUM LEVEL 8.5 MG/DL (8.3-10.6); CREATININE FOR GFR 2.14 MG/DL (0.70-1.30); GLOMERULAR FILTRATION RATE 31.3 (>35); POTASSIUM SERUM 5.1 MMOL/L (3.5-5.1)
== END ==
PROVIDERS: ATTEND Physician Assistant
DX: D64.9 Anemia, unspecified (principal)

== ENCOUNTER → 2022-12-16 | Outpatient (REF) ==
[2022-12-16 11:05] LABS: HEMATOCRIT 26.6 % (42.0-52.0); HEMOGLOBIN 8.2 g/dl (13.5-17.5); MEAN CORPUSCULAR HEMOGLOBIN 30.5 pg (27.0-33.0); MEAN CORPUSCULAR HGB CONC 30.8 g/dl (32.0-36.5); MEAN CORPUSCULAR VOLUME 98.9 fl (80.0-96.0); PLATELET COUNT, AUTOMATED 123 10^3/uL (150-450); RED BLOOD COUNT 2.69 10^6/uL (4.30-6.10); WHITE BLOOD COUNT 13.2 10^3/uL (4.0-10.0)
[2022-12-16 11:14] LABS: ERYTHROCYTE SEDIMENTATION RATE 87 mm/hr (0-20)
[2022-12-16 11:33] LABS: CALCIUM LEVEL 8.7 MG/DL (8.3-10.6); CREATININE FOR GFR 2.48 MG/DL (0.70-1.30); GLOMERULAR FILTRATION RATE 26.4 (>35); POTASSIUM SERUM 5.4 MMOL/L (3.5-5.1)
== END ==
PROVIDERS: ATTEND Physician Assistant
DX: M86.172 Other acute osteomyelitis, left ankle and foot (principal)

== ENCOUNTER → 2022-12-17 | Outpatient (REF) ==
[2022-12-17 15:22] LABS: CALCIUM LEVEL 8.9 MG/DL (8.3-10.6); CREATININE FOR GFR 2.42 MG/DL (0.70-1.30); GLOMERULAR FILTRATION RATE 27.2 (>35); POTASSIUM SERUM 5.4 MMOL/L (3.5-5.1)
== END ==
PROVIDERS: ATTEND Physician Assistant
DX: D64.9 Anemia, unspecified (principal)

== ENCOUNTER → 2022-12-18 | Outpatient (REF) ==
[~2022-12-18] MED LIST changes: +ALBU2.5V10 INH; +SUCR1ORA2 PO; -VANI1CRE5 EX
== END ==
PROVIDERS: ATTEND Physician Assistant
DX: D64.9 Anemia, unspecified (principal); Z53.8 Procedure and treatment not carried out for other reasons

== ENCOUNTER → 2022-12-21 | Outpatient (REF) | payer MEDICARE, BC, OTHER | PROVIDERS: ATTEND Internal Medicine | DX: J98.4 Other disorders of lung (principal); I51.7 Cardiomegaly; I70.0 Atherosclerosis of aorta ==

== ENCOUNTER → 2022-12-21 | Outpatient (REF) | payer MEDICARE, BC, OTHER ==
[~2022-12-21] MED LIST changes: +BETA15OI7 TOP; -DIPR0.052 TOP
[2022-12-21 12:13] LABS: CALCIUM LEVEL 8.8 MG/DL (8.3-10.6); CREATININE FOR GFR 2.65 MG/DL (0.70-1.30); GLOMERULAR FILTRATION RATE 24.5 (>35); POTASSIUM SERUM 6.1 MMOL/L (3.5-5.1)
== END ==
PROVIDERS: ATTEND Physician Assistant
DX: D64.9 Anemia, unspecified (principal); J98.4 Other disorders of lung; I51.7 Cardiomegaly; I70.0 Atherosclerosis of aorta

== ENCOUNTER 2022-12-22 13:01 | Inpatient (IN) | payer MEDICARE, BC, OTHER ==
[~2022-12-22] VITALS: Ht 193 cm; Wt 120.9 kg
[~2022-12-22 13:01] MED LIST changes: -ALBU2.5V10 INH; -SUCR1ORA2 PO
[2022-12-22] MEDS ORDERED: PANTOPRAZOLE 40MG VIAL IV ONE (13:25)
[2022-12-22 14:10] LABS: BASO % 0.3 % (0.0-1.0); EOS # 0.1 10^3/uL (0.0-0.5); EOS % 0.8 % (0.0-3.0); LYMPH # 3.9 10^3/uL (1.5-5.0); LYMPH % 26.5 % (24.0-44.0); MEAN CORPUSCULAR HEMOGLOBIN 31.1 pg (27.0-33.0); MEAN CORPUSCULAR HGB CONC 31.1 g/dl (32.0-36.5); MONO # 0.8 10^3/uL (0.0-0.8); MONO % 5.2 % (2.0-8.0); NEUTROPHILS # 9.7 10^3/uL (1.5-8.5); NEUTROPHILS % 65.8 % (36.0-66.0); RED BLOOD COUNT 1.67 10^6/uL (4.30-6.10); WHITE BLOOD COUNT 14.7 10^3/uL (4.0-10.0)
[2022-12-22 14:28] LABS: INR 1.11; PROTHROMBIN TIME 14.5 SECONDS (12.5-14.5)
[2022-12-22 14:34] LABS: ALBUMIN 2.4 G/DL (3.2-5.2); BILIRUBIN,DIRECT 0.2 MG/DL (<0.4); BILIRUBIN,TOTAL 0.3 MG/DL (0.3-1.2); CALCIUM LEVEL 8.7 MG/DL (8.3-10.6); CREATININE FOR GFR 2.82 MG/DL (0.70-1.30); GLOMERULAR FILTRATION RATE 22.8 (>35); POTASSIUM SERUM 5.3 MMOL/L (3.5-5.1); TOTAL PROTEIN 6.2 G/DL (5.7-8.2)
[2022-12-22 14:56] LABS: HEMATOCRIT 16.7 % (42.0-52.0); HEMOGLOBIN 5.2 g/dl (13.5-17.5); PLATELET COUNT, AUTOMATED 98 10^3/uL (150-450)
[2022-12-22 15:19] LABS: RSV AMPLIFICATION NEGATIVE (NEGATIVE)
[2022-12-22] MEDS ORDERED: MUCI600T31 PO (16:26)
[2022-12-22] MEDS ORDERED: ALBU2.5V10 INH (16:26)
[2022-12-22] MEDS ORDERED: SUCR1ORA2 PO (16:26)
[2022-12-22] MEDS ORDERED: HOME MED LIST COMPLETE! XX SCH (16:30)
[2022-12-22] MEDS ORDERED: ACETAMINOPHEN TAB 650MG DOSE (2X325MG) PO ONE ×2 (16:55→17:30)
[2022-12-22] MEDS ORDERED: FLEET ENEMA PR PRN (17:30)
[2022-12-22] MEDS ORDERED: GLUCOSE 4GM CHEW TABLET PO PRN (17:30)
[2022-12-22] MEDS ORDERED: DEXTROSE 50% 50ML SYRINGE IV PRN (17:30)
[2022-12-22] MEDS ORDERED: GLUCAGON INJ 1MG VIAL SC PRN (17:30)
[2022-12-22] MEDS ORDERED: FUROSEMIDE 40MG/4ML VIAL IV ONE (17:30)
[2022-12-22] MEDS ORDERED: MOM 30ML SUSPENSION UDC PO PRN (17:30)
[2022-12-22] MEDS: SUCRALFATE SUSP 1GM/10ML UD PO SCH ×3 (17:30→21:46)
[2022-12-22] MEDS: INSULIN LISPRO (NovoLOG) PER UNIT SC SCH ×2 (17:30→21:00)
[2022-12-22] MEDS ORDERED: VANICREAM MOISTURIZING SKIN CREAM 113GM TUBE TOP PRN (17:30)
[2022-12-22] MEDS ORDERED: BISACODYL 10MG SUPP PR PRN (17:30)
[2022-12-22] MEDS ORDERED: NS 1,000 ML IV SCH (17:30)
[2022-12-22 18:10] VITALS: BP 109/59
[2022-12-22 18:24] VITALS: BP 125/57
[2022-12-22] MEDS: ALBUTEROL SULFATE 2.5MG/0.5ML INH NEB SOLN INH SCH (19:27)
[2022-12-22] MEDS: ADVAIR HFA 115/21MCG INHALER INH SCH (19:27)
[2022-12-22 19:44] VITALS: BP 114/58
[2022-12-22 20:00] LABS: FERRITIN 70.4 NG/ML (10.5-307.3); PERCENT SATURATION 16.7 % (19.7-50.0)
[2022-12-22] MEDS: CARVedilol 3.125 MG TAB PO SCH (21:00)
[2022-12-22] MEDS: LATANOPROST 0.005% OPHTH SOLN 2.5 ML OU SCH (21:00)
[2022-12-22 21:09] VITALS: BP 90/57
[2022-12-22] MEDS: MAGNESIUM OXIDE 400MG TAB (MAG-OX) PO SCH (21:47)
[2022-12-22] MEDS: LEVEMIR (INSULIN DETEMIR) 1 UNITS/0.01ML SC SCH (21:47)
[2022-12-22] MEDS: ATORVASTATIN 20 MG TAB PO SCH (21:48)
[2022-12-22] MEDS: SPIRONOLACTONE 50 MG TAB PO SCH (21:48)
[2022-12-22] MEDS: guaiFENesin ER 600 MG TAB PO SCH (21:48)
[2022-12-22] MEDS: TORSEMIDE 20 MG TAB PO SCH (21:48)
[2022-12-23] VITALS (15 sets, daily range): BP systolic 91–128; BP diastolic 47–62
[2022-12-23 07:12] LABS: ALBUMIN 2.5 G/DL (3.2-5.2); BILIRUBIN,TOTAL 1.2 MG/DL (0.3-1.2); CALCIUM LEVEL 8.5 MG/DL (8.3-10.6); CREATININE FOR GFR 2.68 MG/DL (0.70-1.30); GLOMERULAR FILTRATION RATE 24.2 (>35); POTASSIUM SERUM 4.6 MMOL/L (3.5-5.1); TOTAL PROTEIN 5.9 G/DL (5.7-8.2)
[2022-12-23] MEDS: ALBUTEROL SULFATE 2.5MG/0.5ML INH NEB SOLN INH SCH ×3 (07:16→19:01)
[2022-12-23] MEDS: ADVAIR HFA 115/21MCG INHALER INH SCH ×2 (07:16→19:01)
[2022-12-23] MEDS: INSULIN LISPRO (NovoLOG) PER UNIT SC SCH ×5 (07:30→20:38)
[2022-12-23] MEDS: SANTYL OINT 30GM TOP SCH (08:57)
[2022-12-23] MEDS: SUCRALFATE SUSP 1GM/10ML UD PO SCH ×4 (08:58→20:37)
[2022-12-23] MEDS: FERROUS SULFATE 325MG TAB PO SCH (08:58)
[2022-12-23] MEDS: PANTOPRAZOLE 40MG TAB (PROTONIX) PO SCH (08:59)
[2022-12-23] MEDS: ACETAMINOPHEN TAB 650MG DOSE (2X325MG) PO PRN (08:59)
[2022-12-23] MEDS: SPIRONOLACTONE 50 MG TAB PO SCH ×2 (08:59→20:37)
[2022-12-23] MEDS: MAGNESIUM OXIDE 400MG TAB (MAG-OX) PO SCH ×3 (08:59→20:36)
[2022-12-23] MEDS: guaiFENesin ER 600 MG TAB PO SCH ×2 (08:59→20:37)
[2022-12-23] MEDS: TORSEMIDE 20 MG TAB PO SCH ×2 (08:59→20:37)
[2022-12-23] MEDS: CARVedilol 3.125 MG TAB PO SCH ×2 (09:00→20:36)
[2022-12-23 09:10] LABS: HEMATOCRIT 20.3 % (42.0-52.0)
[2022-12-23 09:13] LABS: HEMOGLOBIN 6.4 g/dl (13.5-17.5)
[2022-12-23 16:16] LABS: HEMATOCRIT 23.4 % (42.0-52.0); HEMOGLOBIN 7.8 g/dl (13.5-17.5)
[2022-12-23] MEDS: LATANOPROST 0.005% OPHTH SOLN 2.5 ML OU SCH (20:35)
[2022-12-23] MEDS: ATORVASTATIN 20 MG TAB PO SCH (20:36)
[2022-12-23] MEDS: LEVEMIR (INSULIN DETEMIR) 1 UNITS/0.01ML SC SCH (20:38)
[2022-12-23 23:37] LABS: HEMATOCRIT 24.7 % (42.0-52.0); HEMOGLOBIN 8.2 g/dl (13.5-17.5)
[2022-12-24] VITALS (9 sets, daily range): BP systolic 109–120; BP diastolic 50–57
[2022-12-24] MEDS: ACETAMINOPHEN TAB 650MG DOSE (2X325MG) PO PRN ×2 (02:55→18:22)
[2022-12-24 06:11] LABS: HEMATOCRIT 23.4 % (42.0-52.0); HEMOGLOBIN 7.7 g/dl (13.5-17.5); MEAN CORPUSCULAR HEMOGLOBIN 31.7 pg (27.0-33.0); MEAN CORPUSCULAR HGB CONC 32.9 g/dl (32.0-36.5); MEAN CORPUSCULAR VOLUME 96.3 fl (80.0-96.0); RED BLOOD COUNT 2.43 10^6/uL (4.30-6.10); WHITE BLOOD COUNT 15.4 10^3/uL (4.0-10.0)
[2022-12-24 06:14] LABS: PLATELET COUNT, AUTOMATED 73 10^3/uL (150-450)
[2022-12-24 06:46] LABS: ALBUMIN 2.4 G/DL (3.2-5.2); CALCIUM LEVEL 8.4 MG/DL (8.3-10.6); CREATININE FOR GFR 2.61 MG/DL (0.70-1.30); GLOMERULAR FILTRATION RATE 24.9 (>35); PHOSPHORUS LEVEL 5.1 MG/DL (2.4-5.1); POTASSIUM SERUM 4.3 MMOL/L (3.5-5.1)
[2022-12-24] MEDS: ADVAIR HFA 115/21MCG INHALER INH SCH ×2 (07:34→20:08)
[2022-12-24] MEDS: ALBUTEROL SULFATE 2.5MG/0.5ML INH NEB SOLN INH SCH ×3 (07:34→20:08)
[2022-12-24] MEDS: INSULIN LISPRO (NovoLOG) PER UNIT SC SCH ×4 (08:08→21:55)
[2022-12-24] MEDS: SUCRALFATE SUSP 1GM/10ML UD PO SCH ×4 (08:08→21:54)
[2022-12-24] MEDS: PANTOPRAZOLE 40MG TAB (PROTONIX) PO SCH (08:08)
[2022-12-24] MEDS: TORSEMIDE 20 MG TAB PO SCH ×2 (08:09→21:53)
[2022-12-24] MEDS: SPIRONOLACTONE 50 MG TAB PO SCH ×2 (08:09→21:56)
[2022-12-24] MEDS: FERROUS SULFATE 325MG TAB PO SCH (08:09)
[2022-12-24] MEDS: MAGNESIUM OXIDE 400MG TAB (MAG-OX) PO SCH ×3 (08:10→21:53)
[2022-12-24] MEDS: guaiFENesin ER 600 MG TAB PO SCH ×2 (08:10→21:53)
[2022-12-24] MEDS: CARVedilol 3.125 MG TAB PO SCH ×2 (08:13→21:56)
[2022-12-24] MEDS: ATORVASTATIN 20 MG TAB PO SCH (21:54)
[2022-12-24] MEDS: LEVEMIR (INSULIN DETEMIR) 1 UNITS/0.01ML SC SCH (21:55)
[2022-12-24] MEDS: LATANOPROST 0.005% OPHTH SOLN 2.5 ML OU SCH (21:56)
[2022-12-24 23:55] LABS: HEMATOCRIT 26.4 % (42.0-52.0); HEMOGLOBIN 8.8 g/dl (13.5-17.5)
[2022-12-25] MEDS: ACETAMINOPHEN TAB 650MG DOSE (2X325MG) PO PRN ×2 (00:06→08:31)
[2022-12-25 06:07] VITALS: BP 119/66
[2022-12-25 07:21] LABS: HEMATOCRIT 26.8 % (42.0-52.0); HEMOGLOBIN 8.7 g/dl (13.5-17.5); MEAN CORPUSCULAR HEMOGLOBIN 31.2 pg (27.0-33.0); MEAN CORPUSCULAR HGB CONC 32.5 g/dl (32.0-36.5); MEAN CORPUSCULAR VOLUME 96.1 fl (80.0-96.0); RED BLOOD COUNT 2.79 10^6/uL (4.30-6.10); WHITE BLOOD COUNT 13.7 10^3/uL (4.0-10.0)
[2022-12-25] MEDS: INSULIN LISPRO (NovoLOG) PER UNIT SC SCH ×4 (07:30→21:44)
[2022-12-25 07:35] LABS: PLATELET COUNT, AUTOMATED 66 10^3/uL (150-450)
[2022-12-25 07:43] LABS: CALCIUM LEVEL 8.3 MG/DL (8.3-10.6); CREATININE FOR GFR 2.4 MG/DL (0.70-1.30); GLOMERULAR FILTRATION RATE 27.5 (>35); POTASSIUM SERUM 4.3 MMOL/L (3.5-5.1)
[2022-12-25] MEDS: ALBUTEROL SULFATE 2.5MG/0.5ML INH NEB SOLN INH SCH ×3 (08:19→19:48)
[2022-12-25] MEDS: ADVAIR HFA 115/21MCG INHALER INH SCH ×2 (08:19→19:48)
[2022-12-25] MEDS: guaiFENesin ER 600 MG TAB PO SCH ×2 (08:30→21:44)
[2022-12-25] MEDS: PANTOPRAZOLE 40MG TAB (PROTONIX) PO SCH (08:31)
[2022-12-25] MEDS: TORSEMIDE 20 MG TAB PO SCH ×2 (08:31→21:45)
[2022-12-25] MEDS: SPIRONOLACTONE 50 MG TAB PO SCH ×2 (08:32→21:47)
[2022-12-25] MEDS: SUCRALFATE SUSP 1GM/10ML UD PO SCH ×4 (08:32→21:43)
[2022-12-25] MEDS: FERROUS SULFATE 325MG TAB PO SCH (08:32)
[2022-12-25] MEDS: MAGNESIUM OXIDE 400MG TAB (MAG-OX) PO SCH ×3 (08:32→21:47)
[2022-12-25] MEDS: CARVedilol 3.125 MG TAB PO SCH ×2 (08:33→21:48)
[2022-12-25] MEDS: SANTYL OINT 30GM TOP SCH (12:25)
[2022-12-25] MEDS ORDERED: OXYMETAZOLINE 0.05% NASAL SPRAY (AFRIN) ONE (17:00)
[2022-12-25 19:42] VITALS: BP 146/68
[2022-12-25] MEDS: LEVEMIR (INSULIN DETEMIR) 1 UNITS/0.01ML SC SCH (21:44)
[2022-12-25] MEDS: ATORVASTATIN 20 MG TAB PO SCH (21:47)
[2022-12-25] MEDS: LATANOPROST 0.005% OPHTH SOLN 2.5 ML OU SCH (21:48)
[2022-12-26 05:41] VITALS: BP 144/70
[2022-12-26] MEDS: INSULIN LISPRO (NovoLOG) PER UNIT SC SCH ×4 (07:30→20:56)
[2022-12-26] MEDS: ALBUTEROL SULFATE 2.5MG/0.5ML INH NEB SOLN INH SCH ×3 (07:32→19:28)
[2022-12-26] MEDS: ADVAIR HFA 115/21MCG INHALER INH SCH ×2 (07:32→19:27)
[2022-12-26] MEDS: PANTOPRAZOLE 40MG TAB (PROTONIX) PO SCH (08:14)
[2022-12-26] MEDS: SPIRONOLACTONE 50 MG TAB PO SCH ×2 (08:14→20:55)
[2022-12-26] MEDS: SUCRALFATE SUSP 1GM/10ML UD PO SCH ×4 (08:14→20:53)
[2022-12-26] MEDS: guaiFENesin ER 600 MG TAB PO SCH ×2 (08:15→20:56)
[2022-12-26] MEDS: TORSEMIDE 20 MG TAB PO SCH ×2 (08:15→20:55)
[2022-12-26] MEDS: MAGNESIUM OXIDE 400MG TAB (MAG-OX) PO SCH ×3 (08:15→20:55)
[2022-12-26] MEDS: FERROUS SULFATE 325MG TAB PO SCH (08:15)
[2022-12-26] MEDS: CARVedilol 3.125 MG TAB PO SCH ×2 (08:17→20:58)
[2022-12-26] MEDS: ACETAMINOPHEN TAB 650MG DOSE (2X325MG) PO PRN ×3 (08:18→20:56)
[2022-12-26 14:30] VITALS: BP 117/51
[2022-12-26 20:00] VITALS: BP 106/50
[2022-12-26] MEDS: LEVEMIR (INSULIN DETEMIR) 1 UNITS/0.01ML SC SCH (20:53)
[2022-12-26] MEDS: NYSTATIN 100,000 UNITS/GM TOPICAL PWD 15GM TOP SCH (20:54)
[2022-12-26] MEDS: ATORVASTATIN 20 MG TAB PO SCH (20:55)
[2022-12-26] MEDS: LATANOPROST 0.005% OPHTH SOLN 2.5 ML OU SCH (20:58)
[2022-12-27] MEDS: ACETAMINOPHEN TAB 650MG DOSE (2X325MG) PO PRN ×3 (04:21→21:44)
[2022-12-27 06:00] VITALS: BP 118/63
[2022-12-27] MEDS: INSULIN LISPRO (NovoLOG) PER UNIT SC SCH ×4 (07:30→21:00)
[2022-12-27] MEDS: ALBUTEROL SULFATE 2.5MG/0.5ML INH NEB SOLN INH SCH ×3 (07:57→20:30)
[2022-12-27] MEDS: ADVAIR HFA 115/21MCG INHALER INH SCH ×2 (07:58→20:30)
[2022-12-27] MEDS: SUCRALFATE SUSP 1GM/10ML UD PO SCH ×4 (08:10→21:35)
[2022-12-27] MEDS: TORSEMIDE 20 MG TAB PO SCH ×2 (08:12→21:37)
[2022-12-27] MEDS: SPIRONOLACTONE 50 MG TAB PO SCH ×2 (08:12→21:35)
[2022-12-27] MEDS: PANTOPRAZOLE 40MG TAB (PROTONIX) PO SCH (08:12)
[2022-12-27] MEDS: FERROUS SULFATE 325MG TAB PO SCH (08:12)
[2022-12-27] MEDS: CARVedilol 3.125 MG TAB PO SCH ×2 (08:13→21:00)
[2022-12-27] MEDS: guaiFENesin ER 600 MG TAB PO SCH ×2 (08:13→21:38)
[2022-12-27] MEDS: MAGNESIUM OXIDE 400MG TAB (MAG-OX) PO SCH ×3 (08:14→21:36)
[2022-12-27] MEDS: NYSTATIN 100,000 UNITS/GM TOPICAL PWD 15GM TOP SCH ×2 (08:16→21:38)
[2022-12-27 14:00] VITALS: BP 116/61
[2022-12-27 20:40] VITALS: BP 111/52
[2022-12-27] MEDS: LEVEMIR (INSULIN DETEMIR) 1 UNITS/0.01ML SC SCH (21:35)
[2022-12-27] MEDS: ATORVASTATIN 20 MG TAB PO SCH (21:37)
[2022-12-27] MEDS: LATANOPROST 0.005% OPHTH SOLN 2.5 ML OU SCH (21:38)
[2022-12-27 22:00] VITALS: BP 111/52
[2022-12-28 05:42] VITALS: BP 108/50
[2022-12-28 07:20] LABS: HEMATOCRIT 28.1 % (42.0-52.0); HEMOGLOBIN 9.1 g/dl (13.5-17.5); MEAN CORPUSCULAR HEMOGLOBIN 31.9 pg (27.0-33.0); MEAN CORPUSCULAR HGB CONC 32.4 g/dl (32.0-36.5); MEAN CORPUSCULAR VOLUME 98.6 fl (80.0-96.0); RED BLOOD COUNT 2.85 10^6/uL (4.30-6.10); WHITE BLOOD COUNT 10.9 10^3/uL (4.0-10.0)
[2022-12-28 07:22] LABS: PLATELET COUNT, AUTOMATED 64 10^3/uL (150-450)
[2022-12-28] MEDS: INSULIN LISPRO (NovoLOG) PER UNIT SC SCH ×2 (07:30→11:33)
[2022-12-28 07:41] LABS: CREATININE FOR GFR 2.34 MG/DL (0.70-1.30); GLOMERULAR FILTRATION RATE 28.3 (>35); POTASSIUM SERUM 4.6 MMOL/L (3.5-5.1)
[2022-12-28] MEDS: ALBUTEROL SULFATE 2.5MG/0.5ML INH NEB SOLN INH SCH ×2 (07:44→14:10)
[2022-12-28] MEDS: ADVAIR HFA 115/21MCG INHALER INH SCH (07:44)
[2022-12-28] MEDS: TORSEMIDE 20 MG TAB PO SCH (08:30)
[2022-12-28] MEDS: PANTOPRAZOLE 40MG TAB (PROTONIX) PO SCH (08:30)
[2022-12-28] MEDS: guaiFENesin ER 600 MG TAB PO SCH (08:30)
[2022-12-28] MEDS: MAGNESIUM OXIDE 400MG TAB (MAG-OX) PO SCH (08:30)
[2022-12-28] MEDS: FERROUS SULFATE 325MG TAB PO SCH (08:30)
[2022-12-28] MEDS: SUCRALFATE SUSP 1GM/10ML UD PO SCH ×2 (08:30→12:22)
[2022-12-28 08:32] VITALS: BP 117/57
[2022-12-28] MEDS: CARVedilol 3.125 MG TAB PO SCH (08:32)
[2022-12-28] MEDS: SPIRONOLACTONE 50 MG TAB PO SCH (08:32)
[2022-12-28] MEDS: NYSTATIN 100,000 UNITS/GM TOPICAL PWD 15GM TOP SCH (08:32)
[2022-12-28] MEDS: SANTYL OINT 30GM TOP SCH (08:33)
[2022-12-28] MEDS: ACETAMINOPHEN TAB 650MG DOSE (2X325MG) PO PRN (08:54)
[2022-12-30] MEDS ORDERED: VITAMIN D 50,000 UNITS CAPSULE (ERGOCALCIFEROL 1.25MG) PO SCH (09:00)
== END 2022-12-28 14:50 | DRG 841 ==
LOC: EDBD 13:01 → M ED 13:01 → M ED INP 17:28 → M MS5PR 17:28 → ENRESERV 19:56 → M MS5PR 20:15
PROVIDERS: ADMIT Family Medicine; ATTEND Family Medicine
PROC: 30233N1 Transfusion of Nonautologous Red Blood Cells into Peripheral Vein, Percutaneous Approach (ICD-10-PCS; principal; 2022-12-22)
DX: C91.10 Chronic lymphocytic leukemia of B-cell type not having achieved remission (principal); N17.9 Acute kidney failure, unspecified; I48.20 Chronic atrial fibrillation, unspecified; K92.2 Gastrointestinal hemorrhage, unspecified; D63.1 Anemia in chronic kidney disease; E11.22 Type 2 diabetes mellitus with diabetic chronic kidney disease; E11.51 Type 2 diabetes mellitus with diabetic peripheral angiopathy without gangrene; I27.20 Pulmonary hypertension, unspecified; I12.9 Hypertensive chronic kidney disease with stage 1 through stage 4 chronic kidney disease, or unspecified chronic kidney disease; J44.9 Chronic obstructive pulmonary disease, unspecified; N18.32 Chronic kidney disease, stage 3b; I25.2 Old myocardial infarction; E78.5 Hyperlipidemia, unspecified; K21.9 Gastro-esophageal reflux disease without esophagitis; Z79.02 Long term (current) use of antithrombotics/antiplatelets; R04.0 Epistaxis; D69.6 Thrombocytopenia, unspecified; Z79.899 Other long term (current) drug therapy; Z79.4 Long term (current) use of insulin; Z87.891 Personal history of nicotine dependence; Z89.422 Acquired absence of other left toe(s)

== ENCOUNTER → 2022-12-22 | Outpatient (REF) ==
[2022-12-22 11:56] LABS: CALCIUM LEVEL 8.4 MG/DL (8.3-10.6); CREATININE FOR GFR 2.71 MG/DL (0.70-1.30); GLOMERULAR FILTRATION RATE 23.9 (>35); POTASSIUM SERUM 5.7 MMOL/L (3.5-5.1)
[2022-12-22 11:57] LABS: MEAN CORPUSCULAR HEMOGLOBIN 31.3 pg (27.0-33.0); MEAN CORPUSCULAR HGB CONC 31.3 g/dl (32.0-36.5); PLATELET COUNT, AUTOMATED 111 10^3/uL (150-450); RED BLOOD COUNT 1.76 10^6/uL (4.30-6.10); WHITE BLOOD COUNT 17.6 10^3/uL (4.0-10.0)
[2022-12-22 12:01] LABS: HEMATOCRIT 17.6 % (42.0-52.0)
[2022-12-22 12:02] LABS: HEMOGLOBIN 5.5 g/dl (13.5-17.5)
== END ==
PROVIDERS: ATTEND Physician Assistant
DX: D64.9 Anemia, unspecified (principal)

== ENCOUNTER → 2022-12-23 | Outpatient (REF) ==
[~2022-12-23] MED LIST changes: +ALBU2.5V10 INH; +SUCR1ORA2 PO
== END ==
PROVIDERS: ATTEND Physician Assistant
DX: M86.172 Other acute osteomyelitis, left ankle and foot (principal); Z53.8 Procedure and treatment not carried out for other reasons

== ENCOUNTER → 2022-12-25 | Outpatient (REF) | PROVIDERS: ATTEND Physician Assistant | DX: L98.9 Disorder of the skin and subcutaneous tissue, unspecified (principal); Z53.8 Procedure and treatment not carried out for other reasons ==

== ENCOUNTER → 2022-12-25 | Outpatient (REF) | PROVIDERS: ATTEND Physician Assistant | DX: L98.8 Other specified disorders of the skin and subcutaneous tissue (principal); Z53.8 Procedure and treatment not carried out for other reasons ==

== ENCOUNTER → 2022-12-30 | Outpatient (REF) ==
[2022-12-30 10:35] LABS: HEMATOCRIT 28.9 % (42.0-52.0); MEAN CORPUSCULAR HEMOGLOBIN 31.1 pg (27.0-33.0); MEAN CORPUSCULAR HGB CONC 31.1 g/dl (32.0-36.5); RED BLOOD COUNT 2.89 10^6/uL (4.30-6.10); WHITE BLOOD COUNT 11.1 10^3/uL (4.0-10.0)
[2022-12-30 10:39] LABS: PLATELET COUNT, AUTOMATED 65 10^3/uL (150-450)
[2022-12-30 10:51] LABS: ERYTHROCYTE SEDIMENTATION RATE 42 mm/hr (0-20)
[2022-12-30 10:59] LABS: CALCIUM LEVEL 8.6 MG/DL (8.3-10.6); CREATININE FOR GFR 2.39 MG/DL (0.70-1.30); GLOMERULAR FILTRATION RATE 27.6 (>35)
== END ==
PROVIDERS: ATTEND Physician Assistant
DX: L08.9 Local infection of the skin and subcutaneous tissue, unspecified (principal)

== ENCOUNTER → 2022-12-30 | Outpatient (REF) | PROVIDERS: ATTEND Physician Assistant | DX: D64.9 Anemia, unspecified (principal); Z53.8 Procedure and treatment not carried out for other reasons ==

== ENCOUNTER 2023-01-02 16:11 | Inpatient (IN) | payer MEDICARE, BC, OTHER ==
[~2023-01-02] VITALS: Ht 193 cm; Wt 126.0 kg
[2023-01-02] VITALS (13 sets, daily range): BP systolic 104–125; BP diastolic 51–59
[2023-01-02] MEDS ORDERED: ACETAMINOPHEN 325 MG TAB PO ONE (16:55)
[2023-01-02] MEDS ORDERED: NS 1,000 ML IV ONE ×2 (16:55→18:25)
[2023-01-02] MEDS ORDERED: ACETAMINOPHEN 1000MG 100ML IV BAG IV ONE (17:10)
[2023-01-02] MEDS ORDERED: PIPERACILLIN/TAZOBACTAM SOD 4.5 GM in D5W MINI-BAG PLUS 50 ML IV ONE (17:10)
[2023-01-02] MEDS ORDERED: VANCOMYCIN HCL 2,000 MG in D5W 500 ML IV ONE (17:10)
[2023-01-02 17:11] LABS: APPEARANCE, URINE CLEAR (CLEAR); BACTERIA, URINE AUTO NEGATIVE (NEGATIVE); BILIRUBIN, URINE AUTO NEGATIVE (NEGATIVE); BLOOD, URINE BLOOD NEGATIVE (NEGATIVE); COLOR, URINE YELLOW (YELLOW); GLUCOSE, URINE (UA) AUTO NEGATIVE (NEGATIVE); KETONE, URINE AUTO NEGATIVE (NEGATIVE); LEUKOCYTE ESTERASE, URINE AUTO NEGATIVE (NEGATIVE); NITRITE, URINE AUTO NEGATIVE (NEGATIVE); PROTEIN, URINE AUTO NEGATIVE (NEGATIVE); RBC, URINE AUTO 0 /HPF (0-3); SPECIFIC GRAVITY URINE AUTO 1.009 (1.002-1.035); SQUAMOUS EPITHELIAL CELL UR AU 0 /HPF (0-6); UROBILINOGEN, URINE AUTO 0.2 mg/dL (0.0-2.0); WBC, URINE AUTO 0 /HPF (0-3)
[2023-01-02 17:13] LABS: BASO % 0.2 % (0.0-1.0); EOS # 0.1 10^3/uL (0.0-0.5); EOS % 1.1 % (0.0-3.0); HEMATOCRIT 28.4 % (42.0-52.0); HEMOGLOBIN 9.2 g/dl (13.5-17.5); LYMPH # 1.9 10^3/uL (1.5-5.0); LYMPH % 15.3 % (24.0-44.0); MEAN CORPUSCULAR HEMOGLOBIN 31.6 pg (27.0-33.0); MEAN CORPUSCULAR HGB CONC 32.4 g/dl (32.0-36.5); MEAN CORPUSCULAR VOLUME 97.6 fl (80.0-96.0); MONO # 0.4 10^3/uL (0.0-0.8); MONO % 3.1 % (2.0-8.0); NEUTROPHILS # 9.6 10^3/uL (1.5-8.5); NEUTROPHILS % 79.3 % (36.0-66.0); RED BLOOD COUNT 2.91 10^6/uL (4.30-6.10); WHITE BLOOD COUNT 12.1 10^3/uL (4.0-10.0)
[2023-01-02 17:16] LABS: PLATELET COUNT, AUTOMATED 85 10^3/uL (150-450)
[2023-01-02] MEDS ORDERED: VANCOMYCIN HCL 1,000 MG, VIAL MATE ADAPTER 1 EACH in D5W 250 ML IV ONE ×6 (17:20)
[2023-01-02 17:33] LABS: AMYLASE 51 U/L (30-118)
[2023-01-02 17:34] LABS: ALBUMIN 2.8 G/DL (3.2-5.2); ALKALINE PHOSPHATASE 93 U/L (46-116); ALT/SGPT 15 U/L (7.0-40); AST/SGOT 18 U/L (<34); BILIRUBIN,DIRECT 0.4 MG/DL (<0.4); BILIRUBIN,TOTAL 0.8 MG/DL (0.3-1.2); BLOOD UREA NITROGEN 60 MG/DL (9-23); CALCIUM LEVEL 8.9 MG/DL (8.3-10.6); CARBON DIOXIDE LEVEL 28 MMOL/L (20-31); CHLORIDE LEVEL 98 MMOL/L (98-107); CK-MB VALUE MASS < 1.0 NG/ML (<3.6); CPK CREATINE PHOSPHOKINASE 20 U/L (46-171); GLUCOSE, FASTING 114 MG/DL (74-106); POTASSIUM SERUM 5.5 MMOL/L (3.5-5.1); SODIUM LEVEL 132 MMOL/L (136-145); TOTAL PROTEIN 6.6 G/DL (5.7-8.2)
[2023-01-02 17:42] LABS: RSV AMPLIFICATION NEGATIVE (NEGATIVE)
[2023-01-02 17:43] LABS: INR 1.17; PROTHROMBIN TIME 15.1 SECONDS (12.5-14.5)
[2023-01-02 17:44] LABS: PARTIAL THROMBOPLASTIN TIME 27.5 SECONDS (24.8-34.2)
[2023-01-02] MEDS: INSULIN LISPRO (NovoLOG) PER UNIT SC SCH ×2 (18:00→23:53)
[2023-01-02] MEDS ORDERED: LIDOCAINE 2% 5ML JELLY UROJET TOP ONE (18:25)
[2023-01-02] MEDS ORDERED: NS 1,670 ML in IV 1 EA IV ONE (18:25)
[2023-01-02] MEDS: NOREPINEPHRINE 4MG IN D5 250ML 4 MG in IV 1 EA IV SCH ×8 (18:55→22:52)
[2023-01-02] MEDS: VASOPRESSIN INJ 20 UNITS in NS 499 ML IV SCH (20:00)
[2023-01-02] MEDS ORDERED: HOME MED LIST COMPLETE! XX SCH (20:15)
[2023-01-02] MEDS ORDERED: GLUCAGON INJ 1MG VIAL SC PRN (20:35)
[2023-01-02] MEDS ORDERED: DEXTROSE 50% 50ML SYRINGE IV PRN (20:35)
[2023-01-02] MEDS ORDERED: GLUCOSE 4GM CHEW TABLET PO PRN (20:35)
[2023-01-02] MEDS ORDERED: ACETAMINOPHEN 325 MG TAB PO PRN (20:55)
[2023-01-02] MEDS ORDERED: BISACODYL 10MG SUPP PR PRN (20:55)
[2023-01-02] MEDS: LATANOPROST 0.005% OPHTH SOLN 2.5 ML OU SCH (21:00)
[2023-01-02] MEDS ORDERED: ATORVASTATIN 20 MG TAB PO SCH (21:00)
[2023-01-02] MEDS ORDERED: COMBIGAN OU SCH (21:00)
[2023-01-02 21:16] LABS: CALCIUM LEVEL 7.4 MG/DL (8.3-10.6); CREATININE FOR GFR 2.38 MG/DL (0.70-1.30); GLOMERULAR FILTRATION RATE 27.7 (>35); POTASSIUM SERUM 4.4 MMOL/L (3.5-5.1)
[2023-01-02 21:25] LABS: BASO % 0.2 % (0.0-1.0); EOS % 0.3 % (0.0-3.0); HEMATOCRIT 25.7 % (42.0-52.0); HEMOGLOBIN 8.3 g/dl (13.5-17.5); LYMPH # 1.9 10^3/uL (1.5-5.0); LYMPH % 14.2 % (24.0-44.0); MEAN CORPUSCULAR HEMOGLOBIN 31.9 pg (27.0-33.0); MEAN CORPUSCULAR HGB CONC 32.3 g/dl (32.0-36.5); MEAN CORPUSCULAR VOLUME 98.8 fl (80.0-96.0); MONO # 0.7 10^3/uL (0.0-0.8); MONO % 5.5 % (2.0-8.0); NEUTROPHILS # 10.3 10^3/uL (1.5-8.5); NEUTROPHILS % 77.8 % (36.0-66.0); WHITE BLOOD COUNT 13.3 10^3/uL (4.0-10.0)
[2023-01-02 21:49] LABS: PLATELET COUNT, AUTOMATED 83 10^3/uL (150-450)
[2023-01-02] MEDS: HEPARIN SOD (PORCINE) 5000UNITS/ML 1ML VIAL/SYRINGE SC SCH (22:00)
[2023-01-02 22:23] LABS: CK-MB VALUE MASS < 1.0 NG/ML (<3.6); CPK CREATINE PHOSPHOKINASE 29 U/L (46-171); MB/CK RELATIVE INDEX 3.44 (< OR =4)
[2023-01-02] MEDS: MAGNESIUM OXIDE 400MG TAB (MAG-OX) PO SCH (22:39)
[2023-01-02] MEDS: PIPERACILLIN/TAZOBACTAM SOD 2.25 GM in D5W MINI-BAG PLUS 50 ML IV SCH (23:43)
[2023-01-03] VITALS (76 sets, daily range): BP systolic 78–135; BP diastolic 37–70
[2023-01-03 02:33] LABS: BASO # 0.1 10^3/uL (0.0-0.2); BASO % 0.2 % (0.0-1.0); EOS # 0.1 10^3/uL (0.0-0.5); EOS % 0.3 % (0.0-3.0); HEMATOCRIT 29.4 % (42.0-52.0); HEMOGLOBIN 9.7 g/dl (13.5-17.5); LYMPH # 2.2 10^3/uL (1.5-5.0); LYMPH % 8.8 % (24.0-44.0); MEAN CORPUSCULAR HEMOGLOBIN 31.7 pg (27.0-33.0); MEAN CORPUSCULAR VOLUME 96.1 fl (80.0-96.0); MONO # 0.9 10^3/uL (0.0-0.8); MONO % 3.6 % (2.0-8.0); NEUTROPHILS # 21.2 10^3/uL (1.5-8.5); NEUTROPHILS % 85.5 % (36.0-66.0); PLATELET COUNT, AUTOMATED 101 10^3/uL (150-450); RED BLOOD COUNT 3.06 10^6/uL (4.30-6.10); WHITE BLOOD COUNT 24.8 10^3/uL (4.0-10.0)
[2023-01-03 02:58] LABS: CALCIUM LEVEL 8.2 MG/DL (8.3-10.6); CREATININE FOR GFR 2.56 MG/DL (0.70-1.30); GLOMERULAR FILTRATION RATE 25.5 (>35); MAGNESIUM LEVEL 1.7 MG/DL (1.8-2.4)
[2023-01-03] MEDS: MAG SULF 1GM/100ML (MAG RUN) 1 GM in IV 1 EA IV SCH ×2 (04:01→05:06)
[2023-01-03] MEDS: NOREPINEPHRINE 4MG IN D5 250ML 4 MG in IV 1 EA IV SCH ×6 (05:04→22:39)
[2023-01-03] MEDS: HEPARIN SOD (PORCINE) 5000UNITS/ML 1ML VIAL/SYRINGE SC SCH ×3 (05:15→21:54)
[2023-01-03] MEDS: INSULIN LISPRO (NovoLOG) PER UNIT SC SCH ×3 (05:15→18:00)
[2023-01-03] MEDS: PIPERACILLIN/TAZOBACTAM SOD 2.25 GM in D5W MINI-BAG PLUS 50 ML IV SCH (06:11)
[2023-01-03 06:44] LABS: HEMATOCRIT 30.4 % (42.0-52.0); HEMOGLOBIN 9.9 g/dl (13.5-17.5); MEAN CORPUSCULAR HEMOGLOBIN 31.2 pg (27.0-33.0); MEAN CORPUSCULAR HGB CONC 32.6 g/dl (32.0-36.5); MEAN CORPUSCULAR VOLUME 95.9 fl (80.0-96.0); PLATELET COUNT, AUTOMATED 111 10^3/uL (150-450); RED BLOOD COUNT 3.17 10^6/uL (4.30-6.10)
[2023-01-03 07:12] LABS: ALBUMIN 2.4 G/DL (3.2-5.2); BILIRUBIN,TOTAL 1.8 MG/DL (0.3-1.2); CALCIUM LEVEL 8.5 MG/DL (8.3-10.6); CREATININE FOR GFR 2.47 MG/DL (0.70-1.30); GLOMERULAR FILTRATION RATE 26.6 (>35); POTASSIUM SERUM 5.2 MMOL/L (3.5-5.1)
[2023-01-03 07:37] LABS: ATYPICAL LYMPH 2 % (0-5); LYMPHOCYTES 14 % (16-44); METAMYELOCYTES 1 % (0-0); MONOCYTES 3 % (0-5); NEUTROPHILS 70 % (28-66)
[2023-01-03 07:38] LABS: PLATELET ESTIMATE DECREASED (NORMAL); SMUDGE CELLS 1+
[2023-01-03 07:39] LABS: ANISOCYTOSIS 2+; POIKILOCYTOSIS 1+; POLYCHROMASIA 1+; TEAR DROP CELLS 1+
[2023-01-03 07:41] LABS: SPHEROCYTES 1+
[2023-01-03] MEDS ORDERED: ADVAIR HFA 115/21MCG INHALER INH SCH (08:00)
[2023-01-03] MEDS ORDERED: TIOTROPIUM INHALER/CAPSULE (SPIRIVA) INH SCH (08:00)
[2023-01-03 08:56] LABS: VANCOMYCIN RANDOM 11.1 UG/ML
[2023-01-03] MEDS ORDERED: PANTOPRAZOLE 40MG TAB (PROTONIX) PO SCH (09:00)
[2023-01-03] MEDS: MAGNESIUM OXIDE 400MG TAB (MAG-OX) PO SCH ×3 (09:12→20:25)
[2023-01-03] MEDS: BRIMONIDINE 0.15% OPHTH SOLN 5 ML OU SCH ×2 (09:12→20:26)
[2023-01-03] MEDS: FERROUS SULFATE 325MG TAB PO SCH (09:12)
[2023-01-03] MEDS: PANTOPRAZOLE 40MG VIAL IV SCH ×2 (09:12→20:25)
[2023-01-03] MEDS: TIMOLOL MALEATE 0.5% OPHTH SOLN 5 ML OU SCH ×2 (09:12→20:26)
[2023-01-03] MEDS ORDERED: VANCOMYCIN HCL 1,000 MG, VIAL MATE ADAPTER 1 EACH in D5W 250 ML IV SCH (11:00)
[2023-01-03] MEDS: PIPERACILLIN/TAZOBACTAM SOD 3.375 GM in D5W MINI-BAG PLUS 50 ML IV SCH ×2 (12:52→17:51)
[2023-01-03 14:25] LABS: HEMATOCRIT 27.7 % (42.0-52.0); MEAN CORPUSCULAR HEMOGLOBIN 31.1 pg (27.0-33.0); MEAN CORPUSCULAR HGB CONC 32.5 g/dl (32.0-36.5); MEAN CORPUSCULAR VOLUME 95.8 fl (80.0-96.0); RED BLOOD COUNT 2.89 10^6/uL (4.30-6.10); WHITE BLOOD COUNT 28.8 10^3/uL (4.0-10.0)
[2023-01-03 14:44] LABS: PLATELET COUNT, AUTOMATED 99 10^3/uL (150-450)
[2023-01-03 14:47] LABS: ALBUMIN 2.1 G/DL (3.2-5.2); CALCIUM LEVEL 8.2 MG/DL (8.3-10.6); CREATININE FOR GFR 2.43 MG/DL (0.70-1.30); GLOMERULAR FILTRATION RATE 27.1 (>35); POTASSIUM SERUM 5.3 MMOL/L (3.5-5.1); TOTAL PROTEIN 5.7 G/DL (5.7-8.2)
[2023-01-03] MEDS: VASOPRESSIN INJ 20 UNITS in NS 499 ML IV SCH (20:00)
[2023-01-03] MEDS: ACETAMINOPHEN TAB 650MG DOSE (2X325MG) PO PRN (20:26)
[2023-01-03] MEDS: LATANOPROST 0.005% OPHTH SOLN 2.5 ML OU SCH (21:54)
[2023-01-04] VITALS (40 sets, daily range): BP systolic 72–116; BP diastolic 34–71
[2023-01-04] MEDS: INSULIN LISPRO (NovoLOG) PER UNIT SC SCH ×5 (00:07→20:16)
[2023-01-04] MEDS: ACETAMINOPHEN TAB 650MG DOSE (2X325MG) PO PRN (02:35)
[2023-01-04] MEDS: NOREPINEPHRINE 4MG IN D5 250ML 4 MG in IV 1 EA IV SCH ×6 (04:45→19:27)
[2023-01-04 05:26] LABS: BASO # 0.1 10^3/uL (0.0-0.2); BASO % 0.3 % (0.0-1.0); EOS % 0.1 % (0.0-3.0); HEMATOCRIT 25.8 % (42.0-52.0); HEMOGLOBIN 8.4 g/dl (13.5-17.5); LYMPH # 3.3 10^3/uL (1.5-5.0); LYMPH % 14.3 % (24.0-44.0); MEAN CORPUSCULAR HEMOGLOBIN 31.2 pg (27.0-33.0); MEAN CORPUSCULAR HGB CONC 32.6 g/dl (32.0-36.5); MEAN CORPUSCULAR VOLUME 95.9 fl (80.0-96.0); MONO # 0.7 10^3/uL (0.0-0.8); MONO % 3.2 % (2.0-8.0); NEUTROPHILS # 17.9 10^3/uL (1.5-8.5); NEUTROPHILS % 78.2 % (36.0-66.0); RED BLOOD COUNT 2.69 10^6/uL (4.30-6.10); WHITE BLOOD COUNT 22.9 10^3/uL (4.0-10.0)
[2023-01-04 05:28] LABS: PLATELET COUNT, AUTOMATED 85 10^3/uL (150-450)
[2023-01-04] MEDS: PIPERACILLIN/TAZOBACTAM SOD 3.375 GM in D5W MINI-BAG PLUS 50 ML IV SCH ×3 (05:53)
[2023-01-04] MEDS: HEPARIN SOD (PORCINE) 5000UNITS/ML 1ML VIAL/SYRINGE SC SCH ×3 (05:53→22:11)
[2023-01-04 05:54] LABS: ALBUMIN 2.1 G/DL (3.2-5.2); BILIRUBIN,TOTAL 0.9 MG/DL (0.3-1.2); CALCIUM LEVEL 8.1 MG/DL (8.3-10.6); CREATININE FOR GFR 2.57 MG/DL (0.70-1.30); GLOMERULAR FILTRATION RATE 25.4 (>35); MAGNESIUM LEVEL 2.1 MG/DL (1.8-2.4); POTASSIUM SERUM 4.6 MMOL/L (3.5-5.1); TOTAL PROTEIN 8.7 G/DL (5.7-8.2)
[2023-01-04] MEDS ORDERED: NS 1,000 ML IV ONE (07:20)
[2023-01-04] MEDS ORDERED: SANTYL OINT 30GM TOP SCH (09:00)
[2023-01-04 09:14] LABS: HEMATOCRIT 25.4 % (42.0-52.0); HEMOGLOBIN 8.1 g/dl (13.5-17.5); MEAN CORPUSCULAR HGB CONC 31.9 g/dl (32.0-36.5); MEAN CORPUSCULAR VOLUME 97.3 fl (80.0-96.0); RED BLOOD COUNT 2.61 10^6/uL (4.30-6.10); WHITE BLOOD COUNT 20.8 10^3/uL (4.0-10.0)
[2023-01-04 09:16] LABS: PLATELET COUNT, AUTOMATED 76 10^3/uL (150-450)
[2023-01-04] MEDS: PANTOPRAZOLE 40MG VIAL IV SCH ×2 (09:19→20:16)
[2023-01-04] MEDS: MAGNESIUM OXIDE 400MG TAB (MAG-OX) PO SCH ×3 (09:19→20:13)
[2023-01-04] MEDS: FERROUS SULFATE 325MG TAB PO SCH (09:19)
[2023-01-04] MEDS: TIMOLOL MALEATE 0.5% OPHTH SOLN 5 ML OU SCH ×2 (09:20→20:13)
[2023-01-04] MEDS: BRIMONIDINE 0.15% OPHTH SOLN 5 ML OU SCH ×2 (09:20→20:13)
[2023-01-04] MEDS: LIDOCAINE 5% (LIDODERM) PATCH TD SCH (09:20)
[2023-01-04] MEDS ORDERED: PIPERACILLIN/TAZOBACTAM SOD 3.375 GM in D5W MINI-BAG PLUS 50 ML IV SCH (11:25)
[2023-01-04] MEDS ORDERED: cefTRIAXone SOD 2 GM in D5W MINI-BAG PLUS 50 ML IV SCH (12:00)
[2023-01-04] MEDS: CEFEPIME HCL 2 GM in D5W MINI-BAG PLUS 50 ML IV SCH (13:22)
[2023-01-04 13:46] LABS: BASO # 0.1 10^3/uL (0.0-0.2); BASO % 0.3 % (0.0-1.0); EOS # 0.1 10^3/uL (0.0-0.5); EOS % 0.6 % (0.0-3.0); HEMATOCRIT 25.9 % (42.0-52.0); HEMOGLOBIN 8.6 g/dl (13.5-17.5); LYMPH # 2.6 10^3/uL (1.5-5.0); LYMPH % 13.3 % (24.0-44.0); MEAN CORPUSCULAR HEMOGLOBIN 32.2 pg (27.0-33.0); MEAN CORPUSCULAR HGB CONC 33.2 g/dl (32.0-36.5); MONO # 0.9 10^3/uL (0.0-0.8); MONO % 4.3 % (2.0-8.0); NEUTROPHILS # 15.4 10^3/uL (1.5-8.5); NEUTROPHILS % 77.5 % (36.0-66.0); RED BLOOD COUNT 2.67 10^6/uL (4.30-6.10); WHITE BLOOD COUNT 19.9 10^3/uL (4.0-10.0)
[2023-01-04 13:47] LABS: PLATELET COUNT, AUTOMATED 76 10^3/uL (150-450)
[2023-01-04 14:12] LABS: ALBUMIN 1.9 G/DL (3.2-5.2); BILIRUBIN,TOTAL 0.8 MG/DL (0.3-1.2); CALCIUM LEVEL 8.1 MG/DL (8.3-10.6); CREATININE FOR GFR 2.36 MG/DL (0.70-1.30); POTASSIUM SERUM 4.6 MMOL/L (3.5-5.1)
[2023-01-04 14:29] LABS: TOTAL PROTEIN 5.5 G/DL (5.7-8.2)
[2023-01-04] MEDS: LATANOPROST 0.005% OPHTH SOLN 2.5 ML OU SCH (20:13)
[2023-01-05] VITALS (15 sets, daily range): BP systolic 96–124; BP diastolic 45–70
[2023-01-05] MEDS: NOREPINEPHRINE 4MG IN D5 250ML 4 MG in IV 1 EA IV SCH ×2 (00:45)
[2023-01-05] MEDS: CEFEPIME HCL 2 GM in D5W MINI-BAG PLUS 50 ML IV SCH ×2 (00:55→12:54)
[2023-01-05] MEDS: HEPARIN SOD (PORCINE) 5000UNITS/ML 1ML VIAL/SYRINGE SC SCH ×3 (05:57→22:26)
[2023-01-05 06:25] LABS: HEMATOCRIT 24.5 % (42.0-52.0); HEMOGLOBIN 7.9 g/dl (13.5-17.5); MEAN CORPUSCULAR HEMOGLOBIN 31.1 pg (27.0-33.0); MEAN CORPUSCULAR HGB CONC 32.2 g/dl (32.0-36.5); MEAN CORPUSCULAR VOLUME 96.5 fl (80.0-96.0); RED BLOOD COUNT 2.54 10^6/uL (4.30-6.10); WHITE BLOOD COUNT 14.9 10^3/uL (4.0-10.0)
[2023-01-05 06:26] LABS: PLATELET COUNT, AUTOMATED 75 10^3/uL (150-450)
[2023-01-05 06:49] LABS: CALCIUM LEVEL 8.1 MG/DL (8.3-10.6); CREATININE FOR GFR 2.49 MG/DL (0.70-1.30); GLOMERULAR FILTRATION RATE 26.3 (>35); POTASSIUM SERUM 4.8 MMOL/L (3.5-5.1)
[2023-01-05] MEDS: TIMOLOL MALEATE 0.5% OPHTH SOLN 5 ML OU SCH ×2 (08:28→22:25)
[2023-01-05] MEDS: FERROUS SULFATE 325MG TAB PO SCH (08:29)
[2023-01-05] MEDS: BRIMONIDINE 0.15% OPHTH SOLN 5 ML OU SCH ×2 (08:29→22:25)
[2023-01-05] MEDS: MAGNESIUM OXIDE 400MG TAB (MAG-OX) PO SCH ×3 (08:29→22:27)
[2023-01-05] MEDS: PANTOPRAZOLE 40MG VIAL IV SCH ×2 (08:29→22:26)
[2023-01-05] MEDS: LIDOCAINE 5% (LIDODERM) PATCH TD SCH ×2 (08:30→09:00)
[2023-01-05] MEDS: INSULIN LISPRO (NovoLOG) PER UNIT SC SCH ×4 (08:30→22:47)
[2023-01-05 10:56] LABS: CREATININE,RANDOM URINE 67.9 MG/DL
[2023-01-05] MEDS: SUCRALFATE SUSP 1GM/10ML UD PO SCH ×3 (12:54→22:26)
[2023-01-05] MEDS ORDERED: ATORVASTATIN 20 MG TAB PO SCH (21:00)
[2023-01-05] MEDS: LATANOPROST 0.005% OPHTH SOLN 2.5 ML OU SCH (22:25)
[2023-01-05] MEDS: ACETAMINOPHEN TAB 650MG DOSE (2X325MG) PO PRN (22:27)
[2023-01-06 00:02] VITALS: BP 147/61
[2023-01-06] MEDS: CEFEPIME HCL 2 GM in D5W MINI-BAG PLUS 50 ML IV SCH (00:06)
[2023-01-06 03:00] VITALS: BP 111/68
[2023-01-06] MEDS ORDERED: ASPIRIN 81MG ENTERIC TABLET PO SCH (09:00)
[2023-01-06] MEDS ORDERED: SANTYL OINT 30GM TOP SCH (09:00)
== END 2023-01-06 03:37 | disposition short-term general hospital (02) | DRG 871 ==
LOC: EDBD 16:11 → M ED 16:11 → M ED INP 19:21 → M ICU 20:49
PROVIDERS: ADMIT Internal Medicine Pulmonary Disease; ATTEND Internal Medicine
PROC: 05HM33Z Insertion of Infusion Device into Right Internal Jugular Vein, Percutaneous Approach (ICD-10-PCS; principal; 2023-01-02)
PROC: 30233N1 Transfusion of Nonautologous Red Blood Cells into Peripheral Vein, Percutaneous Approach (ICD-10-PCS; 2023-01-02)
DX: A40.9 Streptococcal sepsis, unspecified (principal); R65.21 Severe sepsis with septic shock; E46 Unspecified protein-calorie malnutrition; I50.32 Chronic diastolic (congestive) heart failure; N17.9 Acute kidney failure, unspecified; E87.20 Acidosis, unspecified; E87.1 Hypo-osmolality and hyponatremia; L03.116 Cellulitis of left lower limb; M46.25 Osteomyelitis of vertebra, thoracolumbar region; I13.0 Hypertensive heart and chronic kidney disease with heart failure and stage 1 through stage 4 chronic kidney disease, or unspecified chronic kidney disease; N18.4 Chronic kidney disease, stage 4 (severe); M86.8X7 Other osteomyelitis, ankle and foot; G83.4 Cauda equina syndrome; E11.51 Type 2 diabetes mellitus with diabetic peripheral angiopathy without gangrene; J44.9 Chronic obstructive pulmonary disease, unspecified; E11.22 Type 2 diabetes mellitus with diabetic chronic kidney disease; I27.20 Pulmonary hypertension, unspecified; D69.6 Thrombocytopenia, unspecified; D50.0 Iron deficiency anemia secondary to blood loss (chronic); I25.10 Atherosclerotic heart disease of native coronary artery without angina pectoris; K21.9 Gastro-esophageal reflux disease without esophagitis; E78.5 Hyperlipidemia, unspecified; I25.2 Old myocardial infarction; I48.91 Unspecified atrial fibrillation; Z79.4 Long term (current) use of insulin; E87.5 Hyperkalemia; G47.33 Obstructive sleep apnea (adult) (pediatric); M54.9 Dorsalgia, unspecified; E88.09 Other disorders of plasma-protein metabolism, not elsewhere classified; Z79.01 Long term (current) use of anticoagulants; Z91.119 Patient's noncompliance with dietary regimen due to unspecified reason; Z85.46 Personal history of malignant neoplasm of prostate; Z96.651 Presence of right artificial knee joint; Z89.422 Acquired absence of other left toe(s); Z79.899 Other long term (current) drug therapy; N40.0 Benign prostatic hyperplasia without lower urinary tract symptoms

== ENCOUNTER → 2023-01-06 | Outpatient (REF) | PROVIDERS: ATTEND Physician Assistant | DX: D64.9 Anemia, unspecified (principal); Z53.8 Procedure and treatment not carried out for other reasons ==

== ENCOUNTER → 2023-01-06 | Outpatient (REF) | PROVIDERS: ATTEND Physician Assistant | DX: D64.9 Anemia, unspecified (principal); Z53.8 Procedure and treatment not carried out for other reasons ==

== ENCOUNTER → 2023-01-06 | Outpatient (REF) | PROVIDERS: ATTEND Physician Assistant | DX: D64.9 Anemia, unspecified (principal) ==

== ENCOUNTER 2023-02-26 14:42 | Inpatient (IN) | payer MEDICARE, BC, OTHER ==
[~2023-02-26] VITALS: Ht 190.5 cm; Wt 141.3 kg
[~2023-02-26 14:42] MED LIST changes: +CYAN-1 PO; -CYAN100050 PO; -GABA-283 PO; +GABA-284 PO
[2023-02-26 23:35] VITALS: BP 123/71; TEMP 96.3; O2SAT 97
[2023-02-26] MEDS ORDERED: DEXTROSE 50% 50ML SYRINGE IV PRN (23:40)
[2023-02-26] MEDS ORDERED: GLUCOSE 4GM CHEW TABLET PO PRN (23:40)
[2023-02-26] MEDS ORDERED: GLUCAGON INJ 1MG VIAL SC PRN (23:40)
[2023-02-27 00:37] LABS: HEMATOCRIT 26.4 % (42.0-52.0); HEMOGLOBIN 7.9 g/dl (13.5-17.5); MEAN CORPUSCULAR HEMOGLOBIN 31.3 pg (27.0-33.0); MEAN CORPUSCULAR HGB CONC 29.9 g/dl (32.0-36.5); MEAN CORPUSCULAR VOLUME 104.8 fl (80.0-96.0); RED BLOOD COUNT 2.52 10^6/uL (4.30-6.10); WHITE BLOOD COUNT 9.6 10^3/uL (4.0-10.0)
[2023-02-27 00:40] VITALS: BP 119/64; TEMP 97; O2SAT 96
[2023-02-27 00:42] LABS: PLATELET COUNT, AUTOMATED 49 10^3/uL (150-450)
[2023-02-27 00:47] LABS: INR 1.24; PROTHROMBIN TIME 15.9 SECONDS (12.5-14.5)
[2023-02-27 00:48] LABS: PARTIAL THROMBOPLASTIN TIME 37.9 SECONDS (24.8-34.2)
[2023-02-27 01:02] LABS: CALCIUM LEVEL 7.9 MG/DL (8.3-10.6); CREATININE FOR GFR 2.13 MG/DL (0.70-1.30); GLOMERULAR FILTRATION RATE 31.4 (>35); POTASSIUM SERUM 4.8 MMOL/L (3.5-5.1)
[2023-02-27] MEDS ORDERED: RETA4000 SUBQ (02:37)
[2023-02-27] MEDS ORDERED: BRIM0.2S13 OU (02:37)
[2023-02-27] MEDS ORDERED: ALBU8.5H INH (02:37)
[2023-02-27] MEDS ORDERED: TIMO5DRO4 OU (02:37)
[2023-02-27] MEDS ORDERED: XALA0.007 OU (02:37)
[2023-02-27] MEDS ORDERED: CALALOT4 TOP (02:37)
[2023-02-27] MEDS ORDERED: GUAI100L6 PO (02:37)
[2023-02-27] MEDS ORDERED: GLUC1KIT SUBQ (02:37)
[2023-02-27] MEDS ORDERED: MELA3TAB30 PO (02:37)
[2023-02-27] MEDS ORDERED: ACET650T3 PO (02:37)
[2023-02-27] MEDS ORDERED: MICO85PO7 TOP (02:37)
[2023-02-27] MEDS ORDERED: BENZ-18 PO (02:37)
[2023-02-27] MEDS ORDERED: MERO1VIA3 IV (02:37)
[2023-02-27] MEDS ORDERED: DIPH-435 PO (02:37)
[2023-02-27] MEDS ORDERED: METO1TAB87 PO (02:37)
[2023-02-27] MEDS ORDERED: ASPI81TA26 PO (02:37)
[2023-02-27] MEDS ORDERED: INSU100V6 SQ (02:45)
[2023-02-27] MEDS ORDERED: POLY510P14 PO (02:45)
[2023-02-27] MEDS ORDERED: TIMO0.5S39 OU (02:45)
[2023-02-27] MEDS ORDERED: HOME MED LIST COMPLETE! XX SCH (02:50)
[2023-02-27] MEDS ORDERED: FERR325T3 PO (02:51)
[2023-02-27 04:15] VITALS: BP 121/57; TEMP 96.2; O2SAT 96
[2023-02-27] MEDS ORDERED: MEROPENEM INJ 2 GM in NS 100 ML IV SCH (06:00)
[2023-02-27] MEDS ORDERED: FUROSEMIDE 40MG/4ML VIAL IV SCH (06:00)
[2023-02-27] MEDS: MEROPENEM INJ 2 GM in NS 100 ML IV SCH ×2 (06:24→17:43)
[2023-02-27] MEDS ORDERED: MEROPENEM INJ 1 GM in NS 100 ML IV SCH (06:30)
[2023-02-27] MEDS ORDERED: SUCRALFATE 1 GM TAB PO SCH (07:30)
[2023-02-27] MEDS: INSULIN LISPRO (NovoLOG) PER UNIT SC SCH ×4 (07:30→20:58)
[2023-02-27] MEDS: TIOTROPIUM INHALER/CAPSULE (SPIRIVA) INH SCH (07:35)
[2023-02-27] MEDS: ADVAIR HFA 115/21MCG INHALER INH SCH ×2 (07:35→20:09)
[2023-02-27 07:47] VITALS: BP 120/56; TEMP 97; O2SAT 99
[2023-02-27] MEDS ORDERED: FERROUS SULFATE 300MG/5ML UDC LIQUID PO SCH (09:00)
[2023-02-27] MEDS: MAGNESIUM OXIDE 400MG TAB (MAG-OX) PO SCH ×3 (09:58→20:58)
[2023-02-27] MEDS: DOCUSATE SODIUM 100MG CAPSULE PO SCH ×2 (09:58→20:53)
[2023-02-27] MEDS: CLOPIDOGREL 75 MG TAB PO SCH (09:58)
[2023-02-27] MEDS: METOPROLOL TART 25 MG TABLET PO SCH ×2 (09:58→20:55)
[2023-02-27] MEDS: PANTOPRAZOLE 40MG TAB (PROTONIX) PO SCH (09:58)
[2023-02-27] MEDS: BRIMONIDINE 0.15% OPHTH SOLN 5 ML OU SCH ×3 (09:58→20:56)
[2023-02-27] MEDS: ASPIRIN 81MG ENTERIC TABLET PO SCH (09:58)
[2023-02-27] MEDS: TIMOLOL MALEATE 0.5% OPHTH SOLN 5 ML OU SCH ×2 (09:59→20:57)
[2023-02-27 12:00] VITALS: BP 118/62; TEMP 97.6; O2SAT 98
[2023-02-27 15:53] VITALS: BP 121/57; TEMP 98.9; O2SAT 99
[2023-02-27] MEDS: FUROSEMIDE 40MG/4ML VIAL IV SCH (17:44)
[2023-02-27 20:11] VITALS: BP 107/58; TEMP 98; O2SAT 99
[2023-02-27] MEDS: ATORVASTATIN 20 MG TAB PO SCH (20:56)
[2023-02-27] MEDS: LATANOPROST 0.005% OPHTH SOLN 2.5 ML OU SCH (20:57)
[2023-02-28 00:30] VITALS: BP 120/58; TEMP 98.2; O2SAT 100
[2023-02-28 04:49] VITALS: BP 102/54; TEMP 96.3; O2SAT 98
[2023-02-28 07:48] VITALS: BP 127/65; TEMP 96.6; O2SAT 99
[2023-02-28] MEDS: TIOTROPIUM INHALER/CAPSULE (SPIRIVA) INH SCH (08:10)
[2023-02-28] MEDS: ADVAIR HFA 115/21MCG INHALER INH SCH ×2 (08:11→19:48)
[2023-02-28] MEDS: ASPIRIN 81MG ENTERIC TABLET PO SCH (08:39)
[2023-02-28] MEDS: MAGNESIUM OXIDE 400MG TAB (MAG-OX) PO SCH ×2 (08:39→17:29)
[2023-02-28] MEDS: INSULIN LISPRO (NovoLOG) PER UNIT SC SCH ×4 (08:39→20:16)
[2023-02-28] MEDS: BRIMONIDINE 0.15% OPHTH SOLN 5 ML OU SCH ×3 (08:40→20:15)
[2023-02-28] MEDS: PANTOPRAZOLE 40MG TAB (PROTONIX) PO SCH (08:40)
[2023-02-28] MEDS: METOPROLOL TART 25 MG TABLET PO SCH ×2 (08:40→20:15)
[2023-02-28] MEDS: TIMOLOL MALEATE 0.5% OPHTH SOLN 5 ML OU SCH ×2 (08:40→20:15)
[2023-02-28] MEDS: CLOPIDOGREL 75 MG TAB PO SCH (08:40)
[2023-02-28] MEDS: DOCUSATE SODIUM 100MG CAPSULE PO SCH ×2 (08:40→20:14)
[2023-02-28] MEDS: FUROSEMIDE 40MG/4ML VIAL IV SCH ×2 (08:42→17:34)
[2023-02-28] MEDS: ALBUTEROL 90 MCG/ACT 8GM HFA INHALER INH PRN ×2 (09:13→21:57)
[2023-02-28 14:36] LABS: HEMATOCRIT 24.9 % (42.0-52.0); HEMOGLOBIN 7.5 g/dl (13.5-17.5); MEAN CORPUSCULAR HEMOGLOBIN 31.8 pg (27.0-33.0); MEAN CORPUSCULAR HGB CONC 30.1 g/dl (32.0-36.5); MEAN CORPUSCULAR VOLUME 105.5 fl (80.0-96.0); RED BLOOD COUNT 2.36 10^6/uL (4.30-6.10); WHITE BLOOD COUNT 9.9 10^3/uL (4.0-10.0)
[2023-02-28 14:51] LABS: ALBUMIN 1.8 G/DL (3.2-5.2); BILIRUBIN,DIRECT 0.4 MG/DL (<0.4); BILIRUBIN,TOTAL 0.9 MG/DL (0.3-1.2); CREATININE FOR GFR 2.13 MG/DL (0.70-1.30); GLOMERULAR FILTRATION RATE 31.4 (>35); MAGNESIUM LEVEL 2.8 MG/DL (1.8-2.4); POTASSIUM SERUM 4.6 MMOL/L (3.5-5.1); TOTAL PROTEIN 5.4 G/DL (5.7-8.2)
[2023-02-28 14:53] LABS: FERRITIN 166.2 NG/ML (10.5-307.3)
[2023-02-28 15:00] LABS: PLATELET COUNT, AUTOMATED 48 10^3/uL (150-450)
[2023-02-28 15:09] LABS: ATYPICAL LYMPH 1 % (0-5); EOSINOPHILS 10 % (0-3); LYMPHOCYTES 20 % (16-44); MONOCYTES 2 % (0-5); NEUTROPHILS 67 % (28-66); PLATELET ESTIMATE DECREASED (NORMAL)
[2023-02-28 15:10] LABS: ANISOCYTOSIS 3+; HYPOCHROMASIA 2+
[2023-02-28 15:13] LABS: SPHEROCYTES 2+
[2023-02-28 16:00] VITALS: BP 127/62; TEMP 97; O2SAT 98
[2023-02-28] MEDS: SODIUM CHLORIDE 0.9% INJ 10 ML SYR IV SCH (17:32)
[2023-02-28 20:00] VITALS: BP 123/58; TEMP 96.4; O2SAT 99
[2023-02-28] MEDS: ATORVASTATIN 20 MG TAB PO SCH (20:14)
[2023-02-28] MEDS: LATANOPROST 0.005% OPHTH SOLN 2.5 ML OU SCH (20:16)
[2023-02-28 21:30] VITALS: BP 141/69; TEMP 97.2; O2SAT 96
[2023-02-28] MEDS: ACETAMINOPHEN TAB 650MG DOSE (2X325MG) PO PRN (21:56)
[2023-03-01 05:10] VITALS: BP 117/48; TEMP 97; O2SAT 98
[2023-03-01] MEDS: SODIUM CHLORIDE 0.9% INJ 10 ML SYR IV PRN (05:22)
[2023-03-01 05:46] LABS: HEMATOCRIT 25.7 % (42.0-52.0); HEMOGLOBIN 7.7 g/dl (13.5-17.5); MEAN CORPUSCULAR HEMOGLOBIN 31.3 pg (27.0-33.0); MEAN CORPUSCULAR VOLUME 104.5 fl (80.0-96.0); RED BLOOD COUNT 2.46 10^6/uL (4.30-6.10); WHITE BLOOD COUNT 10.1 10^3/uL (4.0-10.0)
[2023-03-01 06:07] LABS: CALCIUM LEVEL 7.7 MG/DL (8.3-10.6); CREATININE FOR GFR 2.22 MG/DL (0.70-1.30); POTASSIUM SERUM 4.4 MMOL/L (3.5-5.1)
[2023-03-01 06:09] LABS: PLATELET COUNT, AUTOMATED 56 10^3/uL (150-450)
[2023-03-01 07:33] LABS: ATYPICAL LYMPH 5 % (0-5); BASOPHILS 1 % (0-1); EOSINOPHILS 10 % (0-3); LYMPHOCYTES 18 % (16-44); MONOCYTES 13 % (0-5); NEUTROPHILS 53 % (28-66)
[2023-03-01 07:34] LABS: ANISOCYTOSIS 1+; PLATELET ESTIMATE DECREASED (NORMAL); POIKILOCYTOSIS 1+; POLYCHROMASIA 1+
[2023-03-01] MEDS: TIOTROPIUM INHALER/CAPSULE (SPIRIVA) INH SCH (08:38)
[2023-03-01] MEDS: ADVAIR HFA 115/21MCG INHALER INH SCH ×2 (08:38→20:40)
[2023-03-01] MEDS: SODIUM CHLORIDE 0.9% INJ 10 ML SYR IV SCH (09:32)
[2023-03-01] MEDS: FUROSEMIDE 40MG/4ML VIAL IV SCH (09:32)
[2023-03-01] MEDS: MAGNESIUM OXIDE 400MG TAB (MAG-OX) PO SCH ×2 (09:33→20:31)
[2023-03-01] MEDS: CLOPIDOGREL 75 MG TAB PO SCH (09:33)
[2023-03-01] MEDS: ACETAMINOPHEN TAB 650MG DOSE (2X325MG) PO PRN (09:33)
[2023-03-01] MEDS: DOCUSATE SODIUM 100MG CAPSULE PO SCH ×2 (09:34→20:29)
[2023-03-01] MEDS: METOPROLOL TART 25 MG TABLET PO SCH ×2 (09:35→20:34)
[2023-03-01] MEDS: INSULIN LISPRO (NovoLOG) PER UNIT SC SCH ×4 (09:36→20:58)
[2023-03-01] MEDS: TIMOLOL MALEATE 0.5% OPHTH SOLN 5 ML OU SCH ×2 (09:37→21:08)
[2023-03-01] MEDS: BRIMONIDINE 0.15% OPHTH SOLN 5 ML OU SCH ×3 (09:37→21:08)
[2023-03-01] MEDS: ASPIRIN 81MG ENTERIC TABLET PO SCH (09:41)
[2023-03-01] MEDS: PANTOPRAZOLE 40MG TAB (PROTONIX) PO SCH (09:41)
[2023-03-01 10:35] LABS: LDH LACTATE DEHYDROGENASE 275 U/L (120-246)
[2023-03-01 10:38] LABS: IMMUNOGLOBULIN A 199.5 MG/DL (40-350); IMMUNOGLOBULIN G 2260 MG/DL (650-1600)
[2023-03-01 10:53] LABS: IMMUNOGLOBULIN M < 21.0 MG/DL (50-300)
[2023-03-01] MEDS ORDERED: FERRIC CARBOXYMALTOSE INJ 750 MG, VIAL MATE ADAPTER 1 EACH in NS 250 ML IV ONE (13:00)
[2023-03-01 14:00] VITALS: BP 121/57; TEMP 97.2; O2SAT 98
[2023-03-01 17:29] VITALS: BP 127/59; TEMP 97.3; O2SAT 98
[2023-03-01] MEDS: ALBUTEROL 90 MCG/ACT 8GM HFA INHALER INH PRN (17:35)
[2023-03-01 20:00] VITALS: BP 124/58; TEMP 97; O2SAT 100
[2023-03-01] MEDS: ATORVASTATIN 20 MG TAB PO SCH (20:31)
[2023-03-01] MEDS: FUROSEMIDE 100MG/10ML VIAL IV SCH (20:38)
[2023-03-01] MEDS: LATANOPROST 0.005% OPHTH SOLN 2.5 ML OU SCH (21:06)
[2023-03-02] VITALS (13 sets, daily range): BP systolic 110–152; BP diastolic 47–59; TEMP 96.8–98; O2SAT 94–100
[2023-03-02 05:48] LABS: HEMATOCRIT 24.6 % (42.0-52.0); HEMOGLOBIN 7.5 g/dl (13.5-17.5); MEAN CORPUSCULAR HEMOGLOBIN 32.1 pg (27.0-33.0); MEAN CORPUSCULAR HGB CONC 30.5 g/dl (32.0-36.5); MEAN CORPUSCULAR VOLUME 105.1 fl (80.0-96.0); RED BLOOD COUNT 2.34 10^6/uL (4.30-6.10); WHITE BLOOD COUNT 8.4 10^3/uL (4.0-10.0)
[2023-03-02 05:53] LABS: PLATELET COUNT, AUTOMATED 47 10^3/uL (150-450)
[2023-03-02 06:11] LABS: CALCIUM LEVEL 9.3 MG/DL (8.3-10.6); CREATININE FOR GFR 2.21 MG/DL (0.70-1.30); GLOMERULAR FILTRATION RATE 30.1 (>35); POTASSIUM SERUM 4.5 MMOL/L (3.5-5.1)
[2023-03-02 06:17] LABS: EOSINOPHILS 7 % (0-3); LYMPHOCYTES 42 % (16-44); MONOCYTES 9 % (0-5); NEUTROPHILS 38 % (28-66)
[2023-03-02 06:18] LABS: PLATELET ESTIMATE MARKED DECREASE (NORMAL)
[2023-03-02 06:19] LABS: ANISOCYTOSIS 2+; POIKILOCYTOSIS 1+
[2023-03-02 06:20] LABS: HYPOCHROMASIA 3+; POLYCHROMASIA 1+; SMUDGE CELLS 1+
[2023-03-02] MEDS: ADVAIR HFA 115/21MCG INHALER INH SCH ×2 (08:04→19:53)
[2023-03-02] MEDS: TIOTROPIUM INHALER/CAPSULE (SPIRIVA) INH SCH (08:04)
[2023-03-02] MEDS: CLOPIDOGREL 75 MG TAB PO SCH (08:17)
[2023-03-02] MEDS: PANTOPRAZOLE 40MG TAB (PROTONIX) PO SCH (08:17)
[2023-03-02] MEDS: INSULIN LISPRO (NovoLOG) PER UNIT SC SCH ×4 (08:17→20:59)
[2023-03-02] MEDS: ASPIRIN 81MG ENTERIC TABLET PO SCH (08:17)
[2023-03-02] MEDS: DOCUSATE SODIUM 100MG CAPSULE PO SCH ×2 (08:17→21:14)
[2023-03-02] MEDS: METOPROLOL TART 25 MG TABLET PO SCH ×2 (08:18→21:14)
[2023-03-02] MEDS: BRIMONIDINE 0.15% OPHTH SOLN 5 ML OU SCH ×3 (08:19→21:15)
[2023-03-02] MEDS: SODIUM CHLORIDE 0.9% INJ 10 ML SYR IV SCH (08:19)
[2023-03-02] MEDS: FUROSEMIDE 100MG/10ML VIAL IV SCH ×2 (08:19→16:48)
[2023-03-02] MEDS: TIMOLOL MALEATE 0.5% OPHTH SOLN 5 ML OU SCH ×2 (08:20→21:15)
[2023-03-02] MEDS: MAGNESIUM OXIDE 400MG TAB (MAG-OX) PO SCH ×3 (08:39→21:14)
[2023-03-02 09:54] LABS: MAGNESIUM LEVEL 2.5 MG/DL (1.8-2.4)
[2023-03-02] MEDS: SODIUM CHLORIDE 0.9% INJ 10 ML SYR IV PRN ×2 (12:35→16:50)
[2023-03-02] MEDS: ACETAMINOPHEN TAB 650MG DOSE (2X325MG) PO PRN (18:18)
[2023-03-02] MEDS: ATORVASTATIN 20 MG TAB PO SCH (21:12)
[2023-03-02] MEDS: LATANOPROST 0.005% OPHTH SOLN 2.5 ML OU SCH (21:15)
[2023-03-03] VITALS (8 sets, daily range): BP systolic 102–146; BP diastolic 51–61; TEMP 97–97.2; O2SAT 94–100
[2023-03-03] MEDS: ACETAMINOPHEN TAB 650MG DOSE (2X325MG) PO PRN ×2 (02:00→11:03)
[2023-03-03] MEDS: BENZONATATE 100MG CAPSULE PO PRN ×2 (02:08→11:10)
[2023-03-03 07:22] LABS: HEMATOCRIT 25.5 % (42.0-52.0); HEMOGLOBIN 7.7 g/dl (13.5-17.5); MEAN CORPUSCULAR HGB CONC 30.2 g/dl (32.0-36.5); MEAN CORPUSCULAR VOLUME 105.8 fl (80.0-96.0); RED BLOOD COUNT 2.41 10^6/uL (4.30-6.10); WHITE BLOOD COUNT 10.9 10^3/uL (4.0-10.0)
[2023-03-03 07:26] LABS: PLATELET COUNT, AUTOMATED 44 10^3/uL (150-450)
[2023-03-03] MEDS: INSULIN LISPRO (NovoLOG) PER UNIT SC SCH ×4 (07:30→21:00)
[2023-03-03 07:52] LABS: CALCIUM LEVEL 8.4 MG/DL (8.3-10.6); CREATININE FOR GFR 2.28 MG/DL (0.70-1.30); GLOMERULAR FILTRATION RATE 29.1 (>35); MAGNESIUM LEVEL 2.5 MG/DL (1.8-2.4); POTASSIUM SERUM 4.5 MMOL/L (3.5-5.1)
[2023-03-03 07:55] LABS: BASOPHILS 1 % (0-1); EOSINOPHILS 4 % (0-3); HYPOCHROMASIA 2+; LYMPHOCYTES 33 % (16-44); MONOCYTES 5 % (0-5); NEUTROPHILS 57 % (28-66)
[2023-03-03 07:56] LABS: ANISOCYTOSIS 1+; PLATELET ESTIMATE MARKED DECREASE (NORMAL)
[2023-03-03] MEDS: MAGNESIUM OXIDE 400MG TAB (MAG-OX) PO SCH ×2 (09:00→21:00)
[2023-03-03] MEDS: ADVAIR HFA 115/21MCG INHALER INH SCH ×2 (09:39→20:20)
[2023-03-03] MEDS: TIOTROPIUM INHALER/CAPSULE (SPIRIVA) INH SCH (09:39)
[2023-03-03] MEDS: SODIUM CHLORIDE 0.9% INJ 10 ML SYR IV SCH (11:02)
[2023-03-03] MEDS: CLOPIDOGREL 75 MG TAB PO SCH (11:03)
[2023-03-03] MEDS: FUROSEMIDE 100MG/10ML VIAL IV SCH ×2 (11:03→18:51)
[2023-03-03] MEDS: DOCUSATE SODIUM 100MG CAPSULE PO SCH ×2 (11:03→21:32)
[2023-03-03] MEDS: ASPIRIN 81MG ENTERIC TABLET PO SCH (11:03)
[2023-03-03] MEDS: PANTOPRAZOLE 40MG TAB (PROTONIX) PO SCH (11:04)
[2023-03-03] MEDS: TIMOLOL MALEATE 0.5% OPHTH SOLN 5 ML OU SCH ×2 (11:05→21:35)
[2023-03-03] MEDS: BRIMONIDINE 0.15% OPHTH SOLN 5 ML OU SCH ×3 (11:05→21:35)
[2023-03-03] MEDS: METOPROLOL TART 25 MG TABLET PO SCH ×2 (11:10→21:36)
[2023-03-03] MEDS: ATORVASTATIN 20 MG TAB PO SCH (21:32)
[2023-03-03] MEDS: LATANOPROST 0.005% OPHTH SOLN 2.5 ML OU SCH (21:36)
[2023-03-04] MEDS: ACETAMINOPHEN TAB 650MG DOSE (2X325MG) PO PRN ×2 (03:47→15:50)
[2023-03-04 06:00] VITALS: BP 120/54; TEMP 97.3; O2SAT 96
[2023-03-04] MEDS: TIOTROPIUM INHALER/CAPSULE (SPIRIVA) INH SCH (07:57)
[2023-03-04] MEDS: ADVAIR HFA 115/21MCG INHALER INH SCH ×2 (07:58→20:00)
[2023-03-04 08:28] LABS: CALCIUM LEVEL 8.4 MG/DL (8.3-10.6); CREATININE FOR GFR 2.29 MG/DL (0.70-1.30); GLOMERULAR FILTRATION RATE 28.9 (>35); MAGNESIUM LEVEL 2.3 MG/DL (1.8-2.4); POTASSIUM SERUM 4.2 MMOL/L (3.5-5.1)
[2023-03-04 08:36] LABS: HEMATOCRIT 27.4 % (42.0-52.0); HEMOGLOBIN 8.4 g/dl (13.5-17.5); MEAN CORPUSCULAR HEMOGLOBIN 32.1 pg (27.0-33.0); MEAN CORPUSCULAR HGB CONC 30.7 g/dl (32.0-36.5); MEAN CORPUSCULAR VOLUME 104.6 fl (80.0-96.0); RED BLOOD COUNT 2.62 10^6/uL (4.30-6.10)
[2023-03-04] MEDS: FUROSEMIDE 100MG/10ML VIAL IV SCH ×2 (08:36→17:21)
[2023-03-04] MEDS: INSULIN LISPRO (NovoLOG) PER UNIT SC SCH ×5 (08:36→20:14)
[2023-03-04] MEDS: PANTOPRAZOLE 40MG TAB (PROTONIX) PO SCH (08:36)
[2023-03-04] MEDS: MAGNESIUM OXIDE 400MG TAB (MAG-OX) PO SCH ×2 (08:36→20:03)
[2023-03-04] MEDS: CLOPIDOGREL 75 MG TAB PO SCH (08:36)
[2023-03-04] MEDS: ASPIRIN 81MG ENTERIC TABLET PO SCH (08:36)
[2023-03-04] MEDS: DOCUSATE SODIUM 100MG CAPSULE PO SCH ×2 (08:36→20:03)
[2023-03-04] MEDS: TIMOLOL MALEATE 0.5% OPHTH SOLN 5 ML OU SCH ×2 (08:37→20:04)
[2023-03-04] MEDS: SODIUM CHLORIDE 0.9% INJ 10 ML SYR IV SCH (08:37)
[2023-03-04] MEDS: BRIMONIDINE 0.15% OPHTH SOLN 5 ML OU SCH ×3 (08:38→20:04)
[2023-03-04] MEDS: METOPROLOL TART 25 MG TABLET PO SCH ×2 (08:39→20:03)
[2023-03-04 08:50] LABS: PLATELET COUNT, AUTOMATED 45 10^3/uL (150-450)
[2023-03-04 09:56] LABS: ANISOCYTOSIS 2+; EOSINOPHILS 6 % (0-3); HYPOCHROMASIA 3+; LYMPHOCYTES 50 % (16-44); MONOCYTES 8 % (0-5); NEUTROPHILS 36 % (28-66); PLATELET ESTIMATE MARKED DECREASE (NORMAL)
[2023-03-04 14:00] VITALS: BP 98/44; TEMP 97; O2SAT 96
[2023-03-04 15:30] VITALS: BP 124/62
[2023-03-04] MEDS: BENZONATATE 100MG CAPSULE PO PRN (20:02)
[2023-03-04] MEDS: ATORVASTATIN 20 MG TAB PO SCH (20:02)
[2023-03-04] MEDS: LATANOPROST 0.005% OPHTH SOLN 2.5 ML OU SCH (20:04)
[2023-03-04 20:50] VITALS: BP 124/52; TEMP 97.3; O2SAT 98
[2023-03-04] MEDS: NYSTATIN 100,000 UNITS/GM TOPICAL PWD 15GM TOP SCH (22:19)
[2023-03-05] MEDS: guaiFENesin SYRUP 200MG 10ML UDC PO PRN (01:14)
[2023-03-05 05:30] VITALS: BP 125/54; TEMP 97.2; O2SAT 99
[2023-03-05 06:11] LABS: HEMATOCRIT 26.4 % (42.0-52.0); HEMOGLOBIN 8.1 g/dl (13.5-17.5); MEAN CORPUSCULAR HEMOGLOBIN 32.1 pg (27.0-33.0); MEAN CORPUSCULAR HGB CONC 30.7 g/dl (32.0-36.5); MEAN CORPUSCULAR VOLUME 104.8 fl (80.0-96.0); RED BLOOD COUNT 2.52 10^6/uL (4.30-6.10); WHITE BLOOD COUNT 9.3 10^3/uL (4.0-10.0)
[2023-03-05 06:16] LABS: PLATELET COUNT, AUTOMATED 44 10^3/uL (150-450)
[2023-03-05 06:26] LABS: CALCIUM LEVEL 8.6 MG/DL (8.3-10.6); CREATININE FOR GFR 2.31 MG/DL (0.70-1.30); GLOMERULAR FILTRATION RATE 28.6 (>35); MAGNESIUM LEVEL 2.2 MG/DL (1.8-2.4); POTASSIUM SERUM 3.9 MMOL/L (3.5-5.1)
[2023-03-05] MEDS: ADVAIR HFA 115/21MCG INHALER INH SCH ×2 (07:35→20:28)
[2023-03-05] MEDS: TIOTROPIUM INHALER/CAPSULE (SPIRIVA) INH SCH (07:35)
[2023-03-05 07:44] LABS: ATYPICAL LYMPH 9 % (0-5); EOSINOPHILS 5 % (0-3); LYMPHOCYTES 30 % (16-44); MONOCYTES 9 % (0-5); NEUTROPHILS 45 % (28-66)
[2023-03-05 07:45] LABS: ANISOCYTOSIS 3+; HYPOCHROMASIA 1+; PLATELET ESTIMATE DECREASED (NORMAL)
[2023-03-05 07:47] LABS: SMUDGE CELLS 1+
[2023-03-05] MEDS: INSULIN LISPRO (NovoLOG) PER UNIT SC SCH ×4 (08:04→21:00)
[2023-03-05] MEDS: PANTOPRAZOLE 40MG TAB (PROTONIX) PO SCH (08:14)
[2023-03-05] MEDS: ASPIRIN 81MG ENTERIC TABLET PO SCH (08:14)
[2023-03-05] MEDS: MAGNESIUM OXIDE 400MG TAB (MAG-OX) PO SCH ×3 (08:14→21:15)
[2023-03-05] MEDS: DOCUSATE SODIUM 100MG CAPSULE PO SCH ×2 (08:14→21:13)
[2023-03-05] MEDS: CLOPIDOGREL 75 MG TAB PO SCH (08:14)
[2023-03-05] MEDS: METOPROLOL TART 25 MG TABLET PO SCH ×2 (08:15→21:17)
[2023-03-05] MEDS: SODIUM CHLORIDE 0.9% INJ 10 ML SYR IV SCH (08:15)
[2023-03-05] MEDS: BRIMONIDINE 0.15% OPHTH SOLN 5 ML OU SCH ×3 (08:16→21:22)
[2023-03-05] MEDS: FUROSEMIDE 100MG/10ML VIAL IV SCH ×2 (08:16→17:58)
[2023-03-05] MEDS: TIMOLOL MALEATE 0.5% OPHTH SOLN 5 ML OU SCH ×2 (08:16→21:22)
[2023-03-05] MEDS: NYSTATIN 100,000 UNITS/GM TOPICAL PWD 15GM TOP SCH ×2 (08:17→21:15)
[2023-03-05] MEDS: ACETAMINOPHEN TAB 650MG DOSE (2X325MG) PO PRN (08:24)
[2023-03-05 14:00] VITALS: BP 110/50; TEMP 97.5; O2SAT 98
[2023-03-05] MEDS: BENZOCAINE 10% 9GM TUBE (ANBESOL) MT SCH ×2 (17:59→21:20)
[2023-03-05 20:00] VITALS: BP 133/59; TEMP 97.5; O2SAT 99
[2023-03-05] MEDS: ATORVASTATIN 20 MG TAB PO SCH (21:19)
[2023-03-05] MEDS: LATANOPROST 0.005% OPHTH SOLN 2.5 ML OU SCH (21:22)
[2023-03-06 06:00] VITALS: BP 126/60; TEMP 97.7; O2SAT 96
[2023-03-06] MEDS: INSULIN LISPRO (NovoLOG) PER UNIT SC SCH ×4 (07:30→21:00)
[2023-03-06] MEDS: ADVAIR HFA 115/21MCG INHALER INH SCH ×2 (07:42→20:12)
[2023-03-06] MEDS: TIOTROPIUM INHALER/CAPSULE (SPIRIVA) INH SCH (07:42)
[2023-03-06 08:00] VITALS: BP 118/56; TEMP 97.3; O2SAT 97
[2023-03-06 08:46] LABS: HEMATOCRIT 28.3 % (42.0-52.0); HEMOGLOBIN 8.8 g/dl (13.5-17.5); MEAN CORPUSCULAR HEMOGLOBIN 32.6 pg (27.0-33.0); MEAN CORPUSCULAR HGB CONC 31.1 g/dl (32.0-36.5); MEAN CORPUSCULAR VOLUME 104.8 fl (80.0-96.0); PLATELET COUNT, AUTOMATED 46 10^3/uL (150-450)
[2023-03-06 09:05] LABS: CALCIUM LEVEL 8.4 MG/DL (8.3-10.6); CREATININE FOR GFR 2.35 MG/DL (0.70-1.30); GLOMERULAR FILTRATION RATE 28.1 (>35); MAGNESIUM LEVEL 2.1 MG/DL (1.8-2.4)
[2023-03-06 09:08] LABS: ATYPICAL LYMPH 2 % (0-5); EOSINOPHILS 7 % (0-3); LYMPHOCYTES 26 % (16-44); MONOCYTES 8 % (0-5); NEUTROPHILS 57 % (28-66)
[2023-03-06 09:09] LABS: PLATELET ESTIMATE MARKED DECREASE (NORMAL); SMUDGE CELLS 1+
[2023-03-06 09:10] LABS: POLYCHROMASIA 1+
[2023-03-06 09:11] LABS: ANISOCYTOSIS 3+; HYPOCHROMASIA 1+
[2023-03-06 09:15] LABS: TEAR DROP CELLS 1+
[2023-03-06] MEDS: BENZOCAINE 10% 9GM TUBE (ANBESOL) MT SCH ×4 (10:59→21:43)
[2023-03-06] MEDS: MAGNESIUM OXIDE 400MG TAB (MAG-OX) PO SCH ×2 (11:00→21:45)
[2023-03-06] MEDS: METOPROLOL TART 25 MG TABLET PO SCH ×2 (11:00→21:44)
[2023-03-06] MEDS: ASPIRIN 81MG ENTERIC TABLET PO SCH (11:00)
[2023-03-06] MEDS: DOCUSATE SODIUM 100MG CAPSULE PO SCH ×2 (11:01→21:00)
[2023-03-06] MEDS: CLOPIDOGREL 75 MG TAB PO SCH (11:01)
[2023-03-06] MEDS: PANTOPRAZOLE 40MG TAB (PROTONIX) PO SCH (11:01)
[2023-03-06] MEDS: SODIUM CHLORIDE 0.9% INJ 10 ML SYR IV SCH (11:03)
[2023-03-06] MEDS: SODIUM CHLORIDE 0.9% INJ 10 ML SYR IV PRN (11:04)
[2023-03-06] MEDS: FUROSEMIDE 100MG/10ML VIAL IV SCH ×2 (11:19→18:26)
[2023-03-06] MEDS: NYSTATIN 100,000 UNITS/GM TOPICAL PWD 15GM TOP SCH ×2 (11:20→21:46)
[2023-03-06] MEDS: TIMOLOL MALEATE 0.5% OPHTH SOLN 5 ML OU SCH ×2 (11:21→21:49)
[2023-03-06] MEDS: BRIMONIDINE 0.15% OPHTH SOLN 5 ML OU SCH ×3 (11:22→21:49)
[2023-03-06] MEDS: ACETAMINOPHEN TAB 650MG DOSE (2X325MG) PO PRN (11:27)
[2023-03-06 14:00] VITALS: BP 116/51; TEMP 97.3; O2SAT 97
[2023-03-06 15:00] VITALS: BP 117/51; TEMP 97.7; O2SAT 97
[2023-03-06] MEDS: SANTYL OINT 30GM TOP SCH (15:00)
[2023-03-06 18:27] VITALS: BP 116/58
[2023-03-06 20:50] VITALS: BP 126/57; TEMP 97.9; O2SAT 96
[2023-03-06] MEDS ORDERED: TRIAMCINOLONE ACETONIDE 0.025% 80GM CREAM TOP SCH (21:00)
[2023-03-06] MEDS: ATORVASTATIN 20 MG TAB PO SCH (21:44)
[2023-03-06] MEDS: LATANOPROST 0.005% OPHTH SOLN 2.5 ML OU SCH (21:49)
[2023-03-07] MEDS: ACETAMINOPHEN TAB 650MG DOSE (2X325MG) PO PRN ×3 (02:05→20:12)
[2023-03-07] MEDS: ALBUTEROL 90 MCG/ACT 8GM HFA INHALER INH PRN (02:06)
[2023-03-07] MEDS: FUROSEMIDE 100MG/10ML VIAL IV SCH ×3 (02:10→18:07)
[2023-03-07] MEDS: SODIUM CHLORIDE 0.9% INJ 10 ML SYR IV PRN (02:40)
[2023-03-07] MEDS ORDERED: valACYclovir HCL 500 MG TAB PO SCH (05:00)
[2023-03-07 06:00] VITALS: BP 116/51; TEMP 98.1; O2SAT 97
[2023-03-07] MEDS: ADVAIR HFA 115/21MCG INHALER INH SCH ×2 (07:56→20:01)
[2023-03-07] MEDS: TIOTROPIUM INHALER/CAPSULE (SPIRIVA) INH SCH (07:56)
[2023-03-07] MEDS: MAGNESIUM OXIDE 400MG TAB (MAG-OX) PO SCH ×2 (09:00→20:15)
[2023-03-07] MEDS: DOCUSATE SODIUM 100MG CAPSULE PO SCH ×2 (09:00→20:13)
[2023-03-07 09:17] LABS: HEMATOCRIT 27.2 % (42.0-52.0); HEMOGLOBIN 8.6 g/dl (13.5-17.5); MEAN CORPUSCULAR HEMOGLOBIN 33.3 pg (27.0-33.0); MEAN CORPUSCULAR HGB CONC 31.6 g/dl (32.0-36.5); MEAN CORPUSCULAR VOLUME 105.4 fl (80.0-96.0); RED BLOOD COUNT 2.58 10^6/uL (4.30-6.10); WHITE BLOOD COUNT 6.9 10^3/uL (4.0-10.0)
[2023-03-07 09:23] LABS: PLATELET COUNT, AUTOMATED 33 10^3/uL (150-450)
[2023-03-07] MEDS: BENZOCAINE 10% 9GM TUBE (ANBESOL) MT SCH ×4 (09:25→20:15)
[2023-03-07] MEDS: PANTOPRAZOLE 40MG TAB (PROTONIX) PO SCH (09:25)
[2023-03-07] MEDS: ASPIRIN 81MG ENTERIC TABLET PO SCH (09:25)
[2023-03-07] MEDS: CLOPIDOGREL 75 MG TAB PO SCH (09:26)
[2023-03-07] MEDS: INSULIN LISPRO (NovoLOG) PER UNIT SC SCH ×4 (09:26→20:15)
[2023-03-07] MEDS: NYSTATIN 100,000 UNITS/GM TOPICAL PWD 15GM TOP SCH ×2 (09:26→20:15)
[2023-03-07] MEDS: TIMOLOL MALEATE 0.5% OPHTH SOLN 5 ML OU SCH ×2 (09:27→20:16)
[2023-03-07] MEDS: BRIMONIDINE 0.15% OPHTH SOLN 5 ML OU SCH ×3 (09:27→20:16)
[2023-03-07] MEDS: SANTYL OINT 30GM TOP SCH (09:29)
[2023-03-07] MEDS: SODIUM CHLORIDE 0.9% INJ 10 ML SYR IV SCH (09:30)
[2023-03-07 09:33] VITALS: BP 133/69
[2023-03-07] MEDS: METOPROLOL TART 25 MG TABLET PO SCH ×2 (09:38→20:13)
[2023-03-07 09:42] LABS: CALCIUM LEVEL 8.4 MG/DL (8.3-10.6); CREATININE FOR GFR 2.44 MG/DL (0.70-1.30); GLOMERULAR FILTRATION RATE 26.9 (>35); MAGNESIUM LEVEL 1.8 MG/DL (1.8-2.4); POTASSIUM SERUM 4.1 MMOL/L (3.5-5.1)
[2023-03-07 09:51] LABS: ATYPICAL LYMPH 2 % (0-5); EOSINOPHILS 6 % (0-3); LYMPHOCYTES 22 % (16-44); MONOCYTES 2 % (0-5); NEUTROPHILS 67 % (28-66)
[2023-03-07 09:52] LABS: PLATELET ESTIMATE MARKED DECREASE (NORMAL)
[2023-03-07 09:53] LABS: ANISOCYTOSIS 3+; POLYCHROMASIA 1+; TEAR DROP CELLS 1+
[2023-03-07 12:30] VITALS: BP 122/56
[2023-03-07 14:00] VITALS: BP 123/75; TEMP 97.3; O2SAT 95
[2023-03-07 18:07] VITALS: BP 141/68
[2023-03-07 20:00] VITALS: BP 118/51; TEMP 98.2; O2SAT 97
[2023-03-07] MEDS: ATORVASTATIN 20 MG TAB PO SCH (20:12)
[2023-03-07] MEDS: LATANOPROST 0.005% OPHTH SOLN 2.5 ML OU SCH (20:16)
[2023-03-08] MEDS: FUROSEMIDE 100MG/10ML VIAL IV SCH ×3 (02:33→18:50)
[2023-03-08] MEDS: SODIUM CHLORIDE 0.9% INJ 10 ML SYR IV PRN (03:15)
[2023-03-08 05:56] VITALS: BP 140/80; TEMP 98.4; O2SAT 96
[2023-03-08] MEDS: INSULIN LISPRO (NovoLOG) PER UNIT SC SCH ×4 (07:30→22:04)
[2023-03-08] MEDS: ADVAIR HFA 115/21MCG INHALER INH SCH ×2 (07:58→20:13)
[2023-03-08] MEDS: TIOTROPIUM INHALER/CAPSULE (SPIRIVA) INH SCH (07:58)
[2023-03-08] MEDS: PANTOPRAZOLE 40MG TAB (PROTONIX) PO SCH (08:33)
[2023-03-08] MEDS: DOCUSATE SODIUM 100MG CAPSULE PO SCH ×2 (08:33→22:17)
[2023-03-08] MEDS: CLOPIDOGREL 75 MG TAB PO SCH (08:33)
[2023-03-08] MEDS: ASPIRIN 81MG ENTERIC TABLET PO SCH (08:33)
[2023-03-08] MEDS: METOPROLOL TART 25 MG TABLET PO SCH ×2 (08:34→22:14)
[2023-03-08] MEDS: BENZONATATE 100MG CAPSULE PO PRN (08:34)
[2023-03-08] MEDS: BENZOCAINE 10% 9GM TUBE (ANBESOL) MT SCH ×4 (08:34→22:18)
[2023-03-08] MEDS: TIMOLOL MALEATE 0.5% OPHTH SOLN 5 ML OU SCH ×2 (08:35→22:17)
[2023-03-08] MEDS: BRIMONIDINE 0.15% OPHTH SOLN 5 ML OU SCH ×3 (08:35→22:17)
[2023-03-08] MEDS: SANTYL OINT 30GM TOP SCH (08:35)
[2023-03-08] MEDS: NYSTATIN 100,000 UNITS/GM TOPICAL PWD 15GM TOP SCH ×2 (08:35→22:15)
[2023-03-08] MEDS: MAGNESIUM OXIDE 400MG TAB (MAG-OX) PO SCH ×3 (08:36→22:13)
[2023-03-08] MEDS: ACETAMINOPHEN TAB 650MG DOSE (2X325MG) PO PRN ×3 (08:45→22:12)
[2023-03-08] MEDS: SODIUM CHLORIDE 0.9% INJ 10 ML SYR IV SCH (08:46)
[2023-03-08 09:35] LABS: ALBUMIN 2.3 G/DL (3.2-5.2); CREATININE FOR GFR 2.45 MG/DL (0.70-1.30); GLOMERULAR FILTRATION RATE 26.8 (>35); MAGNESIUM LEVEL 1.7 MG/DL (1.8-2.4); PHOSPHORUS LEVEL 5.1 MG/DL (2.4-5.1); POTASSIUM SERUM 4.4 MMOL/L (3.5-5.1)
[2023-03-08] MEDS: valACYclovir HCL 500 MG TAB PO SCH ×2 (10:02→22:13)
[2023-03-08 14:00] VITALS: BP 123/52; TEMP 97.9; O2SAT 96
[2023-03-08 22:00] VITALS: BP 121/56; TEMP 98.1; O2SAT 95
[2023-03-08] MEDS: ATORVASTATIN 20 MG TAB PO SCH (22:13)
[2023-03-08] MEDS: LATANOPROST 0.005% OPHTH SOLN 2.5 ML OU SCH (22:16)
[2023-03-09] MEDS: FUROSEMIDE 100MG/10ML VIAL IV SCH ×3 (03:02→18:22)
[2023-03-09 06:08] LABS: MAGNESIUM LEVEL 1.7 MG/DL (1.8-2.4)
[2023-03-09 06:10] VITALS: BP 123/55; TEMP 97.9; O2SAT 100
[2023-03-09] MEDS: INSULIN LISPRO (NovoLOG) PER UNIT SC SCH ×4 (07:30→22:23)
[2023-03-09 08:12] LABS: CALCIUM LEVEL 7.7 MG/DL (8.3-10.6); CREATININE FOR GFR 2.66 MG/DL (0.70-1.30); GLOMERULAR FILTRATION RATE 24.3 (>35); POTASSIUM SERUM 3.8 MMOL/L (3.5-5.1)
[2023-03-09] MEDS: ASPIRIN 81MG ENTERIC TABLET PO SCH (08:41)
[2023-03-09] MEDS: valACYclovir HCL 500 MG TAB PO SCH ×2 (08:41→22:22)
[2023-03-09] MEDS: PANTOPRAZOLE 40MG TAB (PROTONIX) PO SCH (08:42)
[2023-03-09] MEDS: NYSTATIN 100,000 UNITS/GM TOPICAL PWD 15GM TOP SCH ×2 (08:42→22:19)
[2023-03-09] MEDS: BENZOCAINE 10% 9GM TUBE (ANBESOL) MT SCH ×4 (08:42→22:19)
[2023-03-09] MEDS: MAGNESIUM OXIDE 400MG TAB (MAG-OX) PO SCH ×2 (08:42→22:21)
[2023-03-09] MEDS: METOPROLOL TART 25 MG TABLET PO SCH ×2 (08:42→22:22)
[2023-03-09] MEDS: CLOPIDOGREL 75 MG TAB PO SCH (08:42)
[2023-03-09] MEDS: ACETAMINOPHEN TAB 650MG DOSE (2X325MG) PO PRN ×3 (08:42→19:55)
[2023-03-09] MEDS: BRIMONIDINE 0.15% OPHTH SOLN 5 ML OU SCH ×3 (08:43→22:25)
[2023-03-09] MEDS: TIMOLOL MALEATE 0.5% OPHTH SOLN 5 ML OU SCH ×2 (08:43→22:24)
[2023-03-09] MEDS: SODIUM CHLORIDE 0.9% INJ 10 ML SYR IV SCH (08:43)
[2023-03-09] MEDS: TIOTROPIUM INHALER/CAPSULE (SPIRIVA) INH SCH (08:57)
[2023-03-09] MEDS: ADVAIR HFA 115/21MCG INHALER INH SCH ×2 (08:57→20:14)
[2023-03-09] MEDS: DOCUSATE SODIUM 100MG CAPSULE PO SCH ×2 (09:00→22:21)
[2023-03-09] MEDS: SANTYL OINT 30GM TOP SCH (09:10)
[2023-03-09] MEDS: VANICREAM MOISTURIZING SKIN CREAM 113GM TUBE TOP SCH ×2 (12:33→22:19)
[2023-03-09 14:00] VITALS: BP 116/53; TEMP 97.9; O2SAT 98
[2023-03-09] MEDS: BENZONATATE 100MG CAPSULE PO PRN (15:55)
[2023-03-09 20:07] VITALS: BP 112/62; TEMP 97.2; O2SAT 98
[2023-03-09] MEDS ORDERED: GABAPENTIN 100 MG CAP PO ONE (21:20)
[2023-03-09] MEDS: ATORVASTATIN 20 MG TAB PO SCH (22:21)
[2023-03-09] MEDS: LATANOPROST 0.005% OPHTH SOLN 2.5 ML OU SCH (22:23)
[2023-03-10] MEDS: NORCO, ANEXSIA 5/325MG TABLET (HYDROcodone/ACETAMINOPHEN) PO PRN ×2 (01:08→21:44)
[2023-03-10] MEDS: FUROSEMIDE 100MG/10ML VIAL IV SCH ×2 (03:15→11:38)
[2023-03-10] MEDS: SODIUM CHLORIDE 0.9% INJ 10 ML SYR IV PRN (04:14)
[2023-03-10 06:03] VITALS: BP 120/53; TEMP 97.5; O2SAT 99
[2023-03-10 06:34] LABS: HEMATOCRIT 25.1 % (42.0-52.0); HEMOGLOBIN 7.8 g/dl (13.5-17.5); MEAN CORPUSCULAR HEMOGLOBIN 32.5 pg (27.0-33.0); MEAN CORPUSCULAR HGB CONC 31.1 g/dl (32.0-36.5); MEAN CORPUSCULAR VOLUME 104.6 fl (80.0-96.0); WHITE BLOOD COUNT 5.3 10^3/uL (4.0-10.0)
[2023-03-10 06:48] LABS: PLATELET COUNT, AUTOMATED 24 10^3/uL (150-450)
[2023-03-10 06:58] LABS: CALCIUM LEVEL 7.8 MG/DL (8.3-10.6); CREATININE FOR GFR 2.71 MG/DL (0.70-1.30); GLOMERULAR FILTRATION RATE 23.8 (>35); MAGNESIUM LEVEL 1.7 MG/DL (1.8-2.4); POTASSIUM SERUM 3.6 MMOL/L (3.5-5.1)
[2023-03-10 07:37] LABS: EOSINOPHILS 8 % (0-3); LYMPHOCYTES 43 % (16-44); NEUTROPHILS 49 % (28-66); PLATELET ESTIMATE MARKED DECREASE (NORMAL)
[2023-03-10 07:38] LABS: ANISOCYTOSIS 2+; HYPOCHROMASIA 2+
[2023-03-10 07:39] LABS: POLYCHROMASIA 1+; SMUDGE CELLS 2+
[2023-03-10] MEDS: ADVAIR HFA 115/21MCG INHALER INH SCH ×2 (07:56→19:50)
[2023-03-10] MEDS: TIOTROPIUM INHALER/CAPSULE (SPIRIVA) INH SCH (07:56)
[2023-03-10 08:14] LABS: HEMATOCRIT 27.5 % (42.0-52.0); HEMOGLOBIN 8.6 g/dl (13.5-17.5); MEAN CORPUSCULAR HEMOGLOBIN 32.7 pg (27.0-33.0); MEAN CORPUSCULAR HGB CONC 31.3 g/dl (32.0-36.5); MEAN CORPUSCULAR VOLUME 104.6 fl (80.0-96.0); RED BLOOD COUNT 2.63 10^6/uL (4.30-6.10); WHITE BLOOD COUNT 5.9 10^3/uL (4.0-10.0)
[2023-03-10 08:31] LABS: PLATELET COUNT, AUTOMATED 28 10^3/uL (150-450)
[2023-03-10] MEDS: METOPROLOL TART 25 MG TABLET PO SCH ×2 (09:01→21:00)
[2023-03-10] MEDS: MAGNESIUM OXIDE 400MG TAB (MAG-OX) PO SCH ×2 (09:01→21:45)
[2023-03-10] MEDS: ASPIRIN 81MG ENTERIC TABLET PO SCH (09:01)
[2023-03-10] MEDS: valACYclovir HCL 500 MG TAB PO SCH ×2 (09:01→21:43)
[2023-03-10] MEDS: INSULIN LISPRO (NovoLOG) PER UNIT SC SCH ×4 (09:01→21:00)
[2023-03-10] MEDS: DOCUSATE SODIUM 100MG CAPSULE PO SCH ×2 (09:01→21:45)
[2023-03-10] MEDS: BENZOCAINE 10% 9GM TUBE (ANBESOL) MT SCH ×4 (09:02→21:47)
[2023-03-10] MEDS: VANICREAM MOISTURIZING SKIN CREAM 113GM TUBE TOP SCH ×2 (09:02→21:46)
[2023-03-10] MEDS: NYSTATIN 100,000 UNITS/GM TOPICAL PWD 15GM TOP SCH ×2 (09:02→21:45)
[2023-03-10] MEDS: PANTOPRAZOLE 40MG TAB (PROTONIX) PO SCH (09:02)
[2023-03-10] MEDS: SANTYL OINT 30GM TOP SCH (09:03)
[2023-03-10] MEDS: TIMOLOL MALEATE 0.5% OPHTH SOLN 5 ML OU SCH ×2 (09:04→21:46)
[2023-03-10] MEDS: BRIMONIDINE 0.15% OPHTH SOLN 5 ML OU SCH ×3 (09:05→21:47)
[2023-03-10] MEDS: SODIUM CHLORIDE 0.9% INJ 10 ML SYR IV SCH (11:37)
[2023-03-10] MEDS ORDERED: POTASSIUM CHLORIDE 10MEQ SR TABLET PO ONE (13:00)
[2023-03-10 14:00] VITALS: BP 123/57; TEMP 97.2; O2SAT 99
[2023-03-10 17:02] VITALS: BP 131/65
[2023-03-10] MEDS: SPIRONOLACTONE 25 MG TAB PO SCH (17:02)
[2023-03-10 21:22] VITALS: BP 110/52; TEMP 97.3; O2SAT 97
[2023-03-10] MEDS: BUMETANIDE 1 MG TAB PO SCH (21:43)
[2023-03-10] MEDS: ATORVASTATIN 20 MG TAB PO SCH (21:44)
[2023-03-10] MEDS: LATANOPROST 0.005% OPHTH SOLN 2.5 ML OU SCH (21:46)
[2023-03-11 06:00] VITALS: BP 119/69; TEMP 97.3; O2SAT 95
[2023-03-11 06:17] LABS: HEMATOCRIT 25.7 % (42.0-52.0); HEMOGLOBIN 7.8 g/dl (13.5-17.5); MEAN CORPUSCULAR HEMOGLOBIN 31.7 pg (27.0-33.0); MEAN CORPUSCULAR HGB CONC 30.4 g/dl (32.0-36.5); MEAN CORPUSCULAR VOLUME 104.5 fl (80.0-96.0); RED BLOOD COUNT 2.46 10^6/uL (4.30-6.10); WHITE BLOOD COUNT 6.1 10^3/uL (4.0-10.0)
[2023-03-11 06:39] LABS: CALCIUM LEVEL 7.9 MG/DL (8.3-10.6); CREATININE FOR GFR 2.77 MG/DL (0.70-1.30); GLOMERULAR FILTRATION RATE 23.2 (>35); MAGNESIUM LEVEL 1.8 MG/DL (1.8-2.4)
[2023-03-11 06:55] LABS: PLATELET COUNT, AUTOMATED 27 10^3/uL (150-450)
[2023-03-11] MEDS: INSULIN LISPRO (NovoLOG) PER UNIT SC SCH ×4 (07:30→21:00)
[2023-03-11] MEDS: TIOTROPIUM INHALER/CAPSULE (SPIRIVA) INH SCH (07:57)
[2023-03-11] MEDS: ADVAIR HFA 115/21MCG INHALER INH SCH ×2 (07:57→21:22)
[2023-03-11 08:32] LABS: ATYPICAL LYMPH 13 % (0-5); EOSINOPHILS 11 % (0-3); LYMPHOCYTES 19 % (16-44); MONOCYTES 4 % (0-5); NEUTROPHILS 53 % (28-66)
[2023-03-11 08:33] LABS: ANISOCYTOSIS 2+; HYPOCHROMASIA 2+; MICROCYTOSIS 1+; TARGET CELLS 1+
[2023-03-11 08:38] LABS: PLATELET ESTIMATE DECREASED (NORMAL)
[2023-03-11] MEDS: DOCUSATE SODIUM 100MG CAPSULE PO SCH ×2 (09:00→21:54)
[2023-03-11] MEDS: MAGNESIUM OXIDE 400MG TAB (MAG-OX) PO SCH ×3 (09:00→21:53)
[2023-03-11 10:30] VITALS: BP 127/52
[2023-03-11] MEDS: BRIMONIDINE 0.15% OPHTH SOLN 5 ML OU SCH ×3 (10:38→21:51)
[2023-03-11] MEDS: ASPIRIN 81MG ENTERIC TABLET PO SCH (10:39)
[2023-03-11] MEDS: BUMETANIDE 1 MG TAB PO SCH ×2 (10:40→21:52)
[2023-03-11] MEDS: NORCO, ANEXSIA 5/325MG TABLET (HYDROcodone/ACETAMINOPHEN) PO PRN (10:40)
[2023-03-11] MEDS: SPIRONOLACTONE 25 MG TAB PO SCH ×2 (10:41→18:03)
[2023-03-11] MEDS: METOPROLOL TART 25 MG TABLET PO SCH ×2 (10:41→21:55)
[2023-03-11] MEDS: PANTOPRAZOLE 40MG TAB (PROTONIX) PO SCH (10:41)
[2023-03-11] MEDS: NYSTATIN 100,000 UNITS/GM TOPICAL PWD 15GM TOP SCH ×2 (10:42→21:50)
[2023-03-11] MEDS: valACYclovir HCL 500 MG TAB PO SCH ×2 (10:42→21:54)
[2023-03-11] MEDS: TIMOLOL MALEATE 0.5% OPHTH SOLN 5 ML OU SCH ×2 (10:42→21:51)
[2023-03-11] MEDS: SODIUM CHLORIDE 0.9% INJ 10 ML SYR IV SCH (10:43)
[2023-03-11] MEDS: SANTYL OINT 30GM TOP SCH (10:44)
[2023-03-11] MEDS: BENZOCAINE 10% 9GM TUBE (ANBESOL) MT SCH ×4 (10:45→21:49)
[2023-03-11] MEDS: VANICREAM MOISTURIZING SKIN CREAM 113GM TUBE TOP SCH ×2 (10:45→21:49)
[2023-03-11 14:00] VITALS: BP 120/54; TEMP 97; O2SAT 97
[2023-03-11 20:00] VITALS: BP 116/52; TEMP 97.7; O2SAT 100
[2023-03-11] MEDS: LATANOPROST 0.005% OPHTH SOLN 2.5 ML OU SCH (21:52)
[2023-03-11] MEDS: ATORVASTATIN 20 MG TAB PO SCH (21:56)
[2023-03-12 06:00] VITALS: BP 106/49; TEMP 97.2; O2SAT 97
[2023-03-12 06:15] LABS: HEMATOCRIT 26.1 % (42.0-52.0); HEMOGLOBIN 8.1 g/dl (13.5-17.5); MEAN CORPUSCULAR HEMOGLOBIN 32.4 pg (27.0-33.0); MEAN CORPUSCULAR VOLUME 104.4 fl (80.0-96.0); WHITE BLOOD COUNT 6.8 10^3/uL (4.0-10.0)
[2023-03-12 06:32] LABS: PLATELET COUNT, AUTOMATED 33 10^3/uL (150-450)
[2023-03-12] MEDS: ACETAMINOPHEN TAB 650MG DOSE (2X325MG) PO PRN (06:42)
[2023-03-12] MEDS: BENZOCAINE 10% 9GM TUBE (ANBESOL) MT SCH ×4 (06:43→20:37)
[2023-03-12 06:44] LABS: CREATININE FOR GFR 2.68 MG/DL (0.70-1.30); GLOMERULAR FILTRATION RATE 24.1 (>35); MAGNESIUM LEVEL 1.8 MG/DL (1.8-2.4)
[2023-03-12 07:59] LABS: ATYPICAL LYMPH 13 % (0-5); EOSINOPHILS 13 % (0-3); LYMPHOCYTES 24 % (16-44); MONOCYTES 4 % (0-5); NEUTROPHILS 45 % (28-66)
[2023-03-12 08:01] LABS: HYPOCHROMASIA 2+
[2023-03-12 08:02] LABS: ANISOCYTOSIS 3+; PLATELET ESTIMATE MARKED DECREASE (NORMAL)
[2023-03-12] MEDS: ADVAIR HFA 115/21MCG INHALER INH SCH ×2 (08:06→20:58)
[2023-03-12] MEDS: TIOTROPIUM INHALER/CAPSULE (SPIRIVA) INH SCH (08:06)
[2023-03-12] MEDS: MAGNESIUM OXIDE 400MG TAB (MAG-OX) PO SCH ×2 (09:00→20:33)
[2023-03-12] MEDS: FIDAXOMICIN 200 MG TAB (DIFICID) PO SCH ×2 (09:00→18:14)
[2023-03-12] MEDS: METOPROLOL TART 25 MG TABLET PO SCH ×2 (09:00→20:34)
[2023-03-12] MEDS: INSULIN LISPRO (NovoLOG) PER UNIT SC SCH ×4 (09:34→20:20)
[2023-03-12] MEDS: BUMETANIDE 1 MG TAB PO SCH ×2 (09:35→20:33)
[2023-03-12] MEDS: ASPIRIN 81MG ENTERIC TABLET PO SCH (09:35)
[2023-03-12] MEDS: valACYclovir HCL 500 MG TAB PO SCH ×2 (09:35→20:33)
[2023-03-12] MEDS: SPIRONOLACTONE 25 MG TAB PO SCH ×2 (09:37→18:14)
[2023-03-12] MEDS: DOCUSATE SODIUM 100MG CAPSULE PO SCH (09:37)
[2023-03-12] MEDS: CLOPIDOGREL 75 MG TAB PO SCH (09:37)
[2023-03-12] MEDS: PANTOPRAZOLE 40MG TAB (PROTONIX) PO SCH (09:38)
[2023-03-12] MEDS: TIMOLOL MALEATE 0.5% OPHTH SOLN 5 ML OU SCH ×2 (09:39→20:38)
[2023-03-12] MEDS: BRIMONIDINE 0.15% OPHTH SOLN 5 ML OU SCH ×3 (09:49→20:38)
[2023-03-12] MEDS: SANTYL OINT 30GM TOP SCH (09:50)
[2023-03-12] MEDS: NYSTATIN 100,000 UNITS/GM TOPICAL PWD 15GM TOP SCH ×2 (09:50→20:38)
[2023-03-12] MEDS: SODIUM CHLORIDE 0.9% INJ 10 ML SYR IV SCH (10:00)
[2023-03-12] MEDS: VANICREAM MOISTURIZING SKIN CREAM 113GM TUBE TOP SCH ×2 (10:01→20:39)
[2023-03-12] MEDS ORDERED: VANCOMYCIN ORAL SOL 250MG/5ML ORAL SYRINGE PO SCH (13:45)
[2023-03-12 14:00] VITALS: BP 120/63; TEMP 97.2; O2SAT 98
[2023-03-12] MEDS ORDERED: DIAPER RELIEF PASTE (DESITIN) 60GM TOP PRN ×2 (16:10→17:00)
[2023-03-12] MEDS: LACTOBACILLUS ACIDOPHILUS CAP (BACID) PO SCH (18:14)
[2023-03-12] MEDS: ATORVASTATIN 20 MG TAB PO SCH (20:33)
[2023-03-12] MEDS: LATANOPROST 0.005% OPHTH SOLN 2.5 ML OU SCH (20:38)
[2023-03-12 20:51] VITALS: BP 116/51; TEMP 97.9; O2SAT 96
[2023-03-12 22:00] VITALS: O2SAT 96
[2023-03-13 05:58] LABS: HEMATOCRIT 27.2 % (42.0-52.0); HEMOGLOBIN 8.5 g/dl (13.5-17.5); MEAN CORPUSCULAR HEMOGLOBIN 32.2 pg (27.0-33.0); MEAN CORPUSCULAR HGB CONC 31.3 g/dl (32.0-36.5); RED BLOOD COUNT 2.64 10^6/uL (4.30-6.10); WHITE BLOOD COUNT 6.2 10^3/uL (4.0-10.0)
[2023-03-13 06:00] VITALS: BP 116/49; TEMP 97.7; O2SAT 98
[2023-03-13 06:11] LABS: PLATELET COUNT, AUTOMATED 37 10^3/uL (150-450)
[2023-03-13 06:31] LABS: CALCIUM LEVEL 8.1 MG/DL (8.3-10.6); CREATININE FOR GFR 2.71 MG/DL (0.70-1.30); GLOMERULAR FILTRATION RATE 23.8 (>35)
[2023-03-13 06:41] LABS: ATYPICAL LYMPH 2 % (0-5); EOSINOPHILS 9 % (0-3); LYMPHOCYTES 37 % (16-44); MONOCYTES 13 % (0-5); MYELOCYTES 2 % (0-0); NEUTROPHILS 37 % (28-66); PLATELET ESTIMATE DECREASED (NORMAL)
[2023-03-13 06:42] LABS: ANISOCYTOSIS 2+; HYPOCHROMASIA 1+
[2023-03-13] MEDS: INSULIN LISPRO (NovoLOG) PER UNIT SC SCH ×4 (07:30→21:00)
[2023-03-13] MEDS: TIOTROPIUM INHALER/CAPSULE (SPIRIVA) INH SCH (07:49)
[2023-03-13] MEDS: ADVAIR HFA 115/21MCG INHALER INH SCH ×2 (07:49→20:06)
[2023-03-13] MEDS: MAGNESIUM OXIDE 400MG TAB (MAG-OX) PO SCH ×2 (09:00→22:34)
[2023-03-13] MEDS: BRIMONIDINE 0.15% OPHTH SOLN 5 ML OU SCH ×3 (09:00→22:36)
[2023-03-13] MEDS: SODIUM CHLORIDE 0.9% INJ 10 ML SYR IV SCH (09:00)
[2023-03-13] MEDS: BUMETANIDE 1 MG TAB PO SCH ×2 (09:52→22:33)
[2023-03-13] MEDS: LACTOBACILLUS ACIDOPHILUS CAP (BACID) PO SCH ×2 (09:57→17:11)
[2023-03-13] MEDS: NORCO, ANEXSIA 5/325MG TABLET (HYDROcodone/ACETAMINOPHEN) PO PRN ×2 (09:57→17:11)
[2023-03-13] MEDS: valACYclovir HCL 500 MG TAB PO SCH ×2 (09:57→22:34)
[2023-03-13] MEDS: ASPIRIN 81MG ENTERIC TABLET PO SCH (09:57)
[2023-03-13] MEDS: CLOPIDOGREL 75 MG TAB PO SCH (09:58)
[2023-03-13] MEDS: METOPROLOL TART 25 MG TABLET PO SCH ×2 (09:58→22:35)
[2023-03-13] MEDS: SPIRONOLACTONE 25 MG TAB PO SCH ×2 (09:58→17:11)
[2023-03-13] MEDS: PANTOPRAZOLE 40MG TAB (PROTONIX) PO SCH (09:58)
[2023-03-13] MEDS: VANICREAM MOISTURIZING SKIN CREAM 113GM TUBE TOP SCH ×2 (09:59→22:38)
[2023-03-13] MEDS: SANTYL OINT 30GM TOP SCH (09:59)
[2023-03-13] MEDS: NYSTATIN 100,000 UNITS/GM TOPICAL PWD 15GM TOP SCH ×2 (09:59→22:37)
[2023-03-13] MEDS: FIDAXOMICIN 200 MG TAB (DIFICID) PO SCH ×2 (09:59→22:33)
[2023-03-13] MEDS: BENZOCAINE 10% 9GM TUBE (ANBESOL) MT SCH ×4 (09:59→22:37)
[2023-03-13] MEDS: TIMOLOL MALEATE 0.5% OPHTH SOLN 5 ML OU SCH ×2 (10:00→22:37)
[2023-03-13 14:00] VITALS: BP 125/59; TEMP 97.7; O2SAT 97
[2023-03-13 20:37] VITALS: BP 124/59; TEMP 97.5; O2SAT 97
[2023-03-13 22:00] VITALS: O2SAT 97
[2023-03-13] MEDS: ATORVASTATIN 20 MG TAB PO SCH (22:33)
[2023-03-13] MEDS: guaiFENesin SYRUP 200MG 10ML UDC PO PRN (22:35)
[2023-03-13] MEDS: LATANOPROST 0.005% OPHTH SOLN 2.5 ML OU SCH (22:36)
[2023-03-14] VITALS (58 sets, daily range): BP systolic 50–142; BP diastolic 22–98; TEMP 97–100.8; O2SAT 85–100
[2023-03-14 02:11] LABS: APPEARANCE, URINE CLEAR (CLEAR); BACTERIA, URINE AUTO NEGATIVE (NEGATIVE); BILIRUBIN, URINE AUTO NEGATIVE (NEGATIVE); BLOOD, URINE BLOOD 2+ (NEGATIVE); COLOR, URINE YELLOW (YELLOW); GLUCOSE, URINE (UA) AUTO NEGATIVE (NEGATIVE); KETONE, URINE AUTO NEGATIVE (NEGATIVE); LEUKOCYTE ESTERASE, URINE AUTO 1+ (NEGATIVE); MUCUS, URINE SMALL (NEGATIVE); NITRITE, URINE AUTO NEGATIVE (NEGATIVE); PROTEIN, URINE AUTO NEGATIVE (NEGATIVE); RBC, URINE AUTO 31 /HPF (0-3); SQUAMOUS EPITHELIAL CELL UR AU 1 /HPF (0-6); TRANSITIONAL EPITHELIAL AUTO <1 /HPF; UROBILINOGEN, URINE AUTO 0.2 mg/dL (0.0-2.0); WBC, URINE AUTO 8 /HPF (0-3)
[2023-03-14 06:22] LABS: HEMATOCRIT 28.6 % (42.0-52.0); HEMOGLOBIN 8.9 g/dl (13.5-17.5); MEAN CORPUSCULAR HEMOGLOBIN 32.2 pg (27.0-33.0); MEAN CORPUSCULAR HGB CONC 31.1 g/dl (32.0-36.5); MEAN CORPUSCULAR VOLUME 103.6 fl (80.0-96.0); RED BLOOD COUNT 2.76 10^6/uL (4.30-6.10); WHITE BLOOD COUNT 5.6 10^3/uL (4.0-10.0)
[2023-03-14 06:35] LABS: PLATELET COUNT, AUTOMATED 42 10^3/uL (150-450)
[2023-03-14 06:43] LABS: CALCIUM LEVEL 8.4 MG/DL (8.3-10.6); CREATININE FOR GFR 2.95 MG/DL (0.70-1.30); GLOMERULAR FILTRATION RATE 21.6 (>35); MAGNESIUM LEVEL 1.9 MG/DL (1.8-2.4); POTASSIUM SERUM 4.2 MMOL/L (3.5-5.1)
[2023-03-14] MEDS: guaiFENesin SYRUP 200MG 10ML UDC PO PRN (06:43)
[2023-03-14 07:13] LABS: ATYPICAL LYMPH 25 % (0-5); EOSINOPHILS 6 % (0-3); LYMPHOCYTES 30 % (16-44); MONOCYTES 14 % (0-5); NEUTROPHILS 21 % (28-66)
[2023-03-14 07:14] LABS: HYPOCHROMASIA 1+; PLATELET ESTIMATE MARKED DECREASE (NORMAL); POLYCHROMASIA 1+
[2023-03-14 07:15] LABS: ANISOCYTOSIS 2+
[2023-03-14] MEDS: INSULIN LISPRO (NovoLOG) PER UNIT SC SCH ×3 (07:30→17:30)
[2023-03-14] MEDS: ADVAIR HFA 115/21MCG INHALER INH SCH ×2 (08:02→19:49)
[2023-03-14] MEDS: TIOTROPIUM INHALER/CAPSULE (SPIRIVA) INH SCH (08:02)
[2023-03-14] MEDS: SODIUM CHLORIDE 0.9% INJ 10 ML SYR IV SCH (09:00)
[2023-03-14] MEDS: MAGNESIUM OXIDE 400MG TAB (MAG-OX) PO SCH ×2 (09:00→21:00)
[2023-03-14] MEDS: BUMETANIDE 1 MG TAB PO SCH ×2 (09:00→21:23)
[2023-03-14] MEDS: NYSTATIN 100,000 UNITS/GM TOPICAL PWD 15GM TOP SCH ×2 (09:11→21:31)
[2023-03-14] MEDS: BENZOCAINE 10% 9GM TUBE (ANBESOL) MT SCH ×4 (09:11→21:26)
[2023-03-14] MEDS: LACTOBACILLUS ACIDOPHILUS CAP (BACID) PO SCH ×2 (09:11→18:00)
[2023-03-14] MEDS: VANICREAM MOISTURIZING SKIN CREAM 113GM TUBE TOP SCH ×2 (09:11→21:31)
[2023-03-14] MEDS: ASPIRIN 81MG ENTERIC TABLET PO SCH (09:12)
[2023-03-14] MEDS: FIDAXOMICIN 200 MG TAB (DIFICID) PO SCH ×2 (09:12→21:23)
[2023-03-14] MEDS: valACYclovir HCL 500 MG TAB PO SCH ×2 (09:12→21:23)
[2023-03-14] MEDS: METOPROLOL TART 25 MG TABLET PO SCH ×2 (09:13→20:55)
[2023-03-14] MEDS: BENZONATATE 100MG CAPSULE PO PRN (09:13)
[2023-03-14] MEDS: CLOPIDOGREL 75 MG TAB PO SCH (09:14)
[2023-03-14] MEDS: SPIRONOLACTONE 25 MG TAB PO SCH ×2 (09:14→17:00)
[2023-03-14] MEDS: PANTOPRAZOLE 40MG TAB (PROTONIX) PO SCH (09:14)
[2023-03-14] MEDS: NORCO, ANEXSIA 5/325MG TABLET (HYDROcodone/ACETAMINOPHEN) PO PRN (09:15)
[2023-03-14] MEDS: SANTYL OINT 30GM TOP SCH (09:16)
[2023-03-14] MEDS: TIMOLOL MALEATE 0.5% OPHTH SOLN 5 ML OU SCH ×2 (09:16→21:27)
[2023-03-14] MEDS: BRIMONIDINE 0.15% OPHTH SOLN 5 ML OU SCH ×3 (09:16→21:28)
[2023-03-14] MEDS ORDERED: BUMETANIDE 1 MG TAB PO ONE (11:00)
[2023-03-14 11:56] LABS: PROCALCITONIN 0.2 ng/ml
[2023-03-14] MEDS ORDERED: dexAMETHasone 20MG/5ML VIAL IV ONE (17:43)
[2023-03-14] MEDS ORDERED: VANCOMYCIN HCL 750 MG, VIAL MATE ADAPTER 1 EACH in D5W 250 ML IV SCH (18:05)
[2023-03-14] MEDS ORDERED: SODIUM CHLORIDE 0.9% 1000ML IV ONE (18:05)
[2023-03-14 18:20] LABS: HEMATOCRIT 29.4 % (42.0-52.0); HEMOGLOBIN 9.1 g/dl (13.5-17.5); MEAN CORPUSCULAR HEMOGLOBIN 32.2 pg (27.0-33.0); MEAN CORPUSCULAR VOLUME 103.9 fl (80.0-96.0); RED BLOOD COUNT 2.83 10^6/uL (4.30-6.10); WHITE BLOOD COUNT 3.1 10^3/uL (4.0-10.0)
[2023-03-14 18:28] LABS: PLATELET COUNT, AUTOMATED 41 10^3/uL (150-450)
[2023-03-14] MEDS: PIPERACILLIN/TAZOBACTAM SOD 3.375 GM in D5W MINI-BAG PLUS 50 ML IV SCH (18:29)
[2023-03-14] MEDS ORDERED: NOREPINEPHRINE 4MG IN D5 250ML 4 MG in IV 1 EA IV SCH ×2 (18:30)
[2023-03-14 18:40] LABS: ATYPICAL LYMPH 5 % (0-5); EOSINOPHILS 6 % (0-3); LYMPHOCYTES 36 % (16-44); MONOCYTES 11 % (0-5); NEUTROPHILS 31 % (28-66)
[2023-03-14 18:41] LABS: PLATELET ESTIMATE MARKED DECREASE (NORMAL)
[2023-03-14 18:42] LABS: ANISOCYTOSIS 1+; POIKILOCYTOSIS 1+; POLYCHROMASIA 2+
[2023-03-14 18:43] LABS: ALKALINE PHOSPHATASE 109 U/L (46-116); ALT/SGPT < 9 U/L (7.0-40); AST/SGOT 12 U/L (<34); BILIRUBIN,TOTAL 1.1 MG/DL (0.3-1.2); BLOOD UREA NITROGEN 60 MG/DL (9-23); CALCIUM LEVEL 8.1 MG/DL (8.3-10.6); CARBON DIOXIDE LEVEL 22 MMOL/L (20-31); CHLORIDE LEVEL 111 MMOL/L (98-107); CREATININE FOR GFR 3.11 MG/DL (0.70-1.30); GLOMERULAR FILTRATION RATE 20.3 (>35); GLUCOSE, FASTING 103 MG/DL (74-106); POTASSIUM SERUM 3.9 MMOL/L (3.5-5.1); SODIUM LEVEL 143 MMOL/L (136-145); TOTAL PROTEIN 5.6 G/DL (5.7-8.2)
[2023-03-14] MEDS ORDERED: dexmedeTOMIDine (4MCG/ML)200MCG/50ML BTL (PRECEDEX) As Ordered ONE (18:57)
[2023-03-14] MEDS ORDERED: FENTANYL DRIP LOCK BOX KEY 1 EACH XX PRN (19:00)
[2023-03-14] MEDS ORDERED: LR 1,000 ML IV ONE (19:00)
[2023-03-14] MEDS ORDERED: VASOPRESSIN INJ 20 UNITS in NS 499 ML IV SCH (19:00)
[2023-03-14] MEDS ORDERED: VANCOMYCIN HCL 1,000 MG, VIAL MATE ADAPTER 1 EACH in D5W 250 ML IV ONE ×2 (19:00→20:00)
[2023-03-14] MEDS: NOREPINEPHRINE 4MG IN D5 250ML 4 MG in IV 1 EA IV SCH ×4 (19:00→21:35)
[2023-03-14] MEDS ORDERED: MIDAZOLAM INJ 2MG/2ML VIAL As Ordered ONE (19:12)
[2023-03-14 19:44] LABS: ABG BASE EXCESS -5.6 (-2.0-2.0); ABG HCO3 18.6 MMOL/L (22.0-26.0); ABG O2 SATURATION 90.5 % (95.0-99.0); ABG PARTIAL PRESSURE CO2 31.9 mmHg (35.0-45.0); ABG PARTIAL PRESSURE O2 66.3 mmHg (75.0-100.0); ABG STANDARD HCO3 19.7 MMOL/L. (22.0-26.0); ABG TOTAL CO2 19.6 MMOL/L (23.0-31.0); ABG pH (ARTERIAL) 7.383 UNITS (7.350-7.450)
[2023-03-14] MEDS ORDERED: MIDAZOLAM INJ 2MG/2ML VIAL IV STA (19:44)
[2023-03-14] MEDS: fentaNYL CITRATE/NaCl 1,000 MCG in IV 1 EA IV SCH (20:07)
[2023-03-14] MEDS: VASOPRESSIN INJ 20 UNITS in NS 499 ML IV SCH (20:08)
[2023-03-14] MEDS: dexmedeTOMidine 200 MCG in IV 1 EA IV SCH ×2 (20:08→21:09)
[2023-03-14] MEDS: ATORVASTATIN 20 MG TAB PO SCH (21:23)
[2023-03-14] MEDS: LATANOPROST 0.005% OPHTH SOLN 2.5 ML OU SCH (21:28)
[2023-03-14] MEDS: metroNIDAZOLE 500 MG in IV 1 EA IV SCH (23:08)
[2023-03-15] VITALS (129 sets, daily range): BP systolic 47–150; BP diastolic 24–94; TEMP 95.2–104.4; O2SAT 80–100
[2023-03-15] MEDS: dexmedeTOMidine 200 MCG in IV 1 EA IV SCH ×8 (00:02→17:33)
[2023-03-15] MEDS: INSULIN LISPRO (NovoLOG) PER UNIT SC SCH ×5 (00:02→23:44)
[2023-03-15] MEDS: PIPERACILLIN/TAZOBACTAM SOD 3.375 GM in D5W MINI-BAG PLUS 50 ML IV SCH ×5 (00:02→23:37)
[2023-03-15] MEDS: NOREPINEPHRINE 4MG IN D5 250ML 4 MG in IV 1 EA IV SCH ×16 (01:59→23:38)
[2023-03-15] MEDS: VASOPRESSIN INJ 20 UNITS in NS 499 ML IV SCH ×3 (02:44→18:12)
[2023-03-15] MEDS: MIDAZOLAM INJ 2MG/2ML VIAL IV PRN ×5 (04:11→22:08)
[2023-03-15] MEDS: metroNIDAZOLE 500 MG in IV 1 EA IV SCH ×2 (04:12→12:48)
[2023-03-15 04:27] LABS: HEMATOCRIT 32.2 % (42.0-52.0); HEMOGLOBIN 10.1 g/dl (13.5-17.5); MEAN CORPUSCULAR HEMOGLOBIN 32.6 pg (27.0-33.0); MEAN CORPUSCULAR HGB CONC 31.4 g/dl (32.0-36.5); MEAN CORPUSCULAR VOLUME 103.9 fl (80.0-96.0); WHITE BLOOD COUNT 8.9 10^3/uL (4.0-10.0)
[2023-03-15] MEDS: ACETAMINOPHEN TAB 650MG DOSE (2X325MG) PO PRN ×2 (04:28→09:06)
[2023-03-15 04:33] LABS: PLATELET COUNT, AUTOMATED 78 10^3/uL (150-450)
[2023-03-15 04:56] LABS: VANCOMYCIN RANDOM 16.5 UG/ML
[2023-03-15 04:59] LABS: ATYPICAL LYMPH 1 % (0-5); LYMPHOCYTES 20 % (16-44); METAMYELOCYTES 8 % (0-0); MONOCYTES 6 % (0-5); NEUTROPHILS 47 % (28-66); PLATELET ESTIMATE DECREASED (NORMAL)
[2023-03-15 05:00] LABS: ANISOCYTOSIS 3+
[2023-03-15 05:01] LABS: HYPOCHROMASIA 1+
[2023-03-15 05:04] LABS: BLOOD UREA NITROGEN 59 MG/DL (9-23); CALCIUM LEVEL 7.5 MG/DL (8.3-10.6); CARBON DIOXIDE LEVEL 21 MMOL/L (20-31); CHLORIDE LEVEL 110 MMOL/L (98-107); CREATININE FOR GFR 2.93 MG/DL (0.70-1.30); GLOMERULAR FILTRATION RATE 21.8 (>35); GLUCOSE, FASTING 164 MG/DL (74-106); MAGNESIUM LEVEL 1.6 MG/DL (1.8-2.4); POTASSIUM SERUM 4.3 MMOL/L (3.5-5.1); SODIUM LEVEL 140 MMOL/L (136-145)
[2023-03-15] MEDS: MAG SULF 1GM/100ML (MAG RUN) 1 GM in IV 1 EA IV SCH ×2 (06:06→07:48)
[2023-03-15] MEDS: LACTOBACILLUS ACIDOPHILUS CAP (BACID) PO SCH ×2 (07:48→17:34)
[2023-03-15] MEDS: fentaNYL CITRATE/NaCl 1,000 MCG in IV 1 EA IV SCH (08:00)
[2023-03-15] MEDS: TIOTROPIUM INHALER/CAPSULE (SPIRIVA) INH SCH (08:00)
[2023-03-15] MEDS: ASPIRIN 81MG ENTERIC TABLET PO SCH (09:00)
[2023-03-15] MEDS: SODIUM CHLORIDE 0.9% INJ 10 ML SYR IV SCH (09:00)
[2023-03-15] MEDS: METOPROLOL TART 25 MG TABLET PO SCH ×2 (09:00→20:29)
[2023-03-15] MEDS: CLOPIDOGREL 75 MG TAB PO SCH (09:00)
[2023-03-15] MEDS: SPIRONOLACTONE 25 MG TAB PO SCH ×2 (09:07→17:35)
[2023-03-15] MEDS: dexAMETHasone 20MG/5ML VIAL IV SCH (09:07)
[2023-03-15] MEDS: BUMETANIDE 1 MG TAB PO SCH ×2 (09:07→20:51)
[2023-03-15] MEDS: PANTOPRAZOLE 40MG TAB (PROTONIX) PO SCH (09:07)
[2023-03-15] MEDS: BENZOCAINE 10% 9GM TUBE (ANBESOL) MT SCH ×4 (09:08→20:54)
[2023-03-15 09:47] LABS: CENTRAL VEN BASE EXCESS -8.1
[2023-03-15 10:07] LABS: ALBUMIN 1.8 G/DL (3.2-5.2); ALKALINE PHOSPHATASE 84 U/L (46-116); ALT/SGPT < 9 U/L (7.0-40); AST/SGOT 31 U/L (<34); BILIRUBIN,TOTAL 1.2 MG/DL (0.3-1.2); BLOOD UREA NITROGEN 58 MG/DL (9-23); CALCIUM LEVEL 7.3 MG/DL (8.3-10.6); CARBON DIOXIDE LEVEL 18 MMOL/L (20-31); CHLORIDE LEVEL 109 MMOL/L (98-107); CREATININE FOR GFR 2.88 MG/DL (0.70-1.30); GLOMERULAR FILTRATION RATE 22.2 (>35); GLUCOSE, FASTING 213 MG/DL (74-106); POTASSIUM SERUM 4.5 MMOL/L (3.5-5.1); SODIUM LEVEL 140 MMOL/L (136-145); TOTAL PROTEIN 5.3 G/DL (5.7-8.2)
[2023-03-15] MEDS: BRIMONIDINE 0.15% OPHTH SOLN 5 ML OU SCH ×3 (10:36→20:56)
[2023-03-15] MEDS: TIMOLOL MALEATE 0.5% OPHTH SOLN 5 ML OU SCH ×2 (10:36→20:54)
[2023-03-15] MEDS: SANTYL OINT 30GM TOP SCH (10:37)
[2023-03-15] MEDS: NYSTATIN 100,000 UNITS/GM TOPICAL PWD 15GM TOP SCH ×2 (10:37→20:56)
[2023-03-15] MEDS: VANICREAM MOISTURIZING SKIN CREAM 113GM TUBE TOP SCH ×2 (10:37→20:56)
[2023-03-15] MEDS: MAGNESIUM OXIDE 400MG TAB (MAG-OX) PO SCH ×2 (11:28→20:52)
[2023-03-15] MEDS: FIDAXOMICIN 200 MG TAB (DIFICID) PO SCH ×2 (11:28→20:52)
[2023-03-15] MEDS: ADVAIR HFA 115/21MCG INHALER INH SCH ×2 (11:41→19:19)
[2023-03-15 12:07] LABS: ABG HCO3 14.8 MMOL/L (22.0-26.0); ABG O2 SATURATION 95.3 % (95.0-99.0); ABG PARTIAL PRESSURE CO2 26.3 mmHg (35.0-45.0); ABG PARTIAL PRESSURE O2 83.5 mmHg (75.0-100.0); ABG STANDARD HCO3 17.2 MMOL/L. (22.0-26.0); ABG TOTAL CO2 15.6 MMOL/L (23.0-31.0); ABG pH (ARTERIAL) 7.369 UNITS (7.350-7.450)
[2023-03-15] MEDS ORDERED: FUROSEMIDE 100MG/10ML VIAL IV ONE (13:00)
[2023-03-15] MEDS ORDERED: VANCOMYCIN HCL 1,000 MG, VIAL MATE ADAPTER 1 EACH in D5W 250 ML IV SCH (14:00)
[2023-03-15 16:00] LABS: CLOSTRIDIUM DIFFICILE PCR POSITIVE (NEGATIVE)
[2023-03-15] MEDS ORDERED: EPINEPHrine HCL INJ 1 MG in D5W 249 ML IV SCH ×3 (17:30→19:00)
[2023-03-15] MEDS ORDERED: EPINEPHrine INJ 1 MG/ML 1ML AMP As Ordered ONE ×2 (17:47→17:49)
[2023-03-15 18:13] LABS: PROCALCITONIN >50.00 ng/ml
[2023-03-15] MEDS ORDERED: EPINEPHrine HCL INJ 1 MG in D5W 240 ML IV SCH ×3 (18:15→18:40)
[2023-03-15] MEDS ORDERED: EPINEPHrine 1MG/10ML SYRINGE 1.5IN IV STA (18:37)
[2023-03-15] MEDS ORDERED: EPINEPHrine 1MG/10ML SYRINGE 1.5IN ONE (18:51)
[2023-03-15] MEDS ORDERED: SODIUM BICARBONATE 8.4% INJ 50ML SYRINGE ONE (18:51)
[2023-03-15] MEDS ORDERED: CALCIUM CHLORIDE 10% 1 GM/10 ML SYR ONE (18:51)
[2023-03-15] MEDS: EPINEPHrine HCL INJ 1 MG in D5W 249 ML IV SCH ×2 (20:51→23:37)
[2023-03-15] MEDS: ATORVASTATIN 20 MG TAB PO SCH (20:52)
[2023-03-15] MEDS: LATANOPROST 0.005% OPHTH SOLN 2.5 ML OU SCH (20:55)
[2023-03-16] VITALS (113 sets, daily range): BP systolic 41–131; BP diastolic 15–82; TEMP 98.1–103.3; O2SAT 88–100
[2023-03-16] MEDS: MIDAZOLAM INJ 2MG/2ML VIAL IV PRN ×4 (00:41→17:58)
[2023-03-16] MEDS: VASOPRESSIN INJ 20 UNITS in NS 499 ML IV SCH ×3 (01:36→17:44)
[2023-03-16] MEDS: NOREPINEPHRINE 4MG IN D5 250ML 4 MG in IV 1 EA IV SCH ×20 (01:36→22:49)
[2023-03-16] MEDS: fentaNYL CITRATE/NaCl 1,000 MCG in IV 1 EA IV SCH (02:49)
[2023-03-16] MEDS: EPINEPHrine HCL INJ 1 MG in D5W 249 ML IV SCH ×2 (02:49→05:37)
[2023-03-16 04:19] LABS: VENOUS BASE EXCESS -13.9 (-2.0-2.0); VENOUS HCO3 14.2 MMOL/L (23.0-27.0); VENOUS O2 SATURATION 93.9 % (60.0-80.0); VENOUS PARTIAL PRESSURE CO2 41.1 mmHg (38.0-50.0); VENOUS PARTIAL PRESSURE O2 88.3 mmHg (30.0-50.0); VENOUS PH 7.156 UNITS (7.330-7.430); VENOUS STANDARD HCO3 13.7 MMOL/L; VENOUS TOTAL CO2 15.5 MMOL/L (24.0-28.0)
[2023-03-16 04:27] LABS: HEMATOCRIT 32.9 % (42.0-52.0); HEMOGLOBIN 10.2 g/dl (13.5-17.5); MEAN CORPUSCULAR HEMOGLOBIN 32.3 pg (27.0-33.0); MEAN CORPUSCULAR VOLUME 104.1 fl (80.0-96.0); RED BLOOD COUNT 3.16 10^6/uL (4.30-6.10)
[2023-03-16 04:32] LABS: PLATELET COUNT, AUTOMATED 98 10^3/uL (150-450)
[2023-03-16 04:48] LABS: CALCIUM LEVEL 7.2 MG/DL (8.3-10.6); CREATININE FOR GFR 2.75 MG/DL (0.70-1.30); GLOMERULAR FILTRATION RATE 23.4 (>35); POTASSIUM SERUM 4.7 MMOL/L (3.5-5.1)
[2023-03-16] MEDS: PIPERACILLIN/TAZOBACTAM SOD 3.375 GM in D5W MINI-BAG PLUS 50 ML IV SCH ×3 (05:37→17:44)
[2023-03-16] MEDS: INSULIN LISPRO (NovoLOG) PER UNIT SC SCH ×3 (05:41→17:58)
[2023-03-16 06:15] LABS: ATYPICAL LYMPH 12 % (0-5); LYMPHOCYTES 14 % (16-44); MONOCYTES 8 % (0-5); NEUTROPHILS 44 % (28-66)
[2023-03-16 06:16] LABS: ANISOCYTOSIS 2+; PLATELET ESTIMATE DECREASED (NORMAL)
[2023-03-16 06:17] LABS: MICROCYTOSIS 1+
[2023-03-16 06:18] LABS: POLYCHROMASIA 1+
[2023-03-16 06:21] LABS: BURR CELLS 1+; POIKILOCYTOSIS 1+
[2023-03-16] MEDS: ADVAIR HFA 115/21MCG INHALER INH SCH ×2 (07:12→19:22)
[2023-03-16] MEDS: TIOTROPIUM INHALER/CAPSULE (SPIRIVA) INH SCH (07:12)
[2023-03-16] MEDS: EPINEPHrine HCL INJ 4 MG in D5W 996 ML IV SCH ×3 (07:30→21:25)
[2023-03-16] MEDS: FIDAXOMICIN 200 MG TAB (DIFICID) PO SCH ×2 (08:29→20:32)
[2023-03-16] MEDS: LACTOBACILLUS ACIDOPHILUS CAP (BACID) PO SCH ×2 (08:29→17:44)
[2023-03-16] MEDS: BUMETANIDE 1 MG TAB PO SCH (08:31)
[2023-03-16] MEDS: CLOPIDOGREL 75 MG TAB PO SCH (08:31)
[2023-03-16] MEDS: PANTOPRAZOLE 40MG TAB (PROTONIX) PO SCH (08:31)
[2023-03-16] MEDS: ASPIRIN 81MG ENTERIC TABLET PO SCH (08:32)
[2023-03-16] MEDS: SPIRONOLACTONE 25 MG TAB PO SCH (08:32)
[2023-03-16] MEDS: dexAMETHasone 20MG/5ML VIAL IV SCH (08:33)
[2023-03-16] MEDS: MAGNESIUM OXIDE 400MG TAB (MAG-OX) PO SCH ×2 (08:33→20:32)
[2023-03-16] MEDS: ACETAMINOPHEN TAB 650MG DOSE (2X325MG) PO PRN ×2 (08:34→10:22)
[2023-03-16] MEDS: SODIUM CHLORIDE 0.9% INJ 10 ML SYR IV SCH (08:34)
[2023-03-16] MEDS: VANICREAM MOISTURIZING SKIN CREAM 113GM TUBE TOP SCH ×2 (09:00→20:44)
[2023-03-16] MEDS: TIMOLOL MALEATE 0.5% OPHTH SOLN 5 ML OU SCH ×2 (09:00→20:45)
[2023-03-16] MEDS: BRIMONIDINE 0.15% OPHTH SOLN 5 ML OU SCH ×3 (09:00→20:44)
[2023-03-16] MEDS: METOPROLOL TART 25 MG TABLET PO SCH ×2 (09:00→20:22)
[2023-03-16] MEDS: BENZOCAINE 10% 9GM TUBE (ANBESOL) MT SCH ×4 (09:00→20:47)
[2023-03-16] MEDS: NYSTATIN 100,000 UNITS/GM TOPICAL PWD 15GM TOP SCH ×2 (09:00→20:44)
[2023-03-16] MEDS ORDERED: BUMETANIDE 1MG/4ML VIAL IV ONE (10:00)
[2023-03-16 11:37] LABS: HEMOGLOBIN 10.1 g/dl (13.5-17.5); MEAN CORPUSCULAR HEMOGLOBIN 33.2 pg (27.0-33.0); MEAN CORPUSCULAR HGB CONC 31.6 g/dl (32.0-36.5); MEAN CORPUSCULAR VOLUME 105.3 fl (80.0-96.0); PLATELET COUNT, AUTOMATED 100 10^3/uL (150-450); RED BLOOD COUNT 3.04 10^6/uL (4.30-6.10); WHITE BLOOD COUNT 23.2 10^3/uL (4.0-10.0)
[2023-03-16 11:51] LABS: CALCIUM LEVEL 6.9 MG/DL (8.3-10.6); CREATININE FOR GFR 2.94 MG/DL (0.70-1.30); GLOMERULAR FILTRATION RATE 21.7 (>35); POTASSIUM SERUM 4.9 MMOL/L (3.5-5.1)
[2023-03-16] MEDS: VANCOMYCIN HCL 750 MG, VIAL MATE ADAPTER 1 EACH in D5W 250 ML IV SCH (14:30)
[2023-03-16] MEDS: SANTYL OINT 30GM TOP SCH (16:21)
[2023-03-16] MEDS: BUMETANIDE 1MG/4ML VIAL IV SCH (17:45)
[2023-03-16] MEDS ORDERED: ACETAMINOPHEN 1000MG 100ML IV BAG IV ONE (19:05)
[2023-03-16] MEDS ORDERED: LR 1,000 ML IV ONE (19:05)
[2023-03-16] MEDS ORDERED: LR 500 ML IV ONE (20:20)
[2023-03-16] MEDS: ATORVASTATIN 20 MG TAB PO SCH (20:22)
[2023-03-16] MEDS: LATANOPROST 0.005% OPHTH SOLN 2.5 ML OU SCH (20:44)
[2023-03-17] VITALS (58 sets, daily range): BP systolic 31–121; BP diastolic 11–93; TEMP 97.9–104; O2SAT 76–100
[2023-03-17] MEDS: PIPERACILLIN/TAZOBACTAM SOD 3.375 GM in D5W MINI-BAG PLUS 50 ML IV SCH ×5 (00:12→23:59)
[2023-03-17] MEDS: INSULIN LISPRO (NovoLOG) PER UNIT SC SCH ×4 (00:12→18:35)
[2023-03-17] MEDS: VASOPRESSIN INJ 20 UNITS in NS 499 ML IV SCH ×3 (01:06→17:03)
[2023-03-17] MEDS: NOREPINEPHRINE 4MG IN D5 250ML 4 MG in IV 1 EA IV SCH ×20 (01:08→23:33)
[2023-03-17] MEDS: ACETAMINOPHEN TAB 650MG DOSE (2X325MG) PO PRN ×2 (02:15→21:01)
[2023-03-17] MEDS ORDERED: LR 500 ML IV ONE (02:20)
[2023-03-17] MEDS: fentaNYL CITRATE/NaCl 1,000 MCG in IV 1 EA IV SCH (02:36)
[2023-03-17] MEDS: EPINEPHrine HCL INJ 4 MG in D5W 996 ML IV SCH ×4 (02:50→22:10)
[2023-03-17 04:49] LABS: HEMATOCRIT 29.7 % (42.0-52.0); HEMOGLOBIN 9.2 g/dl (13.5-17.5); MEAN CORPUSCULAR HEMOGLOBIN 32.5 pg (27.0-33.0); MEAN CORPUSCULAR VOLUME 104.9 fl (80.0-96.0); RED BLOOD COUNT 2.83 10^6/uL (4.30-6.10); WHITE BLOOD COUNT 18.9 10^3/uL (4.0-10.0)
[2023-03-17 05:16] LABS: PLATELET COUNT, AUTOMATED 99 10^3/uL (150-450)
[2023-03-17] MEDS: BUMETANIDE 1MG/4ML VIAL IV SCH ×2 (05:31→18:34)
[2023-03-17 05:45] LABS: ATYPICAL LYMPH 3 % (0-5); EOSINOPHILS 1 % (0-3); LYMPHOCYTES 11 % (16-44); MONOCYTES 13 % (0-5); MYELOCYTES 1 % (0-0); NEUTROPHILS 57 % (28-66); NUCLEATED RED BLOOD CELL 10 % (0-0); PLATELET ESTIMATE MARKED DECREASE (NORMAL)
[2023-03-17 05:46] LABS: ABG BASE EXCESS -18.1 (-2.0-2.0); ABG HCO3 11.7 MMOL/L (22.0-26.0); ABG O2 SATURATION 96.9 % (95.0-99.0); ABG PARTIAL PRESSURE CO2 43.7 mmHg (35.0-45.0); ABG PARTIAL PRESSURE O2 110.7 mmHg (75.0-100.0); ABG STANDARD HCO3 10.8 MMOL/L. (22.0-26.0)
[2023-03-17 05:49] LABS: ANISOCYTOSIS 1+; MICROCYTOSIS 1+
[2023-03-17 05:50] LABS: ABG pH (ARTERIAL) 7.045 UNITS (7.350-7.450); BURR CELLS 1+; POIKILOCYTOSIS 2+; POLYCHROMASIA 1+
[2023-03-17 06:07] LABS: ALBUMIN 1.3 G/DL (3.2-5.2); BILIRUBIN,TOTAL 1.7 MG/DL (0.3-1.2); CALCIUM LEVEL 6.2 MG/DL (8.3-10.6); CREATININE FOR GFR 3.15 MG/DL (0.70-1.30); MAGNESIUM LEVEL 1.7 MG/DL (1.8-2.4); POTASSIUM SERUM 5.4 MMOL/L (3.5-5.1); TOTAL PROTEIN 4.7 G/DL (5.7-8.2)
[2023-03-17] MEDS ORDERED: SODIUM BICARBONATE 8.4% INJ 50ML SYRINGE IV ONE (07:20)
[2023-03-17] MEDS: TIOTROPIUM INHALER/CAPSULE (SPIRIVA) INH SCH (07:21)
[2023-03-17] MEDS: ADVAIR HFA 115/21MCG INHALER INH SCH ×2 (07:21→20:09)
[2023-03-17] MEDS: ASPIRIN 81MG ENTERIC TABLET PO SCH (08:35)
[2023-03-17] MEDS: PANTOPRAZOLE 40MG TAB (PROTONIX) PO SCH (08:35)
[2023-03-17] MEDS: BENZOCAINE 10% 9GM TUBE (ANBESOL) MT SCH ×4 (08:35→21:04)
[2023-03-17] MEDS: LACTOBACILLUS ACIDOPHILUS CAP (BACID) PO SCH ×2 (08:35→18:35)
[2023-03-17] MEDS: FIDAXOMICIN 200 MG TAB (DIFICID) PO SCH ×2 (08:35→21:01)
[2023-03-17] MEDS: METOPROLOL TART 25 MG TABLET PO SCH ×2 (08:36→19:17)
[2023-03-17] MEDS: MAGNESIUM OXIDE 400MG TAB (MAG-OX) PO SCH ×2 (08:36→21:01)
[2023-03-17] MEDS: CLOPIDOGREL 75 MG TAB PO SCH (08:37)
[2023-03-17] MEDS: dexAMETHasone 20MG/5ML VIAL IV SCH (08:37)
[2023-03-17] MEDS: SODIUM CHLORIDE 0.9% INJ 10 ML SYR IV SCH (08:37)
[2023-03-17] MEDS: SANTYL OINT 30GM TOP SCH (08:38)
[2023-03-17] MEDS: VANICREAM MOISTURIZING SKIN CREAM 113GM TUBE TOP SCH ×2 (08:38→21:03)
[2023-03-17] MEDS: BRIMONIDINE 0.15% OPHTH SOLN 5 ML OU SCH ×3 (08:38→21:02)
[2023-03-17] MEDS: TIMOLOL MALEATE 0.5% OPHTH SOLN 5 ML OU SCH ×2 (08:39→21:03)
[2023-03-17] MEDS: NYSTATIN 100,000 UNITS/GM TOPICAL PWD 15GM TOP SCH ×2 (08:39→21:03)
[2023-03-17] MEDS: VANCOMYCIN HCL 750 MG, VIAL MATE ADAPTER 1 EACH in D5W 250 ML IV SCH (15:13)
[2023-03-17] MEDS: ATORVASTATIN 20 MG TAB PO SCH (21:01)
[2023-03-17] MEDS: LATANOPROST 0.005% OPHTH SOLN 2.5 ML OU SCH (21:04)
[2023-03-18] VITALS (59 sets, daily range): BP systolic 28–124; BP diastolic 10–62; TEMP 101.4–102.4; O2SAT 94–97
[2023-03-18] MEDS: INSULIN LISPRO (NovoLOG) PER UNIT SC SCH ×3 (00:04→12:10)
[2023-03-18] MEDS: VASOPRESSIN INJ 20 UNITS in NS 499 ML IV SCH ×2 (01:45→09:44)
[2023-03-18] MEDS: NOREPINEPHRINE 4MG IN D5 250ML 4 MG in IV 1 EA IV SCH ×14 (01:45→16:01)
[2023-03-18] MEDS: PIPERACILLIN/TAZOBACTAM SOD 3.375 GM in D5W MINI-BAG PLUS 50 ML IV SCH ×2 (05:26→11:13)
[2023-03-18] MEDS: BUMETANIDE 1MG/4ML VIAL IV SCH (05:27)
[2023-03-18] MEDS: EPINEPHrine HCL INJ 4 MG in D5W 996 ML IV SCH ×2 (05:34→11:55)
[2023-03-18] MEDS: ADVAIR HFA 115/21MCG INHALER INH SCH (07:18)
[2023-03-18] MEDS: TIOTROPIUM INHALER/CAPSULE (SPIRIVA) INH SCH (07:19)
[2023-03-18] MEDS ORDERED: EPINEPHrine HCL INJ 4 MG in D5W 996 ML IV SCH (07:58)
[2023-03-18] MEDS ORDERED: LR 1,000 ML IV ONE (08:00)
[2023-03-18] MEDS: METOPROLOL TART 25 MG TABLET PO SCH (08:11)
[2023-03-18] MEDS: SANTYL OINT 30GM TOP SCH (08:54)
[2023-03-18] MEDS: VANICREAM MOISTURIZING SKIN CREAM 113GM TUBE TOP SCH (08:54)
[2023-03-18] MEDS: BRIMONIDINE 0.15% OPHTH SOLN 5 ML OU SCH (08:55)
[2023-03-18] MEDS: TIMOLOL MALEATE 0.5% OPHTH SOLN 5 ML OU SCH (08:55)
[2023-03-18] MEDS: NYSTATIN 100,000 UNITS/GM TOPICAL PWD 15GM TOP SCH (08:55)
[2023-03-18] MEDS: dexAMETHasone 20MG/5ML VIAL IV SCH (08:56)
[2023-03-18] MEDS: MAGNESIUM OXIDE 400MG TAB (MAG-OX) PO SCH (08:56)
[2023-03-18] MEDS: ASPIRIN 81MG ENTERIC TABLET PO SCH (08:56)
[2023-03-18] MEDS: PANTOPRAZOLE 40MG TAB (PROTONIX) PO SCH (08:56)
[2023-03-18] MEDS: SODIUM CHLORIDE 0.9% INJ 10 ML SYR IV SCH (08:56)
[2023-03-18] MEDS: BENZOCAINE 10% 9GM TUBE (ANBESOL) MT SCH ×2 (08:57→12:10)
[2023-03-18] MEDS: ACETAMINOPHEN TAB 650MG DOSE (2X325MG) PO PRN ×2 (08:57→14:24)
[2023-03-18] MEDS: CLOPIDOGREL 75 MG TAB PO SCH (08:57)
[2023-03-18] MEDS: LACTOBACILLUS ACIDOPHILUS CAP (BACID) PO SCH (08:57)
[2023-03-18] MEDS: FIDAXOMICIN 200 MG TAB (DIFICID) PO SCH (08:57)
[2023-03-18 15:10] LABS: HEMATOCRIT 27.4 % (42.0-52.0); HEMOGLOBIN 8.7 g/dl (13.5-17.5); MEAN CORPUSCULAR HEMOGLOBIN 32.5 pg (27.0-33.0); MEAN CORPUSCULAR HGB CONC 31.8 g/dl (32.0-36.5); MEAN CORPUSCULAR VOLUME 102.2 fl (80.0-96.0); RED BLOOD COUNT 2.68 10^6/uL (4.30-6.10); WHITE BLOOD COUNT 11.4 10^3/uL (4.0-10.0)
[2023-03-18 15:24] LABS: PLATELET COUNT, AUTOMATED 36 10^3/uL (150-450)
[2023-03-18 15:42] LABS: BLOOD UREA NITROGEN 65 MG/DL (9-23); CALCIUM LEVEL 6.1 MG/DL (8.3-10.6); CARBON DIOXIDE LEVEL < 10.0 MMOL/L (20-31); CHLORIDE LEVEL 83 MMOL/L (98-107); CREATININE FOR GFR 3.81 MG/DL (0.70-1.30); GLOMERULAR FILTRATION RATE 16.1 (>35); GLUCOSE, FASTING 404 MG/DL (74-106); SODIUM LEVEL 109 MMOL/L (136-145)
[2023-03-18] MEDS ORDERED: INSULIN LISPRO (NovoLOG) PER UNIT SC ONE (15:45)
[2023-03-18] MEDS ORDERED: CALCIUM GLUCONATE 1,000 MG in D5W MINI-BAG PLUS 100 ML IV ONE (15:50)
[2023-03-18 16:21] LABS: ABG BASE EXCESS -20.6 (-2.0-2.0); ABG HCO3 8.2 MMOL/L (22.0-26.0); ABG O2 SATURATION 98.8 % (95.0-99.0); ABG PARTIAL PRESSURE CO2 29.3 mmHg (35.0-45.0); ABG PARTIAL PRESSURE O2 166.6 mmHg (75.0-100.0); ABG STANDARD HCO3 9.1 MMOL/L. (22.0-26.0); ABG TOTAL CO2 9.1 MMOL/L (23.0-31.0)
[2023-03-18 16:24] LABS: ABG pH (ARTERIAL) 7.066 UNITS (7.350-7.450)
[2023-03-18] MEDS ORDERED: VANCOMYCIN HCL 500 MG in D5W MINI-BAG PLUS 100 ML IV SCH (17:00)
[2023-03-18] MEDS ORDERED: MORPHINE 4 MG/ML 1ML VIAL IV ONE (18:10)
[2023-03-18] MEDS ORDERED: MORPHINE 2 MG/ML 1ML VIAL IV ONE (18:35)
[2023-03-18] MEDS ORDERED: MORPHINE SULF IN 0.9% NACL 100 MG in IV 1 EA IV SCH ×2 (20:00)
[2023-03-18] MEDS ORDERED: LEVEMIR (INSULIN DETEMIR) 1 UNITS/0.01ML SC SCH (21:00)
== END 2023-03-18 19:16 | disposition expired | DRG 291 ==
LOC: M PCU 23:38 → M MSPAV 02-28 21:10 → M ICU 03-14 17:47
PROVIDERS: ADMIT Family Medicine; ATTEND Family Medicine
PROC: 0JBR3ZZ Excision of Left Foot Subcutaneous Tissue and Fascia, Percutaneous Approach (ICD-10-PCS; principal; 2023-02-27)
PROC: 0JBQ3ZZ Excision of Right Foot Subcutaneous Tissue and Fascia, Percutaneous Approach (ICD-10-PCS; 2023-02-27)
PROC: 30233J1 Transfusion of Nonautologous Serum Albumin into Peripheral Vein, Percutaneous Approach (ICD-10-PCS; 2023-03-01)
PROC: 30233N1 Transfusion of Nonautologous Red Blood Cells into Peripheral Vein, Percutaneous Approach (ICD-10-PCS; 2023-03-03)
PROC: 06HM33Z Insertion of Infusion Device into Right Femoral Vein, Percutaneous Approach (ICD-10-PCS; 2023-03-14)
PROC: 0BH17EZ Insertion of Endotracheal Airway into Trachea, Via Natural or Artificial Opening (ICD-10-PCS; 2023-03-14)
PROC: 5A1945Z Respiratory Ventilation, 24-96 Consecutive Hours (ICD-10-PCS; 2023-03-14)
PROC: 05HN33Z Insertion of Infusion Device into Left Internal Jugular Vein, Percutaneous Approach (ICD-10-PCS; 2023-03-15)
DX: I13.0 Hypertensive heart and chronic kidney disease with heart failure and stage 1 through stage 4 chronic kidney disease, or unspecified chronic kidney disease (principal); I50.43 Acute on chronic combined systolic (congestive) and diastolic (congestive) heart failure; U07.1 COVID-19; R65.21 Severe sepsis with septic shock; A41.9 Sepsis, unspecified organism; J96.91 Respiratory failure, unspecified with hypoxia; N18.4 Chronic kidney disease, stage 4 (severe); C91.10 Chronic lymphocytic leukemia of B-cell type not having achieved remission; E87.1 Hypo-osmolality and hyponatremia; L03.116 Cellulitis of left lower limb; E87.4 Mixed disorder of acid-base balance; A04.72 Enterocolitis due to Clostridium difficile, not specified as recurrent; E11.10 Type 2 diabetes mellitus with ketoacidosis without coma; Z66 Do not resuscitate; D64.9 Anemia, unspecified; I48.91 Unspecified atrial fibrillation; I27.20 Pulmonary hypertension, unspecified; E11.621 Type 2 diabetes mellitus with foot ulcer; E11.22 Type 2 diabetes mellitus with diabetic chronic kidney disease; G47.33 Obstructive sleep apnea (adult) (pediatric); K21.9 Gastro-esophageal reflux disease without esophagitis; I25.10 Atherosclerotic heart disease of native coronary artery without angina pectoris; E78.5 Hyperlipidemia, unspecified; I73.9 Peripheral vascular disease, unspecified; E11.51 Type 2 diabetes mellitus with diabetic peripheral angiopathy without gangrene; H40.9 Unspecified glaucoma; I46.9 Cardiac arrest, cause unspecified; J44.9 Chronic obstructive pulmonary disease, unspecified; D69.6 Thrombocytopenia, unspecified; L97.519 Non-pressure chronic ulcer of other part of right foot with unspecified severity; L97.529 Non-pressure chronic ulcer of other part of left foot with unspecified severity; B02.9 Zoster without complications; M46.45 Discitis, unspecified, thoracolumbar region; I35.0 Nonrheumatic aortic (valve) stenosis; E83.42 Hypomagnesemia; Z85.46 Personal history of malignant neoplasm of prostate; Z79.4 Long term (current) use of insulin; Z79.899 Other long term (current) drug therapy; Z91.040 Latex allergy status; Z96.651 Presence of right artificial knee joint; Z98.41 Cataract extraction status, right eye; Z98.42 Cataract extraction status, left eye; Z85.828 Personal history of other malignant neoplasm of skin; Z89.412 Acquired absence of left great toe; Z87.891 Personal history of nicotine dependence